=== PATIENT | female | born 1970 | race Caucasian/White ===

== ENCOUNTER 2022-12-05 00:42 | Observation (INO) ==
[2022-12-05] MEDS ORDERED: LORazepam 2 MG/1 ML VIAL IV STA (00:47)
--- NOTE | 2022-12-05 00:57 | Emergency Department Note ---
History of Present Illness General Chief complaint: Fall Stated complaint: FALL/RE-INJURED rt KNEE Time Seen by Provider: 12/05/22 00:46 History of Present Illness This 52-year-old female with severe fibromyalgia presents to the ER stating that she fell and reinjured her left knee and has severe pain throughout her joints. Patient states she was too weak to get up from the ground and no one in her family would come help her. Patient was just at a safe house as she is having problems with her . She even called her today to come help her up. Patient states she sat on the ground for 4 hours before someone came and helped her. Patient denies chest pain, dyspnea, headache, abdominal, vomiting, diarrhea. Patient is requesting admission. Past Med/Surg History Medical History Anxiety Asthma Depression Dyslipidemia Environmental and seasonal allergies Fibromyalgia Insomnia Peripheral neuropathy PTSD (post-traumatic stress disorder) Surgical History History of cholecystectomy History of colonoscopy History of tonsillectomy Social History Smoking Status: Unknown if ever smoked Preferred Language: Czech Feels Safe at Home: No Review of Systems A total of 10 systems reviewed and were otherwise negative Physical Exam Vital Signs Vital Signs - 24 hr 12/05/22 00:45 Temperature 37.1 C Temperature Source Oral Pulse Rate 83 Respiratory Rate 20 Respiratory Effort / Characteristics Non-Labored Spontaneous Respiratory Depth Normal Respiratory Pattern Regular Blood Pressure 174/110 H Blood Pressure Mean 131 Pulse Oximetry 98 Oxygen Delivery Method Room Air Sepsis Recent Fever Within 48 Hours No Sepsis New/Unexplained Change in Mental Status No Sepsis Action Taken by Nursing No Action Required VITALS: Vitals are noted on the nurse's note and reviewed by myself. Vital signs stable. GENERAL: White female, in no acute distress, nondiaphoretic, well-developed well-nourished. SKIN: The skin was without rashes, erythema, edema, or bruising. There is no tenting of the skin. Capillary reflex less than 2 seconds. HEAD: Normocephalic atraumatic. EARS: External auditory canals clear EYES: Pupils equal round and reactive to light and accommodation. Conjunctivae without injection, sclerae without icterus. Extraocular movements intact. NOSE: Patent, turbinates without inflammation or discharge. MOUTH: Mucous membranes moist. Pharynx without erythema or exudate. Uvula midline. Airway patent. Tongue does not deviate. NECK: Supple without nuchal rigidity. No lymphadenopathy. No thyromegaly. Cervical spine is nontender. No JVD. HEART: Regular rate and rhythm LUNGS: Clear to auscultation bilaterally without wheezes, rales or rhonchi. No retractions or accessory muscle use. ABDOMEN: Positive bowel sounds x 4. Normal tympanic percussion. Soft, nontender, without masses or organomegaly. Boyer sign negative. No guarding or rebound tenderness. No CVA tenderness MUSCULOSKELETAL: No muscle atrophy, erythema, or edema noted. Left knee tender to palpation with increased pain with range of motion. No deformity. All other extremities full range of motion. NEURO: Patient was alert and oriented to person place and time. Normal sensation to light and sharp touch. No focal neurological deficits. 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 Home Medications Current Medication List: was personally reviewed by or Laboratory Data Attestation: I reviewed the patient's lab results. 12/05/22 01:00 12/05/22 01:00 Lab Results 12/05/22 12/05/22 12/05/22 Range/Units 01:00 01:00 01:00 WBC 11.19 H (4.8-10.8) K/ul RBC 4.50 (4.20-5.40) M/uL Hgb 13.9 (12.0-16.0) g/dl Hct 40.6 (37.0-47.0) % MCV 90.2 (80.0-100.0) fL MCH 30.9 (25.0-34.0) pg MCHC 34.2 (32.0-36.0) g/dL RDW Std Deviation 42.8 (36.4-46.3) fL RDW Coeff of [place] 13.1 (11.5-14.5) % Plt Count 325 (130-400) K/uL MPV 10.5 (9.4-12.4) fL Immature Gran % (Auto) 0.4 % Neut % (Auto) 66.5 % Lymph % (Auto) 22.6 % [place] % (Auto) 5.9 % Eos % (Auto) 3.9 % Baso % (Auto) 0.7 % Neut # (Auto) 7.43 H (1.40-6.50) K/uL Lymph # (Auto) 2.53 (1.2-3.4) K/uL [place] # (Auto) 0.66 H (0.11-0.59) K/uL Eos # (Auto) 0.44 (0-0.50) K/uL Baso # (Auto) 0.08 (0-0.2) K/uL Immature Gran # (Auto) 0.05 (0.01-0.20) K/uL Sodium 141 (136-145) mmol/L Potassium 3.9 (3.5-5.1) mmol/L Chloride 108 H (98-107) mmol/L Carbon Dioxide 25 (21-32) mmol/L Anion Gap 8 (3-11) BUN 9 (6-23) mg/dl Creatinine 0.86 (0.6-1.2) mg/dl Est Cr Clr Drug Dosing 67.6 ml/min Est GFR ( Amer) 89.4 ml/min Est GFR (Non-Af Amer) 77.1 ml/min BUN/Creatinine Ratio 10.5 (10-20) Glucose 104 H (70-99(Fasting)) mg/dl Calcium 9.2 (8.6-10.3) mg/dl Magnesium 1.8 (1.7-2.4) mg/dl Total Bilirubin 0.5 (0.2-1.0) mg/dl AST 19 (13-39) U/L ALT 12 (7-52) U/L Alkaline Phosphatase 69 (34-104) U/L Total Creatine Kinase 43 (26-192) U/L Troponin I High Sens 2.7 (0-14) pg/ml Total Protein 6.7 (6.0-8.3) gm/dl Albumin 4.0 (3.4-5.0) gm/dl Globulin 2.7 (2.5-4.0) gm/dl Albumin/Globulin Ratio 1.5 (0.9-2) TSH 4.065 (0.300-4.500) uIu/ml SARS-CoV-2, RNA, NAAT (NEGATIVE) 12/05/22 Range/Units 01:00 WBC (4.8-10.8) K/ul RBC (4.20-5.40) M/uL Hgb (12.0-16.0) g/dl Hct (37.0-47.0) % MCV (80.0-100.0) fL MCH (25.0-34.0) pg MCHC (32.0-36.0) g/dL RDW Std Deviation (36.4-46.3) fL RDW Coeff of [place] (11.5-14.5) % Plt Count (130-400) K/uL MPV (9.4-12.4) fL Immature Gran % (Auto) % Neut % (Auto) % Lymph % (Auto) % [place] % (Auto) % Eos % (Auto) % Baso % (Auto) % Neut # (Auto) (1.40-6.50) K/uL Lymph # (Auto) (1.2-3.4) K/uL [place] # (Auto) (0.11-0.59) K/uL Eos # (Auto) (0-0.50) K/uL Baso # (Auto) (0-0.2) K/uL Immature Gran # (Auto) (0.01-0.20) K/uL Sodium (136-145) mmol/L Potassium (3.5-5.1) mmol/L Chloride (98-107) mmol/L Carbon Dioxide (21-32) mmol/L Anion Gap (3-11) BUN (6-23) mg/dl Creatinine (0.6-1.2) mg/dl Est Cr Clr Drug Dosing ml/min Est GFR ( Amer) ml/min Est GFR (Non-Af Amer) ml/min BUN/Creatinine Ratio (10-20) Glucose (70-99(Fasting)) mg/dl Calcium (8.6-10.3) mg/dl Magnesium (1.7-2.4) mg/dl Total Bilirubin (0.2-1.0) mg/dl AST (13-39) U/L ALT (7-52) U/L Alkaline Phosphatase (34-104) U/L Total Creatine Kinase (26-192) U/L Troponin I High Sens (0-14) pg/ml Total Protein (6.0-8.3) gm/dl Albumin (3.4-5.0) gm/dl Globulin (2.5-4.0) gm/dl Albumin/Globulin Ratio (0.9-2) TSH (0.300-4.500) uIu/ml SARS-CoV-2, RNA, NAAT NEGATIVE (NEGATIVE) Imaging Data Attestation: I personally reviewed and interpreted this imaging study as follows: MDM Narrative Prior records/ancillary studies reviewed and summarized above. Nursing notes reviewed. Additional history obtained from EMS. The patient's history was concerning for fall and generalized weakness unsafe environment. Differential diagnosis: Etiologies such as metabolic, infection, hypo/hyperglycemia, electrolyte abnormalities, cardiac sources, intracerebral event, toxicologic, neurologic, as well as others were entertained. Physical examination: As above. ER treatment provided: IV Lock An order was placed for continuous cardiac monitoring. The monitor shows a rate of 60-100 with a sinus rhythm per my interpretation. IV fluids and Ativan ordered On reassessment the patient felt better. Diagnostics interpretation by me: ECG: Ordered for weakness EKG: Normal sinus, normal intervals, no acute ST-T wave changes. Impression normal sinus rhythm independently interpreted by myself I think arrhythmia is unlikely. EKG shows normal sinus rhythm with no interval abnormalities such as QT prolongation or WPW. There are no findings to suggest Brugada syndrome. Cardiac monitoring in the emergency department reveals no tachycardic or bradycardic dysrhythmia. Hypertrophic cardiomyopathy was considered but there are no clear historical elements pointing toward this. EKG is not suggestive. The QRS voltage is not extremely large and there are no suggestive Q waves. The labs Independently Interpreted by myself revealed [] Imaging studies: Chest x-ray with no acute consolidation, pneumothorax or free air per my independent interpretation Knee x-ray with no acute fracture dislocation or effusion per my independent interpretation Consultation: A consultation was placed with the hospitalist. The case was discussed and diagnostics were reviewed. The patient was evaluated in the ER for further treatment. Exam and history seem consistent with fall with weakness who does not feel safe going home. Labs and diagnostics were independently interpreted by myself. Medicine is consulted and the case was discussed. She will be evaluated by the medical team for possible admission. By the evaluation outlined above emergent etiologies such as infection, electrolyte abnormalities, cardiac sources, intracerebral event, toxologic, neurologic, abnormalities blood glucose, metabolic, as well as others were deemed relatively unlikely. The pt informed about the findings as listed above. All questions were answered and pleased with the treatment. The chart was completed utilizing [employer] Speech voice recognition software. Grammatical errors, random word insertions, pronoun errors, and incomplete sentences are an occassional consequence of this system due to software limitations, ambient noise, and hardware issues. Any formal questions or concerns about the content, text, or information contained within the body of this dictation should be directly addressed to the physician clinic office assistant for clarification. Impression & Plan Fibromyalgia, Weakness, Acute knee pain Discharge Plan Visit Data Chief Complaint: Fall Stated Complaint: FALL/RE-INJURED rt KNEE ED Provider: Danie Major ED Midlevel Provider: Karina Johnston Discharge Problem: Fibromyalgia, Weakness, Acute knee pain Patient Disposition: Being Evaluated by Hospitalist Condition: Good Forms Stand Alone Forms: [facility] Referrals Referrals: Paco Orozco PA-C [Primary Care Provider] -
[2022-12-05] MEDS ORDERED: SODIUM CHLORIDE 0.9% 1000ML 1,000 ML IV SCH (01:00)
[2022-12-05 01:20] LABS: Basophils # (auto) 0.08 K/uL (0-0.2); Basophils % (auto) 0.7 %; Eosinophils # (auto) 0.44 K/uL (0-0.50); Eosinophils % (auto) 3.9 %; Hematocrit (blood only) 40.6 % (37.0-47.0); Hemoglobin 13.9 g/dl (12.0-16.0); Immature Granulocytes # (auto) 0.05 K/uL (0.01-0.20); Immature Granulocytes % (auto) 0.4 %; Lymphocytes # (auto) 2.53 K/uL (1.2-3.4); Lymphocytes % (auto) 22.6 %; Mean Corpuscular Hemoglobin 30.9 pg (25.0-34.0); Mean Corpuscular Hgb Conc 34.2 g/dL (32.0-36.0); Mean Corpuscular Volume 90.2 fL (80.0-100.0); Mean Platelet Volume 10.5 fL (9.4-12.4); Monocytes # (auto) 0.66 K/uL (0.11-0.59); Monocytes % (auto) 5.9 %; Neutrophils # (auto) 7.43 K/uL (1.40-6.50); Neutrophils % (auto) 66.5 %; Platelet Count 325 K/uL (130-400); RDW Coefficient of Variation 13.1 % (11.5-14.5); RDW Standard Deviation 42.8 fL (36.4-46.3); White Blood Count 11.19 K/ul (4.8-10.8)
[2022-12-05 01:37] LABS: Albumin Globulin Ratio 1.5 (0.9-2); BUN Creatinine Ratio 10.5 (10-20); Bilirubin,Total 0.5 mg/dl (0.2-1.0); Calcium 9.2 mg/dl (8.6-10.3); Creatinine Clr Calc Pharmacy 67.6 ml/min; Est GFR (African American) 89.4 ml/min; Est GFR (Non-African American) 77.1 ml/min; Globulin 2.7 gm/dl (2.5-4.0); Magnesium 1.8 mg/dl (1.7-2.4); Potassium 3.9 mmol/L (3.5-5.1); Total Protein 6.7 gm/dl (6.0-8.3)
[2022-12-05 01:44] LABS: Troponin I High Sensitivity 2.7 pg/ml (0-14)
[2022-12-05] MEDS ORDERED: POLYETHYLENE (MIRALAX) 17 GM PACK PO PRN (05:16)
[2022-12-05] MEDS ORDERED: MoRPHine SULFATE 4 MG/ML 1 ML CARP\\VIAL IV PRN (05:16)
[2022-12-05 05:21] LABS: Appearance Urine Clear (Clear); Bacteria Urine Automated Negative (Negative); Bilirubin Urine Negative (Negative); Blood Urine Negative (Negative); Cast Urine Automated 0 /lpf (0-5); Color Urine Yellow; Epithelial Cell Urine Auto >30 /lpf (0-5); Glucose Urine UA Negative (Negative); Ketones Urine Negative (Negative); Leukocyte Esterase Urine Trace (Negative); Nitrite Urine Negative (Negative); Protein Urine Negative (Negative); RBC Urine Automated 0-4 /hpf (0-4); Specific Gravity Urine 1.013 (1.000-1.030); Urobilinogen Urine Negative (Negative)
[2022-12-05] MEDS: ENOXAPARIN INJ 40 MG/0.4 ML SYR SQ SCH (05:49)
[2022-12-05 06:03] LABS: Amphetamines+Metham, Urine Neg (Neg); Barbiturates, Urine Neg (Neg); Benzodiazepine, Urine Neg (Neg); Cocaine, Urine Neg (Neg); MDMA (Ecstacy), Urine Neg (Neg); Methadone, Urine Neg (Neg); Opiate, Urine Neg (Neg); Phencyclidine, Urine Neg (Neg)
--- NOTE | 2022-12-05 07:39 | Electrocardiogram Report ---
Test Reason : Blood Pressure : / mmHG Vent. Rate : 083 BPM Atrial Rate : 083 BPM P-R Int : 172 ms QRS Dur : 070 ms QT Int : 366 ms P-R-T Axes : 016 002 005 degrees QTc Int : 430 ms Normal sinus rhythm Normal ECG When compared with ECG of 26-NOV-2022 20:33, No significant change was found Confirmed by Uziel Sanchez ([id number]) on 12/05/2022 7:39:25 AM Referred By: REFERRED SELF Confirmed By:Eduardo Sanchez
[2022-12-05] MEDS: ACETAMINOPHEN 325 MG TAB PO PRN ×2 (08:10→12:11)
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
--- NOTE | 2022-12-05 09:04 | XRay Report ---
XR knee LT 3V CLINICAL HISTORY: fall, pain TECHNIQUE: 3 views of the left knee were obtained. Comparison: None available at the time of this dictation. FINDINGS: There is no evidence of an acute fracture. Joint spaces are well-preserved. No joint effusion is seen . No soft tissue abnormality is seen. IMPRESSION: No evidence of acute osseous injury. ACT 112: Negative or not required by law. Electronically signed by: Justin May M.D. 12/05/2022 9:01 AM
--- NOTE | 2022-12-05 09:49 | XRay Report ---
XR chest 1V portable CLINICAL HISTORY: weakness TECHNIQUE: Single frontal radiograph of the chest was obtained. Comparison: None available at the time of this dictation. FINDINGS: No lines and tubes are seen. The cardiomediastinal silhouette is normal. The lungs are clear. No evid ence of pleural effusion or pneumothorax. IMPRESSION: No acute chest disease. ACT 112: Negative or not required by law. Electronically signed by: Justin May M.D. 12/05/2022 9:48 AM
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
[2022-12-05] MEDS: SODIUM CHLORIDE 0.9% 1000ML 1,000 ML IV SCH (16:03)
[2022-12-05] MEDS: LIDOCAINE 5% 1 PATCH TD SCH (17:17)
[2022-12-05] MEDS: PREGABALIN 75 MG CAP PO SCH (20:38)
[2022-12-05] MEDS: TEMAZEPAM 15 MG CAPSULE PO PRN (20:38)
[2022-12-06] MEDS: ACETAMINOPHEN 325 MG TAB PO PRN (03:45)
[2022-12-06] MEDS: SODIUM CHLORIDE 0.9% 1000ML 1,000 ML IV SCH ×2 (03:46→15:10)
[2022-12-06] MEDS: ENOXAPARIN INJ 40 MG/0.4 ML SYR SQ SCH (07:00)
[2022-12-06 07:58] LABS: Basophils # (auto) 0.07 K/uL (0-0.2); Basophils % (auto) 0.8 %; Eosinophils # (auto) 0.46 K/uL (0-0.50); Eosinophils % (auto) 5.5 %; Hematocrit (blood only) 38.6 % (37.0-47.0); Hemoglobin 13.2 g/dl (12.0-16.0); Immature Granulocytes # (auto) 0.04 K/uL (0.01-0.20); Immature Granulocytes % (auto) 0.5 %; Lymphocytes # (auto) 1.86 K/uL (1.2-3.4); Lymphocytes % (auto) 22.4 %; Mean Corpuscular Hemoglobin 30.9 pg (25.0-34.0); Mean Corpuscular Hgb Conc 34.2 g/dL (32.0-36.0); Mean Corpuscular Volume 90.4 fL (80.0-100.0); Mean Platelet Volume 10.8 fL (9.4-12.4); Monocytes # (auto) 0.56 K/uL (0.11-0.59); Monocytes % (auto) 6.8 %; Platelet Count 282 K/uL (130-400); RDW Coefficient of Variation 13.1 % (11.5-14.5); RDW Standard Deviation 42.6 fL (36.4-46.3); Red Blood Count 4.27 M/uL (4.20-5.40); White Blood Count 8.29 K/ul (4.8-10.8)
[2022-12-06 08:01] LABS: Calcium 8.8 mg/dl (8.6-10.3); Est GFR (African American) 93.3 ml/min; Est GFR (Non-African American) 80.5 ml/min; Phosphorus 3.2 mg/dl (2.5-4.9); Potassium 3.7 mmol/L (3.5-5.1)
[2022-12-06] MEDS: LIDOCAINE 5% 1 PATCH TD SCH (08:35)
[2022-12-06] MEDS: ROSUVASTATIN CALCIUM 10 MG TAB PO SCH (08:55)
--- NOTE | 2022-12-06 14:23 | Hospitalist Progress Note ---
Date of Service December 06, 2022 Assessment & Plan (1) Acute knee pain: (2) Chronic pain of left knee: Plan This is a 52-year-old female, who presents with fall and ambulatory dysfunction and knee pain. 1. Fall, ambulatory dysfunction, knee pain. Fell on the knee on 11/04/2022 and the MRI done on 11/30/2022 showing high- grade tear of the medial collateral ligament at its femoral attachment with any fibers remaining intact. [id number] patellofemoral chondromalacia, mild chondrosis of the medial compartment. Orthopedics recommended to use hinge knee brace and possible steroid shot in the future and physical therapy. Orthopedics consulted while inpt - Dr. Blackburn - (12/05/2022) She has acute worsening of chronic left knee pain with a fall in the shower about a month ago.Ligamentous exam today reveals no obvious instability. X- rays are unremarkable.She does not require any urgent orthopedic surgical intervention. I encouraged her to keep her left knee moving and strong with range of motion and weightbearing. I think it is perfectly safe to weight-bear as tolerated without any specific bracing or devices, as she has been doing this over the past month and has no obvious instability on exam. If the knee feels excessively painful or unstable to her when she is weightbearing, she can use a knee immobilizer as needed until she follows up with [facility] orthopedics as scheduled. 12/06 - today knee feels better and she worked w/ PT PT, OT evaluation. Pain control. Monitor in the hospital. 2. Obstructive sleep apnea. Continuous positive airway pressure at bedtime but last few days not using because she is not able to clean the machine. 3. Fibromyalgia, migraine, depression, posttraumatic stress disorder. Continue her home medications. 12/06 - Today complaining of migraine headache, and dizziness and nausea. Takes Nurtec for migraine headache, not available in the pharmacy here, however her was able to bring it and she took the medication. Currently also says that she is unable to eat due to nausea. She is frustrated as she reports that she has seen many specialists in the past, and they associate her symptoms with depression. We will consult PT for possible Archana maneuvers for possible BPPV. DVTppx Lovenox for now. DISPOSITION: medical floor. Expect to discharge home and follow with family doctor. Admission and Anticipated Discharge Date Admission Date: December 05, 2022 Subjective Patient seen in follow-up of left knee pain, generalized joint pain Patient seen by orthopedics yesterday, and "cleared", can weight-bear as tolerated. Seen by PT today. Left knee pain much improved, however she is now complaining of migraine headache, and dizziness and nausea. Takes Nurtec for migraine headache, not available in the pharmacy here, however her was able to bring it and she took the medication. Currently also says that she is unable to eat due to nausea. She is frustrated as she reports that she has seen many specialists in the past, and they associate her symptoms with depression. She does have neurology established now in [place], and sees Joleen Traore PA-C. No fevers chills chest pain shortness of breath abdominal pain Review of Systems Review of Systems: All systems reviewed & are unremarkable except as noted in Subjective Physical Exam Physical Exam: GENERAL: The patient is obese, not in acute distress. HEENT: NC. Pupils equal, round and reactive to light. Oral mucosa moist. NECK: No JVD, no neck masses. CARDIOVASCULAR: S1 and S2 heard. Regular rate and rhythm. No murmur, no gallop. RESPIRATORY: Normal AP diameter. No accessory muscle use. No wheezing or crackles. ABDOMEN: Soft, bowel sounds present, nontender, no distention. NEURO: Awake, aler and oriented. Speech is clear. No facial droop. Obeys commands. Moves extremities. EXTREMITIES: Tenderness in the bilateral knees, L>R (now much improved). No erythema seen. Results & Data Results & Data Vital Signs (Past 12 Hours) Vital Signs Temp Pulse Resp BP Pulse Ox O2 Del Method 12/06/22 07:47 36.9 C 82 16 127/88 96 Room Air Laboratory Results 12/06/22 12/06/22 Range/Units 07:00 07:00 WBC 8.29 (4.8-10.8) K/ul RBC 4.27 (4.20-5.40) M/uL Hgb 13.2 (12.0-16.0) g/dl Hct 38.6 (37.0-47.0) % MCV 90.4 (80.0-100.0) fL MCH 30.9 (25.0-34.0) pg MCHC 34.2 (32.0-36.0) g/dL RDW Std Deviation 42.6 (36.4-46.3) fL RDW Coeff of [place] 13.1 (11.5-14.5) % Plt Count 282 (130-400) K/uL MPV 10.8 (9.4-12.4) fL Immature Gran % (Auto) 0.5 % Neut % (Auto) 64.0 % Lymph % (Auto) 22.4 % Mobile % (Auto) 6.8 % Eos % (Auto) 5.5 % Baso % (Auto) 0.8 % Neut # (Auto) 5.30 (1.40-6.50) K/uL Lymph # (Auto) 1.86 (1.2-3.4) K/uL Mobile # (Auto) 0.56 (0.11-0.59) K/uL Eos # (Auto) 0.46 (0-0.50) K/uL Baso # (Auto) 0.07 (0-0.2) K/uL Immature Gran # (Auto) 0.04 (0.01-0.20) K/uL Sodium 141 (136-145) mmol/L Potassium 3.7 (3.5-5.1) mmol/L Chloride 109 H (98-107) mmol/L Carbon Dioxide 24 (21-32) mmol/L Anion Gap 8 (3-11) BUN 10 (6-23) mg/dl Creatinine 0.83 (0.6-1.2) mg/dl Est Cr Clr Drug Dosing 79.0 ml/min Est GFR ( Amer) 93.3 ml/min Est GFR (Non-Af Amer) 80.5 ml/min BUN/Creatinine Ratio 12.0 (10-20) Glucose 92 (70-99(Fasting)) mg/dl Calcium 8.8 (8.6-10.3) mg/dl Phosphorus 3.2 (2.5-4.9) mg/dl Magnesium 2.0 (1.7-2.4) mg/dl Medications Administered Current Inpatient Medications Acetaminophen (Acetaminophen 325 Mg Tab) 650 mg PO Q4H PRN PRN Reason: pain/fever Stop: 01/04/23 05:15 Last Admin: 12/06/22 03:45 Dose: 650 mg Clonazepam (Clonazepam 0.5 Mg Tab) 0.5 mg PO BID PRN PRN Reason: Anxiety Stop: 01/04/23 09:37 Enoxaparin Sodium (Enoxaparin Inj 40 Mg/0.4 Ml Syr) 40 mg SQ Q24H [facility] Stop: 01/04/23 05:59 Last Admin: 12/06/22 07:00 Dose: 40 mg Sodium Chloride (Nss 1000ml) 1,000 mls @ 80 mls/hr IV .[id number] [facility] Stop: 01/04/23 15:59 Last Admin: 12/06/22 03:46 Dose: 80 mls/hr Lidocaine (Lidocaine 5% 1 Patch) 1 patch TD DAILY [facility] Stop: 01/04/23 16:05 Last Admin: 12/06/22 08:35 Dose: 1 patch Miscellaneous (Remove Lidoderm Patch) 1 each N/A DAILY@2100 [facility] Stop: 01/04/23 20:59 Last Admin: 12/05/22 20:47 Dose: 1 each Morphine Sulfate (Morphine Sulfate 4 Mg/Ml 1 Ml Carp\\Vial) 3 mg IV Q4H PRN PRN Reason: Severe Pain (Scale 7, 8, 9,10) Stop: 12/19/22 05:15 Polyethylene Glycol (Polyethylene (Miralax) 17 Gm Pack) 17 gm PO DAILY PRN PRN Reason: Constipation Stop: 01/04/23 05:15 Pregabalin (Pregabalin 75 Mg Cap) 75 mg PO HS [facility] Stop: 01/04/23 20:59 Last Admin: 12/05/22 20:38 Dose: 75 mg Rosuvastatin Calcium (Rosuvastatin Calcium 10 Mg Tab) 10 mg PO QAM [facility] Stop: 01/05/23 08:59 Last Admin: 12/06/22 08:55 Dose: 10 mg Temazepam (Temazepam 15 Mg Capsule) 30 mg PO HSZ PRN PRN Reason: Insomnia Stop: 01/04/23 09:37 Last Admin: 12/05/22 20:38 Dose: 30 mg
[2022-12-06] MEDS: PREGABALIN 75 MG CAP PO SCH (20:44)
[2022-12-06] MEDS: clonazePAM 0.5 MG TAB PO PRN (20:44)
[2022-12-06] MEDS: TEMAZEPAM 15 MG CAPSULE PO PRN (20:44)
[2022-12-07] MEDS: SODIUM CHLORIDE 0.9% 1000ML 1,000 ML IV SCH ×2 (03:05→14:03)
[2022-12-07] MEDS: ENOXAPARIN INJ 40 MG/0.4 ML SYR SQ SCH (06:19)
[2022-12-07 07:44] LABS: BUN Creatinine Ratio 10.4 (10-20); Calcium 8.9 mg/dl (8.6-10.3); Creatinine Clr Calc Pharmacy 85.2 ml/min; Est GFR (African American) 102.2 ml/min; Est GFR (Non-African American) 88.2 ml/min; Potassium 3.5 mmol/L (3.5-5.1)
[2022-12-07] MEDS: ROSUVASTATIN CALCIUM 10 MG TAB PO SCH (08:32)
[2022-12-07] MEDS: LIDOCAINE 5% 1 PATCH TD SCH (08:33)
[2022-12-07] MEDS ORDERED: POTASSIUM CHLORIDE CRTAB 20 MEQ TABCR PO STA (09:29)
[2022-12-07] MEDS: ACETAMINOPHEN 325 MG TAB PO PRN (12:15)
--- NOTE | 2022-12-07 15:24 | Hospitalist Progress Note ---
Date of Service December 07, 2022 Assessment & Plan (1) Acute knee pain: (2) Chronic pain of left knee: Plan This is a 52-year-old female, who presents with fall and ambulatory dysfunction and knee pain. 1. Fall, ambulatory dysfunction, knee pain. Fell on the knee on 11/04/2022 and the MRI done on 11/30/2022 showing high- grade tear of the medial collateral ligament at its femoral attachment with any fibers remaining intact. [id number] patellofemoral chondromalacia, mild chondrosis of the medial compartment. Orthopedics recommended to use hinge knee brace and possible steroid shot in the future and physical therapy. Orthopedics consulted while inpt - Dr. Blackburn - (12/05/2022) She has acute worsening of chronic left knee pain with a fall in the shower about a month ago.Ligamentous exam today reveals no obvious instability. X- rays are unremarkable.She does not require any urgent orthopedic surgical intervention. I encouraged her to keep her left knee moving and strong with range of motion and weightbearing. I think it is perfectly safe to weight-bear as tolerated without any specific bracing or devices, as she has been doing this over the past month and has no obvious instability on exam. If the knee feels excessively painful or unstable to her when she is weightbearing, she can use a knee immobilizer as needed until she follows up with [facility] orthopedics as scheduled. 12/06 - today knee feels better and she worked w/ PT PT, OT evaluation. Pain control. Monitor in the hospital. 2. Diarrhea - Since Tuesday obtain stool studies. Continue IV fluids, potassium supplement as needed 3. Obstructive sleep apnea. Continuous positive airway pressure at bedtime but last few days not using because she is not able to clean the machine. 4. Fibromyalgia, migraine, depression, posttraumatic stress disorder. Continue her home medications. 12/06 - Today complaining of migraine headache, and dizziness and nausea. Takes Nurtec for migraine headache, not available in the pharmacy here, however her was able to bring it and she took the medication. Currently also says that she is unable to eat due to nausea. She is frustrated as she reports that she has seen many specialists in the past, and they associate her symptoms with depression. Consulted PT for possible Archana maneuvers for possible BPPV. 12/07 -migraine has resolved today. DVTppx Lovenox for now. DISPOSITION: medical floor. Expect to discharge home and follow with family doctor. Admission and Anticipated Discharge Date Admission Date: December 05, 2022 Subjective Patient seen in follow-up of left knee pain, generalized joint pain , and multiple other problems Patient seen by orthopedics and she can weight-bear as tolerated. Seen by PT as well. Left knee pain much improved, and migraine is resolved now. Overall she does seem improved and even smiles occasionally. No fevers chills chest pain shortness of breath. She is frustrated as she reports that she has seen many specialists in the past, and they associate her symptoms with depression. She now says that she is in the process of getting a different PCP -"one that will listen to her". Her is arranging that. I asked her to let us know which PCP she will have appointment with, so that we can send records to them after her hospital stay. She says she has been having diarrhea since Tuesday. We will obtain stool studies, continue IV fluids and potassium supplement for now. Of note, She does have neurology established now in [place], and sees Joleen Traore PA-C. Review of Systems Review of Systems: All systems reviewed & are unremarkable except as noted in Subjective Physical Exam Physical Exam: GENERAL: The patient is obese, not in acute distress. HEENT: NC. Pupils equal, round and reactive to light. Oral mucosa moist. NECK: No JVD, no neck masses. CARDIOVASCULAR: S1 and S2 heard. Regular rate and rhythm. No murmur, no gallop. RESPIRATORY: Normal AP diameter. No accessory muscle use. No wheezing or crackles. ABDOMEN: Soft, bowel sounds present, nontender, no distention. NEURO: Awake, aler and oriented. Speech is clear. No facial droop. Obeys commands. Moves extremities. EXTREMITIES: Tenderness in the bilateral knees, L>R (now much improved). No erythema seen. Results & Data Results & Data Vital Signs (Past 12 Hours) Vital Signs Temp Pulse Resp BP Pulse Ox O2 Del Method 12/07/22 07:05 37.0 C 79 18 111/76 94 Room Air Laboratory Results 12/07/22 12/07/22 Range/Units 14:00 06:30 Sodium 140 (136-145) mmol/L Potassium 3.5 (3.5-5.1) mmol/L Chloride 108 H (98-107) mmol/L Carbon Dioxide 25 (21-32) mmol/L Anion Gap 7 (3-11) BUN 8 (6-23) mg/dl Creatinine 0.77 (0.6-1.2) mg/dl Est Cr Clr Drug Dosing 85.2 ml/min Est GFR ( Amer) 102.2 ml/min Est GFR (Non-Af Amer) 88.2 ml/min BUN/Creatinine Ratio 10.4 (10-20) Glucose 86 (70-99(Fasting)) mg/dl Calcium 8.9 (8.6-10.3) mg/dl Magnesium 2.0 (1.7-2.4) mg/dl Stl C. cayetanensis PCR Pending Stool Rotavirus A PCR Pending Stl Adenov F 40/41 PCR Pending Stool Astrovirus (PCR) Pending Stool Campylobacter PCR Pending Stool Cryptosporidium PCR Pending Stl E.coli Shiga Tox PCR Pending Stl Enterotoxigenic E PCR Pending Stool EAEC (PCR) Pending Stl E. histolytica PCR Pending Stool Giardia Lamblia PCR Pending Stool Salmonella PCR Pending Stool Sapovirus (PCR) Pending Stl P. shigelloides PCR Pending Stl Shigella/EIEC PCR Pending St Y.enterocolitica PCR Pending Stool Vibrio (PCR) Pending Stl Vibrio cholerae PCR Pending Stl Norovirus GI/GII PCR Pending Medications Administered Current Inpatient Medications Acetaminophen (Acetaminophen 325 Mg Tab) 650 mg PO Q4H PRN PRN Reason: pain/fever Stop: 01/04/23 05:15 Last Admin: 12/07/22 12:15 Dose: 650 mg Clonazepam (Clonazepam 0.5 Mg Tab) 0.5 mg PO BID PRN PRN Reason: Anxiety Stop: 01/04/23 09:37 Last Admin: 12/06/22 20:44 Dose: 0.5 mg Enoxaparin Sodium (Enoxaparin Inj 40 Mg/0.4 Ml Syr) 40 mg SQ Q24H [facility] Stop: 01/04/23 05:59 Last Admin: 12/07/22 06:19 Dose: 40 mg Sodium Chloride (Nss 1000ml) 1,000 mls @ 80 mls/hr IV .[id number] [facility] Stop: 01/04/23 15:59 Last Admin: 12/07/22 14:03 Dose: 80 mls/hr Lidocaine (Lidocaine 5% 1 Patch) 1 patch TD DAILY [facility] Stop: 01/04/23 16:05 Last Admin: 12/07/22 08:33 Dose: 1 patch Miscellaneous (Remove Lidoderm Patch) 1 each N/A DAILY@2100 [facility] Stop: 01/04/23 20:59 Last Admin: 12/06/22 20:46 Dose: 1 each Morphine Sulfate (Morphine Sulfate 4 Mg/Ml 1 Ml Carp\\Vial) 3 mg IV Q4H PRN PRN Reason: Severe Pain (Scale 7, 8, 9,10) Stop: 12/19/22 05:15 Polyethylene Glycol (Polyethylene (Miralax) 17 Gm Pack) 17 gm PO DAILY PRN PRN Reason: Constipation Stop: 01/04/23 05:15 Pregabalin (Pregabalin 75 Mg Cap) 75 mg PO HS [facility] Stop: 01/04/23 20:59 Last Admin: 12/06/22 20:44 Dose: 75 mg Rosuvastatin Calcium (Rosuvastatin Calcium 10 Mg Tab) 10 mg PO QAM [facility] Stop: 01/05/23 08:59 Last Admin: 12/07/22 08:32 Dose: 10 mg Temazepam (Temazepam 15 Mg Capsule) 30 mg PO HSZ PRN PRN Reason: Insomnia Stop: 01/04/23 09:37 Last Admin: 12/06/22 20:44 Dose: 30 mg
[2022-12-07 15:46] LABS: Adenovirus F 40/41 PCR Not Detected (NotDetected); Astrovirus PCR Not Detected (NotDetected); Campylobacter PCR Not Detected (NotDetected); Cryptosporidium PCR Not Detected (NotDetected); Cyclospora cayetanensis PCR Not Detected (NotDetected); Entamoeba histolytica PCR Not Detected (NotDetected); Enteroaggregative E.coli(EAEC) Not Detected (NotDetected); Enteropathogenic E.coli (EPEC) Not Detected (NotDetected); Enterotoxigenic E.coli (ETEC) Not Detected (NotDetected); Giardia lamblia PCR Not Detected (NotDetected); Norovirus GI/GII PCR Not Detected (NotDetected); Plesiomonas shigelloides PCR Not Detected (NotDetected); Rotavirus A PCR Not Detected (NotDetected); Salmonella PCR Not Detected (NotDetected); Sapovirus PCR Not Detected (NotDetected); Shiga-like Toxin E.coli (STEC) Not Detected (NotDetected); Shigella/Enteroinvasive E.coli Not Detected (NotDetected); Vibrio cholerae PCR Not Detected (NotDetected); Vibrio species PCR Not Detected (NotDetected); Yersinia enterocolitica PCR Not Detected (NotDetected)
[2022-12-07] MEDS: TEMAZEPAM 15 MG CAPSULE PO PRN (20:32)
[2022-12-07] MEDS: clonazePAM 0.5 MG TAB PO PRN (20:32)
[2022-12-07] MEDS: PREGABALIN 75 MG CAP PO SCH (20:33)
[2022-12-08] MEDS: SODIUM CHLORIDE 0.9% 1000ML 1,000 ML IV SCH (02:31)
[2022-12-08] MEDS: ENOXAPARIN INJ 40 MG/0.4 ML SYR SQ SCH (05:58)
[2022-12-08 07:37] LABS: BUN Creatinine Ratio 16.7 (10-20); Calcium 8.7 mg/dl (8.6-10.3); Creatinine Clr Calc Pharmacy 91.1 ml/min; Est GFR (African American) 110.8 ml/min; Est GFR (Non-African American) 95.6 ml/min; Magnesium 1.9 mg/dl (1.7-2.4); Phosphorus 3.2 mg/dl (2.5-4.9); Potassium 3.8 mmol/L (3.5-5.1)
[2022-12-08] MEDS: LIDOCAINE 5% 1 PATCH TD SCH (09:02)
[2022-12-08] MEDS: ROSUVASTATIN CALCIUM 10 MG TAB PO SCH (09:03)
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
== END 2022-12-08 13:56 | disposition home or self-care (01) | DRG 554 ==
LOC: ED 00:42 → INTOOBSV 04:16 → 3W 04:16 → SUATTDRO 04:16 → 3W 04:52

== ENCOUNTER 2023-06-12 19:19 | Inpatient (IN) ==
--- OUTSIDE RECORDS SUMMARY | 2023-06-12 19:27 | External Medical Summary | Summary of Care ---
Author Name Unknown Organization [facility] Address [address] [facility] [place] [address] Phone [phone] Care Team Providers Care Senior Operations Analyst Name Role Phone Leonila Angel DO Primary Care Provider Encounter Details Date Type Department Care Team (Late st Contact Info) Description 06/07/2023 Telephone Pulmonary Medicine, [facility] [address] [place] [id number] Brenda Ramos DO [address] [place] [id number] Allergies Active Allergy Reactions Criticality Noted Date Comments Gold-Containing Drug Products 04/23/2022 Penicillins Rash 04/23/2022 Pollen 03/10/2023 Mirtazapine Other (Please comment) 12/10/2022 SOB Soybean-Containing Drug Products 03/10/2023 Sulfa Antibiotics Rash 04/23/2022 Topiramate 04/23/2022 Blurry vision Wound Dressing Adhesive 03/10/2023 documented as of this encounter (statuses as of 06/07/2023) Medications Medication Sig Dispensed Refills Start Date End Date Status Magnesium Citrate Powder Use as directed. 0 Active clonazePAM 1 MG Oral Tablet (KlonoPIN)Indicatio ns:Generalized anxiety disorder,Panic disorder Take 0.5 Tablets by mouth 2 times a day as needed for Anxiety or Insomnia. 30 Tablet 0 08/23/2022 Active Vitamin C 500 MG Oral Capsule Take 1,000 mg by mouth in the morning. 0 Active Zinc 50 MG Oral Capsule Take 1 Capsule by mouth in the morning. 0 Active B Complex-C Oral Capsule Take by mouth. 0 Active [place] 3 1000 MG Oral Capsule Take by mouth. 0 Active Co Q 10 100 MG Oral Capsule Take by mouth. 0 Active D-Ribose Powder Use as directed. 0 Act chaparro Fluticasone Furoate-Vilanterol 100-25 MCG/ACT Inhalation Aerosol Powder Breath Activated (BREO ellipta) Inhale 1 Puff by mouth in the morning. 60 Each 11 01/07/2023 Active Ventolin HFA 108 (90 Base) MCG/ACT Inhalation Aerosol Solution Inhale 2 Puffs by mouth every 4 hours as needed for Shortness of Breath. 18 g 1 01/07/2023 Active Additional Information Patient not taking.Reported on 06/01/2023 Fluticasone Propionate 50 MCG/ACT Nasal Suspension 0 Active Azelastine-Fluticas one 137-50 MCG/ACT Nasal SuspensionIndicatio ns:Allergic rhinitis, unspecified seasonality, unspecified trigger Administer 1 [place] into nostril in the morning and 1 [place] before bedtime. Use in each nostril as directed. 23 g 5 02/14/2023 Active Rosuvastatin Calcium 10 MG Oral Tablet (Crestor) Take 1 Tablet by mouth in the morning. 90 Tablet 3 02/16/2023 Active Clindamycin Phosphate 1 % External GelIndications:Foll iculitis,Acne excoriee Apply 2x daily to new or resolving spots on face/chin/body (can use more instead of scratching or picking at lesions) 60 g 3 02/22/2023 Active CPAP every night at bedtime. Autopap 7-10 cm 0 Active Cyclobenzaprine HCl 10 MG Oral Tablet (Flexeril)Indicatio ns:Muscle spasms of both lower extremities Take 1 Tablet by mouth 3 times a day as needed for Muscle spasms. 30 Tablet 0 03/15/2023 Active Aimovig 140 MG/ML Subcutaneous Solution Auto-injector (Erenumab-aooe) Inject 1 mL under the skin Every Month. 1 mL 11 04/19/2023 Active Prazosin HCl 2 MG Oral Capsule (Minipress) Take one 2mg capsule at bedtime for two weeks, if tolerating increase to two 2mg tabs at bedtime 60 Capsule 3 04/19/2023 Active Naratriptan HCl 2.5 MG Oral Tablet (Amerge) Take 1 tablet at start of headache, may repeat once at 2 hours. Take up to 2 days a week. 9 Tablet 11 04/19/2023 Active Ondansetron HCl 4 MG Oral Tablet (Zofran) Take 1 Tablet by mouth every 8 hours as needed for Nausea. Max 3 days per week. 30 Tablet 3 04/19/2023 Active Pregabalin 75 MG Oral Capsule (Lyrica) TAKE 1 CAPSULE BY MOUTH EVERYDAY AT BEDTIME 30 Capsule 2 05/16/2023 Active Zolpidem Tartrate ER 12.5 MG Oral Tablet Extended ReleaseIndications: Insomnia, persistent Take 1 Tablet by mouth at bedtime as needed for Sleep. 30 Tablet 0 05/20/2023 Active Propranolol HCl 10 MG Oral Tablet (Inderal) 1 tab three times daily 270 Tablet 2 06/02/2023 Active documented as of this encounter (statuses as of 06/07/2023) Active Problems Problem Noted Date Diagnosed Date Abdominal discomfort 12/23/2022 Lung nodule 12/23/2022 Polyarthralgia 12/23/2022 Neuropathy 12/23/2022 Small fiber neuropathy 12/23/2022 Dehydration 12/23/2022 Sprain of medial collateral ligament of left kne e 12/23/2022 Patellofemoral pain syndrome 12/23/2022 Severe episode of recurrent major depressive disorder, without psychotic features 07/28/2022 Migraine with aura and witho ut status migrainosus, not intractable 04/23/2022 Hyperlipidemia with target LDL less than 100 Fibromyalgia 04/23/2022 Other insomnia 04/23/2022 PTSD (post-traumatic stress disorder) 04/23/2022 LISA (obstructive sleep apnea) 04/23/2022 Asthma 04/23/2022 documented as of this encounter (statuses as of 06/07/2023) Immunizations Name Administration Dates Next Due Seasonal Influenza Virus Vac cine, Unspecified Formulation 04/23/2022 Seasonal Influenza, PF, 6 M & above, IM , (FluLaval or Fluzone) 06/01/2023,04/23/2022 Zoster Vaccine Recombinant (Shingrix) 07/28/2022 ,04/23/2022 documented as of this encounter Social History Tobacco Use Types Packs/Day Years Used Date Smoking Tobacco: Never Smokeless Tobacco: Never Alcohol Use Standard Drinks/Week Comments Yes 0 (1 standard drink = 0.6 oz pure alcohol) , very rare, approx once every few years. PHQ-2 Answer Date Recorded PHQ Adult Total Score 16 11/12/2022 Hunger Vital Sign Answer Date Recorded Within the past 12 months, y ou worried that your food would run out before you got the money to buy more. Never true 03/03/20 23 Within the past 12 months, t he food you bought just didn't last and you didn't have money to get more. Never true 03/03/2023 Sex and Gender Information Value Date Recorded Sex Assigned at Female 05/13/2022 9:53 PM EST Gender Identity Female 05/13/2022 9:53 PM EST Sexual Orientation Straight 05/13/2022 9: 53 PM EST Job Start Date Occupation Industry Not on file Not on file Not on file documented as of this encounter Miscellaneous Notes * Telephone Encounter - Richie Richards OSA - 06/07/2023 8:49 AM EST Orders in 06/07 adapt supplies documented in this encounter Plan of Treatment Upcoming Encounters Date Type Department Care Team (Late st Contact Info) Description 06/10/2023 9:00 AM EST Office Visit Rheumatology, [place] [address] [place] [address] Danie Parker DO [address] [place] [address] 06/13/2023 8:30 AM EST Office Visit Orthopaedics [facility] [address] [facility] [place] [address] Theron Pineda, [address] [facility] [place] [address] 06/22/2023 12:00 PM EST Office Visit Gastroenterology, [facility] [address] [facility] [place] [address] Vaughn Powell CRNP [address] [place] [id number] 07/29/2023 1:00 PM EST Telemedicine Psychiatry, [facility] [address] [place] [address] Raphael Annabel ElenaNERI owens [address] [place] [address] 08/17/2023 1:30 PM EST Office Visit Allergy/Immunology, [place] [address] [place] [address] Danie Corona MD [address], [place] [id number] 08/23/2023 1:20 PM EST Office Visit Dermatology, [address] [address] Melisa Chin, PA-Kirill [address] [place] [address] [place] [id number] 12/07/2023 11:20 AM EDT Office Visit [facility] [address] [place] [id number] Brenda Ramos DO [address] [place] [id number] 02/06/2024 2:30 PM EDT Office Visit Rheumatology, [place] [address], [place] [id number] Marla Moon CRNP [address] [place] [address] Scheduled Procedures Name Priority Associated Diagnoses Date/Ti me COLONOSCOPY FLEXIBLE PROXIMAL DIAGNOSTIC Recall History of colon polyps Health Maintenance Due Date Last Done Comments Hepatitis B (1 of 3 - 3-dose series) 1969 COVID-19 Vaccine (#1) 1969 Pneumococcal Vaccine: Pediatrics (0 to 5 Years) and At-Risk Patients (6 to 64 Years) (1 - PCV) 1975 HIV Screening 1984 Hepatitis C Screening 1987 DTaP,Tdap,and Td Vaccines (1 - Tdap) 1988 HPV/Co-Test 1999 Depression, Most Recent Score >= 10 (will fire each visit until score < 10) 11/13/2022 11/12/2022 Mammogram 03/09/2024 03/09/2023 Cervical Cancer Screening 04/27/2025 Pap Smear 04/27/2025 04/27/2022 Diabetes Screening 02/02/2026 02/02/2023, 1 , 12/10/2019, Additional history exists Lipid Panel 04/23/2027 04/23/2022 COLONOSCOPY-EVERY 5 YRS AGES 18-100 03/14/2028 03/14/2023, 03/14/2023 Zoster Vaccines Completed 07/28/2022, 04/23/2022 Colonoscopy Discontinued 03/14/2023, 03/14/2023 Colorectal Cancer Screening Discontinued Influenza Vaccine (FLU shot) Completed 06/01/2023, 04/23/2022, 04/23/2022 Cologuard Discontinued Fecal Occult Blood Test Discontinued GARDASIL-HPV IMMUNIZATION SERIES Aged Out No longer eligible based on patient's age to complete this topic MENINGOCOCCAL (MENACTRA/MENVEO) Aged Out No longer eligible based on patient's age to complete this topic Sigmoidoscopy Discontinued documented as of this encounter Medical Devices Not on filedocumented as of this encounter Care Teams Senior Operations Analyst Relationship Specialty Start Date End Date Leonila Angel DO [address] [place] [address] PCP - General Family Medicine 02/03/23 documented as of this encounter
--- OUTSIDE RECORDS SUMMARY | 2023-06-12 19:27 | External Medical Summary | Summary of Care ---
Author Name Unknown Organization [facility] Address [address] [place] [address] Phone [phone] Care Team Providers Care Loss Control Manager Name Role Phone Tomfrances Leonila Perezly Primary Care Provider Reason for Visit * Reason Comments Outpatient Testing Encounter Details Date Type Department Care Team (Late st Contact Info) Description 06/01/2023 1:10 PM EST Laboratory Outpatient Laboratory, [place] [address] [place] [address] [place], Lab B1a [address] [place] [address] Fibromyalgia Allergies Active Allergy Reactions Criticality Noted Date Comments Gold-Containing Drug Products 04/23/2022 Penicillins Rash 04/23/2022 Pollen 03/10/2023 Mirtazapine Other (Please comment) 12/10/2022 SOB Soybean-Containing Drug Products 03/10/2023 Sulfa Antibiotics Rash 04/23/2022 Topiramate 04/23/2022 Blurry vision Wound Dressing Adhesive 03/10/2023 documented as of this encounter (statuses as of 06/01/2023) Medications Medication Sig Dispensed Refills Start Date [...] Oral Capsule Take by mouth. 0 Active [place] 3 1000 MG Oral Capsule Take by [...] rhinitis, unspecified seasonality, unspecified trigger Administer 1 [place] into nostril in the morning and 1 [place] before bedtime. Use in each nostril as [...] Muscle spasms. 30 Tablet 0 03/15/2023 Active Propranolol HCl 10 MG Oral Tablet (Inderal) 1 tab three times daily 90 Tablet 2 2023 Active Aimovig 140 MG/ML Subcutaneous Solution Auto-injector [...] for Sleep. 30 Tablet 0 05/20/2023 Active documented as of this encounter (statuses as of 06/01/2023) Active Problems Problem Noted Date Diagnosed Date [...] as of this encounter (statuses as of 06/01/2023) Immunizations Name Administration Dates Next Due SEASONAL INFLUENZA, PF, 6 M & Above, IM , (FLULAVAL or FLUZONE) 06/01/2023,04/23/2022 Seasonal Influenza Virus Vac cine, Unspecified Formulation 04/23/2022 Zoster Vaccine Recombinant (Shingrix) 07/28/2022 ,04/23/2022 documented [...] on file documented as of this encounter Plan of Treatment Upcoming Encounters Date Type Department Care Team (Late st Contact Info) Description 06/06/2023 10:00 AM EST Office Visit Sleep Disorders Ctr [facility] [address] [facility] [place] [id number] Brenda Ramos, 132 [facility] [place] [address] 06/10/2023 9:00 AM EST Office Visit Rheumatology, [place] [address] [place] [address] [place] [address] [place] [address] 06/13/2023 8:30 AM EST Office Visit Orthopaedics [facility] [address] [facility] [place] [address] Theron Pineda, DO 132 [facility] [place] [address] 06/22/2023 12:00 PM EST Office Visit Gastroenterology, [facility] [address] [facility] [place] [address] Vaughn Powell CRNP [address] [place] [address] 07/29/2023 1:00 PM EST Telemedicine Psychiatry, [facility] [address] [place] [address] Annabel Lim CRNP [address] [place] [address] 08/17/2023 1:30 PM EST Office Visit Allergy/Immunology, [place] [address] [place] [address] Danie Corona MD [address] [place], [place] [id number] 08/23/2023 1:20 PM EST Office Visit Dermatology, [address] [address] Melisa Chin, [place] [address] [place] [address] [place] [address] 02/06/2024 2:30 PM EDT Office Visit Rheumatology, [place] [address], [place] [id number] Marla Moon CRNP [address], [place] [id number] Scheduled Procedures Name Priority Associated Diagnoses Date/Ti [...] Not on filedocumented as of this encounter Visit Diagnoses Diagnosis Fibromyalgia Mylagia and myositis, unspecified documented in this encounter Care Teams Loss Control Manager Relationship Specialty Start Date End Date Leonila Angel DO [address] [place] [address] PCP - General Family Medicine 02/03/23 documented as of this encounter
--- OUTSIDE RECORDS SUMMARY | 2023-06-12 19:27 | External Medical Summary | Summary of Care ---
Author Name Unknown Organization [facility] Address [address] [facility] [place] [address] Phone [phone] Care Team Providers Care Development Associate Name Role Phone Leonila Angel DO Primary Care Provider Encounter Details Date Type Department Care Team (Late st Contact Info) Description 05/12/2023 Telephone Gynecology/Obstetrics [facility] [address] [place] [address] Chris Walker MD [address] [place] [address] Allergies Active Allergy Reactions Criticality Noted Date Comments Gold-Containing Drug Products 04/23/2022 Penicillins Rash 04/23/2022 Pollen 03/10/2023 Mirtazapine Other (Please comment) 12/10/2022 SOB Soybean-Containing Drug Products 03/10/2023 Sulfa Antibiotics Rash 04/23/2022 Topiramate 04/23/2022 Blurry vision Wound Dressing Adhesive 03/10/2023 documented as of this encounter (statuses as of 05/12/2023) Medications Medication Sig Dispensed Refills Start Date End Date Status Magnesium Citrate Powder Use as directed. 0 Active clonazePAM 1 MG Oral Tablet (KlonoPIN)Indication s:Generalized anxiety disorder,Panic disorder Take 0.5 Tablets by mouth 2 times a day as needed for Anxiety or Insomnia. 30 Tablet 0 08/23/2022 Active Vitamin C 500 MG Oral Capsule Take 1,000 mg by mouth in the morning. 0 Active Zinc 50 MG Oral Capsule Take 1 Capsule by mouth in the morning. 0 Active B Complex-C Oral Capsule Take by mouth. 0 Active [place] 3 1000 MG Oral Capsule Take by [...] of Breath. 18 g 1 01/07/2023 Active Pregabalin 75 MG Oral Capsule (Lyrica) TAKE 1 CAPSULE BY MOUTH EVERYDAY AT BEDTIME 30 Capsule 2 02/09/2023 Active Fluticasone Propionate 50 MCG/ACT Nasal Suspension 0 Active Azelastine-Fluticaso ne 137-50 MCG/ACT Nasal SuspensionIndication s:Allergic rhinitis, unspecified seasonality, unspecified trigger Administer 1 [place] into nostril in the morning and 1 [place] before bedtime. Use in each nostril as directed. 23 g 5 02/14/2023 Active Rosuvastatin Calcium 10 MG Oral Tablet (Crestor) Take 1 Tablet by mouth in the morning. 90 Tablet 3 02/16/2023 Active Clindamycin Phosphate 1 % External GelIndications:Folli culitis,Acne excoriee Apply 2x daily to new or resolving spots on face/chin/body (can use more instead of scratching or picking at lesions) 60 g 3 02/22/2023 Active Ramelteon 8 MG Oral Tablet (Rozerem)Indications :Insomnia, unspecified type Take 1 Tablet by mouth at bedtime. 30 Tablet 1 02/23/2023 Active CPAP every night at bedtime. Autopap 7-10 cm 0 Active Cyclobenzaprine HCl 10 MG Oral Tablet (Flexeril)Indication s:Muscle spasms of both lower extremities Take 1 Tablet by mouth 3 times a day as needed for Muscle spasms. 30 Tablet 0 03/15/2023 Active Propranolol HCl 10 MG Oral Tablet (Inderal) 1 tab three times daily 90 Tablet 2 2023 Active Zolpidem Tartrate ER 12.5 MG Oral Tablet Extended ReleaseIndications:I nsomnia, persistent Take 1 Tablet by mouth at bedtime as needed for Sleep. 30 Tablet 0 04/15/2023 Active Aimovig 140 MG/ML Subcutaneous Solution Auto-injector [...] per week. 30 Tablet 3 04/19/2023 Active documented as of this encounter (statuses as of 05/12/2023) Active Problems Problem Noted Date Diagnosed Date [...] as of this encounter (statuses as of 05/12/2023) Immunizations Name Administration Dates Next Due SEASONAL INFLUENZA, PF, 6 M & Above, IM , (FLULAVAL or FLUZONE) 04/23/2022 Seasonal Influenza Virus Vac cine, Unspecified Formulation [...] encounter Miscellaneous Notes * Telephone Encounter - Mackenzie Cleaning LPN - 05/12/2023 9:57 AM EST Pt aware was in yesterday for appt and US went over US with her at this appt * Telephone Encounter - Mackenzie Cleaning LPN - 05/12/2023 9:57 AM EST ----- Message from Chris Walker MD sent at 05/04/2023 5:09 PM EST ----- Please notify pt Ultrasound is unchanged from prior. Fibroid is table and unchanged documented in this encounter Plan of Treatment Upcoming Encounters Date Type Department Care Team (Late st Contact Info) Description 05/30/2023 3:30 PM EST Telemedicine Psychiatry, [facility] [place] [address] [place] [address] Annabel Lim CRNP [address] [place] [address] 06/06/2023 10:00 AM EST Office Visit Sleep Disorders Ctr [facility] [address] [place] [id number] Brenda Ramos, DO 132 [facility] [place] [address] 06/13/2023 8:30 AM EST Office Visit Orthopaedics [facility] [address] [place] [address] Theron Pineda, DO 132 [place] [address] 06/16/2023 9:30 AM EST Office Visit Rheumatology, [place] [address] [place] [address] Marla Moon CRNP [address] [place] [address] 06/22/2023 12:00 PM EST Office Visit Gastroenterology, [facility] [address] [place] [address] Vaughn Powell CRNP [address] [place] [address] 08/17/2023 1:30 PM EST Office Visit Allergy/Immunology, [address] [address] Danie Corona MD [address] [place] [address] 08/23/2023 1:20 PM EST Office Visit Dermatology, [address] [phone] Melisa Chin PA-C [address] [place] [address] [place] [phone] Scheduled Procedures Name Priority Associated Diagnoses Date/Ti [...] visit until score < 10) 11/13/2022 11/12/2022 Influenza Vaccine (FLU shot) (#1) 2023 04/23/2022, 04/23/2022 Mammogram 03/09/2024 03/09/2023 Cervical Cancer Screening 04/27/2025 Pap Smear 04/27/2025 04/27/2022 Diabetes Screening 02/02/2026 02/02/2023, 1 , 12/10/2019, Additional history exists Lipid Panel 04/23/2027 04/23/2022 COLONOSCOPY-EVERY 5 YRS AGES 18-100 03/14/2028 03/14/2023, 03/14/2023 Zoster Vaccines Completed 07/28/2022, 04/23/2022 Colonoscopy Discontinued 03/14/2023, 03/14/2023 Colorectal Cancer Screening Discontinued Cologuard Discontinued Fecal Occult Blood Test Discontinued GARDASIL-HPV IMMUNIZATION SERIES Aged Out No longer eligible based on patient's age to complete this topic MENINGOCOCCAL (MENACTRA/MENVEO) Aged Out No longer eligible based on patient's age to complete this topic Sigmoidoscopy Discontinued documented as of this encounter Medical Devices Not on filedocumented as of this encounter Care Teams Development Associate Relationship Specialty Start Date End Date Leonila Angel DO [address] [place] [address] PCP - General Family Medicine 02/03/23 documented as of this encounter
--- OUTSIDE RECORDS SUMMARY | 2023-06-12 19:27 | External Medical Summary | Summary of Care ---
Author Name Unknown Organization [facility] Address [address] [place] [address] Phone [phone] Care Team Providers Care Sparker And Patcher Name Role Phone Stanley Leonila Perezly Primary Care Provider Reason for Visit * Reason Onset Date Comments Rheum Follow Up Medication Administration 06/01/2023 Flu an d/or Pneumo Inj Encounter Details Date Type Department Care Team (Late st Contact Info) Description 06/01/2023 9:30 AM EST Office Visit Rheumatology, [place] [address], [place] [id number] Marla Moon CRNP [address] [place] [address] Fibromyalgia*; Need for prophylactic vaccination and inoculation against influenza; Hypogammaglobulinemia (HCC) Allergies Active Allergy Reactions Criticality Noted Date [...] Oral Capsule Take by mouth. 0 Active [place] 3 1000 MG Oral Capsule Take by [...] rhinitis, unspecified seasonality, unspecified trigger Administer 1 [place] into nostril in the morning and 1 [place] before bedtime. Use in each nostril as [...] Date Smoking Tobacco: Never Smokeless Tobacco: Never Tobacco Cessation:Counseling Given: Not Answered Alcohol Use Standard Drinks/Week Comments Yes 0 [...] on file documented as of this encounter Last Filed Vital Signs Vital Sign Reading Time Taken Comments Blood Pressure 124/72 06/01/2023 10:04 AM EST Pulse 84 06/01/2023 10:04 AM EST Temperature 36.3 C (97.3 F) 06/01/2023 1 0:04 AM EST Respiratory Rate - - Oxygen Saturation 98% 06/01/2023 10: 04 AM EST Inhaled Oxygen Concentration - - Weight 89.2 kg (196 lb 11.2 oz) 023 10:04 AM EST Height - - Body Mass Index 36.56 05/11/2023 10:24 AM EST documented in this encounter Patient Instructions * Patient Instructions* Marla Moon CRNP - 06/01/2023 11:26 AM EST Would recommend scheduling Tylenol. Consider Aleve as needed with food. Continue aqua therapy as able. Will bring you back for ultrasound of wrists and left 3rd PIP. Checking TSH, PTH, and 25 OH vit d Return with Marla in 8 months documented in this encounter Progress Notes * Marla Moon NERI Wade - 06/01/2023 9:30 AM EST Rheumatology Follow-up Visit 06/01/2023 Permanent History: This is a 52 year old female referred for polyarthralgia and fibromyalgia (previously diagnosed 2005). Reports her symptoms worsened if her abdominal pain is present. Can have widespread, diffuse pain with mild stimuli. Was given a book on Fibro from doctor in [place] and she is taking supplements, which she feels help, as recommended from book. Reports treatment for seronegative arthritis in [place] with methotrexate-- only took 3 injections as she developed infection and stopped treatment. Has some resolution in joint and muscle pain with prednisone, but can be fully resolved when her abdominal symptoms are stable. Physical exam without inflammatory features. Overall, presentation is most consistent with fibromyalgia and reviewed conservative measures in detail. Recommend PT with aqua and land therapy- ordered. Will obtain serologies to evaluate for underlying autoimmune condition, but suspicion is low. Suspect fibro symptoms will improve as GI symptoms improve. Information given on Fibro. Work up: Labs from outside ([facility]) can be found in scanned documents on date 12/17/2022 SPEP with hypogammaglobulinemia. [facility] sent to hematology with rec's to repeat SPEP, free light chain levels, and quantitative immunoglobulin levels (12/2022). Reports could be r/t to pred, age. Immunoglobulins: IgA 121, IgG 754, IgM 105 YUSUF 1:40 CCP neg RF neg SSA/SSB neg Seen by Hem/Onc for hypogammaglobulinemia on 02/02/2023 and in process of work up. Interval History: Returns today for follow up of fibromyalgia. She has been swimming in her pool. Unable to make aqua therapy with PT. Follows with Neurology for THOMASON. Reports pain in knees and wrists is severe. She is falling and re-injuring her knee. She feels burning in her wrists and knees daily and constant. Hips and neck feel achy. Having pain in left IP3, sore to touch. Had to take Aleve to get through day. Started several months ago. Pain in wrists and L finger started a few weeks ago. Denies signfiicant morning stiffness. When she first started Lyrica, it helped her pain, but now she is not sure. Past medical history, allergies, and family history reviewed. Active medications and social historyas below. Current Outpatient Medications Medication Sig Dispense Refill Magnesium Citrate Powder Use as directed. clonazePAM 1 MG Oral Tablet (KlonoPIN) Take 0.5 Tablets by mouth 2 times a day as needed for Anxiety or Insomnia. 30 Tablet 0 Vitamin C 500 MG Oral Capsule Take 1,000 mg by mouth in the morning. Zinc 50 MG Oral Capsule Take 1 Capsule by mouth in the morning. B Complex-C Oral Capsule Take by mouth. [place] 3 1000 MG Oral Capsule Take by mouth. Co Q 10 100 MG Oral Capsule Take by mouth. D-Ribose Powder Use as directed. Fluticasone Furoate-Vilanterol 100-25 MCG/ACT Inhalation Aerosol Powder Breath Activated (BREO ellipta) Inhale 1 Puff by mouth in the morning. 60 Each 11 Fluticasone Propionate 50 MCG/ACT Nasal Suspension Azelastine-Fluticasone 137-50 MCG/ACT Nasal Suspension Administer 1 [place] into nostril in the morning and 1 [place] before bedtime. Use in each nostril as directed. 23 g 5 Rosuvastatin Calcium 10 MG Oral Tablet (Crestor) Take 1 Tablet by mouth in the morning. 90 Tablet 3 Clindamycin Phosphate 1 % External Gel Apply 2x daily to new or resolving spots on face/chin/body (can use more instead of scratching or picking at lesions) 60 g 3 CPAP every night at bedtime. Autopap 7-10 cm Cyclobenzaprine HCl 10 MG Oral Tablet (Flexeril) Take 1 Tablet by mouth 3 times a day as needed forMuscle spasms. 30 Tablet 0 Propranolol HCl 10 MG Oral Tablet (Inderal) 1 tab three times daily 90 Tablet 2 Aimovig 140 MG/ML Subcutaneous Solution Auto-injector (Erenumab-aooe) Inject 1 mL under the skin Every Month. 1 mL 11 Prazosin HCl 2 MG Oral Capsule (Minipress) Take one 2mg capsule at bedtime for two weeks, if tolerating increase to two 2mg tabs at bedtime 60 Capsule 3 Naratriptan HCl 2.5 MG Oral Tablet (Amerge) Take 1 tablet at start of headache, may repeat once at 2 hours. Take up to 2 days a week. 9 Tablet 11 Ondansetron HCl 4 MG Oral Tablet (Zofran) Take 1 Tablet by mouth every 8 hours as needed for Nausea. Max 3 days per week. 30 Tablet 3 Pregabalin 75 MG Oral Capsule (Lyrica) TAKE 1 CAPSULE BY MOUTH EVERYDAY AT BEDTIME 30 Capsule 2 Zolpidem Tartrate ER 12.5 MG Oral Tablet Extended Release Take 1 Tablet by mouth at bedtime as needed for Sleep. 30 Tablet 0 Ventolin HFA 108 (90 Base) MCG/ACT Inhalation Aerosol Solution Inhale 2 Puffs by mouth every 4 hours as needed for Shortness of Breath. (Patient not taking: Reported on 06/01/2023) 18 g 1 No current facility-administered medications for this visit. Social History Tobacco Use Smoking status: Never Smokeless tobacco: Never Vaping Use Vaping Use: Never used Substance Use Topics Alcohol use: Yes Comment: , very rare, approx once every few years. Drug use: Never Review of Systems: Negative unless otherwise stated above. Physical Exam: BP 124/72 | Pulse 84 | Temp 36.3 C (97.3 F) | Wt 89.2 kg (196 lb 11.2 oz) | SpO2 98% | BMI 36.56 kg/m | BSA 1.97 m General: Well appearing, in no distress. Eyes: Conjunctiva clear, sclera non-icteric. HENT: No oral ulcers. MMM. Neck: No thyromegaly or cervical LAD. Heart: Regular rate and rhythm, no murmurs. Lungs: Lungs clear bilaterally without wheezes or crackles. Abdomen: Normoactive bowel sounds. Soft, non-distended, non-tender. Extremities: Warm, well perfused, no edema. Neuro: Alert and oriented. No gross focal neurological deficits. Skin: No rashes. MSK exam: Tender points above and below. Mild swelling in wrists bilaterally without warmth or erythema- very tender to touch. L 3 PIP with tenderness, no swelling or erythema. Lab Results: Labs reviewed. Pertinent as follows: Can be found in scanned documents 12/17/2022 from [employer] SPE-- consistent with hypogammaglobulinemia Immunoglobulins: IgA 121, IgG 754, IgM 105 SSA/SSB neg YUSUF IFA 1:40 CCP neg RF neg Imaging Results: 11/2022 MRI left knee: IMPRESSION 1. High-grade tear of the medial collateral ligament at its femoral attachment, with few (if any) fibers remaining intact. 2. [place]-wp-cjbftv patellofemoral chondromalacia. 3. Mild chondrosis in the medial compartment. 03/2023 MRI cervical spine: IMPRESSION 1. No disc herniation, spinal canal stenosis, spinal cord impingement, or intrinsic spinal cord signal abnormality. 2. Mild degenerative changes as detailed above. Assessment: This is a 53 year old female with fibromyalgia who returns for follow up after abnormalSPEP. Now established with Hem/onc. Reviewed other labs which were unremarkable for underlying rheumatologic condition. Fibromyalgia not well controlled. She is unsure if Lyrica, Tylenol, or Aleve istruly helping. Reports new pain with sharp shooting features in both wrists and L 3rd PIP-- starteda few weeks ago. Physical exam with mild swelling in b/l wrists, but without erythema or warmth. Tenderness in L 3rd PIP. Would recommend evaluation with MSU to r/o inflammatory process, but suspicion is low. Will check TSH, PTH and 25 oh vit d given symptom profile-- fatigue, chronic pain, myalgia, etc. PLAN: Would recommend scheduling Tylenol. Consider Aleve as needed with food. Continue aqua therapy as able. Will bring you back for ultrasound of wrists and left 3rd PIP. Checking TSH, PTH, and 25 OH vit d Return with Marla in 8 months I spent a total of 30-39 minutes (exact time 32 mins) on the date of service in preparation, delivery, and documentation of the care provided to Kaelyn Gardiner excluding any time spent in the performance of separately billed services. NERI Larkin Department of Rheumatology documented in this encounter Nursing Notes * Arti Pineda LPN - 06/01/2023 11:35 AM EST IMMUNIZATION ADMINISTRATION DOCUMENTATION Patient Identified (Ask Name/Date of ): Yes Immunization(s) verified: Yes, Immunization Name: Flu, VIS Sheet(s) given: Yes Verified Side and Site: Yes Verified Shot(s) with Parent(s)/Patient: Yes Influenza virus vaccine was administered per clinic protocol. Patient received the Influenza virus vaccine VIS (Vaccine Information Sheet). Arti Pineda LPN, 06/01/2023 11:35 AM * Mali Rivera MED ASSIST - 06/01/2023 10:06 AM EST Patient was instructed to not get up on the exam table/exam chair until directed and assisted by their provider; patient is to remain seated in the chair/ wheelchair/ exam table/ exam chair for fall prevention and safety reasons. Patient is aware to have assistance to step down off exam table/exam chair with personnel. Patient voiced full comprehension of instructions. documented in this encounter Plan of Treatment Upcoming Encounters Date Type Department Care Team (Late st Contact Info) Description 06/06/2023 10:00 AM EST Office Visit Sleep Disorders Ctr [facility] [address] [facility] [place] [phone] Brenda Ramos, DO [facility] [place] [address] 06/10/2023 9:00 AM EST Office Visit Rheumatology, [place] [address] [place] [address] Danie Parker, DO [address] [place] [address] 06/13/2023 8:30 AM EST Office Visit Orthopaedics [facility] [address] [place] [address] Theron Pineda, DO [address] [facility] [place] [address] 06/22/2023 12:00 PM EST Office Visit Gastroenterology, [facility] [address] [place] [address] Vaughn Powell CRNP [address] [place] [address] 07/29/2023 1:00 PM EST Telemedicine Psychiatry, [facility] [address] [facility] [place] [address] Annabel Lim CRNP [address] [place] [address] 08/17/2023 1:30 PM EST Office Visit Allergy/Immunology, [employer] [address] [place] [address] Danie Corona MD [address] [place], [place] [phone] 08/23/2023 1:20 PM EST Office Visit Dermatology, [address] [phone] Melisa Chin, PAAnyi [address] [place] [address] [place] [id number] 02/06/2024 2:30 PM EDT Office Visit Rheumatology, [place] [address] [place] [address] Marla Moon CRNP [address] [place], [place] [phone] Scheduled Procedures Name Priority Associated Diagnoses Date/Ti [...] Not on filedocumented as of this encounter Results * TSH WITH FREE T4 IF INDICATED (06/01/2023 11:56 AM EST) TSH 2.27 0.27 - 4.20 uIU/mL 06/01/2023 1:24 PM EST [facility] Blood Venous blood specimen / Unknown Venipuncture / Unknown 06/01/2023 11:56 AM EST 06/01/2023 12:20 PM EST Marla HE LAB BLOOD OR DERABLES [facility] [address] [place] [address] * PTH (06/01/2023 11:56 AM EST) Pathologist [facility] PTH 64 15 - 65 pg/mL 06/01/2023 1:24 PM EST [facility] Blood Venous blood specimen / Unknown Venipuncture / Unknown 06/01/2023 11:56 AM EST 06/01/2023 12:20 PM EST Marla HE LAB BLOOD OR DERABLES Performing Organization Address [facility]/ZIP Co de Phone Number [facility] [address] [place] [address] * 25-HYDROXY VITAMIN D (06/01/2023 11:56 AM EST) 25-Hydroxy Vitamin D 38 >19 ng/mL 06/01/2023 1:24 PM EST [facility] Blood Venous blood specimen / Unknown Venipuncture / Unknown 06/01/2023 11:56 AM EST 06/01/2023 12:20 PM EST Narrative [facility] - 06/01/2023 1:24 PM EST Deficient: <20 ng/mL Insufficient: 20-29 ng/mL Recommended/Optimum:30-50 ng/mL Vitamin D intoxication is rare. If suspicious of Vitamin D toxicity, evaluation of serum Calcium and PTH is recommended. Marla HE LAB BLOOD OR DERABLES Performing Organization Address [facility] Co de Phone Number [facility] [address] [place] [address] documented in this encounter Visit Diagnoses Diagnosis Fibromyalgia- Primary Mylagia and myositis, unspecified Need for prophylactic vaccination and inoculation against influenza Hypogammaglobulinemia (HCC) Hypogammaglobulinaemia, unspecified documented in this encounter Care Teams Sparker And Patcher Relationship Specialty Start Date End Date Leonila Angel DO [facility] [place] [address] PCP - General Family Medicine 02/03/23 documented as of this encounter"
--- OUTSIDE RECORDS SUMMARY | 2023-06-12 19:27 | External Medical Summary | Summary of Care ---
Author Name Unknown Organization [facility] Address [address] [place] [address] Phone [phone] Care Team Providers Care Or Rn Name Role Phone Stanley Keenthea Collins Primary Care Provider Reason for Visit * Reason Onset Date Comments Pre Cert/Prior Auth 02/15/2023 Azelastine-F luticasone Encounter Details Date Type Department Care Team (Late st Contact Info) Description 02/15/2023 Telephone Allergy/Immunology, [address] [address] Danie Corona MD [address] [place] [address] Pre Cert/Prior Auth (Azelastine-Fluticasone ) Allergies Active Allergy Reactions Criticality Noted Date Comments Gold-Containing Drug Products 04/23/2022 Penicillins Rash 04/23/2022 Pollen 03/10/2023 Mirtazapine Other (Please comment) 12/10/2022 SOB Soybean-Containing Drug Products 03/10/2023 Sulfa Antibiotics Rash 04/23/2022 Topiramate 04/23/2022 Blurry vision Wound Dressing Adhesive 03/10/2023 documented as of this encounter (statuses as of 05/17/2023) Medications Medication Sig Dispensed Refills Start Date [...] Oral Capsule Take by mouth. 0 Active [place] 3 1000 MG Oral Capsule Take by [...] of Breath. 18 g 1 01/07/2023 Active Fluticasone Propionate 50 MCG/ACT Nasal Suspension 0 Active Azelastine-Fluticaso ne 137-50 MCG/ACT Nasal SuspensionIndication s:Allergic rhinitis, unspecified seasonality, unspecified trigger Administer 1 [place] into nostril in the morning and 1 [place] before bedtime. Use in each nostril as directed. 23 g 5 02/14/2023 Active documented as of this encounter (statuses as of 05/17/2023) Active Problems Problem Noted Date Diagnosed Date [...] as of this encounter (statuses as of 05/17/2023) Immunizations Name Administration Dates Next Due SEASONAL [...] 0 (1 standard drink = 0.6 oz pur e alcohol) social PHQ-2 Answer Date Recorded PHQ Adult Total [...] encounter Miscellaneous Notes * Telephone Encounter - Mayra Garza OSA - 02/15/2023 9:37 AM EDT [place] Request Azelastine-Fluticasone 137-50 MCG/ACT Nasal Suspension [[id number]] (Order [id number]) Medication Date: 02/14/2023 Department: Allergy/Immunology, [place] Ordering/Authorizing: Danie Corona Outpatient Medication Detail Disp Refills Start End Azelastine-Fluticasone 137-50 MCG/ACT Nasal Suspension 23 g 5 02/14/2023 Sig - Route: Administer 1 [place] into nostril in the morning and 1 [place] before bedtime. Use in eachnostril as directed. - Nasal DX: J30.9 Unable to tolerate Astelin alone and Flonase not fully effective. documented in this encounter Plan of Treatment Upcoming Encounters Date Type Department Care Team (Late st Contact Info) Description 05/30/2023 3:30 PM EST Telemedicine Psychiatry, [facility] [address] [place] [address] Annabel Lim CRNP [address] [facility] [place] [address] 06/06/2023 10:00 AM EST Office Visit Sleep Disorders Ctr [facility] [address] [place] [phone] Brenda Ramos, DO [address] [place] [address] 06/13/2023 8:30 AM EST Office Visit Orthopaedics [facility] [address] [place] [address] Theron Pineda, DO [address] [place] [address] 06/16/2023 9:30 AM EST Office Visit Rheumatology, [place] [address] [place] [address] Marla Moon CRNP [address] [place] [address] 06/22/2023 12:00 PM EST Office Visit Gastroenterology, [facility] [address] [place] [address] Vaughn Powell CRNP [address] [facility] [place] [address] 08/17/2023 1:30 PM EST Office Visit Allergy/Immunology, [place] [address] [place] [address] Danie Corona MD [address] [place] [address] 08/23/2023 1:20 PM EST [facility] [address] [place] [address] Melisa Chin PA-C [address] [place] [address] [place] [address] Scheduled Procedures Name Priority Associated Diagnoses Date/Ti [...] filedocumented as of this encounter Care Teams Or Rn Relationship Specialty Start Date End Date Leonila Angel DO [address] [place] [address] PCP - General Family Medicine 02/03/23 documented as of this encounter
--- OUTSIDE RECORDS SUMMARY | 2023-06-12 19:27 | External Medical Summary ---
Author Name Unknown Address Unknown Organization [id number]:LABORATORY [facility] - [address] [place] [address] Laboratory Report Ordering Provider Test Date Status PRINCE NESTOR 06/01/2023 11:56:13 Final Deficient: <20 ng/mL
Ins ufficient: 20-29 ng/mL
Recommended/Optimum:30-50 ng/mL

Vitamin D intoxication is rare. If suspicious of Vitamin D toxicity, evaluation of serum Calcium and PTH is recommended. Observation Date Value Abnormality Reference (Units ) Status 25-OH Vitamin D total 06/01/2023 11:56:13 38 >19 (ng/mL) Final Performing Location [facility]ATORY [facility] - [address] [place] [address]
--- OUTSIDE RECORDS SUMMARY | 2023-06-12 19:27 | External Medical Summary | Summary of Care ---
Author Name Unknown Organization [facility] Address [address] [facility] [place] [address] Phone [phone] Care Team Providers Care Apprentice Embalmer Name Role Phone TmofrancesLeonila DO Primary Care Provider Reason for Visit * Reason Comments Boarding Room Fixer Return Encounter Details Date Type Department Care Team (Late st Contact Info) Description 05/11/2023 10:30 AM EST Office Visit Gynecology/Obstetric s [place] [address] [place] [address] Chris Walker MD [address] [place] [id number] Pelvic pain in female* Allergies Active Allergy Reactions Criticality Noted Date Comments Gold-Containing Drug Products 04/23/2022 Penicillins Rash 04/23/2022 Pollen 03/10/2023 Mirtazapine Other (Please comment) 12/10/2022 SOB Soybean-Containing Drug Products 03/10/2023 Sulfa Antibiotics Rash 04/23/2022 Topiramate 04/23/2022 Blurry vision Wound Dressing Adhesive 03/10/2023 documented as of this encounter (statuses as of 05/11/2023) Medications Medication Sig Dispensed Refills Start Date [...] Oral Capsule Take by mouth. 0 Active [place] 3 1000 MG Oral Capsule Take by [...] rhinitis, unspecified seasonality, unspecified trigger Administer 1 Ting[place] into nostril in the morning and 1 Ting[place] before bedtime. Use in each nostril as [...] Active Aimovig 140 MG/ML Subcutaneous Solution Auto-injector (ErenPrecision Through Imaging-aooe) Inject 1 mL under the skin Every [...] as of this encounter (statuses as of 05/11/2023) Active Problems Problem Noted Date Diagnosed Date [...] as of this encounter (statuses as of 05/11/2023) Immunizations Name Administration Dates Next Due SEASONAL [...] Sign Reading Time Taken Comments Blood Pressure 124/78 05/11/2023 10:24 AM EST Pulse - - Temperature - - Respiratory Rate - - Oxygen Saturation - - Inhaled Oxygen Concentration - - Weight 90.7 kg (200 lb) 05/11/2023 10:24 AM EST Height 156.2 cm (5' 1.5") 05/11/2023 10:24 AM ES T Body Mass Index 37.18 05/11/2023 10:24 AM EST documented in this encounter Progress Notes * Chris Walker MD - 05/11/2023 10:56 AM EST Patient Name: Kaelyn Gardiner Patient Context: (HPI) 53 year old status post D and C with hysteroscopy for menorrhagia. Patient continues to complain of bilateral pelvic pain. Ultrasound done on 04/21/2023 showed uterus about 11 week size there is a 3.9 x 4.5 x 4.7 centimeters fibroid in the uterus. The interested in with patient that in continues to describe her pain as in both adnexa and not any way in the midportion of theabdomen. She reports also reports pain in her joints and her neck and believes that these are all related to her pelvic pain. Ultrasounds did not see the ovaries. Location: Quality: Severity: Duration: Worsening/improving sympt: Pain level/ Scale: Timing: Associated symptoms: Past Medical Hx: Past Medical History: Diagnosis Date Anxiety Arthritis Asthma Cognitive changes Depression Diverticulosis Fibromyalgia Hyperlipidemia with target LDL less than 100 04/23/2022 Insomnia Lung nodule Migraine Migraine with aura and without status migrainosus, not intractable 04/23/2022 Neuropathy LISA (obstructive sleep apnea) 04/23/2022 PTSD (post-traumatic stress disorder) Sleep apnea Social anxiety disorder Past Surgical Hx: Past Surgical History: Procedure Laterality Date BREAST BIOPSY Right Benign COLONOSCOPY, DIAGNOSTIC (RECTUM) 03/14/2023 diverticulosis/recall 5 years/COLONOSCOPY FLEXIBLE PROXIMAL DIAGNOSTIC performed by Juma Garcia MD at ENDOSCOPY [facility] EGD, FLEXIBLE, DIAGNOSTIC 03/14/2023 biopsies normal/ESOPHAGOGASTRODUODENOSCOPY (EGD), FLEXIBLE, TRANSORAL, DIAGNOSTIC performed by Juma Garcia MD at ENDOSCOPY [facility] HYSTEROSCOPY W/BIOPSY AND/OR POLYPECTOMY W/WO D&C 03/24/2023 HYSTEROSCOPY WITH BIOPSY AND/OR POLYPECTOMY WITH OR WITHOUT D&C performed by Chris Walker MD at OR [facility] PELVIC EXAM UNDER ANESTHESIA, NOT LOCAL Bilateral 03/24/2023 PELVIC EXAMINATION UNDER ANESTHESIA performed by Chris Walker MD at [facility] [place] CHOLECYSTECTOMY REMOVAL OF ADENOIDS, AGE 12+ Social Hx: Social History Socioeconomic History Marital status: Tobacco Use Smoking status: Never Smokeless tobacco: Never Vaping Use Vaping Use: Never used Substance and Sexual Activity Alcohol use: Yes Comment: , very rare, approx once every few years. Drug use: Never Sexual activity: Not Currently Partners: Male Social History Narrative Lives with . Older daughter. 1 cat and 1 dog. Danie Corona MD 02/14/2023 2:51 PM Social Determinants of Health Food Insecurity: No Food Insecurity (03/03/2023) Hunger Vital Sign Worried About Running Out of Food in the Last Year: Never true Ran Out of Food in the Last Year: Never true Allergy: Review of patient's allergies indicates: Allergen Reactions Gold-Containing Drug Products Penicillins Rash Pollen Remeron [Mirtazapine] Other (Please comment) SOB Soybean-Containing Drug Products Sulfa Antibiotics Rash Topamax [Topiramate] Blurry vision Wound Dressing Adhesive Family HX: Family History Problem Relation Age of Onset Hyperlipidemia Mother Glaucoma Mother Colon polyps Father Hypertension Father Hyperlipidemia Father Hypertension Sister Migraines Daughter Breast Cancer Great-grandmother (Maternal) ROS: REVIEW OF SYSTEMS CONSTITUTIONAL ROS: No change in weight, No weakness, No fatigue and No fevers, sweats, or chills PULMONARY ROS: No cough, sputum, or hemoptysis, No wheezing, No shortness or breath and No recent change in breathing CARDIOVASCULAR ROS: No chest pain, No shortness of breath, No dyspnea on exertion, No orthopnea, Noparoxysmal nocturnal dyspnea, No edema, No palpitations and No syncope BREAST ROS: No new breast lumps or masses, No severe breast pain, No nipple discharge, No recent change in shape/color and Performs self breast exam ENDOCRINE ROS; No change in wt gain, hair loss or bowel habits, malaise or fatigue. No polyuria, polyphagia polydipsia GASTROINTESTINAL ROS: No abdominal pain, No change in bowel habits, No significant heartburn, No significant change in appetite, No nausea, vomiting, diarrhea, or constipation, No hematemesis, No blood in stools or black tarry stools, No abdominal bloating or early satiety and No dysphagia GENITO-URINARY FEMALE ROS: No STDs, No dysuria, No frequency, No incontinence, No urgency and No vaginal discharge and + for irreg menses. ALL OTHERS REVIEWED AND ALL OTHERS NEGATIVE LABS: Pelvic Sonogram; PHYSICAL EXAMINATION Well developed. Well nourishes white female in no acute distress Vital signs BP 124/78 | Ht 1.562 m (5' 1.5") | Wt 90.7 kg (200 lb) | BMI 37.18 kg/m | BSA 1.98 m A/P Chronic pelvic pain. Patient reports pain is in both adnexas. Interesting enough pain is not in themidportion of the pelvics. Ultrasound showed uterus with fibroid. Discussed hysterectomy bilateral salpingo-oophorectomy and diagnostic laparoscopy with patient. After a long discussion with patient and spouse including risks benefits complications hormone replacement therapy after hysterectomy patient has agreed to undergo operative laparoscopy. Paperwork sent for surgery documented in this encounter Nursing Notes * Mackenzie Cleaning LPN - 05/11/2023 10:24 AM EST Pt is here fu on US and pelvic pain documented in this encounter Plan of Treatment Upcoming Encounters Date Type Department Care Team (Late st Contact Info) Description 05/30/2023 3:30 PM EST Telemedicine Psychiatry, [facility] [address] [place] [address] [place], NERI Mobley [address] [facility] [place] [address] 06/06/2023 10:00 AM EST Office Visit [facility] [place] [phone] Brenda Ramos, DO [address] [place] [address] 06/13/2023 8:30 AM EST Office Visit Orthopaedics [facility] [address] [facility] [place] [address] Theron Pineda, DO [address] [place] [address] 06/16/2023 9:30 AM EST Office Visit Rheumatology, [place] [address] [place] [address] Marla Moon CRNP [address] [place] [address] 06/22/2023 12:00 PM EST Office Visit Gastroenterology, [facility] [address] [facility] [place] [address] Vaughn Powell CRNP [address] [place] [address] 08/17/2023 1:30 PM EST Office Visit Allergy/Immunology, [place] [address] [place] [address] Danie Corona MD [address] [place] [address] 08/23/2023 1:20 PM EST [facility] [address] [place] [address] Melisa Chin PA-C [address] [place] [address] [place] [address] Scheduled Procedures Name Priority Associated Diagnoses Date/Ti [...] as of this encounter Visit Diagnoses Diagnosis Pelvic pain in female- Primary Unspecified symptom associated with female genital organs documented in this encounter Care Teams Apprentice Embalmer Relationship Specialty Start Date End Date Leonila Angel DO [address] [place] [address] PCP - General Family Medicine 02/03/23 documented as of this encounter
--- OUTSIDE RECORDS SUMMARY | 2023-06-12 19:27 | External Medical Summary | Summary of Care ---
Author Name Unknown Organization [facility] Address [address] [facility] [place] [address] Phone [phone] Care Team Providers Care Machine Design Checker Name Role Phone TomfrancesLeonilaly Primary Care Provider Reason for Visit * Reason Comments Follow Up Here 2 mo return. CP AP check. Having mask issues pinching her nose. Encounter Details Date Type Department Care Team (Late st Contact Info) Description 06/06/2023 10:00 AM EST Office Visit Sleep Disorders Ctr [facility] [address] [place] [phone] Brenda Ramos DO [address] [place] [address] Obstructive sleep apnea* Allergies Active Allergy Reactions Criticality Noted Date Comments Gold-Containing Drug Products 04/23/2022 Penicillins Rash 04/23/2022 Pollen 03/10/2023 Mirtazapine Other (Please comment) 12/10/2022 SOB Soybean-Containing Drug Products 03/10/2023 Sulfa Antibiotics Rash 04/23/2022 Topiramate 04/23/2022 Blurry vision Wound Dressing Adhesive 03/10/2023 documented as of this encounter (statuses as of 06/06/2023) Medications Medication Sig Dispensed Refills Start Date [...] Oral Capsule Take by mouth. 0 Active [place] 3 1000 MG Oral Capsule Take by [...] rhinitis, unspecified seasonality, unspecified trigger Administer 1 In[place] into nostril in the morning and 1 In[place] before bedtime. Use in each nostril as [...] as of this encounter (statuses as of 06/06/2023) Active Problems Problem Noted Date Diagnosed Date [...] as of this encounter (statuses as of 06/06/2023) Immunizations Name Administration Dates Next Due SEASONAL [...] Sign Reading Time Taken Comments Blood Pressure 118/70 06/06/2023 9:55 AM EST Pulse 77 06/06/2023 9:55 AM EST Temperature 35.6 C (96.1 F) 06/06/2023 9:55 AM ES T Respiratory Rate 16 06/06/2023 9:55 AM EST Oxygen Saturation 98% 06/06/2023 9:55 AM EST Inhaled Oxygen Concentration - - Weight 90.3 kg (199 lb) 06/06/2023 9:55 AM EST Height 156.2 cm (5' 1.5") 06/06/2023 9:55 AM EST Body Mass Index 36.99 06/06/2023 9:55 AM EST documented in this encounter Progress Notes * Brenda Ramos, - 06/06/2023 9:55 AM EST Sleep Medicine Follow-Up HISTORY: Kaelyn Gardiner is a 53 year old female for follow up of LISA. Initially seen by me 05/11/22 with hx LISA on CPAP. Originally diagnosed 4-5 years prior, after presenting with chronic insomnia and light snoring. Chronic insomnia with medications managed by Psychiatrist. Using CPAP 6 cwp. [place] 6, FOSQ 23. Residual AHI 2.7 on CPAP 6 cwp. She reported having hadan [facility] [place], [place], in Feb 20[facility]. Last seen by me 03/01/23. Using DS2, presumably set to 6 cwp. Having episodes of awakening feeling like she is suffocating. Adjusted to 7-10 cwp, and discussed turning ramp off, and adjusting humidity setting to comfort. Using CPAP 7-10 cmH2O. The mask was changed (unsure why; she just received a different style with her shipment of supplies); it pinches her nose. She takes it off sometimes because of that. The adjusted pressure setting did seem to help. No longer waking up feeling like she is suffocating. Psychiatry changed her medications, and insomnia seems worse. She will follow up with Psychiatry regarding this. Snoring on PAP: none noted (sleeps in her own room) Daytime sleepiness: increased in the past couple months, Drowsy driving: N/A (she does not drive) Mask leak: sometimes, with the current mask Dry nose or dry mouth: a little better since adjusting humidity setting Use humidifier? yes Aerophagia: no [place] Sleepiness Scale: 9 Travel Screening Question 06/06/2023 9:42 AM EST - Filed by Patient Do you have any of the following new or worsening symptoms? None of these Have you recently been in contact with someone who was sick? No / Unsure [place] Sleepiness Scale Question 06/06/2023 9:55 AM EST - Filed by Anjana Pritchard LPN What is the chance you will doze off in the following situation? Sitting and reading Slight chance of dozing Watching TV Moderate chance of dozing Sitting inactive in a public place, such as a theater or meeting Slight chance of dozing As a passenger in a car for an hour without a break High chance of dozing Lying down to rest in the afternoon when circumstances permit No chance of dozing When sitting and talking to someone Slight chance of dozing When sitting quietly after lunch without alcohol Slight chance of dozing In a car, while stopped for a few minutes in traffic No chance of dozing Score (range: 0 - 24) 9 CPAP Compliance: Report date: 06/05/23 % total days used: 100% % days used > 4 hours: 70% Average hours per day used: 5h 35m Large leak: 6 min/day AHI: 3.9 /hr Mean pressure: 7.4 cmH2O 90%ile pressure: 9 cmH2O Pressure settin-10 cmH2O Equipment: DME Provider is [email or web address]. (In [place] extended search; request DME link our [place] in [place] Additional changes in health in the interim of care: Feels like her intestines are getting compacted, seems to affect absorption of medications. Workingwith a functional doctor on gut health. Psychiatry provider changed medication, took her off of something, and she seems to be sleeping worse without it. Patient Active Problem List Diagnosis Code Migraine with aura and without status migrainosus, not intractable G43.109 Hyperlipidemia with target LDL less than 100 E78.5 Fibromyalgia M79.7 Other insomnia G47.09 PTSD (post-traumatic stress disorder) F43.10 LISA (obstructive sleep apnea) G47.33 Asthma J45.909 Severe episode of recurrent major depressive disorder, without psychotic features ([facility]) F33.2 Abdominal discomfort R10.9 Lung nodule R91.1 Polyarthralgia M25.50 Neuropathy G62.9 Small fiber neuropathy G62.9 Dehydration E86.0 Sprain of medial collateral ligament of left knee S83.412A Patellofemoral pain syndrome M22.2X9 Outpatient Medications Marked as Taking for the 06/06/23 encounter (Office Visit) with Brenda Ramos, DO Medication Sig Propranolol HCl 10 MG Oral Tablet (Inderal) 1 tab three times daily Zolpidem Tartrate ER 12.5 MG Oral Tablet Extended Release Take 1 Tablet by mouth at bedtime as needed for Sleep. Pregabalin 75 MG Oral Capsule (Lyrica) TAKE 1 CAPSULE BY MOUTH EVERYDAY AT BEDTIME Aimovig 140 MG/ML Subcutaneous Solution Auto-injector (Erenumab-aooe) Inject 1 mL under the skin Every Month. Naratriptan HCl 2.5 MG Oral Tablet (Amerge) Take 1 tablet at start of headache, may repeat once at 2 hours. Take up to 2 days a week. Ondansetron HCl 4 MG Oral Tablet (Zofran) Take 1 Tablet by mouth every 8 hours as needed for Nausea. Max 3 days per week. Prazosin HCl 2 MG Oral Capsule (Minipress) Take one 2mg capsule at bedtime for two weeks, if tolerating increase to two 2mg tabs at bedtime Cyclobenzaprine HCl 10 MG Oral Tablet (Flexeril) Take 1 Tablet by mouth 3 times a day as needed forMuscle spasms. CPAP every night at bedtime. Autopap 7-10 cm Clindamycin Phosphate 1 % External Gel Apply 2x daily to new or resolving spots on face/chin/body (can use more instead of scratching or picking at lesions) Rosuvastatin Calcium 10 MG Oral Tablet (Crestor) Take 1 Tablet by mouth in the morning. Azelastine-Fluticasone 137-50 MCG/ACT Nasal Suspension Administer 1 Inland into nostril in the morning and 1 Inland before bedtime. Use in each nostril as directed. Fluticasone Propionate 50 MCG/ACT Nasal Suspension Fluticasone Furoate-Vilanterol 100-25 MCG/ACT Inhalation Aerosol Powder Breath Activated (BREO ellipta) Inhale 1 Puff by mouth in the morning. B Complex-C Oral Capsule Take by mouth. Co Q 10 100 MG Oral Capsule Take by mouth. D-Ribose Powder Use as directed. [place] 3 1000 MG Oral Capsule Take by mouth. Vitamin C 500 MG Oral Capsule Take 1,000 mg by mouth in the morning. Zinc 50 MG Oral Capsule Take 1 Capsule by mouth in the morning. clonazePAM 1 MG Oral Tablet (KlonoPIN) Take 0.5 Tablets by mouth 2 times a day as needed for Anxiety or Insomnia. Magnesium Citrate Powder Use as directed. PHYSICAL EXAM: Filed Vitals: 06/06/23 0955 BP: 118/70 Pulse: 77 Resp: 16 Temp: 35.6 C (96.1 F) TempSrc: Tympanic SpO2: 98% Weight: 90.3 kg (199 lb) Height: 1.562 m (5' 1.5") Body mass index is 36.99 kg/m. General: alert, no acute distress Head: NC/AT Lungs: normal respiratory effort Neuro: speech clear ASSESSMENT/PLAN: Obstructive sleep apnea - good adherence; encourage continued use of CPAP with all sleep - good efficacy of therapy; continue PAP at current setting 7-10 cmH2O - request DME change back to prior mask style, which was more comfortable for her. - DME: [employer] - Routine cleaning and change of supplies as needed. - Continue to avoid driving when feeling sleepy/drowsy. Insomnia: defer medication management to Psychiatry. Follow-up with Sleep Medicine in 6 months. Brenda Ramos DO documented in this encounter Nursing Notes * Anjana Pritchard LPN - 06/06/2023 9:57 AM EST Chief Complaint Patient presents with Follow Up Here 2 mo return. CPAP check. Having mask issues pinching her nose. DME: [employer]. Travel Screening Question 06/06/2023 9:42 AM EST - Filed by Patient Do you have any of the following new or worsening symptoms? None of these Have you recently been in contact with someone who was sick? No / Unsure [place] Sleepiness Scale Question 06/06/2023 9:55 AM EST - Filed by Anjana Pritchard LPN What is the chance you will doze off in the following situation? Sitting and reading Slight chance of dozing Watching TV Moderate chance of dozing Sitting inactive in a public place, such as a theater or meeting Slight chance of dozing As a passenger in a car for an hour without a break High chance of dozing Lying down to rest in the afternoon when circumstances permit No chance of dozing When sitting and talking to someone Slight chance of dozing When sitting quietly after lunch without alcohol Slight chance of dozing In a car, while stopped for a few minutes in traffic No chance of dozing Score (range: 0 - 24) 9 documented in this encounter Plan of Treatment Upcoming Encounters Date Type Department Care Team (Late st Contact Info) Description 06/10/2023 9:00 AM EST Office Visit Rheumatology, [place] [address] [place] [address] Danie Parker DO [address] [facility] [place] [address] 06/13/2023 8:30 AM EST Office Visit Orthopaedics [address] [place] [address] Theron Pineda, DO [address] [facility] [address] 06/22/2023 12:00 PM EST Office Visit Gastroenterology, [facility] [address] [place] [address] Vaughn Powell CRNP [address] [place] [address] 07/29/2023 1:00 PM EST Telemedicine Psychiatry, [facility] [address] [facility] [place] [address] Annabel Lim CRNP [address] [facility] [place] [address] 08/17/2023 1:30 PM EST Office Visit Allergy/Immunology, [address] [address] Danie Corona MD [address] [place], [place] [id number] 08/23/2023 1:20 PM EST Office Visit Dermatology, [address] [address] Melisa Chin, PA-Kirill [address] [place] [address] [place] [address] 12/07/2023 11:20 AM EDT Office Visit Sleep Disorders Ctr [facility] [address] [facility] [place] [phone] Brenda Ramos, DO [address] [place] [address] 02/06/2024 2:30 PM EDT Office Visit Rheumatology, [place] [address] [place], [place] [id number] Marla Moon CRNP [address] [place] [address] Scheduled Procedures Name Priority Associated Diagnoses Date/Ti [...] as of this encounter Visit Diagnoses Diagnosis Obstructive sleep apnea- Primary Obstructive sleep apnea (adult) (pediatric) documented in this encounter Care Teams Machine Design Checker Relationship Specialty Start Date End Date Leonila Angel DO [address] [place] [address] PCP - General Family Medicine 02/03/23 documented as of this encounter
--- OUTSIDE RECORDS SUMMARY | 2023-06-12 19:27 | External Medical Summary | Summary of Care ---
Author Name Unknown Organization [facility] Address [address] [facility] [address] Phone [phone] Care Team Providers Care Chain Puller Name Role Phone Leonila Angel DO Primary Care Provider Reason for Visit * Reason Comments eRx-Medication Refill Encounter Details Date Type Department Care Team (Late st Contact Info) Description 05/15/2023 Refill General Internal Medicine [facility] [address] [facility] [place] [address] Leonila Angel DO 200 [place] [address] Allergies Active Allergy Reactions Criticality Noted Date Comments Gold-Containing Drug Products 04/23/2022 Penicillins Rash 04/23/2022 Pollen 03/10/2023 Mirtazapine Other (Please comment) 12/10/2022 SOB Soybean-Containing Drug Products 03/10/2023 Sulfa Antibiotics Rash 04/23/2022 Topiramate 04/23/2022 Blurry vision Wound Dressing Adhesive 03/10/2023 documented as of this encounter (statuses as of 05/16/2023) Medications Medication Sig Dispensed Refills Start Date End Date Status Magnesium Citrate Powder Use as directed. 0 Active clonazePAM 1 MG Oral Tablet (KlonoPIN)Indicat ions:Generalized anxiety disorder,Panic disorder Take 0.5 Tablets by mouth 2 times a day as needed for Anxiety or Insomnia. 30 Tablet 0 08/23/2022 Active Vitamin C 500 MG Oral Capsule Take 1,000 mg by mouth in the morning. 0 Active Zinc 50 MG Oral Capsule Take 1 Capsule by mouth in the morning. 0 Active B Complex-C Oral Capsule Take by mouth. 0 Active [place] 3 1000 MG Oral Capsule Take by mouth. 0 Active Co Q 10 100 MG Oral Capsule Take by mouth. 0 Active D-Ribose Powder Use as directed. 0 Active Fluticasone Furoate-Vilantero l 100-25 MCG/ACT Inhalation Aerosol Powder Breath Activated (BREO ellipta) Inhale 1 Puff by mouth in the morning. 60 Each 11 01/07/2023 Active Ventolin HFA 108 (90 Base) MCG/ACT Inhalation Aerosol Solution Inhale 2 Puffs by mouth every 4 hours as needed for Shortness of Breath. 18 g 1 01/07/2023 Active Fluticasone Propionate 50 MCG/ACT Nasal Suspension 0 Active Azelastine-Flutic asone 137-50 MCG/ACT Nasal SuspensionIndicat ions:Allergic rhinitis, unspecified seasonality, unspecified trigger Administer 1 [place] into nostril in the morning and 1 [place] before bedtime. Use in each nostril as directed. 23 g 5 02/14/2023 Active Rosuvastatin Calcium 10 MG Oral Tablet (Crestor) Take 1 Tablet by mouth in the morning. 90 Tablet 3 02/16/2023 Active Clindamycin Phosphate 1 % External GelIndications:Fo lliculitis,Acne excoriee Apply 2x daily to new or resolving spots on face/chin/body (can use more instead of scratching or picking at lesions) 60 g 3 02/22/2023 Active Ramelteon 8 MG Oral Tablet (Rozerem)Indicati ons:Insomnia, unspecified type Take 1 Tablet by mouth at bedtime. 30 Tablet 1 02/23/2023 Active CPAP every night at bedtime. Autopap 7-10 cm 0 Active Cyclobenzaprine HCl 10 MG Oral Tablet (Flexeril)Indicat ions:Muscle spasms of both lower extremities Take 1 Tablet by mouth 3 times a day as needed for Muscle spasms. 30 Tablet 0 03/15/2023 Active Propranolol HCl 10 MG Oral Tablet (Inderal) 1 tab three times daily 90 Tablet 2 2023 Active Zolpidem Tartrate ER 12.5 MG Oral Tablet Extended ReleaseIndication s:Insomnia, persistent Take 1 Tablet by mouth at bedtime as needed for Sleep. 30 Tablet 0 04/15/2023 Active Aimovig 140 MG/ML Subcutaneous Solution Auto-injector (ErenManzama-aooe) Inject 1 mL under the skin Every [...] AT BEDTIME 30 Capsule 2 05/16/2023 Active Pregabalin 75 MG Oral Capsule (Lyrica) TAKE 1 CAPSULE BY MOUTH EVERYDAY AT BEDTIME 30 Capsule 2 02/09/2023 Discontinued documented as of this encounter (statuses as of 05/16/2023) Active Problems Problem Noted Date Diagnosed Date [...] as of this encounter (statuses as of 05/16/2023) Immunizations Name Administration Dates Next Due SEASONAL [...] encounter Miscellaneous Notes * Telephone Encounter - Anusha Sharpe III, MD - 05/16/2023 12:33 PM ESTSigned Prescriptions: Disp Refills Pregabalin 75 MG Oral Capsule (Lyrica) 30 Cap*2 Sig: TAKE 1 CAPSULE BY MOUTH EVERYDAY AT BEDTIMEAuthorizing Provider: ANUSHA SHARPE III * Telephone Encounter - Wil Eddy [facility] - 05/16/2023 12:07 PM ESTPending Prescriptions: Disp Refills Pregabalin 75 MG Oral Capsule [Pharmacy Me*30 Cap*2 Sig: TAKE 1 CAPSULE BY MOUTH EVERYDAY AT BEDTIME * Telephone Encounter - Wil Eddy RPh - 05/16/2023 12:06 PM EST I have reviewed the patients controlled substance dispensing history in the Prescription Drug Monitoring Program in compliance with the [facility] regulations before prescribing a controlled substance. PDMP checked on 05/16/2023. Pending Prescriptions: Disp Refills Pregabalin 75 MG Oral Capsule (Lyrica) [P*30 Cap*2 Sig: TAKE 1 CAPSULE BY MOUTH EVERYDAY AT BEDTIME Last Visit: 07/28/2022 (in office), Visit date not found (telemedicine) Next Visit: Visit date not found Date medication was last filled: 04/10 Date medication is due for refill: 05/10 Pharmacy: [id number] [address] [facility] Is this request for a controlled substance? Yes and Urine Drug Screen Not completed Toxicology results: No results found for this or any previous visit. Please approve if appropriate. Thanks, Evans Eddy, PharmD Clinical Pharmacist [facility] ([facility]) (Formerly Telepharmacy) [phone] 05/16/2023 12:06 PM documented in this encounter Plan of Treatment Upcoming Encounters Date Type Department Care Team (Late st Contact Info) Description 05/30/2023 3:30 PM EST Telemedicine Psychiatry, [place] [address] [place] [address] Annabel Lim CRNP [address] [place] [address] 06/06/2023 10:00 AM EST Office Visit [facility] [place] [address] [facility] [place] [phone] Brenda Ramos Elvia, DO [address] [place] [address] 06/13/2023 8:30 AM EST Office Visit Orthopaedics [facility] [address] [place] [address] Theron Pineda, DO [address] [place] [address] 06/16/2023 9:30 AM EST Office Visit Rheumatology, [place] [address] [place] [address] Marla Moon CRNP [address] [place] [address] 06/22/2023 12:00 PM EST Office Visit Gastroenterology, [facility] [address] [place] [address] Vaughn Powell CRNP [address] [place] [address] 08/17/2023 1:30 PM EST Office Visit Allergy/Immunology, [address] [address] Danie Corona MD [address] [place] [address] 08/23/2023 1:20 PM EST Office Visit Dermatology[address] [address] Melisa Chin, PAAnyi [address] [place] [address] [place] [address] Scheduled Procedures Name Priority Associated Diagnoses Date/Ti [...] filedocumented as of this encounter Care Teams Chain Puller Relationship Specialty Start Date End Date Leonila Angel DO [address] [place] [address] PCP - General Family Medicine 02/03/23 documented as of this encounter
--- OUTSIDE RECORDS SUMMARY | 2023-06-12 19:27 | External Medical Summary | Summary of Care ---
Author Name Unknown Organization [facility] Address [address] [facility] [place] [address] Phone [phone] Care Team Providers Care Accounting Clerk Name Role Phone TomfrancesLeonila DO Primary Care Provider Reason for Visit * Reason Onset Date Comments Medication Refill 06/02/2023 Encounter Details Date Type Department Care Team (Late st Contact Info) Description 06/02/2023 Refill Neurology [facility] [place] [address] [place] [address] Yumiko Traore PA-C [address] [place] [address] Allergies Active Allergy Reactions Criticality Noted Date Comments Gold-Containing Drug Products 04/23/2022 Penicillins Rash 04/23/2022 Pollen 03/10/2023 Mirtazapine Other (Please comment) 12/10/2022 SOB Soybean-Containing Drug Products 03/10/2023 Sulfa Antibiotics Rash 04/23/2022 Topiramate 04/23/2022 Blurry vision Wound Dressing Adhesive 03/10/2023 documented as of this encounter (statuses as of 06/02/2023) Medications Medication Sig Dispensed Refills Start Date End Date Status Magnesium Citrate Powder Use as directed. 0 Active clonazePAM 1 MG Oral Tablet (KlonoPIN)Indicati ons:Generalized anxiety disorder,Panic disorder Take 0.5 Tablets by mouth 2 times a day as needed for Anxiety or Insomnia. 30 Tablet 0 08/23/2022 Active Vitamin C 500 MG Oral Capsule Take 1,000 mg by mouth in the morning. 0 Active Zinc 50 MG Oral Capsule Take 1 Capsule by mouth in the morning. 0 Active B Complex-C Oral Capsule Take by mouth. 0 Active [place] 3 1000 MG Oral Capsule Take by [...] Propionate 50 MCG/ACT Nasal Suspension 0 Active Azelastine-Flutica sone 137-50 MCG/ACT Nasal SuspensionIndicati ons:Allergic rhinitis, unspecified seasonality, unspecified trigger Administer 1 [place] into nostril in the morning and 1 [place] before bedtime. Use in each nostril as directed. 23 g 5 02/14/2023 Active Rosuvastatin Calcium 10 MG Oral Tablet (Crestor) Take 1 Tablet by mouth in the morning. 90 Tablet 3 02/16/2023 Active Clindamycin Phosphate 1 % External GelIndications:Fol liculitis,Acne excoriee Apply 2x daily to new or resolving spots on face/chin/body (can use more instead of scratching or picking at lesions) 60 g 3 02/22/2023 Active CPAP every night at bedtime. Autopap 7-10 cm 0 Active Cyclobenzaprine HCl 10 MG Oral Tablet (Flexeril)Indicati ons:Muscle spasms of both lower extremities Take 1 [...] Tartrate ER 12.5 MG Oral Tablet Extended ReleaseIndications :Insomnia, persistent Take 1 Tablet by mouth at bedtime as needed for Sleep. 30 Tablet 0 05/20/2023 Active Propranolol HCl 10 MG Oral Tablet (Inderal) 1 tab three times daily 270 Tablet 2 06/02/2023 Active Propranolol HCl 10 MG Oral Tablet (Inderal) 1 tab three times daily 90 Tablet 2 2023 Discontinue d(Refill) documented as of this encounter (statuses as of 06/02/2023) Active Problems Problem Noted Date Diagnosed Date [...] as of this encounter (statuses as of 06/02/2023) Immunizations Name Administration Dates Next Due SEASONAL [...] Miscellaneous Notes * Telephone Encounter - Anusha Carrillo MD - 06/02/2023 4:42 PM ESTSigned Prescriptions: Disp Refills Propranolol HCl 10 MG Oral Tablet (Inderal)270 Ta*2 Si tab three times dailyAuthorizing Provider: ANUSHA CARRILLO documented in this encounter Plan of Treatment Upcoming Encounters Date Type Department Care Team (Late st Contact Info) Description 06/06/2023 10:00 AM EST Office Visit Sleep Disorders Ctr [facility] [address] [place] [phone] Brenda Ramos, 132 [facility] [place] [address] 06/10/2023 9:00 AM EST Office Visit Rheumatology, [place] [address] [place] [address] Danie Parker DO [address] [place] [address] 06/13/2023 8:30 AM EST Office Visit Orthopaedics [facility] [address] [place] [address] Theron Pineda, DO [address] [place] [address] 06/22/2023 12:00 PM EST Office Visit Gastroenterology, [facility] [address] [place] [address] Vaughn Powell CRNP [address] [place] [address] 07/29/2023 1:00 PM EST Telemedicine Psychiatry, [facility] [address] [place] [address] Annabel Lim CRNP [address] [place] [address] 08/17/2023 1:30 PM EST Office Visit Allergy/Immunology, [address] [address] Danie Corona MD [address] [place] [address] 08/23/2023 1:20 PM EST Office Visit Dermatology, [address] [address] Melisa Chin PA-C [address] [place] [address] [place] [address] 02/06/2024 2:30 PM EDT Office Visit Rheumatology, [place] [address] [place] [address] Marla Moon CRNP [address] [place] [address] Scheduled Procedures Name Priority Associated Diagnoses Date/Ti [...] filedocumented as of this encounter Care Teams Accounting Clerk Relationship Specialty Start Date End Date Leonila Angel DO [address] [place] [address] PCP - General Family Medicine 02/03/23 documented as of this encounter
--- OUTSIDE RECORDS SUMMARY | 2023-06-12 19:27 | External Medical Summary | Summary of Care ---
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 requesting an appointment sooner, including reaching clinic after hours, or accessing emergency mental health and medical services, either at a local emergency department or by activating mobile crisis teams and EMS. Psychoeducation was provided regarding patient's diagnoses and potential treatment modalities, including psychotherapeutic and psychopharmacologic options for treatment. Risks, benefits, alternativesand side effects of medication/s were explained, and the patient verbalized understanding of the ris ks and benefits of using medication as prescribed. The benefits of treatment outweigh the risks. Patient cautioned not to drive, operate heavy machinery, or participate in other tasks requiring full cognitive alertness until they know how new medications will affect them. Pt encouraged to keep all medications out of the reach of children. The patient participated in the development of the treatment plan, verbalized understanding, voices no concerns and is agreeable to the treatment plan. Patient is making an informed medical decision to follow the recommendations outlined in this note. Directed pt to call with any questions or concerns, worsening symptoms and/or ask for earlier appointment. Risk Assessment: Risk assessment was performed for Kaelyn Gardiner. This patient is being treated for mental health conditions as characterized above; at the time of this visit, there was no indication that this patient was either a risk to self, others, or gravely disabled by symptoms of a mental illness. At the time of this evaluation, there were enough protective factors in place and it was deemed safe to continue with treatment on a outpatient basis with return to clinic in the timeframe described above. Health Maintenance: Kaelyn Gardiner was encouraged to keep up to date on regular health maintenance per primary care provider recommendations. Kaelyn Gardiner was encouraged to keep active in productive hobbies and exercise, as this can help manage emotions, improve sleep, wellbeing and overall health. Pt was cautioned to not drink alcohol or use illicit drugs as these can make symptoms worse by blocking the effects of prescribed medications. Advised to avoid tobacco and products containing nicotine and to limit caffeine use. Nicotine and caffeine are stimulants that can cause difficulty with symptom management and pose increased health risks. Please note >17 minutes of counseling time over and above medication management was spent with patient discussing self care and providing supportive therapy, including Supportive listening Annabel Lim, MSN, SHOWROOM CONSULTANT, PMHNP-[facility] Psychiatry [facility] Current Outpatient Medications Medication Sig Dispense Refill [...] B Complex-C Oral Capsule Take by mouth. [place] 3 1000 MG Oral Capsule Take by mouth. Co Q 10 100 MG Oral Capsule Take by mouth. D-Ribose Powder Use as directed. Fluticasone Furoate-Vilanterol 100-25 MCG/ACT Inhalation Aerosol Powder Breath Activated (BREO ellipta) Inhale 1 Puff by mouth in the morning. 60 Each 11 Ventolin HFA 108 (90 Base) MCG/ACT Inhalation Aerosol Solution Inhale 2 Puffs by mouth every 4 hours as needed for Shortness of Breath. 18 g 1 Fluticasone Propionate 50 MCG/ACT Nasal Suspension Azelastine-Fluticasone 137-50 MCG/ACT Nasal Suspension Administer 1 [place] into nostril in the morning and 1 [place] before bedtime. Use in each nostril as [...] as needed for Sleep. 30 Tablet 0 No current facility-administered medications for this visit. documented in this encounter Plan of Treatment Upcoming Encounters Date Type Department Care Team (Late st Contact Info) Description 06/01/2023 9:30 AM EST Office Visit Rheumatology, [place] [address] [place] [address] Marla Moon CRNP [address] [place] [address] 06/06/2023 10:00 AM EST Office Visit Sleep Disorders Ctr [facility] 132 [facility] [place] [phone] Brenda Ramos, DO [address] [place] [address] 06/13/2023 8:30 AM EST Office Visit Orthopaedics [facility] 132 [place] [address] Theron Pineda, DO 132 [place] [address] 06/22/2023 12:00 PM EST Office Visit Gastroenterology, [facility] 132 [place] [address] Vaughn Powell CRNP 132 [place] [address] 07/29/2023 1:00 PM EST Telemedicine Psychiatry, [facility] 200 [facility] [place] [address] Annabel Lim CRNP [address] [place] [address] 08/17/2023 1:30 PM EST Office Visit Allergy/Immunology, [place] [address] [place] [address] Danie Corona MD [address] [place] [address] 08/23/2023 1:20 PM EST Office Visit Dermatology, [address] [address] Melisa Chin PA-C [address] [place] [address] [place] [phone] Scheduled Procedures Name Priority Associated Diagnoses Date/Ti [...] as of this encounter Visit Diagnoses Diagnosis Major depressive disorder, recurrent severe without psychotic features (HCC)- Primary Major depressive disorder, recurrent episode, severe, without mention of psychotic behavior STARR (generalized anxiety disorder) Generalized anxiety disorder Panic disorder Panic disorder without agoraphobia PTSD (post-traumatic stress disorder) Posttraumatic stress disorder Cluster B personality disorder (HCC) Unspecified personality disorder documented in this encounter Care Teams Senior Mechanical Project Manager Relationship Specialty Start Date End Date Leonila Angel DO [address] [place] [address] PCP - General Family Medicine 02/03/23 documented as of this encounter
--- OUTSIDE RECORDS SUMMARY | 2023-06-12 19:27 | External Medical Summary ---
Author Name Unknown Address Unknown Organization [id number]:[facility] [place] - [address] [facility] [address] Laboratory Report Ordering Provider Test Date Status PRINCE NESTOR 06/01/2023 11:56:13 Final Observation Date Value Abnormality Reference (Units ) Status TSH 06/01/2023 11:56:13 2.27 0.27-4.20 (uIU/mL) Final Performing Location [facility] [place] - [address] [facility] [address]
--- OUTSIDE RECORDS SUMMARY | 2023-06-12 19:27 | External Medical Summary ---
Author Name Unknown Address Unknown Organization [id number]:[facility] [place] [address] [facility] [address] Laboratory Report Ordering Provider Test Date Status PRINCE NESTOR 06/01/2023 11:56:13 Final Observation Date Value Abnormality Reference (Units ) Status Parathyrin.intact [Mass/volume] in Serum or Plasma 06/01/2023 11:56:13 64 15-65 (pg/mL) Final Performing Location [facility] [place] [address] [facility] [address]
--- OUTSIDE RECORDS SUMMARY | 2023-06-12 19:28 | External Medical Summary | Summary of Care ---
Author Name Unknown Organization [facility] Address [address] [facility] [address] Phone [phone] Care Team Providers Care Tonal Regulator Name Role Phone TomfrancesLeonila DO Primary Care Provider Reason for Visit * Reason Onset Date Comments Precert In Process 04/19/2023 25 LT [facility] Aimovi Encounter Details Date Type Department Care Team (Late st Contact Info) Description 04/19/2023 Telephone Neurology Jenn CHRISTIE [address] [facility] [place] [address] Sushma Gonsalves PA-C [address] [facility] [place] [id number] Precert In Process (25 LT [facility] Aimovi ) Allergies Active Allergy Reactions Criticality Noted Date Comments Gold-Containing Drug Products 04/23/2022 Penicillins Rash 04/23/2022 Pollen 03/10/2023 Mirtazapine Other (Please comment) 12/10/2022 SOB Soybean-Containing Drug Products 03/10/2023 Sulfa Antibiotics Rash 04/23/2022 Topiramate 04/23/2022 Blurry vision Wound Dressing Adhesive 03/10/2023 documented as of this encounter (statuses as of 04/20/2023) Medications Medication Sig Dispensed Refills Start Date [...] Oral Capsule Take by mouth. 0 Active [place] 3 1000 MG Oral Capsule Take by [...] rhinitis, unspecified seasonality, unspecified trigger Administer 1 [place] into nostril in the morning and 1 Smith before bedtime. Use in each nostril as directed. 23 g 5 02/14/2023 Active Additional Information Patient not taking.Reported on 03/10/2023 Rosuvastatin Calcium 10 MG Oral Tablet (Crestor) Take 1 Tablet by mouth in the morning. 90 Tablet 3 02/16/2023 Active Clindamycin Phosphate 1 % External GelIndications:Fol liculitis,Acne excoriee Apply 2x daily to new or resolving spots on face/chin/body (can use more instead of scratching or picking at lesions) 60 g 3 02/22/2023 Active Ramelteon 8 MG Oral Tablet (Rozerem)Indicatio [...] Active Aimovig 140 MG/ML Subcutaneous Solution Auto-injector ([employer]-aooe) Inject 1 mL under the skin Every [...] per week. 30 Tablet 3 04/19/2023 Active Nitrofurantoin Monohyd Macro 100 MG Oral Capsule (Macrobid) Take 1 Capsule by mouth in the morning and 1 Capsule before bedtime. Do all this for 7 days. With food. Until gone.. 14 Capsule 0 04/12/2023 04/19/2023 documented as of this encounter (statuses as of 04/20/2023) Active Problems Problem Noted Date Diagnosed Date [...] as of this encounter (statuses as of 04/20/2023) Immunizations Name Administration Dates Next Due SEASONAL [...] encounter Miscellaneous Notes * Telephone Encounter - Sushma Gonsalves PA-C - 04/19/2023 5:31 PM EDT Neurology Pre-Cert Request Medication/Disease State Information: Medication: Erenumab (Aimovig) - 140mg/ml Pen - 140mg once a month Diagnosis (including ICD-10): Migraine - Chronic Migraine G43.709 - Self- administered - route pre-cert request to [id number] See corresponding visit note(s) for additional supporting clinical information. Previous preventive treatments: Nutraceuticals Magnesium CoQ10 Vitamin B complex Antihypertensives Propranolol - 10mg in the morning and 20mg at night- decreased severity Antidepressants/Anti-Anxiety/Mood Nortriptyline Sertraline Antiepileptics Keppra Lyrica Zonisamide Topamax- causes blurred vision Botox: Botox- in [place] in late 40s- received injections for 1-1.5 years, was effective in the beginning Tried again- caused forehead swelling and "yellow discharge from pores" CGRP mAbs: Aimovig 70mg Aimovig 140mg - worked well for 2 years, had break though headaches and was switched to Ajovy Ajovy- was not effective Gepants: Nurtec- has been taking for about 1 year - takes edge off NB/TPI: x Neuromodulation: x IV treatments: x Other: x Office Information: Prescriber: Sushma Gonsalves PA-C documented in this encounter Plan of Treatment Upcoming Encounters Date Type Department Care Team (Late st Contact Info) Description 04/21/2023 10:00 AM EDT Imaging Radiology [facility] 2nd [facility] 132 [facility] [place] [address] 05/04/2023 9:30 AM EST NeuroDiagnostic Study Neurophysiology [facility] 200 [facility] [place] [address] Alexis Dong DO 200 [facility] [place] [address] 05/11/2023 10:30 AM EST Office Visit Gynecology/Obstetric s [facility] 132 [facility] [place] [address] Chris Walker MD 132 [facility] [place] [address] 05/30/2023 3:30 PM EST Telemedicine Psychiatry, [facility] 200 [facility] [place] [address] Annabel Lim CRNP 200 [facility] [place] [address] 06/06/2023 10:00 AM EST Office Visit Sleep Disorders Ctr [facility] 132 [place] [address] Brenda Ramos, DO [address] [place] [address] 06/13/2023 8:30 AM EST Office Visit Orthopaedics [facility] 132 [place] [address] Theron Pineda, DO [address] [place] [address] 06/16/2023 9:30 AM EST Office Visit Rheumatology, [place] [address] [place] [address] Marla Moon CRNP [address] [place] [address] 06/22/2023 12:00 PM EST Office Visit Gastroenterology, [facility] [address] [place] [address] Vaughn Powell CRNP [address] [place] [address] 08/17/2023 1:30 PM EST Office Visit Allergy/Immunology, [address] [address] Danie Corona MD [address] [place] [address] 08/23/2023 1:20 PM EST Office Visit Dermatology[address] [address] Melisa Chin, PAAnyi [address] [place] [address] [place] [address] Scheduled Procedures Name Priority Associated Diagnoses Date/Ti [...] filedocumented as of this encounter Care Teams Tonal Regulator Relationship Specialty Start Date End Date Leonila Angel DO [address] [place] [address] PCP - General Family Medicine 02/03/23 documented as of this encounter
--- OUTSIDE RECORDS SUMMARY | 2023-06-12 19:28 | External Medical Summary ---
Author Name Unknown Address Unknown Organization K01:[facility] [place] - 100 [facility] [address] Laboratory Report Ordering Provider Test Date Status SHRADDHA NICHOLAS 04/11/2023 09:24:35 Final Observation Date Value Abnormality Reference (Units ) Status Color of Urine by Auto 04/11/2023 09:24:35 Yellow Colorless, Light Yellow, Yellow, Dark Yellow Final Clarity, Urine 04/11/2023 09:24:35 Clear Clear Final Glucose [Mass/volume] in Urine by Automated test strip 04/11/2023 09:24:35 Negative Negative (mg/dL) Final Bilirubin.total [Presence] in Urine by Automated test strip 04/11/2023 09:24:35 Negative Negative Final Ketones [Mass/volume] in Urine by Automated test strip 04/11/2023 09:24:35 Trace Abnormal Negative (mg/dL) Final Specific gravity, Urine 04/11/2023 09:24:35 1.025 1.003-1.030 Final Hemoglobin [Presence] in Urine by Automated test strip 04/11/2023 09:24:35 Small Abnormal Negative Final pH, Urine 04/11/2023 09:24:35 6.0 5.0-7.5 (Units) Final Protein [Mass/volume] in Urine by Automated test strip 04/11/2023 09:24:35 Trace Abnormal Negative (mg/dL) Final Urobilinogen [Mass/volume] in Urine by Automated test strip 04/11/2023 09:24:35 Normal Normal (mg/dL) Final Nitrite [Presence] in Urine by Automated test strip 04/11/2023 09:24:35 Negative Negative Final Leukocyte esterase [Presence] in Urine by Automated test strip 04/11/2023 09:24:35 Negative Negative Final RBC, Urine 04/11/2023 09:24:35 6-9 Abnormal 0-2 (/HPF) Final WBC, Urine 04/11/2023 09:24:35 30-49 Abnormal 0-2 (/HPF) Final Bacteria [#/area] in Urine sediment by Microscopy high power field 04/11/2023 09:24:35 51-100 Abnormal 0-25 (/HPF) Final CULTURE, URINE - [facility] 04/11/2023 09:24:35 Final Quantitative urine culture t o be performed Performing Location [facility] [place] - [facility] [address] [facility] [address]
--- OUTSIDE RECORDS SUMMARY | 2023-06-12 19:28 | External Medical Summary | Summary of Care ---
Author Name Unknown Organization [facility] Address [address] [place] [facility] [place] [address] Phone [phone] Care Team Providers Care Extension Clerk Name Role Phone Leonila Angel DO Primary Care Provider Encounter Details Date Type Department Care Team Description 04/12/2023 Telephone Gynecology/Obstetrics [facility] [address] [place] [id number] Chris Walker MD [address] [place] [address] Allergies Active Allergy Reactions Severity Noted Date Comments Gold-Containing Drug Products 04/23/2022 Penicillins Rash 04/23/2022 Pollen 03/10/2023 Mirtazapine Other (Please comment) 12/10/2022 SOB Soybean-Containing Drug Products 03/10/2023 Sulfa Antibiotics Rash 04/23/2022 Topiramate 04/23/2022 Blurry vision Wound Dressing Adhesive 03/10/2023 documented as of this encounter (statuses as of 04/12/2023) Medications Medication Sig Dispensed Refills Start Date [...] Oral Capsule Take by mouth. 0 Active [place] Trevose 3 1000 MG Oral Capsule Take by mouth. 0 Active Co Q 10 100 MG Oral Capsule Take by mouth. 0 Active D-Ribose Powder Use as directed. 0 Act chaparro Nurtec 75 MG Oral Tablet Disintegrating DISSOLVE 1 TABLET (75 MG TOTAL) ON TONGUE EVERY OTHER DAY 15 Tablet 3 01/03/2023 Active Fluticasone Furoate-Vilanterol 100-25 MCG/ACT Inhalation Aerosol Powder [...] rhinitis, unspecified seasonality, unspecified trigger Administer 1 [place] into nostril in the morning and 1 [place] before bedtime. Use in each nostril as [...] at bedtime. 30 Tablet 1 02/23/2023 Active Temazepam 30 MG Oral Capsule (Restoril)Indication s:Insomnia, unspecified type Take 1 Capsule by mouth at bedtime as needed for Sleep. 30 Capsule 1 02/23/2023 Active CPAP every night at bedtime. Autopap 7-10 cm 0 Active Cyclobenzaprine HCl 10 MG Oral Tablet (Flexeril)Indication s:Muscle spasms of both lower extremities Take 1 Tablet by mouth 3 times a day as needed for Muscle spasms. 30 Tablet 0 03/15/2023 Active Propranolol HCl 10 MG Oral Tablet (Inderal) 1 tab three times daily 90 Tablet 2 2023 Active Nitrofurantoin Monohyd Macro 100 MG Oral Capsule (Macrobid) Take 1 Capsule by mouth in the morning and 1 Capsule before bedtime. Do all this for 7 days. With food. Until gone.. 14 Capsule 0 04/12/2023 Active documented as of this encounter (statuses as of 04/12/2023) Active Problems Problem Noted Date Abdominal discomfort 12/23/2022 Lung nodule 12/23/2022 Polyarthralgia 12/23/2022 Neuropathy 12/23/2022 Small fiber neuropathy 12/23/2022 Dehydration 12/23/2022 Sprain of medial collateral ligament of left knee 12/23/2022 Patellofemoral pain syndrome 12/23/2022 Severe episode of recurrent major depressive disorder, without psychotic features 07/28/2022 Migraine with aura and without status mi grainosus, not intractable 04/23/2022 Hyperlipidemia with target LDL less than 100 04/23/2022 Fibromyalgia 04/23/2022 Other insomnia 04/23/2022 PTSD (post-traumatic stress disorder) LISA (obstructive sleep apnea) 04/23/2022 Asthma 04/23/2022 documented as of this encounter (statuses as of 04/12/2023) Immunizations Name Administration Dates Next Due SEASONAL [...] very rare, approx once every few years. Food Insecurity Answer Date Recorded Within the past 12 months, y ou worried that your food would run out before you got money to buy more. Never true 03/03/2023 Within the past 12 months, t he food you bought just didn't last and you didn't have money to get more. Never true 03/03/2023 Sex Assigned at Date Recorded Female 05/13/2022 9:[address] Job Start Date Occupation Industry Not on file Not on file Not on file documented as of this encounter Plan of Treatment Upcoming Encounters Date Type Specialty Care Team Description 04/15/2023 Telemedicine Psychiatry Lim, NERI [place] [address] [place] [address] 04/21/2023 Imaging Radiology 05/04/2023 NeuroDiagnostic Study Neurophysiology Alexis Dong DO [address] [place] [address] 05/11/2023 Office Visit Gynecology Obstetrics Chris Walker MD [address] [place] [address] 06/06/2023 Office Visit Sleep Disorders Brenda Ramos, [address] [place] [address] 06/13/2023 Office Visit Orthopedics Theron Pineda, DO [address] [place] [address] 06/16/2023 Office Visit Rheumatology Marla Moon CRNP [address] [place] [address] 06/22/2023 Office Visit Gastroenterology Vaughn Powell CRNP [address] [place] [address] 08/08/2023 Office Visit Hematology Oncology Gamaliel Qiunn MD [address] [place] [address] 08/17/2023 Office Visit Allergy & Immunology Danie Corona MD 100 [address] [facility] [place] [address] 08/23/2023 Office Visit Dermatology Melisa Chin PA-C [address] [place] [address] [place] [address] 09/21/2023 Office Visit Neurology Elle Dotson L, DO [address] [facility] [place] [address] Scheduled Procedures Name Priority Associated Diagnoses Date/Ti [...] as of this encounter Visit Diagnoses Diagnosis Infective urethritis- Primary Urethritis, unspecified documented in this encounter Care Teams Extension Clerk Relationship Specialty Start Date End Date Leonila Angel DO [address] [place] [address] PCP - General Family Medicine 02/03/23 documented as of this encounter
--- OUTSIDE RECORDS SUMMARY | 2023-06-12 19:28 | External Medical Summary ---
Author Name Unknown Address Unknown Organization K01:[facility] [place] - [address] [place] [id number] Laboratory Report Ordering Provider Test Date Status SHRADDHA NICHOLAS 04/11/2023 09:24:35 Final Observation Date Value Abnormality Reference (Units) Status Bacteria identified in Specimen by Culture 04/11/2023 09:24:35 No significant growth Final Test: Culture, Urine, Quanti tative
Specimen Source: Urine, Clean Catch
Specimen Type: Urine
Specimen Date: 04/11/2023 9:24 AM
Result Date: 04/12/2023 11:34 AM
Result Status: Final result
Resulting Lab: [facility]
[address]
[facility] [address]

CULTURE

No significant growth

null Performing Location [facility]ORY [facility] [place] - [address] [facility] [address]
--- OUTSIDE RECORDS SUMMARY | 2023-06-12 19:28 | External Medical Summary | Summary of Care ---
Author Name Unknown Organization [facility] Address [address] [facility] [place] [address] Phone [phone] Care Team Providers Care Dietetic Assistant Name Role Phone Leonila Angel DO Primary Care Provider Reason for Visit * Reason Comments EMG Encounter Details Date Type Department Care Team (Late st Contact Info) Description 05/04/2023 9:30 AM EST NeuroDiagnostic Study Neurophysiology [facility] [address] [place] [address] Alexis Dong DO 200 [facility] [place] [address] Arrived Allergies Active Allergy Reactions Criticality Noted Date Comments Gold-Containing Drug Products 04/23/2022 Penicillins Rash 04/23/2022 Pollen 03/10/2023 Mirtazapine Other (Please comment) 12/10/2022 SOB Soybean-Containing Drug Products 03/10/2023 Sulfa Antibiotics Rash 04/23/2022 Topiramate 04/23/2022 Blurry vision Wound Dressing Adhesive 03/10/2023 documented as of this encounter (statuses as of 05/04/2023) Medications Medication Sig Dispensed Refills Start Date [...] Oral Capsule Take by mouth. 0 Active [place] 3 1000 MG Oral Capsule Take by [...] rhinitis, unspecified seasonality, unspecified trigger Administer 1 [place] into nostril in the morning and 1 [place] before bedtime. Use in each nostril as [...] 02/22/2023 Active Ramelteon 8 MG Oral Tablet (Rozerem)Indication s:Insomnia, unspecified type Take 1 Tablet by mouth [...] Active Aimovig 140 MG/ML Subcutaneous Solution Auto-injector ([employer]) Inject 1 mL under the skin Every [...] as of this encounter (statuses as of 05/04/2023) Active Problems Problem Noted Date Diagnosed Date [...] as of this encounter (statuses as of 05/04/2023) Immunizations Name Administration Dates Next Due SEASONAL [...] as of this encounter Progress Notes * Alexis Dong DO - 05/04/2023 9:[address] [facility] Neurophysiology Laboratory Electromyography Report Name: Kaelyn Gardiner Date of : 1970 (53 year old) Sex: female Tech: Terrell Galoclinton Referring Physician: Alexis Dong DO Examining Physician: Alexis Dong DO Examination Date: 05/04/2023 Ht Readings from Last 1 Encounters: 04/11/23 1.562 m (5' 1.5") Wt Readings from Last 1 Encounters: 04/19/23 92.3 kg (203 lb 8 oz) Impression: Normal study. There is no electrodiagnostic evidence of a mononeuropathy, large fiber polyneuropathy, myopathy, plexopathy, or cervical or lumbosacral radiculopathy in the right upper or lower extremity. History and Physical examination: A 53-year-old female with history of migraine headache and idiopathic small fiber neuropathy referred for evaluation of progressive numbness and tingling. Reflexes are 3+ at both knees. EMG/NCS performed for evaluation of neuropathy. Nerve Conduction Studies Examination Findings: Nerve conduction studies were performed in the right upper and lower extremities, and in select nerves in the left lower extremity. The median, ulnar, radial, sural, and superficial peroneal sensory nerve studies showed normal peak latencies, normal amplitudes, normal conduction velocity. The left s ural sensory nerve study showed a normal peak latency, normal amplitude, and normal conduction velocity. The right peroneal, tibial, and ulnar motor nerve study showed normal distal latencies, normalamplitudes, and normal conduction velocities. Please see the attached document for raw data or the scanned document in EPIC. Reference values are from the [facility] normative data guidelines that are attached at the end ofthis document. Electromyography Examination Findings: Needle examination was performed with a disposable concentric needle electrode in selected muscles of the right upper and lower extremities, as recorded in the tables. No abnormal spontaenous activity was seen. The motor unit action potentials in the 1st dorsal interosseous, abductor pollicis brevis, flexor carpi radialis, triceps brachii, deltoid, tibialis anterior, vastus medialis, and medial gastrocnemius muscles demonstrated normal size, duration, and recruitment. Please see the attached document for raw data or the scanned document in EPIC. The study was done with a concentric needle examination. Alexis Dong DO documented in this encounter Plan of Treatment Upcoming Encounters Date Type Department Care Team (Late st Contact Info) Description 05/11/2023 10:30 AM EST Office Visit Gynecology/Obstetrics Nathaniel England [address] [facility] [place] [address] Chris Walker MD 132 [facility] [place] [address] 05/30/2023 3:30 PM EST Telemedicine Psychiatry, [facility] [address] [facility] [place] [address] Annabel Lim CRNP 200 [facility] [place] [address] 06/06/2023 10:00 AM EST Office Visit Sleep Disorders Ctr [facility] [address] [place] [address] Brenda Ramos, DO [address] [place] [address] 06/13/2023 8:30 AM EST Office Visit Orthopaedics [facility] 132 [place] [address] Theron Pineda, DO [address] [place] [address] 06/16/2023 9:30 AM EST Office Visit Rheumatology, [place] [address] [place] [address] Marla Moon CRNP [address] [place] [address] 06/22/2023 12:00 PM EST Office Visit Gastroenterology, [facility] [address] [place] [address] Vaughn Powell CRNP [address] [place] [address] 08/17/2023 1:30 PM EST Office Visit Allergy/Immunology, [address] [address] Danie Corona MD [address] [place] [address] 08/23/2023 1:20 PM EST Office Visit Dermatology[address] [address] Melisa Chin, PAAnyi [address] [place] [address] [place] [address] Scheduled Procedures Name Priority Associated Diagnoses Date/Ti [...] as of this encounter Visit Diagnoses Diagnosis Numbness and tingling [R20.0, R20.2]- Primary Disturbance of skin sensation documented in this encounter Care Teams Dietetic Assistant Relationship Specialty Start Date End Date Leonila Angel DO [address] [place] [address] PCP - General Family Medicine 02/03/23 documented as of this encounter
--- OUTSIDE RECORDS SUMMARY | 2023-06-12 19:28 | External Medical Summary | Summary of Care ---
Author Name Unknown Organization [facility] Address [address] [place] [address] Phone [phone] Care Team Providers Care Tail Board Man Name Role Phone Stanley Keenthea Collins Primary Care Provider Reason for Visit * Reason Comments Completion Of Treatment Encounter Details Date Type Department Care Team (Late st Contact Info) Description 11/12/2022 Documentation [place], [place] [address] [place] [address] Jade Mccauley, [facility] [address] [place] [address] Allergies Active Allergy Reactions Criticality Noted Date Comments Gold-Containing Drug Products 04/23/2022 Penicillins Rash 04/23/2022 Pollen 03/10/2023 Mirtazapine Other (Please comment) 12/10/2022 SOB Soybean-Containing Drug Products 03/10/2023 Sulfa Antibiotics Rash 04/23/2022 Topiramate 04/23/2022 Blurry vision Wound Dressing Adhesive 03/10/2023 documented as of this encounter (statuses as of 05/02/2023) Medications Medication Sig Dispensed Refills Start Date End Date Status Magnesium Citrate Powder Use as directed. 0 Active clonazePAM 1 MG Oral Tablet (KlonoPIN)Indicati ons:Generalized anxiety disorder,Panic disorder Take 0.5 Tablets by mouth 2 times a day as needed for Anxiety or Insomnia. 30 Tablet 0 08/23/19 23 Active Rosuvastatin Calcium 10 MG Oral Tablet (Crestor) Take 1 Tablet by mouth in the morning. 0 01/30/20 22 023 Discontinued Stiolto Respimat 2.5-2.5 MCG/ACT Inhalation Aerosol Solution INHALE 2 PUFFS BY MOUTH EVERY 24 HOURS 0 03/03/20 22 023 Discontinued Azelastine HCl 0.1 % Nasal Solution Administer 1 [place] into nostril in the morning and 1 [place] before bedtime. 0 023 Discontinued(En d of Procedure) Nurtec 75 MG Oral Tablet Disintegrating TAKE 1 TABLET (75 MG TOTAL) BY MOUTH EVERY OTHER DAY. Strength: 75 mg 15 Tablet 3 05/13/20 22 023 Discontinued Aimovig 140 MG/ML Subcutaneous Solution Auto-injector INJECT 1 ML BY SUBCUTANEOUS ROUTE ONCE A MONTH IN THE ABDOMEN, THIGH, OR OUTER AREA OF UPPER ARM Strength: 140 mg/mL 140 mL 3 05/27/20 22 023 Discontinued(Me dication List Clean Up) predniSONE 10 MG Oral Tablet (Deltasone) 6 tab x 3 day, 4 tab x 3 days, 3 tab x 3 days, 2 tab x 3 days, then 1 tab x 3 days then stop 48 Tablet 2 08/13/19 23 023 Discontinued(Me dication List Clean Up) Fremanezumab-vfrm 225 MG/1.5ML Subcutaneous Solution Prefilled Syringe (CORP80) Inject 1.5 mL under the skin Every Month. 1.5 mL 3 08/13/19 23 023 Discontinued(Me dication List Clean Up) hydrOXYzine HCl 25 MG Oral TabletIndications: Generalized anxiety disorder,Major depressive disorder, recurrent severe without psychotic features (HCC) Take 1 Tablet by mouth at bedtime as needed for Other (insomnia). 15 Tablet 0 09/21/19 23 023 Discontinued Ramelteon 8 MG Oral Tablet (Rozerem) Take 1 Tablet by mouth at bedtime. 30 Tablet 1 10/26/19 23 023 Discontinued(Re fill) Mirtazapine 7.5 MG Oral Tablet (Remeron) Take 1 Tablet by mouth at bedtime. 30 Tablet 1 11/09/19 23 023 Discontinued(Pa tient preference/disc ontinuation) Temazepam 30 MG Oral Capsule (Restoril) Take 1 Capsule by mouth at bedtime as needed for Sleep. 30 Capsule 1 11/09/19 23 023 Discontinued(Re fill) Pregabalin 75 MG Oral Capsule (Lyrica) TAKE 1 CAPSULE BY MOUTH EVERYDAY AT BEDTIME 30 Capsule 2 11/09/19 23 023 Discontinued documented as of this encounter (statuses as of 05/02/2023) Active Problems Problem Noted Date Diagnosed Date [...] as of this encounter (statuses as of 05/02/2023) Immunizations Name Administration Dates Next Due SEASONAL [...] as of this encounter Progress Notes * Jade Mccauley, ELECTRODYNAMICIST - 11/12/2022 7:13 AM EDT Images from the original note were not included. [facility] [place] [address] Virtual Intensive Outpatient Program Treatment Summary Kaelyn Gardiner was referred for Intensive Outpatient Treatment by NERI Christensen, MM Provider, and previously diagnosed with Anxiety and Depression PTSD, Cluster B Traits. Patient had a recent increase in symptoms precipitated by rigid and maladaptive manner of reacting to stressors and Health and pain related issues impact. Patient identified their own goals for IOP as" Find a better way of dealing with trauma and having supports". Treatment interventions included psychoeducation, increasingawareness of cognitions, stress management techniques, healthy interpersonal communication, behavioral activation, developing positive coping skills, activities group, and process group. Admission Date: 10/04/2022 Discharge Date: 11/12/2022 No. Sessions Attended: 19 Diagnosis: PTSD, STARR, MDD, recurrent, severe without psychotic features Borderline Personality Disorder and cluster B traits Chief Complaint: Depression Anxiety Involvement in Groups: Appropriate Well involved PROGRESS IN TREATMENT: good Patient Health Questionnaire (PHQ-9) Score at Admission: 19 Discharge: 16 (0-4 Min; Mild -5-9; Moderate 10-14; Mod Severe 15-19; Severe 20+) PHQ-9, Item 9 score at Discharge = 1 (if anything but 0 administer [place]) [place] Suicide Severity Rating Scale Results 11/08/2022 12:47 [place] SUICIDE SEVERITY RATING SCALE (C-SSRS) Have you wished you were or wished you could go to sleep and not wake up? (In the Past Month or Since Last Visit) Yes Have you had any actual thoughts of killing yourself? (In the Past Month or Since Last Visit) Yes Have you been thinking about how you might do this? (In the Past Month or Since Last Visit) Yes fleeting thoughts of OD Have you had thoughts and had some [...] do anything to end your life? (Lifetime) Yes Was this within the past 3 months? No Level of Risk Moderate Protective Factors Access to appropriate services;Willing to participate in less restrictive means of help;Identifies reasons for living;Help-Seeking Behaviors;Future Plans Risk Factors History of Depression;History of self-harm;Family history of suicide attempts/completion;Previous suicide attempts;Anxiety;Physical illness/chronic pain;Social and family isolation;History of Trauma Generalized Anxiety Disorder (STARR-7) Score at Admission: 11 Discharge: 8 (0-4 Min; Mild -5-9; Moderate 10-14; Severe 15+) CONTACTS WITH: , [place], as Collateral Contact on 10/04/2022 CURRENT MEDICATIONS: Current Outpatient Medications: Mirtazapine 7.5 MG Oral Tablet (Remeron), Take 1 Tablet by mouth at bedtime., Disp: 30 Tablet, Rfl: 1 Pregabalin 75 MG Oral Capsule (Lyrica), TAKE 1 CAPSULE BY MOUTH EVERYDAY AT BEDTIME, Disp: 30 Capsule, Rfl: 2 Temazepam 30 MG Oral Capsule (Restoril), Take 1 Capsule by mouth at bedtime as needed for Sleep., Disp: 30 Capsule, Rfl: 1 Ramelteon 8 MG Oral Tablet (Rozerem), Take 1 Tablet by mouth at bedtime., Disp: 30 Tablet, Rfl:1 hydrOXYzine HCl 25 MG Oral Tablet, Take 1 Tablet by mouth at bedtime as needed for Other (insomnia)., Disp: 15 Tablet, Rfl: 0 clonazePAM 1 MG Oral Tablet (KlonoPIN), Take 0.5 Tablets by mouth 2 times a day as needed for Anxiety or Insomnia., Disp: 30 Tablet, Rfl: 0 Fremanezumab-vfrm 225 MG/1.5ML Subcutaneous Solution Prefilled Syringe (CORP80), Inject 1.5 mL under the skin Every Month., Disp: 1.5 mL, Rfl: 3 predniSONE 10 MG Oral Tablet (Deltasone), 6 tab x 3 day, 4 tab x 3 days, 3 tab x 3 days, 2 tab x 3 days, then 1 tab x 3 days then stop, Disp: 48 Tablet, Rfl: 2 Aimovig 140 MG/ML Subcutaneous Solution Auto-injector, INJECT 1 ML BY SUBCUTANEOUS ROUTE ONCE [place] IN THE ABDOMEN, THIGH, OR OUTER AREA OF UPPER ARM Strength: 140 mg/mL (Patient not taking: Reported on 09/20/2022), Disp: 140 mL, Rfl: 3 Nurtec 75 MG Oral Tablet Disintegrating, TAKE 1 TABLET (75 MG TOTAL) BY MOUTH EVERY OTHER DAY. Strength: 75 mg, Disp: 15 Tablet, Rfl: 3 Magnesium Citrate Powder, Use as directed., Disp: , Rfl: Azelastine HCl 0.1 % Nasal Solution, Administer 1 [place] into nostril in the morning and 1 Spraybefore bedtime., Disp: , Rfl: Rosuvastatin Calcium 10 MG Oral Tablet (Crestor), Take 1 Tablet by mouth in the morning., Disp:, Rfl: Stiolto Respimat 2.5-2.5 MCG/ACT Inhalation Aerosol Solution, INHALE 2 PUFFS BY MOUTH EVERY 24 HOURS (Patient not taking: Reported on 09/20/2022), Disp: , Rfl: Treatment Recommendations: Kaelyn Gardiner concluded their course of treatment in [facility]. After careful review with the treatment team, discharge is indicated. Reasons for discharge include sufficient progress toward goals. Kaelyn Gardiner should follow up in individual therapy and medication management with NERI Christensen specialist to address deferred goals related to stress management techniques, medication management and skill building. Patient should use crisis plan as needed. Patient was encouraged to call backor call follow-up providers with questions. Patient has access to the discharge summary via [employer]. Follow Up Plan: 1. Individual Therapy: Seeking MH services through [facility] 2. Medication Management: NERI Christensen On 12/10/2022 3. PCP: Paco Orozco PA-C, as scheduled Jade Mccauley LCSW 11/12/2022 7:13 AM cc: ENRI Christensen, Paco Orozco PA-C, [facility] Team documented in this encounter Plan of Treatment Upcoming Encounters Date Type Department Care Team (Late st Contact Info) Description 05/04/2023 9:30 AM EST NeuroDiagnostic Study Neurophysiology [facility] [address] [place] [address] Alexis Dong, DO [address] [place] [address] 05/11/2023 10:30 AM EST Office Visit Gynecology/Obstetric s [facility] [address] [facility] [place] [address] Chris Walker MD [address] [place] [address] 05/30/2023 3:30 PM EST Telemedicine Psychiatry, [facility] [address] [place] [address] Annabel Lim CRNP [address] [place] [address] 06/06/2023 10:00 AM EST Office Visit Sleep Disorders Ctr [facility] [address] [facility] [place] [address] Brenda Ramos, DO [address] [place] [address] 06/13/2023 8:30 AM EST Office Visit Orthopaedics [facility] [address] [facility] [place] [address] Theron Pineda, DO [address] [facility] [place] [address] 06/16/2023 9:30 AM EST Office Visit Rheumatology, [place] [address] [place] [address] Marla Moon CRNP [address] [place] [address] 06/22/2023 12:00 PM EST Office Visit Gastroenterology, [facility] [address] [facility] [place] [address] Vaughn Powell CRNP [address] [place] [address] 08/17/2023 1:30 PM EST Office Visit Allergy/Immunology, [place] [address] [place] [address] Danie Corona MD [address] [place] [address] 08/23/2023 1:20 PM EST Office Visit Dermatology, [place] [address] [place] [address] Melisa Chin PA-C [address] [place] [address] [place] [id number] Scheduled Procedures Name Priority Associated Diagnoses Date/Ti [...] filedocumented as of this encounter Care Teams Tail Board Man Relationship Specialty Start Date End Date Leonila Angel DO [address] [place] [address] PCP - General Family Medicine 02/03/23 documented as of this encounter
--- OUTSIDE RECORDS SUMMARY | 2023-06-12 19:28 | External Medical Summary | Summary of Care ---
Author Name Unknown Organization [facility] Address [address] [place] [address] Phone [phone] Care Team Providers Care Senior Insight Manager International Name Role Phone TomfrancesLeonilaly Primary Care Provider Reason for Visit * Reason Comments Follow Up Encounter Details Date Type Department Care Team Description 04/01/2023 Office Visit Pulmonary Medicine, [address] [place] [address] Theron Lainez DO [address] [place] [address] Mild persistent asthma without complication*; Allergic rhinitis, unspecified seasonality, unspecified trigger; Pulmonary nodules Allergies Active Allergy Reactions Severity Noted Date Comments Gold-Containing Drug Products 04/23/2022 Penicillins Rash 04/23/2022 Pollen 03/10/2023 Mirtazapine Other (Please comment) 12/10/2022 SOB Soybean-Containing Drug Products 03/10/2023 Sulfa Antibiotics Rash 04/23/2022 Topiramate 04/23/2022 Blurry vision Wound Dressing Adhesive 03/10/2023 documented as of this encounter (statuses as of 04/01/2023) Medications Medication Sig Dispensed Refills Start Date [...] Oral Capsule Take by mouth. 0 Active Sar[place] 3 1000 MG Oral Capsule Take by [...] rhinitis, unspecified seasonality, unspecified trigger Administer 1 [place] into nostril in the morning and 1 [place] before bedtime. Use in each nostril as [...] times daily 90 Tablet 2 2023 Active documented as of this encounter (statuses as of 04/01/2023) Active Problems Problem Noted Date Abdominal discomfort [...] as of this encounter (statuses as of 04/01/2023) Immunizations Name Administration Dates Next Due SEASONAL [...] Sign Reading Time Taken Comments Blood Pressure 110/62 04/01/2023 9:52 AM EDT Pulse 90 04/01/2023 9:52 AM EDT Temperature - - Respiratory Rate 16 04/01/2023 9:52 AM EDT Oxygen Saturation 97% 04/01/2023 9:5 2 AM EDT rm air at rest Inhaled Oxygen Concentration - - Weight 92.9 kg (204 lb 12.8 oz) 04/01/2023 9:52 AM EDT Height 156.2 cm (5' 1.5") 04/01/2023 9: 52 AM EDT Body Mass Index 38.07 04/01/2023 9:52 AM EDT documented in this encounter Progress Notes * Theron Lainez, - 04/01/2023 9:54 AM EDT SUBJECTIVE: Kaelyn Gardiner is a 53 year old female. Chief Complaint Patient presents with Follow Up HPI: Kaelyn Gardiner is a 53 year old female presenting for follow-up. The primary encounter diagnosiswas Mild persistent asthma without complication. Diagnoses of Allergic rhinitis, unspecified seasonality, unspecified trigger and Pulmonary nodules were also pertinent to this visit. Since last visitshe is been using Breo 100 mcg once daily. She notes her cough has resolved. If she misses doses ofher Breo she notes the cough recurs. She has dyspnea with higher levels of exertion such as walkinguphill. She denies any wheezing. She is not required her albuterol at all. She is not had any upperrespiratory infections or need for antibiotics or prednisone for breathing. Patient Active Problem List Diagnosis Code Migraine with aura and without status migrainosus, not intractable G43.109 Hyperlipidemia with target LDL less than 100 E78.5 Fibromyalgia M79.7 Other insomnia G47.09 PTSD (post-traumatic stress disorder) F43.10 LISA (obstructive sleep apnea) G47.33 Asthma J45.909 Severe episode of recurrent major depressive disorder, without psychotic features (HCC) F33.2 Abdominal discomfort R10.9 Lung nodule R91.1 Polyarthralgia M25.50 Neuropathy G62.9 Small fiber neuropathy G62.9 Dehydration E86.0 Sprain of medial collateral ligament of left knee S83.412A Patellofemoral pain syndrome M22.2X9 Current Outpatient Medications Medication Sig Dispense Refill [...] B Complex-C Oral Capsule Take by mouth. Sarver 3 1000 MG Oral Capsule Take by mouth. Co Q 10 100 MG Oral Capsule Take by mouth. D-Ribose Powder Use as directed. Nurtec 75 MG Oral Tablet Disintegrating DISSOLVE 1 TABLET (75 MG TOTAL) ON TONGUE EVERY OTHER DAY 15 Tablet 3 Fluticasone Furoate-Vilanterol 100-25 MCG/ACT Inhalation Aerosol Powder Breath Activated (BREO ellipta) Inhale 1 Puff by mouth in the morning. 60 Each 11 Ventolin HFA 108 (90 Base) MCG/ACT Inhalation Aerosol Solution Inhale 2 Puffs by mouth every 4 hours as needed for Shortness of Breath. 18 g 1 Pregabalin 75 MG Oral Capsule (Lyrica) TAKE 1 CAPSULE BY MOUTH EVERYDAY AT BEDTIME 30 Capsule 2 Fluticasone Propionate 50 MCG/ACT Nasal Suspension Rosuvastatin Calcium 10 MG Oral Tablet (Crestor) Take 1 Tablet by mouth in the morning. 90 Tablet 3 Clindamycin Phosphate 1 % External Gel Apply 2x daily to new or resolving spots on face/chin/body (can use more instead of scratching or picking at lesions) 60 g 3 Ramelteon 8 MG Oral Tablet (Rozerem) Take 1 Tablet by mouth at bedtime. 30 Tablet 1 Temazepam 30 MG Oral Capsule (Restoril) Take 1 Capsule by mouth at bedtime as needed for Sleep. 30 Capsule 1 CPAP every night at bedtime. Cyclobenzaprine HCl 10 MG Oral Tablet (Flexeril) Take 1 Tablet by mouth 3 times a day as needed forMuscle spasms. 30 Tablet 0 Propranolol HCl 10 MG Oral Tablet (Inderal) 1 tab three times daily 90 Tablet 2 Azelastine-Fluticasone 137-50 MCG/ACT Nasal Suspension Administer 1 [place] into nostril in the morning and 1 [place] before bedtime. Use in each nostril as directed. (Patient not taking: Reported on 03/10/2023) 23 g 5 No current facility-administered medications for this visit. Review of patient's allergies indicates: Allergen Reactions Gold-Containing Drug Products Penicillins Rash Pollen Remeron [Mirtazapine] Other (Please comment) SOB Soybean-Containing Drug Products Sulfa Antibiotics Rash Topamax [Topiramate] Blurry vision Wound Dressing Adhesive OBJECTIVE: BP 110/62 | Pulse 90 | Resp 16 | Ht 1.562 m (5' 1.5") | Wt 92.9 kg (204 lb 12.8 oz) | SpO2 97% Comment: rm air at rest | BMI 38.07 kg/m | BSA 2.01 m PHYSICAL EXAM: Constitutional: no acute distress, able to converse without apparent dyspnea Eyes: anicteric, pupils equal ENT: external ears normal, wearing a face mask Neck: trachea midline, JVP normal Chest: normal respiratory effort, clear to auscultation, no wheezing or crackles Extremities: no clubbing, no cyanosis Neuro: alert, oriented Psych: normal mood and affect PFT's 03/30/2023 personally visualized: Normal spirometry without significant bronchodilator response, normal lung volumes, normal diffusion capacity ASSESSMENT: J45.30 Mild persistent asthma without complication (primary encounter diagnosis) J30.9 Allergic rhinitis, unspecified seasonality, unspecified trigger R91.8 Pulmonary nodules - sub 6 mm nodules in a never smoker, no further routine imaging follow-up needed PLAN: Continue Breo 100 mcg once daily Continue albuterol as needed Follow up in 1 year or sooner as needed. Theron Lainez DO documented in this encounter Nursing Notes * Umu Ryan LPN - 04/01/2023 9:49 AM EDT FU: CONNOLLY (dyspnea on exertion) Asthma with severity to be determined Multiple pulmonary nodules Interm History/Respiratory Symptoms Cough: at times Hemoptysis: no Sinus Symptoms: stuffy nose Hospitalizations: no ED Trips: no Triggers: no Nocturnal: no CPAP/BiPAP/O2: autopap Flu Vaccine: 2021 Pneumovax: no Prevnar: no COVID 19: no MMRC Dyspnea Scale = 1 (I get short of breath when hurrying on level ground or walking up a slight hill) Asthma Control Test Question 04/01/2023 9:58 AM EDT - Filed by Umu Ryan LPN Please select the best response to the five questions below, by clicking the appropriate option button. In the past 4 weeks, how much of the time did your asthma keep you from getting as much done at work, school or at home? (5) None of the time During the past 4 weeks, how often have you had shortness of breath? (4) Once or twice a week During the past 4 weeks, how often did your asthma symptoms (wheezing, coughing, shortness of breath, chest tightness or pain) wake you up at night or earlier than usual in the morning? (3) Once a week During the past 4 weeks, how often have you used your rescue inhaler or nebulizer medication (such as albuterol)? (5) Not at all How would you rate your asthma control during the past 4 weeks? (4) Well controlled Total ACT Adult Score (range: 5 - 25) 21 (Well Controlled) Total ACT Child Score (range: 0 - 27) Incomplete Travel Screening Question 04/01/2023 9:58 AM EDT - Filed by Umu Ryan LPN Do you have any of the following new or worsening symptoms? None of these Have you recently been in contact with someone who was sick? No / Unsure Myc Visit Accident Related Question Question 04/01/2023 9:58 AM EDT - Filed by Umu Ryan LPN Is this visit related to an accident? (i.e work, motor vehicle) No documented in this encounter Plan of Treatment Upcoming Encounters Date Type Specialty Care Team Description 04/02/2023 Imaging Radiology 04/06/2023 Office Visit Orthopedics Theron Pineda, DO [address] [place] [address] 04/11/2023 Office Visit Gynecology Obstetrics Denise, Chris, MD [address] [place] [address] 04/15/2023 Telemedicine Psychiatry Lim, NERI Mobley [address] [place] [address] 05/04/2023 NeuroDiagnostic Study Neurophysiology Alexis Dong DO [address] [place] [address] 06/06/2023 Office Visit Sleep Disorders Brenda Ramos DO [address] [place] [address] 06/16/2023 Office Visit Rheumatology Marla Moon CRNP [address] [place] [address] 06/22/2023 Office Visit Gastroenterology Vaughn Powell CRNP [address] [place] [address] 08/08/2023 Office Visit Hematology Oncology Gamaliel Quinn MD [address] [place] [address] 08/17/2023 Office Visit Allergy & Immunology Danie Corona MD [address] [place] [address] 08/23/2023 Office Visit Dermatology Melisa Chin PA-C [address] [place] [address] [place] [address] 09/21/2023 Office Visit Neurology Elle Dotson, DO [address] [facility] [place] [address] Scheduled Procedures Name Priority Associated Diagnoses Date/Ti [...] as of this encounter Visit Diagnoses Diagnosis Mild persistent asthma without complication- Primary Unspecified asthma Allergic rhinitis, unspecified seasonality, unspecified trigger Pulmonary nodules Other nonspecific abnormal finding of lung field documented in this encounter Care Teams Senior Insight Manager International Relationship Specialty Start Date End Date Leonila Angel DO [address] [place] [address] PCP - General Family Medicine 02/03/23 documented as of this encounter
--- OUTSIDE RECORDS SUMMARY | 2023-06-12 19:28 | External Medical Summary | Summary of Care ---
Author Name Unknown Organization [facility] Address [address] [facility] [place] [address] Phone [phone] Care Team Providers Care Statistical Methods Professor Name Role Phone Leonila Angel DO Primary Care Provider Reason for Visit * Reason Comments Follow Up Encounter Details Date Type Department Care Team Description 04/06/2023 Office Visit Orthopaedics [facility] [address] [place] [address] Theron Pineda DO [address] [place] [address] Tear of MCL (medial collateral ligament) of knee, left, sequela*; Primary osteoarthritis of left knee Allergies Active Allergy Reactions Severity Noted Date Comments Gold-Containing Drug Products 04/23/2022 Penicillins Rash 04/23/2022 Pollen 03/10/2023 Mirtazapine Other (Please comment) 12/10/2022 SOB Soybean-Containing Drug Products 03/10/2023 Sulfa Antibiotics Rash 04/23/2022 Topiramate 04/23/2022 Blurry vision Wound Dressing Adhesive 03/10/2023 documented as of this encounter (statuses as of 04/06/2023) Medications Medication Sig Dispensed Refills Start Date [...] Oral Capsule Take by mouth. 0 Active [place] 3 1000 MG Oral Capsule Take by mouth. 0 Active Co Q 10 100 MG Oral Capsule Take by mouth. 0 Active D-Ribose Powder Use as directed. 0 Act chaaprro Nurtec 75 MG Oral Tablet Disintegrating DISSOLVE [...] rhinitis, unspecified seasonality, unspecified trigger Administer 1 [place] into nostril in the morning and 1 [place] before bedtime. Use in each nostril as [...] as of this encounter (statuses as of 04/06/2023) Active Problems Problem Noted Date Abdominal discomfort [...] as of this encounter (statuses as of 04/06/2023) Immunizations Name Administration Dates Next Due SEASONAL [...] as of this encounter Progress Notes * Theron Pineda, DO - 04/06/2023 10:30 AM EDT Kaelyn Gardiner [id number] Kaelyn Gardiner is a 52 year old female who presents for f/u to [facility] for left knee injury/pain. [facility] Kaelyn Gardiner is here with Date of Injury: 11/04/22 Quality: reviewed and agree with Nursing Notes for HPI elements History: History - slip and fall in shower while shaving legs, then was seen at [facility] ED notes from 11/05/22 scanned into chart reviewed. Had PRP by me on 01/11/23. Seen on 02/23/23 feeling better with improved ROM and strength, thinks PRP has also helped knee OA, has not started HEP, but is doing exercise in pool and feels that is helped, still a "bruised feeling" medial knee but again improving. TODAY:has had a few falls, has not been doing her HEP because of this,also has FM ROS EXAM:Constitional: No change in weight, No fatigue and No fevers, sweats, or chills, she does feel generalized body pain and has a diagnosis of FM Past Medical History: Diagnosis Date Anxiety Arthritis Asthma Cognitive changes Depression Diverticulosis Fibromyalgia Hyperlipidemia with target LDL less than 100 04/23/2022 Insomnia Lung nodule Migraine Migraine with aura and without status migrainosus, not intractable 04/23/2022 Neuropathy LISA (obstructive sleep apnea) 04/23/2022 PTSD (post-traumatic stress disorder) Sleep apnea Social anxiety disorder Current Outpatient Medications Medication Sig Dispense Refill [...] B Complex-C Oral Capsule Take by mouth. [place] 3 1000 MG Oral Capsule Take by [...] 2 Fluticasone Propionate 50 MCG/ACT Nasal Suspension Azelastine-Fluticasone 137-50 MCG/ACT Nasal Suspension Administer 1 [place] into nostril in the morning and 1 [place] before bedtime. Use in each nostril as directed. (Patient not taking: Reported on 03/10/2023) 23 g 5 Rosuvastatin Calcium 10 MG [...] Capsule 1 CPAP every night at bedtime. Autopap 7-10 cm Cyclobenzaprine HCl 10 MG Oral Tablet (Flexeril) Take 1 Tablet by mouth 3 times a day as needed forMuscle spasms. 30 Tablet 0 Propranolol HCl 10 MG Oral Tablet (Inderal) 1 tab three times daily 90 Tablet 2 No current facility-administered medications for this visit. Physical Exam General: in no acute distress Mood and Affect: calm and conversant Gait and Station: mildly antalgic Peripheral pulses: normal in affected extremity (s) Skin examination: normal on affect extremity (s) Coordination: normal Knee Exam, bilateral Alignment: normal Bilateral Effusion: negative Bilateral Palpation: tenderness to palpation minimal on the left medal joint line and femoral attachment of MCL ROM: R - Flexion - 120 degrees, Extension - 0 degrees L - Flexion - 120 degrees, Extension -0 degrees R- Strength: Extension - 5/5 Flexion - 5/5 L - Strength: Extension - 5/5 Flexion - 5/5 Ligament tests/stability: ACL/PCL stable MCL: Medial opening @ 30: 1+ Left LCL: Lateral opening @ 30: negative Left Popliteal mass - negative Left Grind negative Left Assessment and Plan: pt is stable ,new handout given, if not making progress will order formal PT, f/u 2 months, new PRP handout also given Tear of MCL (medial collateral ligament) of knee, left, sequela (Primary) Primary osteoarthritis of left knee Theron Pineda DO Primary Care Sports Medicine Orthopaedics [facility] [address] [place] [address] documented in this encounter Nursing Notes * GUERRERO Hicks - 04/06/2023 10:24 AM EDT Follow up Patient Follow up: Knee Side: Left Date of last visit: 02/23/23 Improvement since last office visit: 10 percent. Prior Treatment: Home Exercise Program - admits she has not been compliant with this Here for Test Results: No GUERRERO Hicks documented in this encounter Plan of Treatment Upcoming Encounters Date Type Specialty Care Team Description 04/11/2023 Office Visit Gynecology Obstetrics Chris Walker MD [address] [place] [address] 04/15/2023 Telemedicine Psychiatry Lim, NERI Mobley [facility] [place] [address] 05/04/2023 NeuroDiagnostic Study Neurophysiology Alexis Dong DO [address] [place] [address] 06/06/2023 Office Visit Sleep Disorders Brenda Ramos DO [address] [place] [address] 06/13/2023 Office Visit Orthopedics Theron Pineda, DO [address] [facility] [address] 06/16/2023 Office Visit Rheumatology Marla Moon CRNP [address] [place] [address] 06/22/2023 Office Visit Gastroenterology Vaughn Powell CRNP [address] [place] [address] 08/08/2023 Office Visit Hematology Oncology Gamaliel Quinn MD [address] [place] [address] 08/17/2023 Office Visit Allergy & Immunology Danie Corona MD [address] [place] [address] 08/23/2023 Office Visit Dermatology Melisa Chin PA-Kirill [address] [place] [address] [place] [address] 09/21/2023 Office Visit Neurology Elle Dotson DO [address] [facility] [place] [address] Scheduled Procedures Name Priority Associated Diagnoses Date/Ti [...] as of this encounter Visit Diagnoses Diagnosis Tear of MCL (medial collateral ligament) of knee, left, sequela- Primary Primary osteoarthritis of left knee Primary localized osteoarthrosis, lower leg documented in this encounter Care Teams Statistical Methods Professor Relationship Specialty Start Date End Date Leonila Angel DO [address] [place] [address] PCP - General Family Medicine 02/03/23 documented as of this encounter
--- OUTSIDE RECORDS SUMMARY | 2023-06-12 19:28 | External Medical Summary | Summary of Care ---
Author Name Unknown Organization [facility] Address [address] [facility] [place] [address] Phone [phone] Care Team Providers Care Teletray Operator Name Role Phone TomfrancesLeonila DO Primary Care Provider Reason for Visit * Reason Onset Date Comments Precert Approved 04/19/2023 Aimovig Encounter Details Date Type Department Care Team (Late st Contact Info) Description 04/19/2023 Telephone Neurology Jenn CHRISTIE [address] [facility] [place] [address] Sushma Gonsalves PA-C [address] [facility] [place] [address] Precert Approved (Aimovig ) Allergies Active Allergy Reactions Criticality Noted Date Comments Gold-Containing Drug Products 04/23/2022 Penicillins Rash 04/23/2022 Pollen 03/10/2023 Mirtazapine Other (Please comment) 12/10/2022 SOB Soybean-Containing Drug Products 03/10/2023 Sulfa Antibiotics Rash 04/23/2022 Topiramate 04/23/2022 Blurry vision Wound Dressing Adhesive 03/10/2023 documented as of this encounter (statuses as of 04/21/2023) Medications Medication Sig Dispensed Refills Start Date [...] Oral Capsule Take by mouth. 0 Active [place] 3 1000 MG Oral Capsule Take by [...] rhinitis, unspecified seasonality, unspecified trigger Administer 1 [place] into nostril in the morning and 1 [place] before bedtime. Use in each nostril as [...] Active Aimovig 140 MG/ML Subcutaneous Solution Auto-injector ([employer]-aooe) Inject 1 mL under the skin Every [...] as of this encounter (statuses as of 04/21/2023) Active Problems Problem Noted Date Diagnosed Date [...] as of this encounter (statuses as of 04/21/2023) Immunizations Name Administration Dates Next Due SEASONAL [...] Self- administered - route pre-cert request to [id number] See corresponding visit note(s) for additional supporting clinical information. Previous preventive treatments: Nutraceuticals Magnesium CoQ10 Vitamin B complex Antihypertensives Propranolol - 10mg in the morning and 20mg at night- decreased severity Antidepressants/Anti-Anxiety/Mood Nortriptyline Sertraline Antiepileptics Keppra Lyricjonny Trejomide Topamax- causes blurred vision Botox: Botox- in [...] Description 04/21/2023 10:00 AM EDT Imaging Radiology [facility] [address] [place] [address] 05/04/2023 9:30 AM EST NeuroDiagnostic Study Neurophysiology [facility] [address] [facility] [place] [address] Alexis Dong DO [address] [facility] [place] [address] 05/11/2023 10:30 AM EST Office Visit Gynecology/Obstetric s [facility] [address] [facility] [place] [address] Chris Walker MD 132 [facility] [place] [address] 05/30/2023 3:30 PM EST Telemedicine Psychiatry, [facility] 200 [facility] [place] [address] Annabel Lim CRNP 200 [facility] [place] [address] 06/06/2023 10:00 AM EST Office Visit Sleep Disorders [facility] 132 [facility] [place] [phone] Richard Brenda Gan, DO 132 [facility] [place] [address] 06/13/2023 8:30 AM EST Office Visit Orthopaedics [facility] [address] [facility] [place] [address] Theron Pineda, DO [address] [facility] [place] [address] 06/16/2023 9:30 AM EST Office Visit Rheumatology, [place] [address] [place] [address] Marla Moon CRNP [address] [place] [address] 06/22/2023 12:00 PM EST Office Visit Gastroenterology, [facility] 132 [place] [address] Vaughn Powell CRNP 132 [place] [address] 08/17/2023 1:30 PM EST Office Visit Allergy/Immunology, [address] [address] Danie Corona MD [address] [place] [address] 08/23/2023 1:20 PM EST Office Visit Dermatology[address] [id number] Melisa Chin PA-C [address] [place] [address] [place] [id number] Scheduled Procedures Name Priority Associated Diagnoses Date/Ti [...] filedocumented as of this encounter Care Teams Teletray Operator Relationship Specialty Start Date End Date Leonila Angel DO [address] [place] [address] PCP - General Family Medicine 02/03/23 documented as of this encounter
--- OUTSIDE RECORDS SUMMARY | 2023-06-12 19:28 | External Medical Summary | Summary of Care ---
Author Name Unknown Organization [facility] Address [address] [facility] [place] [address] Phone [phone] Care Team Providers Care Heel Sorter Name Role Phone Leonila Angel DO Primary Care Provider Reason for Visit * Reason Onset Date Comments Medication Refill 2023 Encounter Details Date Type Department Care Team Description 2023 Refill Neurology [facility] [place] [address] [place] [address] Yumiko Traore PA-C [address] [facility] [place] [address] Allergies Active Allergy Reactions Severity Noted Date Comments Gold-Containing Drug Products 04/23/2022 Penicillins Rash 04/23/2022 Pollen 03/10/2023 Mirtazapine Other (Please comment) 12/10/2022 SOB Soybean-Containing Drug Products 03/10/2023 Sulfa Antibiotics Rash 04/23/2022 Topiramate 04/23/2022 Blurry vision Wound Dressing Adhesive 03/10/2023 documented as of this encounter (statuses as of 2023) Medications Medication Sig Dispensed Refills Start Date [...] Oral Capsule Take by mouth. 0 Active Merna 3 1000 MG Oral Capsule Take by [...] rhinitis, unspecified seasonality, unspecified trigger Administer 1 [place] into nostril in the morning and 1 [place] before bedtime. Use in each nostril as [...] 02/23/2023 Active Temazepam 30 MG Oral Capsule (Restoril)Indicatio ns:Insomnia, unspecified type Take 1 Capsule by mouth at bedtime as needed for Sleep. 30 Capsule 1 02/23/2023 Active CPAP every night at bedtime. 0 Active Cyclobenzaprine HCl 10 MG Oral Tablet (Flexeril)Indicatio ns:Muscle spasms of both lower extremities Take 1 Tablet by mouth 3 times a day as needed for Muscle spasms. 30 Tablet 0 03/15/2023 Active Propranolol HCl 10 MG Oral Tablet (Inderal) 1 tab three times daily 90 Tablet 2 2023 Active Propranolol HCl 10 MG Oral Tablet (Inderal) 1 tab at bedtime x 5 days then 1 tab twice daily for 5 days then 1 tab three times daily 90 Tablet 2 01/04/2023 Discontinu ed(Refill) documented as of this encounter (statuses as of 2023) Active Problems Problem Noted Date Abdominal discomfort [...] as of this encounter (statuses as of 2023) Immunizations Name Administration Dates Next Due SEASONAL [...] encounter Miscellaneous Notes * Telephone Encounter - uYmiko Traore PA-C - 2023 1:25 PM EDT Signed Prescriptions: Disp Refills Propranolol HCl 10 MG Oral Tablet (Inderal)90 Tab*2 Si tab three times dailyAuthorizing Provider: YUMIKO TRAORE documented in this encounter Plan of Treatment Upcoming Encounters Date Type Specialty Care Team Description 04/01/2023 Office Visit Pulmonary Theron Lainez, DO [address] [place] [address] 04/02/2023 Imaging Radiology 04/06/2023 Office Visit Orthopedics Theron Pineda DO [address] [place] [address] 04/11/2023 Office Visit Gynecology Obstetrics Chris Walker MD [address] [place] [address] 04/15/2023 Telemedicine Psychiatry Lim, NERI Mob[place] [address] [place] [address] 05/04/2023 NeuroDiagnostic Study Neurophysiology Alexis Dong DO [address] [place] [address] 06/06/2023 Office Visit Sleep Disorders Brenda Ramos DO [address] [place] [address] 06/16/2023 Office Visit Rheumatology Marla Moon CRNP [address] [place] [address] 06/22/2023 Office Visit Gastroenterology Vaughn Powell CRNP [address] [place] [address] 08/08/2023 Office Visit Hematology Oncology Gamaliel Quinn MD [address] [facility] [place] [address] 08/17/2023 Office Visit Allergy & Immunology Danie Corona MD [address] [place] [address] 08/23/2023 Office Visit Dermatology Melisa Chin PA-C [address] [place] [address] [place] [address] 09/21/2023 Office Visit Neurology Elle Dotson, DO [address] [facility] [place] [address] Scheduled Procedures Name Priority Associated Diagnoses Date/Ti [...] Vaccines (1 - Tdap) 1988 HPV/Co-Test 1999 *SPIROMETRY ONCE FOR ASTHMA-ADULT 05/20/2022 Depression, Most Recent Score >= 10 (will [...] filedocumented as of this encounter Care Teams Heel Sorter Relationship Specialty Start Date End Date Leonila Angel DO [address] [place] [address] PCP - General Family Medicine 02/03/23 documented as of this encounter
--- OUTSIDE RECORDS SUMMARY | 2023-06-12 19:28 | External Medical Summary | Summary of Care ---
Author Name Unknown Organization [facility] Address [address] [place] [place] [address] Phone [phone] Care Team Providers Care Front End Developer Javascript Html Css Name Role Phone TomfrancesLeonila DO Primary Care Provider Reason for Visit * Reason Onset Date Comments Appointment 03/30/2023 Encounter Details Date Type Department Care Team Description 03/30/2023 Telephone Radiology [address] [place] [address] Vane Espinoza TECH Appointment Allergies Active Allergy Reactions Severity Noted Date Comments Gold-Containing Drug Products 04/23/2022 Penicillins Rash 04/23/2022 Pollen 03/10/2023 Mirtazapine Other (Please comment) 12/10/2022 SOB Soybean-Containing Drug Products 03/10/2023 Sulfa Antibiotics Rash 04/23/2022 Topiramate 04/23/2022 Blurry vision Wound Dressing Adhesive 03/10/2023 documented as of this encounter (statuses as of 03/30/2023) Medications Medication Sig Dispensed Refills Start Date [...] Oral Capsule Take by mouth. 0 Active [place] 3 1000 MG Oral Capsule Take by mouth. 0 Active Co Q 10 100 MG Oral Capsule Take by mouth. 0 Active D-Ribose Powder Use as directed. 0 Act chaparro Nurtec 75 MG Oral Tablet Disintegrating DISSOLVE 1 TABLET (75 MG TOTAL) ON TONGUE EVERY OTHER DAY 15 Tablet 3 01/03/2023 Active Propranolol HCl 10 MG Oral Tablet (Inderal) 1 tab at bedtime x 5 days then 1 tab twice daily for 5 days then 1 tab three times daily 90 Tablet 2 01/04/2023 Active Fluticasone Furoate-Vilanterol 100-25 MCG/ACT Inhalation Aerosol [...] rhinitis, unspecified seasonality, unspecified trigger Administer 1 [place] into nostril in the morning and 1 [place] before bedtime. Use in each nostril as [...] Muscle spasms. 30 Tablet 0 03/15/2023 Active documented as of this encounter (statuses as of 03/30/2023) Active Problems Problem Noted Date Abdominal discomfort [...] as of this encounter (statuses as of 03/30/2023) Immunizations Name Administration Dates Next Due SEASONAL [...] Visit Pulmonary Theron Lainez, DO [address] [place] [address] 04/02/2023 Imaging Radiology 04/06/2023 Office Visit Orthopedics Theron Pineda, DO [address] [facility] [place] [address] 04/11/2023 Office Visit Gynecology Obstetrics Chris Walker MD [address] [place] [address] 04/15/2023 Telemedicine Psychiatry Lim, NERI Mobley [address] [place] [address] 05/04/2023 NeuroDiagnostic Study Neurophysiology Alexis Dong, DO [address] [place] [address] 06/06/2023 Office Visit Sleep Disorders Brenda Ramos, DO [address] [place] [address] 06/16/2023 Office Visit Rheumatology Marla Moon CRNP [address] [place] [address] 06/22/2023 Office Visit Gastroenterology Vaughn Powell CRNP [address] [place] [address] 08/08/2023 Office Visit Hematology Oncology Gamaliel Quinn MD [address] [place] [address] 08/17/2023 Office Visit Allergy & Immunology Danie Corona MD [address] [facility] [place] [address] 08/23/2023 Office Visit Dermatology Melisa Chin PA-C [address] [place] [address] [place] [address] 09/21/2023 Office Visit Neurology NilaElle L, DO [address] [facility] [place] [address] Scheduled Procedures Name Priority Associated Diagnoses Date/Ti [...] filedocumented as of this encounter Care Teams Front End Developer Javascript Html Css Relationship Specialty Start Date End Date Leonila Angel DO [address] [place] [address] PCP - General Family Medicine 02/03/23 documented as of this encounter
--- OUTSIDE RECORDS SUMMARY | 2023-06-12 19:28 | External Medical Summary | Summary of Care ---
Author Name Unknown Organization [facility] Address [address] [place] [place] [address] Phone [phone] Care Team Providers Care Duck Operator Name Role Phone Leonila Angel DO Primary Care Provider Reason for Visit * Reason Comments Medication Management Follow Up Encounter Details Date Type Department Care Team Description 04/15/2023 Telemedicine Psychiatry, [facility] [address] [place] [address] Ann[facility] CRNP [address] [facility] [address] Insomnia, persistent*; Major depressive disorder, recurrent severe without psychotic features (HCC); STARR (generalized anxiety disorder); Panic disorder; PTSD (post-traumatic stress disorder); Cluster B personality disorder (HCC) Allergies Active Allergy Reactions Severity Noted Date Comments Gold-Containing Drug Products 04/23/2022 Penicillins Rash 04/23/2022 Pollen 03/10/2023 Mirtazapine Other (Please comment) 12/10/2022 SOB Soybean-Containing Drug Products 03/10/2023 Sulfa Antibiotics Rash 04/23/2022 Topiramate 04/23/2022 Blurry vision Wound Dressing Adhesive 03/10/2023 documented as of this encounter (statuses as of 04/15/2023) Medications Medication Sig Dispensed Refills Start Date [...] Oral Capsule Take by mouth. 0 Active Benkelman 3 1000 MG Oral Capsule Take by [...] rhinitis, unspecified seasonality, unspecified trigger Administer 1 Denver into nostril in the morning and 1 Denver before bedtime. Use in each nostril as [...] food. Until gone.. 14 Capsule 0 04/12/2023 3 Active Zolpidem Tartrate ER 12.5 MG Oral Tablet Extended ReleaseIndications: Insomnia, persistent Take 1 Tablet by mouth at bedtime as needed for Sleep. 30 Tablet 0 04/15/2023 Active Temazepam 30 MG Oral Capsule (Restoril)Indicatio ns:Insomnia, unspecified type Take 1 Capsule by mouth at bedtime as needed for Sleep. 30 Capsule 1 02/23/2023 3 Discontinu ed(Medicat ion/Dose Changed) documented as of this encounter (statuses as of 04/15/2023) Active Problems Problem Noted Date Abdominal discomfort [...] as of this encounter (statuses as of 04/15/2023) Immunizations Name Administration Dates Next Due SEASONAL [...] as of this encounter Progress Notes * NERI Sosa - 04/15/2023 11:33 AM EDT OUTPATIENT PSYCHIATRY [place] [address] MEDICATION MANAGEMENT & PSYCHOTHERAPY RETURN VISIT NOTE Name: Kaelyn Gardiner : 1970 Date Seen: 04/15/2023 LOCATION FROM WHICH SERVICE IS DELIVERED Provider's Home via HIPAA-compliant platform PATIENT'S CURRENT PHYSICAL LOCATION Pt home address After connecting through [employer], patient was verified with two unique identifiers. 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 Stressors include recent move from [place] with and younger daughter and conflict with older daughter. She suffers from insomnia for many years, sometimes only sleeping a couple hours or not at all during the night. Has difficulty taking medication in the morning due to inability to eat in the morning CURRENT PSYCHIATRIC PROVIDERS/SERVICES: [facility] case management services [facility] peer [facility] psych rehab one day per week MEDICATION SIDE EFFECTS/ADHERENCE: Negative side effects from current prescribed psychotropic medications: none Medication adherence: fair PREVIOUS PSYCHOTROPIC MEDICATION TRIALS: Ambien Paxil Trazodone - cause stomach upset Lunesta cymbalta abilify Temazepam 30 mg Zoloft Remeron Hydroxyzine Restoril RELEVANT PSYCHIATRIC, MEDICAL, FAMILY OR SOCIAL HISTORY/UPDATE: [...] 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 no Education: BS in math Employment/Occupational status: not employed history: no Legal history: no Trauma history: see above Social support/supportive people in life: daughter, family friends Leisure/recreational activities: cross stitch, reading, nature, car rides Anabaptist/philosophical beliefs: Tenriism - non practicing CHANGE IN SUBSTANCE USE [...] appointments: Wt Readings from Last 3 Encounters: 04/11/23 93 kg (205 lb) 04/01/23 92.9 kg (204 lb 12.8 oz) 03/30/23 92.2 kg (203 lb 4.2 oz) LABORATORY RESULTS: Recent Results (from the past 1344 hour(s)) CBC WITH WBC DIFFERENTIAL Collection Time: 03/08/23 12:00 AM Result Value Ref Range HEMOGLOBIN-OUTSIDE LAB 13.5 11.7 - 15.5 G/DL URINALYSIS, REFLEX TO MICROSCOPIC Collection Time: 03/10/23 1:01 PM Result Value Ref Range Color, Urine Colorless Colorless, Light Yellow, Yellow, Dark Yellow Clarity, Urine Clear Clear Glucose, Urine Negative Negative mg/dL Bilirubin, Urine Negative Negative Ketone, Urine Negative Negative mg/dL Specific Winters, Urine 1.008 1.003 - 1.030 Blood, Urine Negative Negative pH, Urine 6.5 5.0 - 7.5 Units Protein, Urine Negative Negative mg/dL Urobilinogen, Urine Normal Normal mg/dL Nitrite, Urine Negative Negative Esterase, Urine Negative Negative Comment, Urine PORPHOBILINOGEN, QUANTITATIVE, 24-HOUR URINE Collection Time: 03/12/23 10:09 AM Result Value Ref Range Total Volume 2450 mL Porphobilinogen 24 Hr Ur <0.134 <0.34 mg/24 h Interpretation SEE BELOW SURGICAL PATHOLOGY Collection Time: 03/14/23 1:44 PM Result Value Ref Range Final Diagnosis A. Stomach, biopsy for HP: Benign oxyntic type mucosa with no significant pathologic abnormalities The immunostain for H pylori is negative Clinical History Upper abdominal pain Gross Description A. Stomach. Stomach, biopsy with HP Received in formalin with a container labeled with "Kaelyn Gardiner", "[id number]", "1970" and " stomach". Received is one fragment of garcia tissue measuring 0.2 cm in greatest dimension. The specimen is placed in a biopsy bag and entirely submitted in cassette A1. Gross By: MR Microscopic Description Microscopic examination performed Sign Out Location Pathologist sign out performed at [facility] ([facility] [address] [place] [id number]. Photographic images and diagrams represent cabral findings in this case; they are not intended to replace a complete review of the final diagnostic report. The following statement applies to Flow Cytometry, Histology, In situ Hybridization Assays and Molecular Genetics. This test was developed and performed at [facility] and its performance characteristics determined by [facility] [employer] [facility]. It has not been cleared or approved by the U.S. Food and Drug Administration. The FDA has determined that such clearance or approval is not necessary. This test is used for clinical purposes. It should not be regarded as investigationalor for research. Special stains, including histochemical stains, and studies using immunologic and MAYKEL methodology (where applicable) are performed with appropriate positive and negative control reactions. SURGICAL PATHOLOGY Collection Time: 03/24/23 9:10 AM Result Value Ref Range Final Diagnosis A. Endometrium, sharp endometrial curettings: Inactive endometrium. Endocervical mucosa with acute and chronic inflammation. B. Endometrial polyp resection with myosure: Endometrial polyp, benign. Inactive endometrium. Gross Description A. Endometrium. Received in formalin with a container labeled with "Kaelyn Ekaterina Gardiner", "[id number]", "1970" and " sharp endometrial curettings". Received is a 3.7 x 2.5 x 0.3 cm aggregate of soft pink-red tissue admixed with mucus and clotted blood. The specimen is submitted entirely in cassette A1 and A2. Gross By: B. Endometrium. Received in formalin with a container labeled with "Kaelyn M Gardiner", "[id number]", "1970" and " endometrial polyp resection with MyoSure". Received is a 2.5 x 1.6 x 0.2 cm aggregate of soft pink-red tissue admixed with mucus and clotted blood. The specimen is submitted entirely in cassette B1. Gross By: Microscopic Description Microscopic examination performed. Sign Out Location Pathologist sign out performed at [facility], [address] [place] [address]. Photographic images and diagrams represent cabral findings in this case; they are not intended to replace a complete review of the final diagnostic report. The following statement applies to Flow Cytometry, Histology, In situ Hybridization Assays and Molecular Genetics. This test was developed and performed at [facility] and its performance characteristics determined by [facility]. It has not been cleared or approved by the U.S. Food and Drug Administration. The FDA has determined that such clearance or approval is not necessary. This test is used for clinical purposes. It should not be regarded as investigationalor for research. Special stains, including histochemical stains, and studies using immunologic and MAYKEL methodology (where applicable) are performed with appropriate positive and negative control reactions. DIFFUSION CAPACITY (DLCO) Collection Time: 03/30/23 8:06 AM Result Value Ref Range DLCO Uncorrect Actual Pre 18.48 ml/min/mmHg DLCO Uncorrect Actual Pre %Predict 97 % LUNG VOLUMES (PLETHYSMOGRAPHY) Collection Time: 03/30/23 8:06 AM Result Value Ref Range SVC Actual Pre 2.84 L SVC Actual Pre %Predict 92 % IC Actual Pre 2.40 L IC Actual Pre %Predict 116 % ERV Actual Pre 0.40 L ERV Actual Pre %Predict 40 % TGV Actual Pre 1.80 L TGV Actual Pre %Predict 69 % RV (Pleth) Actual Pre 1.36 L RV (Pleth) Actual Pre %Predict 79 % TLC(Pleth) Actual Pre 4.20 L TLC (Pleth) Actual Pre %Predict 90 % RV/TLC (Pleth) Actual Pre 32 % SPIROMETRY B/A BRONCHODILATOR Collection Time: 03/30/23 8:06 AM Result Value Ref Range FVC Actual Pre 2.93 L FVC Actual Pre %Predict 95 % FVC Actual Post 2.94 L FVC Actual Post %Change 0 % FEV1 Actual Pre 2.55 L FEV1 Actual Pre %Predict 103 % FEV1 Actual Post 2.57 L FEV1 Actual Post %Change 0 % FEV1/FVC Actual Pre 87 % FEV1/FVC Actual Post 87 % FEF 25-75% Actual Pre 3.26 L/sec FEF 25-75% Actual Pre %Predict 133 % FEF 25-75% Actual Post 3.43 L/sec FEF 25-75% Actual Post %Change 5 % URINALYSIS, REFLEX TO CULTURE (CUP ONLY) Collection [...] Ketone, Urine Trace (A) Negative mg/dL Specific Winters, Urine 1.025 1.003 - 1.030 Blood, Urine [...] Insight: fair Judgement: fair Impulse Control: fair [place] Suicide Severity Rating Scale Results 04/15/2023 12:05 [place] SUICIDE SEVERITY RATING SCALE (C-SSRS) Have [...] Since Last Visit) Yes Have you had thoughts and had some [...] 3 months? No Level of Risk Moderate Risk Factors: previous suicide attempts, history of [...] of Treatment Plan: Patient has access to [facility] Signature Obtained on Treatment Plan: No Expected [...] to be made at this time. Discussed graduate intern plan to taper/discontinue clonazepam. [facility], including blended case management, peer support and [...] of insomnia, which is consistent with her ch[facility] history. She feels medications have been helpful [...] fluid intake, and to consider returning to restorationism services. 07/26/22: Pt has responded well to [...] community support services. Discussed benefit of [facility] for therapy and skilldevelopment. Pt is in [...] attacks since last appt. Was connected with [employer] and casemanager will be meeting [...] IOP program, [facility] [...] in the home presently. 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 Pt states she enjoyed the socialization of IOP. She was encouraged to follow up with [facility], as this will provide socialization and support. [...] peer support services and she likes her environmental communications specialist. Is attending [facility] psych rehab one day per week, but [...] with lymphatic system; has procedure scheduled with [facility]. Is taking care medical concerns. Pt's extension service specialist has helped pt find trauma therapist [...] with stressors. Pt discussed recent trip to [place] she took with her daughter and enjoyed the time away. Pt has also been playing video games with her daughter and enjoying this. Peer Support provider is helpful. She continues with individual therapy. She has been worried about her daughter who lives in [place]. Pt did have suicidal ideations around her [...] for insomnia. Discontinue temazepam and hold ramelteon. Diagnosis: Major depressive disorder recurrent severe without psychotic features Generalized Anxiety Disorder Panic disorder PTSD Cluster B personality Medications: Continue clonazepam to 0.5 mg Qday PRN anxiety discontinue temazepam 30 mg at bedtime for sleep support Hold ramelteon 8 mg for sleep support Start Ambien CR 12.5 mg QHS PRN [...] Drug Monitoring Program in compliance with the [facility] regulations before prescribing a controlled substance. Laboratory/Diagnostics: none Community support/Counseling: Continue to offer psychotherapy utilizing Supportive listening as adjunct to evaluation, managementand prescription of psychiatric medications. individual therapy at [facility] psych rehab one day per week [facility] PCP/medical: Continue to follow up with primary care provider and/or medical specialists as scheduled/appropriate. Return Appointment: Kaelyn Gardiner is to return in 2 weeks. Sooner PRN. This treatment plan was [...] and pose increased health risks. Please note >38 minutes of counseling time over and above medication management was spent with patient discussing self care and providing supportive therapy, including Supportive listening Annabel Lim, MSN, TRANSIT PLANNING MANAGER, PMHNP-[facility] Current Outpatient Medications Medication Sig Dispense Refill Zolpidem Tartrate ER 12.5 MG Oral Tablet Extended Release Take 1 Tablet by mouth at bedtime as needed for Sleep. 30 Tablet 0 Magnesium Citrate Powder Use as directed. clonazePAM [...] B Complex-C Oral Capsule Take by mouth. Benkelman 3 1000 MG Oral Capsule Take by [...] Azelastine-Fluticasone 137-50 MCG/ACT Nasal Suspension Administer 1 Denver into nostril in the morning and 1 Denver before bedtime. Use in each nostril as [...] by mouth at bedtime. 30 Tablet 1 CPAP every night at bedtime. Autopap 7-10 cm Cyclobenzaprine HCl 10 MG Oral Tablet (Flexeril) Take 1 Tablet by mouth 3 times a day as needed forMuscle spasms. 30 Tablet 0 Propranolol HCl 10 MG Oral Tablet (Inderal) 1 tab three times daily 90 Tablet 2 Nitrofurantoin Monohyd Macro 100 MG Oral Capsule (Macrobid) Take 1 Capsule by mouth in the morning and 1 Capsule before bedtime. Do all this for 7 days. With food. Until gone.. 14 Capsule 0 No current facility-administered medications for this visit. documented in this encounter Plan of Treatment Upcoming Encounters Date Type Specialty Care Team Description 04/19/2023 Office Visit Neurology Elle Dotson, DO [address] [facility] [place] [address] 04/21/2023 Imaging Radiology 05/04/2023 NeuroDiagnostic Study Neurophysiology Alexis Dong DO [address] [place] [address] 05/11/2023 Office Visit Gynecology Obstetrics Chris Walker MD [address] [place] [address] 05/30/2023 Telemedicine Psychiatry Lim, NERI Mobley [address] [facility] [place] [address] 06/06/2023 Office Visit Sleep Disorders Brenda Ramos, DO [address] [place] [address] 06/13/2023 Office Visit Orthopedics Theron Pineda, DO [address] [place] [address] 06/16/2023 Office Visit Rheumatology Marla Moon CRNP [address], [place] [id number] 06/22/2023 Office Visit Gastroenterology Vaughn Powell CRNP [address] [place] [address] 08/08/2023 Office Visit Hematology Oncology Gamaliel Quinn MD [address] [facility] [address] 08/17/2023 Office Visit Allergy & Immunology Danie Corona MD [address] [place] [address] 08/23/2023 Office Visit Dermatology Melisa Chin PA-C [address] [place] [address] [place] [address] Scheduled Procedures Name Priority Associated Diagnoses Date/Ti [...] as of this encounter Visit Diagnoses Diagnosis Insomnia, persistent- Primary Persistent disorder of initiating or maintaining sleep Major depressive disorder, recurrent severe without psychotic features (HCC) Major depressive disorder, recurrent episode, severe, without mention of psychotic behavior STARR (generalized anxiety disorder) Generalized anxiety disorder Panic disorder Panic disorder without agoraphobia PTSD (post-traumatic stress disorder) Posttraumatic stress disorder Cluster B personality disorder (HCC) Unspecified personality disorder documented in this encounter Care Teams Duck Operator Relationship Specialty Start Date End Date Leonila Angel DO [address] [place] [address] PCP - General Family Medicine 02/03/23 documented as of this encounter
--- OUTSIDE RECORDS SUMMARY | 2023-06-12 19:28 | External Medical Summary | Summary of Care ---
Author Name Unknown Organization [facility] Address [address] [facility] [place] [address] Phone [phone] Care Team Providers Care Reconditioner Name Role Phone Leonila Angel DO Primary Care Provider Reason for Visit * Reason Comments NEW PATIENT * Evaluate & Treat - Unlimited Visits (Within 10 days (routine)) - Authorized Specialty Diagnoses / Procedures Referred By Jo Ann villegas Referred To Contact Neurology Diagnoses Migraine with aura and without status migrainosus, not intractable Yumiko Traore PA-C [address] [place] [address] Referral ID Status Reason Start Date Expiration Date Visits Requested Visits Authorized [id number] Authorized Specialty Services Required 01/03/2023 04/15/2024 [id number] Encounter Details Date Type Department Care Team (Late st Contact Info) Description 04/19/2023 9:00 AM EDT Office Visit Neurology Jenn CHRISTIE [address] [place] [id number] Elle Dotson DO [address] [place] [id number] Intractable chronic migraine without aura with status migrainosus*; Intractable chronic migraine with aura with status migrainosus; Cervicalgia; Bilateral occipital neuralgia Allergies Active Allergy Reactions Criticality Noted Date Comments Gold-Containing Drug Products 04/23/2022 Penicillins Rash 04/23/2022 Pollen 03/10/2023 Mirtazapine Other (Please comment) 12/10/2022 SOB Soybean-Containing Drug Products 03/10/2023 Sulfa Antibiotics Rash 04/23/2022 Topiramate 04/23/2022 Blurry vision Wound Dressing Adhesive 03/10/2023 documented as of this encounter (statuses as of 04/19/2023) Medications Medication Sig Dispensed Refills Start Date [...] Oral Capsule Take by mouth. 0 Active Mclain 3 1000 MG Oral Capsule Take by [...] rhinitis, unspecified seasonality, unspecified trigger Administer 1 Drummonds into nostril in the morning and 1 Drummonds before bedtime. Use in each nostril as [...] Active Aimovig 140 MG/ML Subcutaneous Solution Auto-injector (ErenStreamline-aooe) Inject 1 mL under the skin Every [...] per week. 30 Tablet 3 04/19/2023 Active Nurtec 75 MG Oral Tablet Disintegrating DISSOLVE 1 TABLET (75 MG TOTAL) ON TONGUE EVERY OTHER DAY 15 Tablet 3 01/03/2023 3 Discontinu ed(Medicat ion/Dose Changed) documented as of this encounter (statuses as of 04/19/2023) Active Problems Problem Noted Date Diagnosed Date [...] as of this encounter (statuses as of 04/19/2023) Immunizations Name Administration Dates Next Due SEASONAL [...] Sign Reading Time Taken Comments Blood Pressure 134/85 04/19/2023 8:59 AM EDT Pulse 82 04/19/2023 8:59 AM EDT Temperature - - Respiratory Rate - - Oxygen Saturation - - Inhaled Oxygen Concentration - - Weight 92.3 kg (203 lb 8 oz) 04/19/2023 8:59 AM EDT Height - - Body Mass Index 37.83 04/11/2023 8:10 AM EDT documented in this encounter Patient Instructions * Patient Instructions* Sushma Gonsalves PA-C - 04/19/2023 10:13 AM EDT Images from the original note were not included. Patient Instructions Summary Non-pharmacologic treatments: Maintain a regular schedule with adequate sleep (sleep hygiene) For light sensitivity, try blue filter film screens for computers and phones, and look into special"migraine glasses" such as theraspecs, axon, or avulux. Oneil glasses also come in a migraine version but you have to talk to customer service about adding the "FL-41 migraine filter" Maintaining regular blood sugar levels can be helpful in controlling headache disease. Be sure to maintain a regular diet (not skipping/late meals) Staying well hydrated is important for headache management. Try to drink at least 40-60 ounces of water per day. To decrease eye strain, follow 20-20-20 Rule: every 20 minutes look at something 20 feet away for 20 seconds For prevention: Stop Nurtec Start Aimovig 140mg once per month Start Prazosin 2mg at bedtime for 2 weeks, if tolerating can increase to 4mgs at bedtime Common side effects, hypotension, dizziness, fatigue, nausea Be sure to stay well hydrated while taking this medication Check blood pressure at home if you are feeling lightheaded or dizzy Take your time when changing position from laying to sitting or sitting to standing to be sure you do not feel lightheaded or dizzy Continue Propranolol 10mg in the morning and 20mg at bedtime All preventive treatments may take at least 2-3 months to start causing a change in your headache. Any medication use to treat headache can cause drowsiness. Take caution before driving or operatingdangerous equipment after taking a medication for headache. For acute therapy: Take when you are having a moderate to severe headache At onset of more severe headache, take Naratriptan 2.5mg 1 tab If still having pain after 1 hour, take Tylenol 500-1000mg If still having pain an hour after that, take Naratriptan 2.5mg 1 tab For nausea at any point, take Zofran 4mg 1-2 tabs, may repeat dose in 6-8 hours Limit Naratriptan to no more than 2 doses a day and no more than 3 days a week. Limit Tylenol to no more than 1 dose a day and no more than 3 days a week. Any medication use to treat headache can cause drowsiness. Take caution before driving or operatingdangerous equipment after taking a medication for headache. Reminders: Resources: [email or web address] Association of Migraine Disorders Send records from ophthalmology Maintain a daily headache log and bring to each visit (see below for headache log) Important Reminder: Medications used to treat headaches may be harmful during . Some of these medications last several months in your body even after 1 dose (for example, Emgality and Aimovig). Also, some headache medications (such as Topamax) may decrease the effectiveness of your oral control. Please use extra precautions (such as condoms) to avoid when taking any headache medication and speak to your healthcare provider if you have any questions or concerns. Should you become during the course of your headache treatment, please tell your healthcare providers as soon as possible. Fragrance Policy Some people with headache disorders have strong sensitivities to scents and smells. Exposure to these scents could trigger them to have severe headache attacks. Out of consideration for our patients and staff that may have sensitivity to scents, we require that all patients being seen for a headache disorder avoid wearing scented products to their appointment. Please start tracking your headache frequency using the following headache logs provided in this After Visit Summary: Sometimes pain scales are not an accurate representation of how headaches are effecting someone's life. As an alternative, please use the calendar below to rate your overall headache day as "good", "not so good' or "terrible" Do this at the end of the day before you go to bed. "Good Day" = good headache day, you can function and get things done without any significant issues(even if you had a headache) "Not So Good Day" = somewhat bad headache day, still able to get things done but a little more difficult to do so, have to force yourself a little more "Terrible Day" = bad headache day, unable to do things, or if you are doing things, it is with extreme difficulty and is requiring all your effort to do it Please use colored marked or highlighter to andrea your days. For example, coloring in a good day as green, not so good days as yellow, and a terrible day as red. documented in this encounter Progress Notes * Elle Dotson, - 04/19/2023 12:46 PM EDT Attending Attestation: I have reviewed the advanced practitioner documentation and agree. I saw and evaluated the patient on date of service referenced in note and have performed the following medically appropriate historyand/or exam: Assessment and Recommendations Kaelyn Gardiner is a 53 year old female with a h/o THOMASON since childhood, here for initial visit. The features of her headaches are most consistent with intractable chronic migraine with and without aura with status migrainosus. Her exam today was notable for significant myalgia in her neck and shoulders, as well as bilateral occipital neuralgia. There are currently no red flags in her headache history. MRI brain and C-spine done in June and March of this year respectively were both normal. Further workup for headache not needed at this time. Patient will continue to follow with Dr. Dong for neurologic complaints not related to headache. For prevention: Reports that Aimovig was very helpful for her and did not cause side effects. Will stop Nurtec and restart Aimovig 140 mg monthly. Start prazosin 2 mg 1 tab at night for 2 weeks then increase to 2 tabs at bedtime as tolerated. I counseled that preventive treatments generally take weeks to months to reach effectiveness. For acute treatment: Tried naratriptan for acute headache treatment Discussed limiting all acute treatments to no more than 2-3 times per week to minimize medication overuse headache. For nausea due to headache: Take Zofran 4 mg as needed for nausea. Max 2 doses a day, max 3 days a week For non-pharmacologic/alternative treatments for THOMASON: Advised patient to drink at least 30 oz of water a day. Discussed non-pharmacologic treatments including sleep hygiene, diet, hydration, caffeine use, medication overuse and coping mechanisms for stress (see patient instruction summary) We reviewed the benefits, potential adverse effects, and alternatives of all medications listed above with the patient. Patient instructed to maintain a headache diary. THOMASON logs provided today. RTC in 16 weeks for follow up with Sushma Gonsalves. Elle Dotson DO Neurology Headache Subspecialist 04/19/23 * Sushma Gonsalves PA-C - 04/19/2023 8:59 AM EDT Kaelyn Gardiner is a 53 year old female being followed for headaches. Pt was last seen: 03/15/[address] Dong At last visit: "Kaelyn Gardiner is a 52 year old female with chronic migraines headache currently managed with low dosePropranolol 10 mg twice daily and reported or presumed idiopathic small fiber neuropathy per outside skin biopsy. She reports headaches are currently manageable with low dose inderal and has tried multiple other preventative including Botox, Aimovig, and Nurtect. She is on Lyrica for presumed fibromyalgia or idiopathic small fiber neuropathy. She has concerns regarding progressive symptoms which including abdominal pain, weakness, numbness, vision changes, muscle spasms, and ambulatory difficulties. Some of the features sound concerning for restless leg syndrome. May benefit from a trial of Requip. I would like to obtain an EMG of the right upper and lower extremity to evaluate for large fiber neuropathy given the progression in her symptoms. On examine this afternoon she has a positive shipley sign on the right with brisk reflexes at the knees and attenuated at the ankles. This patterncan be seen in myelopathy or B12 deficiency. I would recommend we obtain an MRI of the cervical spine without contrast in addition to her EMG. Pending the results of the EMG and MRI cervical spine may need to obtain further labs. I am concerned there may be a functional component as well as all of the symptoms are difficult to explain but may be multifactorial (ie migraine, peripheral neuropathy,fibromyalgia). For now I recommend we start with the EMG and MRI of the cervical spine. I will planto see her back for her EMG and discuss results at that time. In regards to migraine management sheis pleased with the response from Propranolol so will defer on increasing the dose or trying a different medication. For her muscle spasms she has been on Flexeril in the past. She denies any adverseeffects from it in the past. Will provider her with a script for flexeril. She otherwise expressed understanding in the plan as outlined above. " Currently: Headaches have been about the same since last visit. Pt is here for her initial THOMASON evaluation. Current Preventative: - Nurtec 75mg- every other day, does not always remember to take it Current Acute: - Excedrin migraine - 3 times in the past 2 weeks, decreases severity - Cold patches - Peppermint roll on - Flexeril - for muscle spasm, prescribed by Dr. Ramos control: post menopausal Summary of headache history obtained at initial visit and updated as needed. This information will be forwarded to future visits: Past Medical History: Fibromyalgia, diverticulosis, anxiety, depression, HLD, carotid stenosis, neuropathy, Insomnia, arthritis, Asthma, LISA (uses CPAP), splenic aneurysm, PTSD Denies personal history of CA, Stroke, DVT/PE, cancer, cardiac conditions, miscarriage, kidney stones Past Surgical History: cholecystectomy, D&C Family History: glaucoma, HTN, HLD Past Social History: see below History of headaches/age of onset: as a child, age 4. Daily and continuous since her 20s, more severe attacks 2 times per month that may last for up to 2 weeks at a time. - Precipitating Factors at onset: denies Family history of migraine: Mother, daughter Significant events that may be related to THOMASON history (but may not necessarily be due to THOMASON): - in 2019 had a continuous headache for 10 months, was eventually told she had diverticulitis. - Was told she had fluid around her heart in the past. Was following with cardiology prior to moving to [place] - States she has episodes of blacking out during severe headaches, where she keeps moving but doesn't remember anything (this has been going on since she was 4 years old) Headache Characteristics Headache frequency: daily and continuous, more severe days 10-20 days per month Time and mode of onset: gradually Time of day occurs: can be anytime, often wakes up in the morning with headaches Headache location: behind eyes, forehead, top of head, neck, into teeth, when it is more severe occurs on one side at a time. (can be either side) Duration of headaches: daily and continuous - History of THOMASON lasting 3 or more days in a row: yes - Headache free time: no Quality of headache: throbbing, pulsating, pounding, tight, squeezing, vise- like, pressure, hat band, stabbing Associated symptoms: nausea, vomiting(rarely), blurred vision, sensitivity to light, sensitivity tosound, dizziness Premonitory symptoms: food cravings, more irritable Autonomic features: nasal congestion bilaterally, eye tearing bilaterally Visual symptoms: Zig-zag wavy lines, states it is like her vision comes in and out (states this is constant since she was child). Starting at age 49 Large zig zag lines last for 1 hour. Black "Cs" float across vision (R>L) lasts for the the entire day. Have occurs 3-4 times per year. Motor/sensory symptoms: generalized weakness Alleviating factors: cold compress, medication Identified triggers: colds, change in weather, coughing, fatigue, too muc or too little sleep Positional component to headaches: sometimes improves when sitting up and standing up Pulsatile tinnitus: rarely, occurs when laying down Headache triggered by valsalva: has worsening with coughing Radiation of pain: denies Severity: - Least severe 1/10 most severe 7/10 - Worsened by activity: yes - Level of disability during attacks: moderate to severe General state of health: - Mood/stress: mood is good, stress level is moderate - Sleep: less than 6 hours per night. States following her first she went 3-7 days per week without seeping for 7 years. Pt follows with sleep medicine and psychiatric nurse. Does not feel rested. - Caffeine: Iced tea 1 per day - Water intake: 8 ounces - Alcohol use: rarely - Recreational drug use: denies - Smoking: denies - Occupation: not working Age menses began: 11yrs Worsens with menses: yes Still menstruating/duration: post menopausal Sexually active: yes Form of Control: post menopausal Taking hormone replacement: none Pregnancies: 2 Previous preventive treatments: Nutraceuticals Magnesium CoQ10 Vitamin [...] Neuromodulation: x IV treatments: x Other: x Previous acute treatments: NSAIDs and OTCs: Ibuprofen Excedrin Naproxen Indomethacin Toradol Celebrex Aspirin Acetaminophen Triptans: Sumatriptan DHE/ergots: Anti-emetics: Zofran - stopped working Steroids: Muscle Relaxers: Cyclobenzaprine Methocarbomol Gepants: Ditans: Neuromodulation: IV treatments: Other: Fentanyl Toradol Non-pharmacologic Treatments : (chiropractor, PT, osteopathic manipulation) x DIAGNOSTICS LP: x Sleep Study: - Has sleep apnea Last eye exam: - Eye exam was a few months ago - [facility] MRI CERVICAL SPINE WO CONTRAST-04/02/2023 HISTORY 52-year-old female with right arm numbness, positive Shipley sign COMPARISON None TECHNIQUE Multiplanar, multisequence magnetic resonance imaging of the cervical spine is performed without contrast. FINDINGS Alignment of the cervical spine is anatomic, with preservation of the normal lordosis. The vertebral body heights are maintained. No vertebral body compression fractures or destructive bony changes. No suspicious marrow signal. Multilevel disc desiccation with mild loss of disc height at C4-C5 and C5-C6. Early endplate osteophyte formation from C4-C6. Craniocervical junction is normal. The spinal cord is imaged down to the T5 level, and shows normal morphology and signal characteristics. No abnormal epidural signal or intradural mass. Prevertebral and dorsal paraspinous soft tissues are unremarkable. Disc levels: C2-C3: No disc herniation, spinal canal stenosis, or neural foraminal narrowing. C3-C4: No disc herniation, spinal canal stenosis, or neural foraminal narrowing. C4-C5: No disc herniation or spinal canal stenosis. Mild right neural foraminal narrowing. The leftneural foramen is patent. C5-C6: No disc herniation, spinal canal stenosis, or neural foraminal narrowing. C6-C7: No disc herniation, spinal canal stenosis, or neural foraminal narrowing. C7-T1: No disc herniation, spinal canal stenosis, or neural foraminal narrowing. IMPRESSION IMPRESSION 1. No disc herniation, spinal canal stenosis, spinal cord impingement, or intrinsic spinal cord signal abnormality. 2. Mild degenerative changes as detailed above. MRI BRAIN W WO CONTRAST07/03/2022 1:32 pm HISTORY Headache; Neurologic deficit, non-traumatic; Visual symptoms; Neurologic deficit onset <= 24 hours. COMPARISON None TECHNIQUE Routine protocol MRI of the brain was performed with and without administration of IV gadolinium. FINDINGS There are no foci of restricted diffusion. There is proportional enlargement of the ventricles and sulci, consistent with mild global volume loss. There are no focal areas of abnormal brain parenchymal enhancement identified. There are a few, scattered nonspecific foci of subcortical T2/FLAIR hyperintensity, which may be seen with mild chronic small vessel disease, chronic migraines, or reactive gliosis. There is a small focus of susceptibility artifact adjacent to the atrium of the left lateral ventricle, which may represent a chronic microhemorrhage, tiny cavernous malformation, or focal calcification. There is no significant mass effect or midline shift. The basal cisterns are patent. The normally expected, central arterial flow voids of the [place] are grossly maintained. The T1 weighted signal intensity within the calvarium is maintained. The nasal septum is deviated slightly to the left. The orbits are unremarkable. The paranasal sinuses are clear. The mastoid air cells are clear. IMPRESSION IMPRESSION 1. No acute intracranial abnormality is identified. 2. Additional findings as described above. PAST MEDICAL HISTORY: Past Medical History: Diagnosis Date Anxiety Arthritis Asthma Cognitive changes Depression Diverticulosis Fibromyalgia Hyperlipidemia with target LDL less than 100 04/23/2022 Insomnia Lung nodule Migraine Migraine with aura and without status migrainosus, not intractable 04/23/2022 Neuropathy LISA (obstructive sleep apnea) 04/23/2022 PTSD (post-traumatic stress disorder) Sleep apnea Social anxiety disorder SURGICAL HISTORY: Past Surgical History: Procedure Laterality Date BREAST BIOPSY Right Benign COLONOSCOPY, DIAGNOSTIC (RECTUM) 03/14/2023 diverticulosis/recall 5 years/COLONOSCOPY FLEXIBLE PROXIMAL DIAGNOSTIC performed by Juma Garcia MD at ENDOSCOPY [facility] EGD, FLEXIBLE, DIAGNOSTIC 03/14/2023 biopsies normal/ESOPHAGOGASTRODUODENOSCOPY (EGD), FLEXIBLE, TRANSORAL, DIAGNOSTIC performed by Juma Garcia MD at ENDOSCOPY [facility] HYSTEROSCOPY W/BIOPSY AND/OR POLYPECTOMY W/WO D&C 03/24/2023 HYSTEROSCOPY WITH BIOPSY AND/OR POLYPECTOMY WITH OR WITHOUT D&C performed by Chris Walker MD at [facility] PELVIC EXAM UNDER ANESTHESIA, NOT LOCAL Bilateral 03/24/2023 PELVIC EXAMINATION UNDER ANESTHESIA performed by Chris Walker MD at OR [facility] LA CHOLECYSTECTOMY REMOVAL OF ADENOIDS, AGE 12+ MEDICATIONS: Current Outpatient Medications Medication Sig Dispense Refill Magnesium Citrate Powder Use as directed. Vitamin C 500 MG Oral Capsule Take 1,000 mg by mouth in the morning. Zinc 50 MG Oral Capsule Take 1 Capsule by mouth in the morning. B Complex-C Oral Capsule Take by mouth. Mclain 3 1000 MG Oral Capsule Take by mouth. Co Q 10 100 MG Oral Capsule Take by mouth. D-Ribose Powder Use as directed. Fluticasone Furoate-Vilanterol 100-25 MCG/ACT Inhalation Aerosol Powder Breath Activated (BREO ellipta) Inhale 1 Puff by mouth in the morning. 60 Each 11 Pregabalin 75 MG Oral Capsule (Lyrica) TAKE [...] every night at bedtime. Autopap 7-10 cm Propranolol HCl 10 MG Oral Tablet (Inderal) 1 tab three times daily 90 Tablet 2 Nitrofurantoin Monohyd Macro 100 MG Oral Capsule (Macrobid) Take 1 Capsule by mouth in the morning and 1 Capsule before bedtime. Do all this for 7 days. With food. Until gone.. 14 Capsule 0 Zolpidem Tartrate ER 12.5 MG Oral Tablet Extended Release Take 1 Tablet by mouth at bedtime as needed for Sleep. 30 Tablet 0 Aimovig 140 MG/ML Subcutaneous Solution Auto-injector (ErenStreamline-aooe) Inject 1 mL under the skin Every [...] 3 days per week. 30 Tablet 3 clonazePAM 1 MG Oral Tablet (KlonoPIN) Take 0.5 Tablets by mouth 2 times a day as needed for Anxiety or Insomnia. 30 Tablet 0 Ventolin HFA 108 (90 Base) MCG/ACT Inhalation Aerosol Solution Inhale 2 Puffs by mouth every 4 hours as needed for Shortness of Breath. 18 g 1 Azelastine-Fluticasone 137-50 MCG/ACT Nasal Suspension Administer 1 Drummonds into nostril in the morning and 1 Drummonds before bedtime. Use in each nostril as directed. (Patient not taking: Reported on 03/10/2023) 23 g 5 Cyclobenzaprine HCl 10 MG Oral Tablet (Flexeril) Take 1 Tablet by mouth 3 times a day as needed forMuscle spasms. 30 Tablet 0 No current facility-administered medications for this visit. ALLERGIES: Review of patient's allergies indicates: Allergen Reactions Gold-Containing Drug Products Penicillins Rash Pollen Remeron [Mirtazapine] Other (Please comment) SOB Soybean-Containing Drug Products Sulfa Antibiotics Rash Topamax [Topiramate] Blurry vision Wound Dressing Adhesive SOCIAL HISTORY: Social History Socioeconomic History Marital status: Tobacco [...] Food in the Last Year: Never true FAMILY HISTORY: Family History Problem Relation Age of Onset Hyperlipidemia Mother Glaucoma Mother Colon polyps Father Hypertension Father Hyperlipidemia Father Hypertension Sister Migraines Daughter Breast Cancer Great-grandmother (Maternal) Review of Systems General: intermittent chills Eyes: wavy vision since she was a child ENT: Denies difficulty swallowing, ear pain, tinnitus, sore throat, nasal congestion Neck: +neck pain, chronic CV: +chest pain that wakes her up from sleep for 3 weeks Respiratory: + cough, SOB GI: fluctuates between constipation and diarrhea Psychiatric: Denies depression or anxiety Musculoskeletal: denies myalgias, arthralgias Neurological: Admits to headache currently General Exam BP 134/85 | Pulse 82 | Wt 92.3 kg (203 lb 8 oz) | BMI 37.83 kg/m | BSA 2 m General Appearance: appropriately dressed, cooperative, NAD Head: + tenderness to palpation over the greater occipital nerves bilaterally. + tenderness to temporalis and masseter muscles bilaterally. Trigger points to bilateral suboccipital muscles Eye: No conjunctival injection, no scleral icterus ENT: No TMJ dysfunction, posterior oropharynx clear Cerebrovascular: Heart regular rate and rhythm, no murmur, no carotid bruits bilaterally. Normal temporal artery pulses Respiratory: Lungs clear to auscultation bilaterally Musculoskeletal: + trigger points and tenderness to palpation over trapezius and cervical spinal muscles bilaterally Skin: No lesions or rashes, no allodynia over scalp Lymphatics: No cervical lymphadenopathy noted Psychiatric: normal mood and affect Neurological Exam Mental Status: Awake, Alert Oriented x3, responds appropriately to situation, no evidence of dysarthria, aphasia. Attention and concentration intact. Fund of knowledge normal, recent and remote memory intact. 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 Pt's headache aremost consistent with intractable chronic migraine with and without aura with status migrainosus. Ptalso has cervicalgia and bilateral occipital neuralgia. Recent MRI brain and MRI C spine were negative for significant abnormalities. Pt's headaches are not well controlled, will make changes to treatment plan. - For prevention: - Stop [facility] - Will start the prior authorization process for Aimovig 140mg once per month - Start Prazosin 2mg at bedtime for 2 weeks, if tolerating can increase to 4mgs at bedtime - Common side effects, hypotension, dizziness, fatigue, nausea - Be sure to stay well hydrated while taking this medication - Check blood pressure at home if you are feeling lightheaded or dizzy - Take your time when changing position from laying to sitting or sitting to standing to be sure you do not feel lightheaded or dizzy - Continue Propranolol 10mg in the morning and 20mg at bedtime as prescribed - I counseled that preventative treatments generally take weeks to months to reach effectiveness - For acute treatment: - At onset of more severe headache, take Naratriptan 2.5mg 1 tab - If still having pain after 1 hour, take Tylenol 500-1000mg - If still having pain an hour after that, take Naratriptan 2.5mg 1 tab - For nausea at any point, take Zofran 4mg 1-2 tabs, may repeat dose in 6-8 hours - Limit Naratriptan to no more than 2 doses a day and no more than 3 days a week. - Limit Tylenol to no more than 1 dose a day and no more than 3 days a week. - Advised patient to limit all acute treatments to no more than 2-3 times per week to minimize medication over use headache - Patient instructed to maintain a headache diary, THOMASON logs provided today - Continue following with Dr. Dong for neurologic complaints other than headache - Patient expressed understanding of the plan and will call with any questions or concerns. Follow Up: Return in about 4 months (around 08/20/2023) for Clinic Visit with Sushma C . | For: Clinic Visit with Sushma Gonsalves PA-C [facility] Neurology [address] [place] [address]. [address] [place] [id number] Red Flags: None I spent a total of Greater than 55 mins (exact time 95 mins) on the date of service in preparation,delivery, and documentation of the care provided to Kaelyn Gardiner excluding any time spent in the performance of separately billed services. 9:00 AM chart review 9:13 AM 13 minutes 9:14 AM appointment 9:53 AM 39 minutes 9:55AM discussion with Dr. Dotson, exam, review of plan with patient 10:20 AM 25 minutes 5:18 PM documenting 5:28 PM 10 minutes + [address] Dotson's chart review and documentation documented in this encounter Nursing Notes * LISA Rader - 04/19/2023 8:59 AM EDT New pt to be evaluated and treated documented in this encounter Plan of Treatment Upcoming Encounters Date Type Department Care Team (Late st Contact Info) Description 04/21/2023 10:00 AM EDT Imaging Radiology [facility] 2nd [facility] [address] [facility] [place] [id number] 05/04/2023 9:30 AM EST NeuroDiagnostic Study Neurophysiology [facility] [address] [place] [address] Alexis Dong DO [address] [place] [address] 05/11/2023 10:30 AM EST Office Visit Gynecology/Obstetric s [facility] [address] [place] [id number] Chris Walker MD [address] [facility] [place] [id number] 05/30/2023 3:30 PM EST Telemedicine Psychiatry, [facility] [address] [place] [address] Annabel Lim CRNP [address] [facility] [place] [address] 06/06/2023 10:00 AM EST Office Visit Sleep Disorders Ctr [facility] [address] [place] [id number] Brenda Ramos, DO [address] [place] [address] 06/13/2023 8:30 AM EST Office Visit Orthopaedics [facility] [address] [place] [address] Theron Pineda, DO [address] [place] [address] 06/16/2023 9:30 AM EST Office Visit Rheumatology, [place] [address] [place] [address] Marla Moon CRNP [address] [place] [address] 06/22/2023 12:00 PM EST Office Visit Gastroenterology, [facility] [address] [place] [address] Vaughn Powell CRNP [address] [place] [address] 08/17/2023 1:30 PM EST Office Visit Allergy/Immunology, [address] [address] Danie Corona MD [address] [place] [address] 08/23/2023 1:20 PM EST Office Visit Dermatology, [address] [place] [address] Melisa Chin PA-C [address] [place] [address] [place] [id number] Scheduled Procedures Name Priority [...] as of this encounter Visit Diagnoses Diagnosis Intractable chronic migraine without aura with status migrainosus- Primary Chronic migraine without aura, with intractable migraine, so stated, with status migrainosus Intractable chronic migraine with aura with status migrainosus Cervicalgia Bilateral occipital neuralgia Other syndromes affecting cervical region documented in this encounter Care Teams Reconditioner Relationship Specialty Start Date End Date Leonila Angel DO [address] [place] [address] PCP - General Family Medicine 02/03/23 documented as of this encounter
--- OUTSIDE RECORDS SUMMARY | 2023-06-12 19:28 | External Medical Summary | Summary of Care ---
Author Name Unknown Organization [facility] Address [address] [facility] [place] [address] Phone [phone] Care Team Providers Care Family Sociologist Name Role Phone Hanny Angel DO Primary Care Provider Reason for Visit * Reason Comments NEW PATIENT CHRONIC Issues with diarrhea, vomiting, abd pain, [facility]( from [facility]) gallstones, diverticulitis, hx of h pylori * Evaluate & Treat - Unlimited Visits (Within 30 days (routine)) - Pending Review Specialty Diagnoses / Procedures Referred By Jo Ann villegas Referred To Contact Gastroenterology Diagnoses Abdominal discomfort Hanny Angel DO [address] [place] [address] Referral ID Status Reason Start Date Expiration Date Visits Requested Visits Authorized [id number] Pending Review Specialty Services Required 12/13/[phone] Encounter Details Date Type Department Care Team Description 03/10/2023 Office Visit Gastroenterology, [facility] [address] [place] [address] Vaughn Powell CRNP [address] [place] [address] Pain of upper abdomen*; Abdominal pain, generalized; Abdominal cramping, generalized Allergies Active Allergy Reactions Severity Noted Date Comments Gold-Containing Drug Products 04/23/2022 Penicillins Rash 04/23/2022 Pollen 03/10/2023 Mirtazapine Other (Please comment) 12/10/2022 SOB Soybean-Containing Drug Products 03/10/2023 Sulfa Antibiotics Rash 04/23/2022 Topiramate 04/23/2022 Blurry vision Wound Dressing Adhesive 03/10/2023 documented as of this encounter (statuses as of 04/13/2023) Medications Medication Sig Dispensed Refills Start Date [...] Oral Capsule Take by mouth. 0 Active Hopkins 3 1000 MG Oral Capsule Take by [...] rhinitis, unspecified seasonality, unspecified trigger Administer 1 [place] into nostril in the morning and 1 [place] before bedtime. Use in each nostril as [...] for Sleep. 30 Capsule 1 02/23/2023 Active Propranolol HCl 10 MG Oral Tablet (Inderal) 1 tab at bedtime x 5 days then 1 tab twice daily for 5 days then 1 tab three times daily 90 Tablet 2 01/04/2023 3 Discontinu ed(Refill) Zonisamide 25 MG Oral Capsule (Zonegran) 0 3 Discontinu ed(Medicat ion List Clean Up) Pantoprazole Sodium 40 MG Oral Tablet Delayed Release Take 1 Tablet by mouth in the morning. 0 3 Discontinu ed(Medicat ion List Clean Up) Hospital, Clinic, or Other Facility Administered Medication Ordered Dose Route Frequency Start Date End Date Status Albuterol Sulfate (Proventil) (2.5 MG/3ML) 0.083% inhalation solution 2.5 mgIndications:CONNOLLY (dyspnea on exertion) 2.5 mg NEBULIZER ONCE PRN 01/07/2023 03/30/2023 End ed documented as of this encounter (statuses as of 04/13/2023) Active Problems Problem Noted Date Abdominal discomfort [...] as of this encounter (statuses as of 04/13/2023) Immunizations Name Administration Dates Next Due SEASONAL [...] Sign Reading Time Taken Comments Blood Pressure 138/72 03/10/2023 11:24 AM EDT Pulse 97 03/10/2023 11:24 AM EDT Temperature 36.7 C (98.1 F) 03/10/2023 11:24 AM E DT Respiratory Rate - - Oxygen Saturation 98% 03/10/2023 11:24 AM EDT Inhaled Oxygen Concentration - - Weight 92.8 kg (204 lb 9.6 oz) 03/10/2023 11:24 AM EDT Height 157.5 cm (5' 2") 03/10/2023 11:24 AM EDT Body Mass Index 37.42 03/10/2023 11:24 AM EDT documented in this encounter Progress Notes * NERI Mills - 04/13/2023 9:37 AM EDT Records from [facility] received and reviewed. Based on below, no change made to plan. CT AP with IV 2018 diverticulosis mild inflammation at the junction of the descending and sigmoid colon, mild diverticulitis. CT AP with IV 2019 mild wall thickening of the gastric pylorus diverticulosis. Colonoscopy [facility] Dr. Qiu 1-2 3 mm descending colon polyp removed and mild inflammationof the sigmoid colon. * NERI Mills - 03/10/2023 11:26 AM EDT Consult requested by Ref: HANNY ANGEL[[id number]] [address] [place] [address] (office) [phone] (fax) CC: Abdominal pain HPI: 52 year old female pt of Hanny Angel, DO with a hx of asthma, arthritis, depression, diverticulosis, fibromyalgia, PTSD, LISA, Insomnia who presents today for abdominal pain. Abdominal pain has been present "for decades." Pain is severe, "causes nerve in the legs and arms." Present daily. Recalls that in 2018, she had pain daily for months, had several ED visits andmany scans and USs and all said normal until one eventually suggested diverticulitis. Treatment at that time improved but did not resolve her pain. "Whatever I went through for all those months caused a permanent problem with my intestines." If she gets chilled, she gets extreme burning in rectum that travels up the GI tract then she blacks out becoming unconscious. "Something is attacking the neurologic and in the GI tract." She tells me that she has a hx of intermittent porphyria as evidenced by mild serum elevation but hasn't had the 24 hr urine test. Currently has upper abdomen pain, "last night it flared again," caused "swelling in the upper abdomen," and " pain down both legs." Diagnostic Testing: Shows me the quest results on her phone: serum porphyrin 85 (normal to 35); Urine uroporphyrin 23 high; Random urine porphobilinogen high at .361 (normal <.22). These were ordered by Dr. Angel. Pt tells me she had a EGD a month prior to the colonoscopy in 2020. Brings copies of these records today: Colonoscopy at [facility] in [place]: 2-3mm descending colon polyp, mild inflammation in the sigmoid colon. CTAP w abcute diverticulitis and fatty liver at [facility] [place] November 2017. CTAP w IV contrast November 2019: Non specific circumferential wall thickening of the gastric pylorus, malcolm diverticulosis. ALLERGIES: Review of patient's allergies indicates: Allergen Reactions Gold-Containing Drug Products Penicillins Rash Remeron [Mirtazapine] Other (Please comment) SOB Sulfa Antibiotics Rash Topamax [Topiramate] Blurry vision PMH/PSH/Soc Hx reviewed, significant for: Past Medical History: Diagnosis Date Anxiety Arthritis Asthma Cognitive changes Depression Diverticulosis Fibromyalgia Hyperlipidemia with target LDL less than 100 04/23/2022 Insomnia Lung nodule Migraine Migraine with aura and without status migrainosus, not intractable 04/23/2022 Neuropathy LISA (obstructive sleep apnea) 04/23/2022 PTSD (post-traumatic stress disorder) Sleep apnea Social anxiety disorder Past Surgical History: Procedure Laterality Date BREAST BIOPSY Right Benign [place] CHOLECYSTECTOMY REMOVAL OF ADENOIDS, AGE 12+ Social History Socioeconomic History Marital status: Tobacco Use Smoking status: Never Smokeless tobacco: Never Vaping Use Vaping Use: Never used Substance and Sexual Activity Alcohol use: Yes Comment: social Drug use: Never Sexual activity: Not Currently Partners: Male Social History Narrative Lives with . Older daughter. 1 cat and 1 dog. Danie Corona MD 02/14/2023 2:51 PM Social Determinants of Health Food Insecurity: No Food Insecurity Worried About Running Out of Food in the Last Year: Never true Ran Out of Food in the Last Year: Never true Family history reviewed and significant for: Family History Problem Relation Age of Onset Hyperlipidemia Mother Glaucoma Mother Hypertension Father Hyperlipidemia Father Hypertension Sister Migraines Daughter Breast Cancer Great-grandmother (Maternal) Current Outpatient Medications Medication Sig Dispense Refill [...] B Complex-C Oral Capsule Take by mouth. Hopkins 3 1000 MG Oral Capsule Take by mouth. Co Q 10 100 MG Oral Capsule Take by mouth. D-Ribose Powder Use as directed. Nurtec 75 MG Oral Tablet Disintegrating DISSOLVE 1 TABLET (75 MG TOTAL) ON TONGUE EVERY OTHER DAY 15 Tablet 3 Propranolol HCl 10 MG Oral Tablet (Inderal) 1 tab at bedtime x 5 days then 1 tab twice daily for 5 days then 1 tab three times daily 90 Tablet 2 Fluticasone Furoate-Vilanterol 100-25 MCG/ACT Inhalation Aerosol Powder [...] as needed for Sleep. 30 Capsule 1 Azelastine-Fluticasone 137-50 MCG/ACT Nasal Suspension Administer 1 Orinda into nostril in the morning and 1 [place] before bedtime. Use in each nostril as directed. (Patient not taking: Reported on 03/10/2023) 23 g 5 Current Facility-Administered Medications Medication Dose Route Frequency Provider Last Rate Last Admin Albuterol Sulfate (Proventil) (2.5 MG/3ML) 0.083% inhalation solution 2.5 mg 2.5 mg Nebulizer Once PRN Theron Lainez DO EXAM: Pulse 97 | Temp 36.7 C (98.1 F) | Ht 1.575 m (5' 2") | Wt 92.8 kg (204 lb 9.6 oz) | SpO2 98% | BMI 37.42 kg/m | BSA 2.01 m GENERAL: 52 year old female well developed and well nourished who appears well but describes current significant abdominal pain and lower ext nerve pain. SKIN: no rashes, ulcers, or spider angiomata HEENT: normocephalic, sclera clear, pharynx normal NECK: supple, no lymphadenopathy, no masses or thyroid enlargement LUNGS: clear to auscultation anterior and posterior HEART: regular rate & rhythm, no murmurs and no gallops ABDOMEN: normo-active bowel sounds, soft, + abdominal tenderness throughout worse in the RUQ, non-distended no masses, no hepatosplenomegaly, no rebound or guarding, no bruits EXTREMITIES: no palmar erythema, no edema, no skin discoloration, no clubbing, no cyanosis NEURO: no lateralizing findings, Sensory/Motor grossly normal IMPRESSION/RECOMMENDATIONS: 52 year old female with Pain of upper abdomen (Primary)/generalized - PORPHOBILINOGEN, QUANTITATIVE, 24-HOUR URINE; Future; Expected date: 03/11/2023 - URINALYSIS, REFLEX TO MICROSCOPIC; Future; Expected date: 03/10/2023 - EGD, FLEXIBLE, DIAGNOSTIC - COLONOSCOPY, DIAGNOSTIC (RECTUM) Abdominal cramping, generalized - PORPHOBILINOGEN, QUANTITATIVE, 24-HOUR URINE; Future; Expected date: 03/11/2023 - URINALYSIS, REFLEX TO MICROSCOPIC; Future; Expected date: 03/10/2023 - EGD, FLEXIBLE, DIAGNOSTIC - COLONOSCOPY, DIAGNOSTIC (RECTUM) Recheck in GI in approx 3m, after upper endoscopy. I spent a total of 60 minutes on the date of service in review of patient's record, and previously obtained information in person and appropriate medical visit, discussion and education of plan, withpatient and/or caregiver, placing orders for tests/referral/procedures as medically necessary and documentation of pertinent clinical information in patient's medical records for their visit today. NERI Mills [facility] Gastroenterology documented in this encounter Nursing Notes * Юлия Ho LPN - 03/10/2023 11:25 AM EDT Patient identified by name and date of . Chief Complaint Patient presents with NEW PATIENT CHRONIC Issues with diarrhea, vomiting, abd pain, [facility]( from [facility]) gallstones, diverticulitis, hx of h pylori Pt stating that her last scope - colon ( done with dr ford- jul 242020)and EGD( november 24, 2019- gian- this was done prior to colonoscopy- unsure of date [facility]- didn't give her any information when she asked)Pt stating that her blood work , tells them she possibly has one of the intermittent porphyria's. - presents normally with gastro abd pain, acute attack can be fatal. Pt stating that next attack she was told that she needs to be tested. Pt presents with some records, Pt presents with her , art. Pt stating that she is to have a colonoscopy every 3 years. Pt symptoms are nausea, vomiting, diarrhea, abd pain, and cramping, and now nerve pain. Pt stating that she has spent approx 10 months in the hospital in the past. Pt stating that she has nerve pain /neuropathy/ something is effecting neurologic pain/conditions with her stomach. documented in this encounter Plan of Treatment Upcoming Encounters Date Type Specialty Care Team Description 04/15/2023 Telemedicine Psychiatry Lim, NERI Mobley [address] [facility] [place] [address] 04/21/2023 Imaging Radiology 05/04/2023 NeuroDiagnostic Study Neurophysiology Alexis Dong, [address] [place] [address] 05/11/2023 Office Visit Gynecology Obstetrics Chris Walker MD [address] [place] [address] 06/06/2023 Office Visit Sleep Disorders Brenda Ramos, [address] [place] [address] 06/13/2023 Office Visit Orthopedics Theron Pineda, DO [address] [place] [address] 06/16/2023 Office Visit Rheumatology Marla Moon CRNP [address] [place] [address] 06/22/2023 Office Visit Gastroenterology Vaughn Powell CRNP [address] [place] [address] 08/08/2023 Office Visit Hematology Oncology Gamaliel Quinn MD [address] [place] [address] 08/17/2023 Office Visit Allergy & Immunology Danie Corona MD [address] [place], [place] [id number] 08/23/2023 Office Visit Dermatology Melisa Chin PA-C [address] [place] [address] [place] [address] 09/21/2023 Office Visit Neurology [facility]otson, [facility] [address] [facility] [address] Scheduled Orders Name Type Priority Associated Diagnoses Orde r Schedule EGD, FLEXIBLE, DIAGNOSTIC Procedures Routine Pain of upper abdomen Abdominal pain, generalized Abdominal cramping, generalized Ordered: 03/10/2023 COLONOSCOPY, DIAGNOSTIC (RECTUM) Procedures Routine Pain of upper abdomen Abdominal pain, generalized Abdominal cramping, generalized Ordered: 03/10/2023 Scheduled Procedures Name Priority Associated Diagnoses Date/Ti [...] Not on filedocumented as of this encounter Procedures Procedure Name Priority Date/Time Associated Diagnosis Comments PORPHOBILINOGEN, QUANTITATIVE, 24-HOUR URINE Routine 03/12/2023 10:09 AM EDT Pain of upper abdomen Abdominal pain, generalized Abdominal cramping, generalized documented in this encounter Results * PORPHOBILINOGEN, QUANTITATIVE, 24-HOUR URINE (03/12/2023 10:09 AM EDT) Total Volume 2450 mL 03/21/2023 7:50 PM EDT [facility] Porphobilinogen 24 Hr Ur <0.134 <0.34 mg/24 h 03/21/2023 7:50 PM EDT [facility] Interpretation SEE BELOW 03/21/2023 7:50 PM EDT [facility] Comment: Urine porphobilinogen (PBG) is within the normal range. PBG may not be elevated if the patient is asymptomatic or is undergoing treatment at the time of collection. Porphobilinogen concentration was below the sensitivity of the assay, 0.055 mg/L. Therefore, the result was <0.134 mg/24 hours. This result was calculated by multiplying 0.055 mg/L by the total volume in L/24 hours. Interpretation reviewed by: Jade Carolina, Ph.D., [facility]. IF THE ORDERING/TREATING PHYSICIAN HAS ANY QUESTIONS REGARDING THESE RESULTS, PLEASE CONTACT THE [facility] AT ext [phone] or ext [phone] AND ASK TO SPEAK WITH THE HABILITATION ASSISTANT STORE LEAD. FOR GENERAL QUESTIONS ABOUT [facility] GENETIC TESTING, PLEASE CALL THE GENE INFO LINE AT [email or web address]INFO. Whenever possible, specimens should be collected during symptomatic attacks of acute porphyrias, because porphobilinogen (PBG) may decrease rapidly upon remission. PBG may also degrade when samples are exposed to UV light for extended periods or are transported at refrigerated or ambient temperature. All results should be interpreted in the context of clinical findings, relevant history, and other laboratory data. For additional information, please refer to http://education.[employer]/faq/GSH398 (This link is being provided for informational/educational purposes only.) This test was developed and its analytical performance characteristics have been determined by [facility]. It has not been cleared or approved by FDA. This assay has been validated pursuant to the CLIA regulations and is used for clinical purposes. Test performed by [employer] [address] [place] [address] Compressed Air Pile Driver Operator: Catrina Mercer MD,PHD,JAMEEL Test Reported by [facility], [employer] [facility], [address] [place], [place] Anirudh Person M.D., Ph.D., Director of Laboratories , CLIA [id number] Urine Urine specimen obtained by clean catch procedure / Unknown Non-blood Collection / Unknown 03/12/2023 10:09 AM EDT 03/12/2023 10:09 AM EDT Vaughn HE LAB URINE ORDERABL ES [facility] [place] [address] [place] [address] * URINALYSIS, REFLEX TO MICROSCOPIC (03/10/2023 1:01 PM EDT) Color, Urine Colorless Colorless, Light Yellow, Yellow, Dark Yellow 03/10/2023 5:32 PM EDT LABORATORY C Clarity, Urine Clear Clear 03/10/2023 5:32 PM EDT LABORATORY C Glucose, Urine Negative Negative mg/dL 03/10/2023 5:32 PM EDT LABORATORY C Bilirubin, Urine Negative Negative 03/10/2023 5:32 PM EDT LABORATORY C Ketone, Urine Negative Negative mg/dL 03/10/2023 5:32 PM EDT LABORATORY [facility] [place], Urine 1.008 1.003 - 1.030 03/10/2023 5:32 PM EDT LABORATORY C Blood, Urine Negative Negative 03/10/2023 5:32 PM EDT LABORATORY C pH, Urine 6.5 5.0 - 7.5 Units 03/10/2023 5:32 PM EDT LABORATORY C Protein, Urine Negative Negative mg/dL 03/10/2023 5:32 PM EDT LABORATORY C Urobilinogen, Urine Normal Normal mg/dL 03/10/2023 5:32 PM EDT LABORATORY C Nitrite, Urine Negative Negative 03/10/2023 5:32 PM EDT LABORATORY C Esterase, Urine Negative Negative 5:32 PM EDT LABORATORY C Comment, Urine 03/10/2023 5:32 PM EDT LABORATORY C Comment:Screen negative - Mi croscopic not performed. Urine Urine specimen obtained by clean catch procedure / Unknown Non-blood Collection / Unknown 03/10/2023 1:01 PM EDT 03/10/2023 1:01 PM EDT Vaughn HE LAB URINE ORDERABL ES LABORATORY [facility] [address] [place] [address] documented in this encounter Visit Diagnoses Diagnosis Pain of upper abdomen- Primary Abdominal pain, other specified site Abdominal pain, generalized Abdominal cramping, generalized Abdominal pain, generalized documented in this encounter Care Teams Family Sociologist Relationship Specialty Start Date End Date Hanny Angel DO [address] [place] [address] PCP - General Family Medicine 02/03/23 documented as of this encounter
--- OUTSIDE RECORDS SUMMARY | 2023-06-12 19:28 | External Medical Summary | Summary of Care ---
Author Name Unknown Organization [facility] Address [address] [facility] [place] [address] Phone [phone] Care Team Providers Care Bath Mixer Name Role Phone Leonila Angel DO Primary Care Provider Reason for Visit * Reason Comments Post-Op Encounter Details Date Type Department Care Team Description 04/11/2023 Office Visit Gynecology/Obstetrics [facility] [address] [place] [address] Chris Walker MD [address] [place] [address] Postoperative state*; Chronic female pelvic pain Allergies Active Allergy Reactions Severity Noted Date Comments Gold-Containing Drug Products 04/23/2022 Penicillins Rash 04/23/2022 Pollen 03/10/2023 Mirtazapine Other (Please comment) 12/10/2022 SOB Soybean-Containing Drug Products 03/10/2023 Sulfa Antibiotics Rash 04/23/2022 Topiramate 04/23/2022 Blurry vision Wound Dressing Adhesive 03/10/2023 documented as of this encounter (statuses as of 04/11/2023) Medications Medication Sig Dispensed Refills Start Date [...] Oral Capsule Take by mouth. 0 Active [place] 3 1000 MG Oral Capsule Take by [...] rhinitis, unspecified seasonality, unspecified trigger Administer 1 [place] into nostril in the morning and 1 [place] before bedtime. Use in each nostril as [...] as of this encounter (statuses as of 04/11/2023) Active Problems Problem Noted Date Abdominal discomfort [...] as of this encounter (statuses as of 04/11/2023) Immunizations Name Administration Dates Next Due SEASONAL [...] Sign Reading Time Taken Comments Blood Pressure 104/72 04/11/2023 8:10 AM EDT Pulse - - Temperature - - Respiratory Rate - - Oxygen Saturation - - Inhaled Oxygen Concentration - - Weight 93 kg (205 lb) 04/11/2023 8:10 AM EDT Height 156.2 cm (5' 1.5") 04/11/2023 8:10 AM EDT Body Mass Index 38.11 04/11/2023 8:10 AM EDT documented in this encounter Progress Notes * Chris Walker MD - 04/11/2023 9:13 AM EDT Patient is s/p D&C and doing well No SOB,chills,dysuria frequency or fever. Tolerating food well. +ve BM Pt reports low Temp and not feeling well on and off UA sent Pt will f/u with PCP Addendum Pt now wants to address her bilat chronic pelvic pain Reviewed notes from 01/30/23 Plan Pelvic sono Will discuss diagnostic sono vrs hysterectomy documented in this encounter Nursing Notes * Diane Ivory LPN - 04/11/2023 8:20 AM EDT Post-op. DOS 03/24/23, D/C and hysteroscopy, polyp removal. Patient states she is having off/on fevers. Difficulty with urination at times. documented in this encounter Plan of Treatment Upcoming Encounters Date Type Specialty Care Team Description 04/15/2023 Telemedicine Psychiatry Lim, NERI Mobley [address] [place] [address] 04/21/2023 Imaging Radiology 05/04/2023 NeuroDiagnostic Study Neurophysiology Alexis Dong, DO [address] [facility] [place] [address] 05/11/2023 Office Visit Gynecology Obstetrics Chris Walker MD [address] [place] [address] 06/06/2023 Office Visit Sleep Disorders Brenda Ramos, DO [address] [place] [address] 06/13/2023 Office Visit Orthopedics Theron Pineda, DO [address] [place] [address] 06/16/2023 Office Visit Rheumatology Marla Moon CRNP [address] [place] [address] 06/22/2023 Office Visit Gastroenterology Vaughn Powell CRNP [address] [place] [address] 08/08/2023 Office Visit Hematology Oncology Gamaliel Quinn MD [address] [facility] [place] [address] 08/17/2023 Office Visit Allergy & Immunology Danie Corona MD [address] [place], [place] [id number] 08/23/2023 Office Visit Dermatology Melisa Chin PA-C [address] [place] [address] [place] [address] 09/21/2023 Office Visit Neurology Elle Dotson, DO [address] [facility] [place] [address] Pending Results Name Type Priority Associated Diagnoses Date /Time URINALYSIS, REFLEX TO CULTURE (NOT FOR NEUTROPENIC PATIENTS) Lab Routine Chronic female pelvic pain 04/11/2023 9:24 AM EDT URINALYSIS, REFLEX TO CULTURE Lab Routine Chronic female pelvic pain 04/11/2023 9:24 AM EDT Scheduled Orders Name Type Priority Associated Diagnoses Orde r Schedule US PELVIS TRANS-VAGINAL NON-OB Medical Imaging Routine Chronic female pelvic pain Expected: 04/11/2023, Expires: 05/12/2024 Scheduled Procedures Name Priority Associated Diagnoses Date/Ti [...] Procedure Name Priority Date/Time Associated Diagnosis Comments URINALYSIS, REFLEX TO CULTURE (CUP ONLY) Routine 04/11/2023 9:24 AM EDT Chronic female pelvic pain documented in this encounter Results * URINALYSIS, REFLEX TO CULTURE (CUP ONLY) (04/11/2023 9:24 AM EDT) Urinalysis, Reflex to Culture Specimen Specimen collected and received 04/11/2023 11:01 AM EDT [facility] [id number] Urine Urine specimen obtained by clean catch procedure / Unknown Non-blood Collection / Unknown 04/11/2023 9:24 AM EDT 04/11/2023 9:24 AM EDT Chris Walker MD LAB URINE ORDERABLES Performing Organization Address City/State/[facility] Co de Phone Number [facility] [phone] [place] [address] documented in this encounter Visit Diagnoses Diagnosis Postoperative state- Primary Other postprocedural status Chronic female pelvic pain Unspecified symptom associated with female genital organs documented in this encounter Care Teams Bath Mixer Relationship Specialty Start Date End Date Leonila Angel DO [address] [place] [address] PCP - General Family Medicine 02/03/23 documented as of this encounter
--- OUTSIDE RECORDS SUMMARY | 2023-06-12 19:28 | External Medical Summary | Summary of Care ---
Author Name Unknown Organization [facility] Address [address] [facility] [place] [address] Phone [phone] Care Team Providers Care Analyst Business Analysis Name Role Phone TomfrancesLeonila DO Primary Care Provider Reason for Visit * Reason Onset Date Comments Pre Cert/Prior Auth 04/19/2023 [employer] Encounter Details Date Type Department Care Team (Late st Contact Info) Description 04/19/2023 Telephone Neurology Jenn CHRISTIE [address] [facility] [place] [address] CallSushma cortés PA-C [address] [facility] [place] [address] Pre Cert/Prior Auth (Aimovig ) Allergies Active Allergy Reactions Criticality [...] Oral Capsule Take by mouth. 0 Active [place] 3 1000 MG Oral Capsule Take by [...] rhinitis, unspecified seasonality, unspecified trigger Administer 1 [place] into nostril in the morning and 1 [place] before bedtime. Use in each nostril as [...] Until gone.. 14 Capsule 0 04/12/2023 04/19/2023 Active Zolpidem Tartrate ER 12.5 MG Oral Tablet Extended ReleaseIndications: Insomnia, persistent Take 1 Tablet by mouth at bedtime as needed for Sleep. 30 Tablet 0 04/15/2023 Active Aimovig 140 MG/ML Subcutaneous Solution Auto-injector ([employer]) Inject 1 mL under the skin Every [...] 9:53 PM EST Sexual Orientation Straight 05/13/2022 9 :53 PM EST Job Start Date Occupation Industry [...] Self- administered - route pre-cert request to [id number] See corresponding visit note(s) for additional supporting [...] Description 04/21/2023 10:00 AM EDT Imaging Radiology [facility] [address] [facility] [place] [address] 05/04/2023 9:30 AM EST NeuroDiagnostic Study Neurophysiology [facility] [place] [address] [facility] [place] [address] Alexis Dong DO [address] [facility] [place] [address] 05/11/2023 10:30 AM EST Office Visit Gynecology/Obstetric s [facility] [address] [facility] [place] [address] Chris Walker MD 132 [facility] [place] [address] 05/30/2023 3:30 PM EST Telemedicine Psychiatry, [facility] [address] [facility] [place] [address] Annabel Lim CRNP 200 [facility] [place] [address] 06/06/2023 10:00 AM EST Office Visit Sleep Disorders Ctr [facility] 132 [facility] [place] [address] RamosSundeep tinajerothea Gan, DO 132 [place] [address] 06/13/2023 8:30 AM EST Office Visit Orthopaedics [facility] 132 [place] [address] Theron Pineda, DO [address] [place] [address] 06/16/2023 9:30 AM EST Office Visit Rheumatology, [place] [address] [place], [place] [id number] Marla Moon CRNP [address] [place] [address] 06/22/2023 12:00 PM EST Office Visit Gastroenterology, [facility] 132 [place] [address] Vaughn Powell CRNP 132 [place] [address] 08/17/2023 1:30 PM EST Office Visit Allergy/Immunology, [address] [address] Danie Corona MD [address] [place] [address] 08/23/2023 1:20 PM EST Office Visit Dermatology[address] [id number] Melisa Chin PA-C [address] [place] [address] [place] [address] Scheduled Procedures Name Priority Associated Diagnoses Date/Ti [...] filedocumented as of this encounter Care Teams Analyst Business Analysis Relationship Specialty Start Date End Date Leonila Angel DO [address] [place] [address] PCP - General Family Medicine 02/03/23 documented as of this encounter
--- OUTSIDE RECORDS SUMMARY | 2023-06-12 19:29 | External Medical Summary | Summary of Care ---
Author Name Unknown Organization [facility] Address [address] [place] [place] [address] Phone [phone] Care Team Providers Care Gearcase Assembler Name Role Phone Leonila Angel DO Primary Care Provider Reason for Visit * Reason Comments Outpatient Testing Encounter Details Date Type Department Care Team Description 03/12/2023 Laboratory Laboratory, [facility] 132 [facility] [place] [address] [facility] 132 [facility] [place] [address] Arrived Allergies Active Allergy Reactions Severity Noted Date Comments Gold-Containing Drug Products 04/23/2022 Penicillins Rash 04/23/2022 Pollen 03/10/2023 Mirtazapine Other (Please comment) 12/10/2022 SOB Soybean-Containing Drug Products 03/10/2023 Sulfa Antibiotics Rash 04/23/2022 Topiramate 04/23/2022 Blurry vision Wound Dressing Adhesive 03/10/2023 documented as of this encounter (statuses as of 03/12/2023) Medications Medication Sig Dispensed Refills Start Date [...] Oral Capsule Take by mouth. 0 Active [place] 3 1000 MG Oral Capsule Take by [...] rhinitis, unspecified seasonality, unspecified trigger Administer 1 [place] into nostril in the morning and 1 [place] before bedtime. Use in each nostril as [...] for Sleep. 30 Capsule 1 02/23/2023 Active Hospital, Clinic, or Other Facility Administered Medication Ordered Dose Route Frequency Start Date End Date Status Albuterol Sulfate (Proventil) (2.5 MG/3ML) 0.083% inhalation solution 2.5 mgIndications:CONNOLLY (dyspnea on exertion) 2.5 mg NEBULIZER ONCE PRN 01/07/2023 Act chaparro documented as of this encounter (statuses as of 03/12/2023) Active Problems Problem Noted Date Abdominal discomfort [...] as of this encounter (statuses as of 03/12/2023) Immunizations Name Administration Dates Next Due Seasonal Influenza Virus Vac cine, Unspecified Formulation 04/23/2022 Seasonal Influenza, PF, 6 mo ns & Above, IM , (Flulaval) 04/23/2022 Zoster Vaccine Recombinant (Shingrix) 07/28/2022 ,04/23/2022 [...] Encounters Date Type Specialty Care Team Description 03/14/2023 Hospital Encounter Endoscopy Juma Garcia MD [address] [place] [address] 03/14/2023 Surgery Endoscopy Juma Garcia MD [address] [place] [address] COLONOSCOPY FLEXIBLE PROXIMAL DIAGNOSTIC 03/15/2023 Office Visit Neurology Alexis Dong, DO [address] [facility] [address] 03/24/2023 Hospital Encounter Surgery Chris Walker MD [address] [place] [address] 03/24/2023 Surgery Surgery Chris Walker MD [address] [place] [address] HYSTEROSCOPY WITH BIOPSY AND/OR POLYPECTOMY WITH OR WITHOUT D&C 03/30/2023 PulmDiagnostic Pulmonary Function [place], [facility] [address] [place] [address] 04/01/2023 Office Visit Pulmonary Theron Lainez DO [address] [facility] [place] [address] 04/06/2023 Office Visit Orthopedics Theron Pineda DO [address] [place] [address] 04/11/2023 Office Visit Gynecology Obstetrics Chris Walkre MD [address] [place] [address] 04/15/2023 Telemedicine Psychiatry Lim, NERI Mobley [address] [place] [address] 06/06/2023 Office Visit Sleep Disorders Brenda Ramos, DO [address] [place] [address] 06/16/2023 Office Visit Rheumatology Marla Moon CRNP [address] [place] [address] 06/22/2023 Office Visit Gastroenterology Vaughn Powell CRNP [address] [place] [address] 08/08/2023 Office Visit Hematology Oncology Gamaliel Quinn MD [address] [place] [address] 08/17/2023 Office Visit Allergy & Immunology Danie Corona MD [address] [place] [address] 08/23/2023 Office Visit Dermatology Melisa Chin PA-C [address] [place] [address] [place] [address] 09/21/2023 Office Visit Neurology Nila, Elle L, DO [address] [facility] [place] [address] Scheduled Procedures Name Priority Associated Diagnoses Date/Ti me COLONOSCOPY FLEXIBLE PROXIMA L DIAGNOSTIC Pain of upper abdomen Abdominal cramping Abdominal pain, generalized 03/14/2023 1:00 PM EDT ESOPHAGOGASTRODUODENOSCOPY ( EGD), FLEXIBLE, TRANSORAL, DIAGNOSTIC Pain of upper abdomen Abdominal cramping Abdominal pain, generalized 03/14/2023 1:00 PM EDT HYSTEROSCOPY WITH BIOPSY AND /OR POLYPECTOMY WITH OR WITHOUT D&C Postmenopausal bleeding Uterine leiomyoma, unspecified location Pelvic pain in female 03/24/2023 8:32 AM EDT PELVIC EXAMINATION UNDER ANESTHESIA Postmenopausal bleeding Uterine leiomyoma, unspecified location Pelvic pain in female 03/24/2023 8:32 AM EDT Health Maintenance Due Date Last Done Comments Hepatitis B (1 of 3 - 3-dose series) 1969 COVID-19 Vaccine (#1) 1969 Pneumococcal Vaccine: Pediatrics (0 to 5 Years) and At-Risk Patients (6 to 64 Years) (1 - PCV) 1975 HIV Screening 1984 Hepatitis C Screening 1987 DTaP,Tdap,and Td Vaccines (1 - Tdap) 1988 HPV/Co-Test 1999 Cologuard 2014 Colonoscopy 2014 Colorectal Cancer Screening 2014 Fecal Occult Blood Test 2014 Sigmoidoscopy 2014 *SPIROMETRY ONCE FOR ASTHMA-ADULT 05/20/2022 Depression, Most Recent Score >= 10 (will fire each visit until score < 10) 11/13/2022 11/12/2022 Influenza Vaccine (FLU shot) (#1) 2023 04/23/2022, 04/23/2022 Mammogram 03/09/2024 03/09/2023 Cervical Cancer Screening 04/27/2025 Pap Smear 04/27/2025 04/27/2022 Diabetes Screening 02/02/2026 02/02/2023, 1 , 11/13/1997, Additional history exists Lipid Panel 04/23/2027 04/23/2022 Zoster Vaccines Completed 07/28/2022, 04/23/2022 GARDASIL-HPV IMMUNIZATION SERIES Aged Out No longer eligible based on patient's age to complete this topic MENINGOCOCCAL (MENACTRA/MENVEO) Aged Out No longer eligible based on patient's age to complete this topic documented as of this encounter Medical Devices Not on filedocumented as of this encounter Care Teams Gearcase Assembler Relationship Specialty Start Date End Date Leonila Angel DO [address] [place] [address] PCP - General Family Medicine 02/03/23 documented as of this encounter
--- OUTSIDE RECORDS SUMMARY | 2023-06-12 19:29 | External Medical Summary | Summary of Care ---
Author Name Unknown Organization [facility] Address [address] [place] [address] Phone [phone] Care Team Providers Care Electrotyper Name Role Phone Juana Jimenez MD Primary Care Provider [phone] Encounter Details Date Type Department Care Team Description 10/13/2021 Hospital Encounter Radiology Film [place] [address] [place] [address] Allergies Active Allergy Reactions Severity Noted Date Comments Gold-Containing Drug Products 04/23/2022 Penicillins Rash 04/23/2022 Mirtazapine Other (Please comment) 12/10/2022 SOB Sulfa Antibiotics Rash 04/23/2022 Topiramate 04/23/2022 Blurry vision documented as of this encounter (statuses as of 03/08/2023) Medications No known medicationsdocumented as of this encounter (statuses as of 03/08/2023) Active Problems Problem Noted Date Abdominal discomfort [...] as of this encounter (statuses as of 03/08/2023) Social History Tobacco Use Types Packs/Day Years Used Date Smoking Tobacco: Never Assessed Food Insecurity Answer Date Recorded Within the [...] Encounters Date Type Specialty Care Team Description 03/09/2023 Imaging Radiology 03/10/2023 Office Visit Gastroenterology Vaughn Powell CRNP [address] [place] [address] 03/15/2023 Office Visit Neurology Alexis Dong, [address] [place] [address] 03/24/2023 Hospital Encounter Surgery Chris Walker MD [address] [place] [address] 03/24/2023 Surgery Surgery Chris Walker MD [address] [place] [address] HYSTEROSCOPY WITH BIOPSY AND/OR POLYPECTOMY WITH OR WITHOUT D&C 03/30/2023 PulmDiagnostic Pulmonary Function [place], [place] [address] [place] [address] 04/01/2023 Office Visit Pulmonary Theron Lainez, DO [address] [place] [facility] [address] 04/06/2023 Office Visit Orthopedics Theron Pineda, DO [address] [facility] [address] 04/11/2023 Office Visit Gynecology Obstetrics Chris Walker MD [address] [place] [address] 04/15/2023 Telemedicine Psychiatry Lim, NERI [place] [address] [place] [address] 06/06/2023 Office Visit Sleep Disorders Brenda Ramos, [address] [place] [address] 06/16/2023 Office Visit Rheumatology Marla Moon CRNP [address] [place] [address] 08/08/2023 Office Visit Hematology Oncology Gamaliel Quinn MD [address] [place] [address] 08/17/2023 Office Visit Allergy & Immunology Danie Corona MD [address] [place] [address] 08/23/2023 Office Visit Dermatology Melisa Chin PA-C [address] [place] [address] [place] [address] 09/21/2023 Office Visit Neurology Elle Dotson, DO [address] [facility] [place] [address] Scheduled Procedures Name Priority Associated Diagnoses Date/Ti me HYSTEROSCOPY WITH BIOPSY AND/OR POLYPECTOMY WITH OR WITHOUT D&C Postmenopausal bleeding [...] Vaccines (1 - Tdap) 1988 HPV/Co-Test 1999 Mammogram 2009 Cologuard 2014 Colonoscopy 2014 Colorectal Cancer Screening 2014 Fecal Occult Blood Test 2014 Sigmoidoscopy 2014 *SPIROMETRY ONCE FOR ASTHMA-ADULT 05/20/2022 Depression, Most Recent Score >= 10 (will fire each visit until score < 10) 11/13/2022 11/12/2022 Influenza Vaccine (FLU shot) (#1) 2023 04/23/2022, 04/23/2022 Cervical Cancer Screening 04/27/2025 Pap Smear 04/27/2025 [...] Procedure Name Priority Date/Time Associated Diagnosis Comments RADIOLOGY EXAM - MAMMOGRAPHY (IMAGES ONLY, NO REPORT) Routine 10/13/2021 2:15 PM EDT documented in this encounter Results * RADIOLOGY EXAM - MAMMOGRAPHY (IMAGES ONLY, NO REPORT) (10/13/2021 2:15 PM EDT) 10/13/2021 2:13 PM EDT Narrative Scheduling, Silent - 03/07/2023 1:20 PM EDT This is an imaging study not interpreted or resulted by a [facility] or [facility] contracted radiologist. Leonila Angel DO RAD MAMMOGRAPHY documented in this encounter Care Teams Electrotyper Relationship Specialty Start Date End Date Juana Jimenez MD [address] [place] [address] PCP - General 04/10/1998 04/22/22 documented as of this encounter
--- OUTSIDE RECORDS SUMMARY | 2023-06-12 19:29 | External Medical Summary | Summary of Care ---
Author Name Unknown Organization [facility] Address [address] [facility] [place] [address] Phone [phone] Care Team Providers Care Lap Cutter Truer Operator Name Role Phone Stanley Leonila Karina Primary Care Provider Reason for Visit * Auth/Cert Specialty Diagnoses / Procedures Referred By Jo Ann t Referred To Contact Diagnoses Pain of upper abdomen Abdominal cramping Abdominal pain, generalized Pain of upper abdomen [R10.10] Abdominal cramping [R10.9] Abdominal pain, generalized [R10.84] Procedures COLONOSCOPY, DIAGNOSTIC (RECTUM) EGD, FLEXIBLE, DIAGNOSTIC COLONOSCOPY FLEXIBLE PROXIMAL DIAGNOSTIC ESOPHAGOGASTRODUODENOSCOPY (EGD), FLEXIBLE, TRANSORAL, DIAGNOSTIC Referral ID Status Reason Start Date Expiration Date Visits Re quested Visits Authorized [id number] Encounter Details Date Type Department Care Team Description 03/14/2023 Hospital Encounter ENDO [facility], Endoscopy Room [facility] [address] [place] [id number] Juma Garcia MD [address] [place] [id number] Various: UGI,GICOLON Allergies Active Allergy Reactions Severity Noted Date Comments Gold-Containing Drug Products 04/23/2022 Penicillins Rash 04/23/2022 Pollen 03/10/2023 Mirtazapine Other (Please comment) 12/10/2022 SOB Soybean-Containing Drug Products 03/10/2023 Sulfa Antibiotics Rash 04/23/2022 Topiramate 04/23/2022 Blurry vision Wound Dressing Adhesive 03/10/2023 documented as of this encounter (statuses as of 03/15/2023) Medications Medication Sig Dispensed Refills Start Date [...] Oral Capsule Take by mouth. 0 Active [place] 3 1000 MG Oral Capsule Take by [...] rhinitis, unspecified seasonality, unspecified trigger Administer 1 [place] into nostril in the morning and 1 [place] before bedtime. Use in each nostril as [...] CPAP every night at bedtime. 0 Active documented as of this encounter (statuses as of 03/15/2023) Active Problems Problem Noted Date Abdominal discomfort [...] as of this encounter (statuses as of 03/15/2023) Immunizations Name Administration Dates Next Due Seasonal [...] Sign Reading Time Taken Comments Blood Pressure 103/58 03/14/2023 2:07 PM EDT Pulse 88 03/14/2023 2:07 PM EDT Temperature 36.7 C (98 F) 03/14/2023 2:07 PM EDT Respiratory Rate 16 03/14/2023 2:07 PM EDT Oxygen Saturation 98% 03/14/2023 2:07 PM EDT Inhaled Oxygen Concentration - - Weight 92.5 kg (204 lb) 03/14/2023 12:55 PM EDT Height 154.9 cm (5' 0.98") 03/14/2023 12:55 PM E DT Body Mass Index 38.57 03/14/2023 12:55 PM EDT documented in this encounter H&P Notes * Juma Garcia MD - 03/14/2023 1:13 PM EDT Procedure(s): Colonoscopy; with Indication(s) of colon polyp surveillance Upper GI Endoscopy; with Indication(s) of upper abdominal symptoms that persist despite an appropriate trial of therapy Endoscopy Pre-Procedure Assessment: Prior to the procedure, the patient was identified. The patient's history, medications and allergies were reviewed as per the Anesthesia Assessment. The patient is competent. The risks and benefits of the proposed procedure and the planned sedation were discussed with the patient. All questions were answered and informed consent for the procedure was obtained. BP 141/93 | Pulse 97 | Temp 37.2 C (99 F) (Tympanic) | Resp 16 | Ht 1.549 m (5' 0.98") | Wt 92.5 kg (204 lb) | SpO2 97% | BMI 38.57 kg/m | BSA 2 m Physical Exam: Mental Status Examination: alert and oriented. Airway Examination: normal oropharyngeal airway and neck mobility. Respiratory Examination: clear to auscultation. CV Examination: normal. ASA Grade: II - A patient with mild systemic disease. Patient was explained in detail regarding risks, benefits, limitations and alternatives of the above endoscopic procedure. Risks of intravenous sedation used for procedure were also explained. Risks include, but not limited to perforation, bleeding, infection, respiratory distress, cardiac arrest and . Patient is also aware about the possibility of missed lesions. Patient's questions were answered. The patient verbalized understanding of the information and agreed to undergo the procedure. After reviewing the risks and benefits, the patient was deemed in satisfactory condition to undergothe procedure. The anesthesia plan is to use general anesthesia. documented in this encounter Procedure Notes * Leonila Angel DO - 03/14/2023 12:47 PM EDTAssociated Order(s): COLONOSCOPY [facility] Patient Name: Kaelyn Gardiner Procedure Date: 03/14/2023 12:47 PM Date of : 1970 Admit Type: Outpatient Note Status: Finalized Date of : 1970 Admit Type: Outpatient Age: 52 Room: [facility] 2 Gender: Female Note Status: Finalized Procedure: Colonoscopy Indications: High risk colon cancer surveillance: Personal history of colonic polyps Providers: Juma Garcia MD (Doctor), Karen Varghese RN Referring MD: Leonila Angel DO (Referring MD) Medicines: See the Anesthesia note for documentation of the administered medications Complications: No immediate complications. Procedure: Pre-Anesthesia Assessment: - See the other procedure note for documentation of the pre-procedure assessment. - - Patient identification and proposed procedure were verified prior to the procedure by the physician and the nurse. The procedure was verified in the procedure area. - Prior to the procedure, a History and Physical was performed, and patient medications, allergies and sensitivities were reviewed. The patient's tolerance of previous anesthesia was reviewed. - The risks and benefits of the procedure and the sedation options and risks were discussed with the patient. All questions were answered and informed consent was obtained. After I obtained informed consent, the scope was passed under direct vision. All instruments were visually inspected immediately before and after removal from the patient to ensure they are fully intact. Throughout the procedure, the patient's blood pressure, pulse, and oxygen saturations were monitored continuously. The [id number] Colonoscope ([id number]) was introduced through the anus and advanced to the cecum, identified by appendiceal orifice and ileocecal valve. The colonoscopy was performed without difficulty. The patient tolerated the procedure well. The quality of the bowel preparation was good. Findings & Specimens: The perianal and digital rectal examinations were normal. Multiple small-mouthed diverticula were found in the sigmoid colon. The exam was otherwise without abnormality on direct and retroflexion views. Impression: - Diverticulosis in the sigmoid colon. - The examination was otherwise normal on direct and retroflexion views. - No specimens collected. Recommendation: - Repeat colonoscopy in 5 years for surveillance. - Discharge patient to home. Juma Garcia MD 03/14/2023 1:44:07 PM This report has been signed electronically. CC Letter to: Vaughn Powell NP (CC) * Leonila Angel DO - 03/14/2023 12:46 PM EDTAssociated Order(s): UPPER GI ENDOSCOPY [facility] Patient Name: Kaelyn Gardiner Procedure Date: 03/14/2023 12:46 PM Date of : 1970 Admit Type: Outpatient Note Status: Finalized Date of : 1970 Admit Type: Outpatient Age: 52 Room: [facility] 2 Gender: Female Note Status: Finalized Procedure: Upper GI endoscopy Indications: Upper abdominal pain Providers: Juma Garcia MD (Doctor), Karen Varghese RN Referring MD: Leonila Angel DO (Referring MD) Medicines: See the Anesthesia note for documentation of the administered medications Complications: No immediate complications. Procedure: Pre-Anesthesia Assessment: - - Patient identification and proposed procedure were verified prior to the procedure by the physician and the nurse. The procedure was verified in the procedure area. - Prior to the procedure, a History and Physical was performed, and patient medications, allergies and sensitivities were reviewed. The patient's tolerance of previous anesthesia was reviewed. - The risks and benefits of the procedure and the sedation options and risks were discussed with the patient. All questions were answered and informed consent was obtained. After obtaining informed consent, the endoscope was passed under direct vision. All instruments were visually inspected immediately before and after removal from the patient to ensure they are fully intact. Throughout the procedure, the patient's blood pressure, pulse, and oxygen saturations were monitored continuously. The [id number]-[id number] Endoscope ([id number]) was introduced through the mouth, and advanced to the third part of duodenum. The upper GI endoscopy was accomplished without difficulty. The patient tolerated the procedure well. Findings & Specimens: The esophagus was normal. The entire examined stomach was normal. Biopsies were taken with a cold forceps for Helicobacter pylori testing. Verification of patient identification for the specimen was done by the physician and nurse using the patient's name and medical record number. Estimated blood loss was minimal. The examined duodenum was normal. The cardia and gastric fundus were normal on retroflexion. Impression: - Normal esophagus. - Normal stomach. Biopsied. - Normal examined duodenum. Recommendation: - Await pathology results. - Discharge patient to home. Juma Garcia MD 03/14/2023 1:31:08 PM This report has been signed electronically. CC Letter to: Vaughn Powell NP (CC) documented in this encounter Nursing Notes * Jaleesa Schmitz RN - 03/14/2023 2:09 PM EDT Patient is alert, pain free, passing flatus and tolerating po fluids prior to discharge. Patient has been visited by Dr. Garcia. Patient has received and demonstrates understanding of discharge instructions. Patient is transported via w/c to private auto accompanied by endo staff. * Jaleesa Schmitz RN - 03/14/2023 1:49 PM EDT Pt to Post endo, VS stable, Dr Neil by to check on pt. No complaints. * Karen Bell RN - 03/14/2023 1:44 PM EDT Specimen(s) and location(s) verified with physician post procedure 1:44 PM Karen Bell RN No abdominal pressure given See anesthesia record for medication administered during procedure. Karen Bell RN Pt. Tolerated colonoscopy well, no complications, soundly asleep, abdomen soft, transported to postendoscopy via stretcher by [employer]. * Tena Clark RN - 03/14/2023 1:02 PM EDT The following pt discharge instructions reviewed with pt prior to prodedure: No driving today. No alcohol today. No signing of legal documents. Rest as much as possible today and can return to normal activities tomorrow. No operating any heavy equipment today. Diet as tolerated. Pt verbalized understanding. Patient prepped, call matos within reach of patient. documented in this encounter Miscellaneous Notes * Result Encounter Note - Moraima Chilel RN - 03/14/2023 2:35 PM EDT Colonoscopy report in chart. Care gaps updated to reflect repeat testing in 5 years as recommended on report. * Result Encounter Note - Moraima Chilel RN - 03/14/2023 2:35 PM EDT Reason for Call: test results Contact: My Emanuel Contact Type: Test Results Outcome: Colonoscopy report in chart. Care gaps updated to reflect repeat testing in 5 years as recommended on report. Face to face time spent with Patient (minutes): 0 Total Time including non face to face (minutes): 10 * Result Encounter Note - Moraima Chilel RN - 03/14/2023 2:35 PM EDT Upper Endoscopy report in chart. * Result Encounter Note - Moraima Chilel RN - 03/14/2023 2:35 PM EDT Reason for Call: test results Contact: My Markoisingana maría Contact Type: Test Results Outcome: Upper Endoscopy report in chart. Face to face time spent with Patient (minutes): 0 Total Time including non face to face (minutes): 10 documented in this encounter Plan of Treatment Upcoming Encounters Date Type Specialty Care Team Description 03/15/2023 Office Visit Neurology Alexis Dong, [address] [place] [address] 03/24/2023 Hospital Encounter Surgery Chris Walker MD [address] [place] [address] 03/24/2023 Surgery Surgery Chris Walker MD [address] [place] [address] HYSTEROSCOPY WITH BIOPSY AND/OR POLYPECTOMY WITH OR WITHOUT D&C 03/30/2023 PulmDiagnostic Pulmonary Function West, Pft [address] [place] [address] 04/01/2023 Office Visit Pulmonary Theron Lainez, DO [address] [facility] [place] [address] 04/06/2023 Office Visit Orthopedics Theron Pineda, [address] [place] [address] 04/11/2023 Office Visit Gynecology Obstetrics Chris Walker MD [address] [place] [address] 04/15/2023 Telemedicine Psychiatry Lim, Annabel ParkerNERI [address] [place] [address] 06/06/2023 Office Visit Sleep Disorders Brenda Ramos DO [address] [place] [address] 06/16/2023 Office Visit Rheumatology Marla Moon CRNP [address] [place] [address] 06/22/2023 Office Visit Gastroenterology Vaughn Powell CRNP [address] [place] [address] 08/08/2023 Office Visit Hematology Oncology Gamaliel Quinn MD [address] [place] [address] 08/17/2023 Office Visit Allergy & Immunology Danie Corona MD [address] [place] [address] 08/23/2023 Office Visit Dermatology Melisa Chin PA-C [address] [place] [address] [place] [address] 09/21/2023 Office Visit Neurology Elle Dotson DO [address] [facility] [place] [address] Pending Results Name Type Priority Associated Diagnoses Date /Time SURGICAL PATHOLOGY Pathology Routine Pain of upper abdomen Abdominal cramping Abdominal pain, generalized 03/14/2023 1:44 PM EDT Scheduled Orders Name Type Priority Associated Diagnoses Orde r Schedule SURGICAL PATHOLOGY Pathology Routine Pain of upper abdomen Abdominal cramping Abdominal pain, generalized Release Upon Ordering for 1 Occurrences starting 03/14/2023, 1 completed Scheduled Procedures Name Priority Associated Diagnoses Date/Ti me HYSTEROSCOPY WITH BIOPSY AND/OR POLYPECTOMY WITH OR WITHOUT D&C Postmenopausal bleeding Uterine leiomyoma, unspecified location Pelvic pain in female 03/24/2023 8:32 AM EDT PELVIC EXAMINATION UNDER ANESTHESIA Postmenopausal bleeding Uterine leiomyoma, unspecified location Pelvic pain in female 03/24/2023 8:32 AM EDT COLONOSCOPY FLEXIBLE PROXIMAL DIAGNOSTIC Recall History of [...] 04/23/2022 COLONOSCOPY-EVERY 5 YRS AGES 18-100 03/14/2028 03/14/2023 Zoster Vaccines Completed 07/28/2022, 04/23/2022 Colonoscopy Discontinued 03/14/2023 Colorectal Cancer Screening Discontinued Cologuard Discontinued [...] Procedure Name Priority Date/Time Associated Diagnosis Comments COLONOSCOPY 03/14/2023 12:47 PM EDT UPPER GI ENDOSCOPY 03/14/2023 12 :46 PM EDT documented in this encounter Results * COLONOSCOPY (03/14/2023 12:47 PM EDT) 03/14/2023 12:4 7 PM EDT Procedure Note Leonila Angel DO - 03/14/2023 12:47 PM EDT [facility] Patient Name: Kaelyn Gardiner Procedure Date: 03/14/2023 12:47 PM Date of : 1970 Admit Type: Outpatient Note Status:Finalized Date of : 1970 Admit Type: Outpatient Age: 52 Room: [facility] 2 Gender: Female Note Status: Finalized Procedure: Colonoscopy Indications: High risk colon cancer surveillance: Personalhistory of colonic polyps Providers: Juma Garcia MD (Doctor), Karen Varghese RN Referring MD: Leonila Angel DO (Referring MD) Medicines: See the Anesthesia note for documentation of theadministered medications Complications: No immediate complications. Procedure: Pre-Anesthesia Assessment: - See the other procedure note for documentation ofthe pre-procedure assessment. - - Patient identification and proposed procedurewere verified prior to the procedure by the physician and the nurse. Theprocedure was verified in the procedure area. - Prior to the procedure, a History and Physicalwas performed, and patient medications, allergies and sensitivities werereviewed. The patient's tolerance of previous anesthesia was reviewed. - The risks and benefits of the procedure and thesedation options and risks were discussed with the patient. All questions wereanswered and informed consent was obtained. After I obtained informed consent, the scope waspassed under direct vision. All instruments were visually inspected immediatelybefore and after removal from the patient to ensure they are fully intact. Throughout the procedure, the patient's bloodpressure, pulse, and oxygen saturations were monitored continuously. The [id number] ([id number]) was introduced through the anus and advanced to the cecum,identified by appendiceal orifice and ileocecal valve. The colonoscopy was performedwithout difficulty. The patient tolerated the procedure well. The quality of thebowel preparation was good. Findings & Specimens: The perianal and digital rectal examinations were normal. Multiple small-mouthed diverticula were found in the sigmoid colon. The exam was otherwise without abnormality on direct and retroflexionviews. Impression: - Diverticulosis in the sigmoid colon. - The examination was otherwise normal on directand retroflexion views. - No specimens collected. Recommendation: - Repeat colonoscopy in 5 years for surveillance. - Discharge patient to home. Juma Garcia MD 03/14/2023 1:44:07 PM This report has been signed electronically. CC Letter to: Vaughn Powell NP (CC) Leonila Angel DO GASTRO LOWER * UPPER GI ENDOSCOPY (03/14/2023 12:46 PM EDT) 03/14/2023 12:4 6 PM EDT Procedure Note Leonila Angel DO - 03/14/2023 12:46 PM EDT [facility] Patient Name: Kaelyn Gardiner Procedure Date: 03/14/2023 12:46 PM Date of : 1970 Admit Type: Outpatient Note Status:Finalized Date of : 1970 Admit Type: Outpatient Age: 52 Room: [facility] 2 Gender: Female Note Status: Finalized Procedure: Upper GI endoscopy Indications: Upper abdominal pain Providers: Juma Garcia MD (Doctor), Karen Varghese RN Referring MD: Leonila Angel DO (Referring MD) Medicines: See the Anesthesia note for documentation of theadministered medications Complications: No immediate complications. Procedure: Pre-Anesthesia Assessment: - - Patient identification and proposed procedurewere verified prior to the procedure by the physician and the nurse. Theprocedure was verified in the procedure area. - Prior to the procedure, a History and Physicalwas performed, and patient medications, allergies and sensitivities werereviewed. The patient's tolerance of previous anesthesia was reviewed. - The risks and benefits of the procedure and thesedation options and risks were discussed with the patient. All questions wereanswered and informed consent was obtained. After obtaining informed consent, the endoscope waspassed under direct vision. All instruments were visually inspected immediatelybefore and after removal from the patient to ensure they are fully intact. Throughout the procedure, the patient's bloodpressure, pulse, and oxygen saturations were monitored continuously. The [id number] ([id number]) was introduced through the mouth, and advanced to the third part ofduodenum. The upper GI endoscopy was accomplished without difficulty. The patienttolerated the procedure well. Findings & Specimens: The esophagus was normal. The entire examined stomach was normal. Biopsies were taken with acold forceps for Helicobacter pylori testing. Verification of patient identification for the specimen wasdone by the physician and nurse using the patient's name and medical record number. Estimated bloodloss was minimal. The examined duodenum was normal. The cardia and gastric fundus were normal on retroflexion. Impression: - Normal esophagus. - Normal stomach. Biopsied. - Normal examined duodenum. Recommendation: - Await pathology results. - Discharge patient to home. Juma Garcia MD 03/14/2023 1:31:08 PM This report has been signed electronically. CC Letter to: Vaughn Powell NP (CC) Leonila Collins Keiter DO GASTRO UPPER documented in this encounter Visit Diagnoses Diagnosis Pain of upper abdomen Abdominal pain, other specified site Abdominal cramping Abdominal pain, unspecified site Abdominal pain, generalized Postmenopausal bleeding Uterine leiomyoma, unspecified location Pelvic pain in female Unspecified symptom associated with female genital organs documented in this encounter Administered Medications Inactive Administered Medications - up to 3 most recent administrations Medication Order MAR Action Action Date Dose Rate Site isolyte-S pH 7.4 infusion Intravenous, at 100 mL/hr, Plasma-LYTE 148, isolyte-S, and isolyte-S pH 7.4 are considered equivalent - including for MAR barcode scanning., CONTINUOUS, Starting on Tue03/14/23 at 1300, Until Tue03/14/23 at 1840, Pre-Op Restarted 03/14/2023 1:30 PM EDT Continue from Pre-Op 03/14/2023 1:19 PM EDT 100 mL/hr New Bag 03/14/2023 12:58 PM EDT 100 mL/hr documented in this encounter Active and Recently Administered Medications Times are shown in EDT. Continuous Medication Order 03/12/2023 03/13/2023 03/14/2023 isolyte-S pH 7.4 infusion Intravenous, at 100 mL/hr, Plasma-LYTE 148, isolyte-S, and isolyte-S pH 7.4 are considered equivalent - including for MAR barcode scanning., CONTINUOUS, Starting on Tue03/14/23 at 1300, Until Tue03/14/23 at 1840, Pre-Op 1258 (New Bag - Prov ider: Tena Clark RN)1319 (Continue from Pre-Op - Provider: Patricia Reveles CRNA)1329 (Paused - Provider: Patricia Reveles CRNA - Comment: Switch to gravity)1330 (Restarted - Provider: Patricia Reveles CRNA) documented in this encounter Care Teams Lap Cutter Truer Operator Relationship Specialty Start Date End Date Leonila Angel DO [address] [facility], [place] [id number] PCP - General Family Medicine 02/03/23 documented as of this encounter
--- OUTSIDE RECORDS SUMMARY | 2023-06-12 19:29 | External Medical Summary | Summary of Care ---
Author Name Unknown Organization [facility] Address [address] [place] [address] Phone [phone] Care Team Providers Care Lye Machine Operator Name Role Phone Juana Jimenez MD Primary Care Provider [phone] Encounter Details Date Type Department Care Team Description 01/26/2018 Hospital Encounter Radiology Film File [address] [place] [address] Allergies Active Allergy Reactions Severity [...] Vaughn Powell CRNP [address] [place] [address] 03/15/2023 Office Visit Neurology Alexis Dong, [address] [place] [address] 03/24/2023 Hospital Encounter Surgery Chris Walker MD [address] [place] [address] 03/24/2023 Surgery Surgery Chris Walker MD [address] [place] [address] HYSTEROSCOPY WITH BIOPSY AND/OR POLYPECTOMY WITH OR WITHOUT D&C 03/30/2023 PulmDiagnostic Pulmonary Function West, Pft [address] [place] [address] 04/01/2023 Office Visit Pulmonary Theron Lainez, DO [address] [place] [address] 04/06/2023 Office Visit Orthopedics Theron Pineda, DO [address] [facility] [place] [address] 04/11/2023 Office Visit Gynecology Obstetrics Chris Walker MD [address] [place] [address] 04/15/2023 Telemedicine Psychiatry Lim, NERI Mobley [address] [place] [address] 06/06/2023 Office Visit Sleep Disorders Brenda Ramos DO [address] [place] [address] 06/16/2023 Office Visit Rheumatology Marla Moon CRNP [address] [place] [address] 08/08/2023 Office Visit Hematology Oncology Gamaliel Quinn MD [address] [place] [address] 08/17/2023 Office Visit Allergy & Immunology Danie Corona MD [address] [place] [address] 08/23/2023 Office Visit Dermatology Melisa Chin PA-C [address] [place] [address] [place] [address] 09/21/2023 Office Visit Neurology Elle Dotson, DO [address] [facility] [place] [address] Scheduled Procedures Name Priority Associated Diagnoses Date/Ti [...] - MAMMOGRAPHY (IMAGES ONLY, NO REPORT) Routine 01/26/2018 11:20 AM EDT documented in this encounter Results * RADIOLOGY EXAM - MAMMOGRAPHY (IMAGES ONLY, NO REPORT) (01/26/2018 11:20 AM EDT) 01/26/2018 11:2 0 AM EDT Narrative Scheduling, Silent - 03/07/2023 1:16 PM EDT This is an imaging study not interpreted or resulted by a [facility] or [facility] contracted radiologist. Leonila Angel DO RAD MAMMOGRAPHY documented in this encounter Care Teams Lye Machine Operator Relationship Specialty Start Date End Date Juana Jimenez MD [address] [place] [address] PCP - General 04/10/1998 04/22/22 documented as of this encounter
--- OUTSIDE RECORDS SUMMARY | 2023-06-12 19:29 | External Medical Summary | Summary of Care ---
Author Name Unknown Organization [facility] Address [address] [place] [address] Phone [phone] Care Team Providers Care Air Route Traffic Controller Name Role Phone TomfrancesLeonila DO Primary Care Provider Encounter Details Date Type Department Care Team Description 11/12/2022 Documentation [facility] [address] [place] [address] [facility] [address] [place], [place] [id number] Allergies Active Allergy Reactions Severity Noted Date Comments Gold-Containing Drug Products 04/23/2022 Penicillins Rash 04/23/2022 Pollen 03/10/2023 Mirtazapine Other (Please comment) 12/10/2022 SOB Soybean-Containing Drug Products 03/10/2023 Sulfa Antibiotics Rash 04/23/2022 Topiramate 04/23/2022 Blurry vision Wound Dressing Adhesive 03/10/2023 documented as of this encounter (statuses as of 03/28/2023) Medications Medication Sig Dispensed Refills Start Date [...] HCl 0.1 % Nasal Solution Administer 1 [place] into nostril in the morning and 1 [place] before bedtime. 0 023 Discontinued(En d of [...] Fremanezumab-vfrm 225 MG/1.5ML Subcutaneous Solution Prefilled Syringe ([employer] Inject 1.5 mL under the skin Every [...] as of this encounter (statuses as of 03/28/2023) Active Problems Problem Noted Date Abdominal discomfort [...] as of this encounter (statuses as of 03/28/2023) Immunizations Name Administration Dates Next Due SEASONAL [...] = 0.6 oz pur e alcohol) social Food Insecurity Answer Date Recorded Within the [...] of this encounter Progress Notes * Jade B Garrick, SAP BW DEVELOPER - 11/12/2022 7:13 AM EDT Images from the original note were not included. [facility] [place] [address] Virtual Intensive Outpatient Program Treatment [...] = 1 (if anything but 0 administer Toole) Toole Suicide Severity Rating Scale Results 11/08/2022 12:47 [...] Fremanezumab-vfrm 225 MG/1.5ML Subcutaneous Solution Prefilled Syringe ([employer] Inject 1.5 mL under the skin Every [...] HCl 0.1 % Nasal Solution, Administer 1 [place] into nostril in the morning and 1 Spraybefore bedtime., Disp: , Rfl: Rosuvastatin Calcium 10 MG Oral Tablet (Crestor), Take 1 Tablet by mouth in the morning., Disp:, Rfl: Stiolto Respimat 2.5-2.5 MCG/ACT Inhalation Aerosol Solution, INHALE 2 PUFFS BY MOUTH EVERY 24 HOURS (Patient not taking: Reported on 09/20/2022), Disp: , Rfl: Treatment Recommendations: Kaelyn Gardiner concluded their course of treatment in [facility]. After careful review with the treatment team, [...] has access to the discharge summary via [employer]. Follow Up Plan: 1. Individual Therapy: Seeking services through [facility] 2. Medication Management: NERI Christensen On 12/10/2022 3. PCP: Paco Orozco PA-C, as scheduled Jade Mccauley LCSW 11/12/2022 7:13 AM cc: NERI Christensen, Paco Orozco PA-C, [facility] Team documented in this encounter Plan of Treatment Upcoming Encounters Date Type Specialty Care Team Description 03/30/2023 PulmDiagnostic Pulmonary Function West, Pft [address] [facility] [place] [address] 04/01/2023 Office Visit Pulmonary Theron Lainez, DO [address] [place] [address] 04/02/2023 Imaging Radiology 04/06/2023 Office Visit Orthopedics Theron Pineda, DO [address] [place] [address] 04/11/2023 Office Visit Gynecology Obstetrics Chris Walker MD [address] [place] [address] 04/15/2023 Telemedicine Psychiatry Lim, NERI Mobley 200 [facility] [place] [address] 05/04/2023 NeuroDiagnostic Study Neurophysiology Alexis Dong, DO [address] [place] [address] 06/06/2023 Office Visit Sleep Disorders Brenda Ramos, DO [address] [place] [address] 06/16/2023 Office Visit Rheumatology Marla Moon CRNP [address] [place] [address] 06/22/2023 Office Visit Gastroenterology Vaughn Powell CRNP [address] [place] [address] 08/08/2023 Office Visit Hematology Oncology Gamaliel Quinn MD [address] [place] [address] 08/17/2023 Office Visit Allergy & Immunology Danie Corona MD [address] [place] [address] 08/23/2023 Office Visit Dermatology Melisa Chin PA-C [address] [place] [address] [place] [address] 09/21/2023 Office Visit Neurology Elle Dotson, DO [address] [place] [address] Scheduled Procedures Name Priority Associated Diagnoses Date/Ti [...] filedocumented as of this encounter Care Teams Air Route Traffic Controller Relationship Specialty Start Date End Date Leonila Angel DO [address] [place] [address] PCP - General Family Medicine 02/03/23 documented as of this encounter
--- OUTSIDE RECORDS SUMMARY | 2023-06-12 19:29 | External Medical Summary | Summary of Care ---
Author Name Unknown Organization [facility] Address [address] [facility] [place] [address] Phone [phone] Care Team Providers Care Search Specialist Name Role Phone Hanny Angel DO Primary Care Provider Reason for Visit * Reason Comments NEW PATIENT CHRONIC Issues with diarrhea, vomiting, abd pain, here to [facility] care( from [facility]) gallstones, diverticulitis, hx of h pylori * Evaluate & Treat - Unlimited Visits (Within 30 days (routine)) - Pending Review Specialty Diagnoses / Procedures Referred By Jo Ann villegas Referred To Contact Gastroenterology Diagnoses Abdominal discomfort Hanny Angel DO [address] [place] [facility] [place] [address] Referral ID Status Reason Start Date Expiration Date Visits Requested Visits Authorized [id number] Pending Review Specialty Services Required 12/13/[phone] Encounter Details Date Type Department Care Team Description 03/10/2023 Office Visit Gastroenterology, [facility] 132 [facility] [place] [address] Vaughn Powell CRNP 132 [facility] [place] [address] Pain of upper abdomen*; Abdominal pain, generalized; Abdominal cramping, generalized Allergies Active Allergy Reactions Severity Noted Date Comments Gold-Containing Drug Products 04/23/2022 Penicillins Rash 04/23/2022 Pollen 03/10/2023 Mirtazapine Other (Please comment) 12/10/2022 SOB Soybean-Containing Drug Products 03/10/2023 Sulfa Antibiotics Rash 04/23/2022 Topiramate 04/23/2022 Blurry vision Wound Dressing Adhesive 03/10/2023 documented as of this encounter (statuses as of 03/13/2023) Medications Medication Sig Dispensed Refills Start Date [...] Oral Capsule Take by mouth. 0 Active Mesa 3 1000 MG Oral Capsule Take by [...] rhinitis, unspecified seasonality, unspecified trigger Administer 1 [place] into nostril in the morning and 1 [place] before bedtime. Use in each nostril as [...] for Sleep. 30 Capsule 1 02/23/2023 Active Zonisamide 25 MG Oral Capsule (Zonegran) 0 [...] as of this encounter (statuses as of 03/13/2023) Active Problems Problem Noted Date Abdominal discomfort [...] as of this encounter (statuses as of 03/13/2023) Immunizations Name Administration Dates Next Due Seasonal [...] encounter Progress Notes * NERI [place] - 03/10/2023 11:26 AM EDT Consult requested by Ref: HANNY ANGEL[[id number]] [address] [facility], [place] [address] (office) [phone] (fax) CC: Abdominal pain HPI: 52 year old female pt of Hanny Angel DO with a hx of asthma, arthritis, [...] copies of these records today: Colonoscopy at [facility] in [place]: 2-3mm descending colon polyp, mild inflammation in the sigmoid colon. CTAP w abcute diverticulitis and fatty liver at [facility] November 2017. CTAP w IV contrast November [...] Procedure Laterality Date BREAST BIOPSY Right Benign NC CHOLECYSTECTOMY REMOVAL OF ADENOIDS, AGE 12+ Social [...] B Complex-C Oral Capsule Take by mouth. Mesa 3 1000 MG Oral Capsule Take by [...] Azelastine-Fluticasone 137-50 MCG/ACT Nasal Suspension Administer 1 [place] into nostril in the morning and 1 [place] before bedtime. Use in each nostril as directed. (Patient not taking: Reported on 03/10/2023) 23 g 5 Current Facility-Administered Medications Medication Dose Route Frequency Provider Last Rate Last Admin Albuterol Sulfate (Proventil) (2.5 MG/3ML) 0.083% inhalation solution 2.5 mg 2.5 mg Nebulizer Once PRN Theron Lainez, EXAM: Pulse 97 | Temp 36.7 C [...] records for their visit today. NERI [place] [facility] Gastroenterology documented in this encounter Nursing Notes * Юлия Ho LPN - 03/10/2023 11:25 AM EDT Patient identified by name and date of . Chief Complaint Patient presents with NEW PATIENT CHRONIC Issues with diarrhea, vomiting, abd pain, here to [facility] care( from [facility]) gallstones, diverticulitis, hx of h pylori Pt stating that her last scope - colon ( done with dr ford- jul 242020)and EGD( november 24, 2019- gian- this was done prior to colonoscopy- unsure of date [facility]- didn't give her any information when she [...] Endoscopy Juma Garcia MD [address] [place] [address] 03/14/2023 Surgery Endoscopy Juma Garcia MD [address] [place] [address] COLONOSCOPY FLEXIBLE PROXIMAL DIAGNOSTIC 03/15/2023 Office Visit Neurology Alexis Dong, DO [address] [place] [address] 03/24/2023 Hospital Encounter Surgery Chris Walker MD [address] [place] [address] 03/24/2023 Surgery Surgery Chris Walker MD [address] [place] [address] HYSTEROSCOPY WITH BIOPSY AND/OR POLYPECTOMY WITH OR WITHOUT D&C 03/30/2023 PulmDiagnostic Pulmonary Function West, Pft [address] [place] [address] 04/01/2023 Office Visit Pulmonary [facility]ainez, DO [address] [facility] [address] 04/06/2023 Office Visit Orthopedics Theron Pineda DO [address] [place] [address] 04/11/2023 Office Visit Gynecology Obstetrics Chris Walker MD [address] [place] [address] 04/15/2023 Telemedicine Psychiatry Lim, NERI Mobley [address] [place] [address] 06/06/2023 Office Visit Sleep Disorders Brenda Ramos DO [address] [place] [address] 06/16/2023 Office Visit Rheumatology Marla Moon CRNP [address] [place] [address] 06/22/2023 Office Visit Gastroenterology Vaughn Powell CRNP [address] [place] [address] 08/08/2023 Office Visit Hematology Oncology Gamaliel Quinn MD [address] [place] [address] 08/17/2023 Office Visit Allergy & Immunology Danie Corona MD [address] [place] [address] 08/23/2023 Office Visit Dermatology Melisa Chin PA-C [address] [place] [address] [place] [address] 09/21/2023 Office Visit Neurology Elle Dotson, DO [address] [facility] [place] [address] Pending Results Name Type Priority Associated Diagnoses Date /Time PORPHOBILINOGEN, QUANTITATIVE, 24-HOUR URINE Lab Routine Pain of upper abdomen Abdominal pain, generalized Abdominal cramping, generalized 03/12/2023 10:09 AM EDT Scheduled Orders Name Type Priority [...] filedocumented as of this encounter Results * URINALYSIS, REFLEX TO MICROSCOPIC (03/10/2023 1:01 PM EDT) Color, Urine Colorless Colorless, Light Yellow, Yellow, Dark Yellow 03/10/2023 5:32 PM EDT LABORATORY [facility] Clarity, Urine Clear Clear 03/10/2023 5:32 PM EDT LABORATORY C Glucose, Urine Negative Negative mg/dL 03/10/2023 5:32 PM EDT LABORATORY C Bilirubin, Urine Negative Negative 03/10/2023 5:32 PM EDT LAB[facility] Ketone, Urine Negative Negative mg/dL 03/10/2023 5:32 PM EDT LAB[facility]AT[facility] Specific [place], Urine 1.008 1.003 - 1.030 03/10/2023 5:32 PM EDT LAB[facility] Blood, Urine Negative Negative 03/10/2023 5:32 PM EDT LAB[facility] pH, Urine 6.5 5.0 - 7.5 Units 03/10/2023 5:32 PM EDT LAB[facility] Protein, Urine Negative Negative mg/dL 03/10/2023 5:32 PM EDT LABORATORY C Urobilinogen, Urine Normal Normal mg/dL 03/10/2023 5:32 PM EDT LAB[facility] Nitrite, Urine Negative Negative 03/10/2023 5:32 PM EDT LAB[facility] Esterase, Urine Negative Negative 5:32 PM EDT LAB[facility] Comment, Urine 03/10/2023 5:32 PM EDT LAB[facility]ATORY [facility] Comment:Screen negative - Mi croscopic not performed. Urine Urine specimen obtained by clean catch procedure / Unknown Non-blood Collection / Unknown 03/10/2023 1:01 PM EDT 03/10/2023 1:01 PM EDT Vaughn HE LAB URINE ORDERABL ES LABORATORY [facility] [address] [place] [address] documented in this encounter Visit Diagnoses Diagnosis Pain of upper abdomen- Primary Abdominal pain, other specified site Abdominal pain, generalized Abdominal cramping, generalized Abdominal pain, generalized Pain of upper abdomen Abdominal pain, other specified site Abdominal cramping Abdominal pain, unspecified site Abdominal pain, generalized Postmenopausal bleeding Uterine leiomyoma, unspecified location Pelvic pain in female Unspecified symptom associated with female genital organs documented in this encounter Care Teams Search Specialist Relationship Specialty Start Date End Date Hanny Angel DO [address] [place] [address] PCP - General Family Medicine 02/03/23 documented as of this encounter
--- OUTSIDE RECORDS SUMMARY | 2023-06-12 19:29 | External Medical Summary | Summary of Care ---
Author Name Unknown Organization [facility] Address [address] [place] [address] Phone [phone] Care Team Providers Care Teaching Supervisor Name Role Phone Juana Jimenez MD Primary Care Provider [phone] Encounter Details Date Type Department Care Team Description 01/26/2018 Hospital Encounter Radiology Film File [address] [place] [address] Allergies Active Allergy Reactions Severity [...] Vaughn Powell CRNP [address] [place] [address] 03/15/2023 Office Visit Neurology Alexis Dong, [address] [place] [address] 03/24/2023 Hospital Encounter Surgery Chris Walker MD [address] [place] [address] 03/24/2023 Surgery Surgery Chris Walker MD [address] [place] [address] HYSTEROSCOPY WITH BIOPSY AND/OR POLYPECTOMY WITH OR WITHOUT D&C 03/30/2023 PulmDiagnostic Pulmonary Function West, Pft [address] [place] [address] 04/01/2023 Office Visit Pulmonary Theron Lainez, DO [address] [place] [address] 04/06/2023 Office Visit Orthopedics Theron Pineda, DO [address] [facility] [place] [address] 04/11/2023 Office Visit Gynecology Obstetrics Chris Walker MD [address] [place] [address] 04/15/2023 Telemedicine Psychiatry Lim, NERI Mobley [address] [place] [address] 06/06/2023 Office Visit Sleep Disorders Brenda Ramos DO [address] [place] [address] 06/16/2023 Office Visit Rheumatology Marla Moon CRNP [address] [place] [address] 08/08/2023 Office Visit Hematology Oncology Gamaliel Quinn MD [address] [place] [address] 08/17/2023 Office Visit Allergy & Immunology Danei Corona MD [address] [place] [address] 08/23/2023 Office Visit Dermatology Melisa Chin PA-C [address] [place] [address] [place] [address] 09/21/2023 Office Visit Neurology Elle Dotson, DO [address] [facility] [place] [address] Scheduled Procedures Name Priority Associated Diagnoses Date/Ti [...] Date/Time Associated Diagnosis Comments RADIOLOGY EXAM - US (IMAGES ONLY, NO REPORT) Routine 01/26/2018 1:10 PM EDT documented in this encounter Results * RADIOLOGY EXAM - US (IMAGES ONLY, NO REPORT) (01/26/2018 1:10 PM EDT) 01/26/2018 1:08 PM EDT Narrative Scheduling, Silent - 03/07/2023 1:15 PM EDT This is an imaging study not interpreted or resulted by a [facility] or [facility] radiologist. Leonila Angel DO RAD ULTRASOUND documented in this encounter Care Teams Teaching Supervisor Relationship Specialty Start Date End Date Juana Jimenez MD [address] [facility], [place] [address] PCP - General 04/10/1998 04/22/22 documented as of this encounter
--- OUTSIDE RECORDS SUMMARY | 2023-06-12 19:29 | External Medical Summary ---
Author Name Unknown Address Unknown Organization : Laboratory Report Ordering Provider Test Date Status ANNETTE MCCANN 03/12/2023 10:09:43 Final Observation Date Value Abnormality Reference (Units ) Status TOTAL VOLUME 03/12/2023 10:09:43 2450 (mL) Final PORPHOBILINOGEN, 24 HR UR 03/12/2023 10:09:43 <0.134 <0.34 (mg/24 h) Final INTERPRETATION 03/12/2023 10:09:43 SEE BELOW Final Urine porphobilinogen (PBG) is within the normal
[...] hours. Interpretation reviewed by:
Jade Carolina, Ph.D., [facility]. IF THE
ORDERING/TREATING PHYSICIAN HAS ANY QUESTIONS
REGARDING THESE RESULTS, PLEASE CONTACT THE [employer]
[facility]AGNOST[facility] BI[facility]HEM[facility]ET[facility] LABORATORY AT
ext [phone] or ext [phone] AND ASK TO
SPEAK WITH THE [employer]. FOR
GENERAL QUESTIONS ABOUT [employer] DIAGNOSTICS GENETIC
TESTING, PLEASE CALL THE GENE INFO LINE AT
[phone].
Whenever possible, specimens should be collected
during [...] data.
For additional information, please refer to
[email or web address]
(This link is being provided for
informational/educational purposes only.)
This test was developed and its analytical
performance characteristics have been determined
by [employer] [facility]. It has not been cleared or approved by
FDA. This assay has been validated pursuant to the
CLIA regulations and is used for clinical
purposes.
Test performed by [facility]
[address] [facility]
[place] [address]

[place]: Catrina Mercer MD,PHD,JAMEEL
Test Reported by [facility],
[facility],
[address] [place], [place]
Anirudh Person M.D., Ph.D., Director of Laboratories
, CLIA [id number] Performing Location
--- OUTSIDE RECORDS SUMMARY | 2023-06-12 19:29 | External Medical Summary | Summary of Care ---
Author Name Unknown Organization [facility] Address [address] [place] [address] Phone [phone] Care Team Providers Care Direct Service Worker Name Role Phone Leonila Angel DO Primary Care Provider Reason for Visit * Reason Onset Date Comments Appointment 03/16/2023 LVM TO SCHED EMG Encounter Details Date Type Department Care Team Description 03/16/2023 Telephone Neurophysiology, [place] [address] [place] [address] Specified, Marj No Resource [address] [place] [address] Appointment (LVM TO SCHED EMG) Allergies Active Allergy Reactions Severity Noted Date Comments Gold-Containing Drug Products 04/23/2022 Penicillins Rash 04/23/2022 Pollen 03/10/2023 Mirtazapine Other (Please comment) 12/10/2022 SOB Soybean-Containing Drug Products 03/10/2023 Sulfa Antibiotics Rash 04/23/2022 Topiramate 04/23/2022 Blurry vision Wound Dressing Adhesive 03/10/2023 documented as of this encounter (statuses as of 03/16/2023) Medications Medication Sig Dispensed Refills Start Date [...] Oral Capsule Take by mouth. 0 Active [place] 3 1000 MG Oral Capsule Take by [...] rhinitis, unspecified seasonality, unspecified trigger Administer 1 [place] into nostril in the morning and 1 [place] before bedtime. Use in each nostril as [...] Muscle spasms. 30 Tablet 0 03/15/2023 Active Hospital, Clinic, or Other Facility Administered Medication Ordered Dose Route Frequency Start Date End Date Status Albuterol Sulfate (Proventil) (2.5 MG/3ML) 0.083% inhalation solution 2.5 mgIndications:CONNOLLY (dyspnea on exertion) 2.5 mg NEBULIZER ONCE PRN 01/07/2023 Act chaparro documented as of this encounter (statuses as of 03/16/2023) Active Problems Problem Noted Date Abdominal discomfort [...] as of this encounter (statuses as of 03/16/2023) Immunizations Name Administration Dates Next Due Seasonal [...] encounter Miscellaneous Notes * Telephone Encounter - LISA Navarro - 03/16/2023 9:06 AM EDT LVM TO SCHED EMG documented in this encounter Plan of Treatment Upcoming Encounters Date Type Specialty Care Team Description 03/24/2023 Hospital Encounter Surgery Chris Walker MD [address] [place] [address] 03/24/2023 Surgery Surgery Chris Walker MD [address] [place] [address] HYSTEROSCOPY WITH BIOPSY AND/OR POLYPECTOMY WITH OR WITHOUT D&C 03/30/2023 PulmDiagnostic Pulmonary Function West, Pft [address] [place] [address] 04/01/2023 Office Visit Pulmonary Theron Lainez, DO [address] [place] [address] 04/02/2023 Imaging Radiology 04/06/2023 Office Visit Orthopedics Theron Pineda DO [address] [place] [address] 04/11/2023 Office Visit Gynecology Obstetrics Chris Walker MD [address] [place] [address] 04/15/2023 Telemedicine Psychiatry Lim, NERI Mobley [address] [place] [address] 06/06/2023 Office Visit Sleep Disorders Brenda Ramos DO [address] [place] [address] 06/16/2023 Office Visit Rheumatology Marla Moon CRNP [address] [place] [address] 06/22/2023 Office Visit Gastroenterology Vaughn Powell CRNP [address] [place] [address] 08/08/2023 Office Visit Hematology Oncology Gamaliel Quinn MD [address] [place] [address] 08/17/2023 Office Visit Allergy & Immunology Danie Corona MD [address] [place] [address] 08/23/2023 Office Visit Dermatology Melisa Chin PA-Kirill [address] [place] [address] [place] [address] 09/21/2023 Office Visit Neurology Elle Dotson, DO [address] [facility] [place] [address] Scheduled Procedures Name Priority Associated Diagnoses Date/Ti [...] filedocumented as of this encounter Care Teams Direct Service Worker Relationship Specialty Start Date End Date Leonila Angel DO [address] [place] [address] PCP - General Family Medicine 02/03/23 documented as of this encounter
--- OUTSIDE RECORDS SUMMARY | 2023-06-12 19:29 | External Medical Summary ---
Author Name Unknown Address Unknown Organization K01:LABORATORY [facility] - [facility] [address] [facility] [address] [facility] [address] Laboratory Report Ordering Provider Test Date Status ANNETTE MCCANN 03/10/2023 13:01:34 Final Observation Date Value Abnormality Reference (Units ) Status Color of Urine by Auto 03/10/2023 13:01:34 Colorless Colorless, Light Yellow, Yellow, Dark Yellow Final Clarity, Urine 03/10/2023 13:01:34 Clear Clear Final Glucose [Mass/volume] in Urine by Automated test strip 03/10/2023 13:01:34 Negative Negative (mg/dL) Final Bilirubin.total [Presence] in Urine by Automated test strip 03/10/2023 13:01:34 Negative Negative Final Ketones [Mass/volume] in Urine by Automated test strip 03/10/2023 13:01:34 Negative Negative (mg/dL) Final Specific gravity, Urine 03/10/2023 13:01:34 1.008 1.003-1.030 Final Hemoglobin [Presence] in Urine by Automated test strip 03/10/2023 13:01:34 Negative Negative Final pH, Urine 03/10/2023 13:01:34 6.5 5.0-7.5 (Units) Final Protein [Mass/volume] in Urine by Automated test strip 03/10/2023 13:01:34 Negative Negative (mg/dL) Final Urobilinogen [Mass/volume] in Urine by Automated test strip 03/10/2023 13:01:34 Normal Normal (mg/dL) Final Nitrite [Presence] in Urine by Automated test strip 03/10/2023 13:01:34 Negative Negative Final Leukocyte esterase [Presence] in Urine by Automated test strip 03/10/2023 13:01:34 Negative Negative Final Annotation Comment 03/10/2023 13:01:34 Final Screen negative - Microscopi c not performed. Performing Location LABORATORY [facility] - [address] [facility] [address]
--- OUTSIDE RECORDS SUMMARY | 2023-06-12 19:29 | External Medical Summary | Summary of Care ---
Author Name Unknown Organization [facility] Address [address] [place] [address] Phone [phone] Care Team Providers Care Waitress Name Role Phone Juana Jimenez MD Primary Care Provider [phone] Encounter Details Date Type Department Care Team Description 02/01/2018 Hospital Encounter Radiology Film File [address] [place] [address] Allergies Active Allergy Reactions Severity [...] Vaughn Powell CRNP [address] [place] [address] 03/15/2023 Office Visit Neurology Alexis Dong, [address] [place] [address] 03/24/2023 Hospital Encounter Surgery Chris Walker MD [address] [place] [address] 03/24/2023 Surgery Surgery Chris Walker MD [address] [place] [address] HYSTEROSCOPY WITH BIOPSY AND/OR POLYPECTOMY WITH OR WITHOUT D&C 03/30/2023 PulmDiagnostic Pulmonary Function West, Pft [address] [place] [address] 04/01/2023 Office Visit Pulmonary Theron Lainez, DO [address] [place] [address] 04/06/2023 Office Visit Orthopedics Theron Pineda, DO [address] [facility] [place] [address] 04/11/2023 Office Visit Gynecology Obstetrics Chris Walker MD [address] [place] [address] 04/15/2023 Telemedicine Psychiatry Lim, NERI Mobley [address] [place] [address] 06/06/2023 Office Visit Sleep Disorders Brenda Ramos DO [address] [place] [address] 06/16/2023 Office Visit Rheumatology Marla Moon CRNP [address] [place] [address] 08/08/2023 Office Visit Hematology Oncology Gamaliel Quinn MD [address] [place] [address] 08/17/2023 Office Visit Allergy & Immunology Danie Corona MD [address] [place] [address] 08/23/2023 Office Visit Dermatology Melisa Chin PA-C [address] [place] [address] [place] [address] 09/21/2023 Office Visit Neurology Elle Dotson, DO [address] [facility] [place] [address] Scheduled Procedures Name Priority Associated Diagnoses Date/Ti [...] - MAMMOGRAPHY (IMAGES ONLY, NO REPORT) Routine 02/01/2018 10:05 AM EDT documented in this encounter Results * RADIOLOGY EXAM - MAMMOGRAPHY (IMAGES ONLY, NO REPORT) (02/01/2018 10:05 AM EDT) 02/01/2018 10:0 4 AM EDT Narrative Scheduling, Silent - 03/07/2023 1:17 PM EDT This is an imaging study not interpreted or resulted by a [facility] or [facility] contracted radiologist. Leonila Angel DO RAD MAMMOGRAPHY documented in this encounter Care Teams Waitress Relationship Specialty Start Date End Date Juana Jimenez MD [address] [place] [address] PCP - General 04/10/1998 04/22/22 documented as of this encounter
--- OUTSIDE RECORDS SUMMARY | 2023-06-12 19:29 | External Medical Summary | Summary of Care ---
Author Name Unknown Organization [facility] Address [address] [place] [facility] [place] [address] Phone [phone] Care Team Providers Care Professor Of Medicine Name Role Phone TomfrancesLeonila DO Primary Care Provider Reason for Visit * Auth/Cert Specialty Diagnoses / Procedures Referred By Contsushila t Referred To Contact Diagnoses Postmenopausal bleeding Uterine leiomyoma, unspecified location Pelvic pain in female Postmenopausal bleeding [N95.0] Uterine leiomyoma, unspecified location [D25.9] Pelvic pain in female [R10.2] Procedures HYSTEROSCOPY W/BIOPSY AND/OR POLYPECTOMY W/WO D&C PELVIC EXAM UNDER ANESTHESIA, NOT LOCAL HYSTEROSCOPY WITH BIOPSY AND/OR POLYPECTOMY WITH OR WITHOUT D&C PELVIC EXAMINATION UNDER ANESTHESIA Referral ID Status Reason Start Date Expiration Date Visits Re quested Visits Authorized [id number] Encounter Details Date Type Department Care Team Description 03/24/2023 Hospital Encounter OR [facility], Operating Room [facility] [address] [place] [address] Chris Crisostomo MD [address] [place] [address] Allergies Active Allergy Reactions Severity Noted Date Comments Gold-Containing Drug Products 04/23/2022 Penicillins Rash 04/23/2022 Pollen 03/10/2023 Mirtazapine Other (Please comment) 12/10/2022 SOB Soybean-Containing Drug Products 03/10/2023 Sulfa Antibiotics Rash 04/23/2022 Topiramate 04/23/2022 Blurry vision Wound Dressing Adhesive 03/10/2023 documented as of this encounter (statuses as of 03/24/2023) Medications Medication Sig Dispensed Refills Start Date [...] Oral Capsule Take by mouth. 0 Active Enders 3 1000 MG Oral Capsule Take by [...] unspecified seasonality, unspecified trigger Administer 1 [place] into nostril in the morning and 1 [place] before bedtime. Use in each nostril as [...] as of this encounter (statuses as of 03/24/2023) Active Problems Problem Noted Date Abdominal discomfort [...] as of this encounter (statuses as of 03/24/2023) Immunizations Name Administration Dates Next Due Seasonal [...] Sign Reading Time Taken Comments Blood Pressure 112/67 03/24/2023 10:16 AM EDT Pulse 74 03/24/2023 10:16 AM EDT Temperature 36.3 C (97.3 F) 03/24/2023 1 0:16 AM EDT Respiratory Rate 16 03/24/2023 10:1 6 AM EDT Oxygen Saturation 96% 03/24/2023 10: 16 AM EDT Inhaled Oxygen Concentration - - Weight 92.5 kg (203 lb 14.8 oz) 03/24/2023 7:51 AM EDT Height 154.9 cm (5' 0.98") 03/24/2023 7:51 AM ED T Body Mass Index 38.55 03/24/2023 7:51 AM EDT documented in this encounter Discharge Summaries * Chris Crisostomo MD - 03/24/2023 9:29 AM EDT [facility] [address] [place] [address] OUTPATIENT SURGERY DISCHARGE SUMMARY NOTE Name: Kaelyn Gardiner Location: [facility]/OR Date: 03/24/2023 Time: 9:29 AM Surgery Date: 03/24/2023 Procedure: Procedure(s): HYSTEROSCOPY WITH BIOPSY AND/OR POLYPECTOMY WITH OR WITHOUT D&C PELVIC EXAMINATION UNDER ANESTHESIA No laterality found for procedure #1 Bilateral Surgeon: Surgeon(s): MD Elena Judge PA-C Discharge Diagnosis: postop After examination of this patient, I have determined she is ready for discharge to home when the patient meets criteria. Discharge instructions were given to the patient. documented in this encounter Discharge Instructions * Discharge Instr - AVS* Chris Crisostomo MD - 03/24/2023 10:27 AM EDT Discharge Date: 03/24/2023 The information below provides you with the instructions and the list of medications you need to betaking following discharge from the hospital. If you have any questions, please ask before leaving.Please carry this letter with you when you see your doctor in the clinic. If you have questions, you can reach us at the numbers above. Post Anesthesia Instructions: 1. Do not drive today. 2. Resume driving when surgeon permits. 3. Do not make important decisions or sign legal documents today. 4. Call surgeon for: Temperature evaluation greater than 101 degrees Uncontrollable pain Excessive Bleeding Persistent Nausea and vomiting Medication intolerance (nausea, vomiting, or rash) 5. For nausea and vomiting use only clear liquids such as: tea, soda, bouillon until nausea subsides, then gradually increase diet as tolerated. 6. If you have any concerns or questions, call your surgeon's office at [phone] . If the physician is unavailable and it is an emergency, call 911 or go to the nearest emergency room. Preprinted instructions given: None (Form No.) Special Care / Other: DISCOMFORT: Vaginal bleeding (less than a period) for 7 - 10 days is common. Cramping may occur in lower abdomen and may be relieved by pain medication advised by your doctor. Sore throat is common and results from method of administering anesthesia; usually disappears within 24 hours. Menstruation - first menstrual flow may be scanty, may be heavy and contain clots or may stop and start again. The second period should be normal. Sexual activity permitted when bleeding stops. CONTRACEPTION: Check with your doctor for advice if you plan to become within the next 3 - 4 months. Your doctor will discuss your choice, if any, of contraceptives at your follow- up visit. HYGIENE: Bathing - may shower or tub bathe at any time. Douching - do not douche until 2 weeks after surgery or until no further bleeding or cramping. SIGNS OF INFECTION: Elevated temperature - 101oF or above by mouth. Vaginal drainage. Unusual pain or burning. Activity : Rest today. Return to School or Work: No Limitations Diet: Resume previous diet Follow-up Visit with: dr crisostomo When: in 2 weeks Discharged To: Home documented in this encounter Progress Notes * Chris Crisostomo MD - 03/24/2023 9:31 AM EDT Discharge Date: 03/24/2023 The information below provides you with the instructions and the list of medications you need to betaking following discharge from the hospital. If you have any questions, please ask before leaving.Please carry this letter with you when you see your doctor in the clinic. If you have questions, you can reach us at the numbers above. Post Anesthesia Instructions: 1. Do not drive today. 2. Resume driving when surgeon permits. 3. Do not make important decisions or sign legal documents today. 4. Call surgeon for: Temperature evaluation greater than 101 degrees Uncontrollable pain Excessive Bleeding Persistent Nausea and vomiting Medication intolerance (nausea, vomiting, or rash) 5. For nausea and vomiting use only clear liquids such as: tea, soda, bouillon until nausea subsides, then gradually increase diet as tolerated. 6. If you have any concerns or questions, call your surgeon's office at [phone] . If the physician is unavailable and it is an emergency, call [phone] or go to the nearest emergency room. Preprinted instructions given: None (Form No.) Special Care / Other: DISCOMFORT: Vaginal bleeding (less than a period) for 7 - 10 days is common. Cramping may occur in lower abdomen and may be relieved by pain medication advised by your doctor. Sore throat is common and results from method of administering anesthesia; usually disappears within 24 hours. Menstruation - first menstrual flow may be scanty, may be heavy and contain clots or may stop and start again. The second period should be normal. Sexual activity permitted when bleeding stops. CONTRACEPTION: Check with your doctor for advice if you plan to become within the next 3 - 4 months. Your doctor will discuss your choice, if any, of contraceptives at your follow- up visit. HYGIENE: Bathing - may shower or tub bathe at any time. Douching - do not douche until 2 weeks after surgery or until no further bleeding or cramping. SIGNS OF INFECTION: Elevated temperature - 101oF or above by mouth. Vaginal drainage. Unusual pain or burning. Activity : Rest today. Return to School or Work: No Limitations Diet: Resume previous diet Follow-up Visit with: dr crisostomo When: in 2 weeks Discharged To: Home documented in this encounter H&P Notes * Chris Crisostomo MD - 03/24/2023 8:35 AM EDT HISTORY & PHYSICAL INTERVAL NOTE [facility] [address] [address] History and Physical Update: Name: Kaelyn Gardiner Location: [facility]OR Date: 03/24/2023 Time: 8:35 AM DATE OF HISTORY AND PHYSICAL: BP: 109 mmHg/73 mmHg (03/24/23750) Pulse: 76 (03/24/23750) Temp: 36.22 C (03/24/23750) Resp: 16 (03/24/23750) SpO2: 100 % (03/24/23750) Does patient take a beta norma? No Did patient stop anticoagulants? No Heart Exam: regular rate and rhythm Lung Exam: clear to auscultation bilaterally Other Pertinent Physical Exam: I have reviewed the H&P previously performed and examined the patient today. There are no new findings noted. Source Note - Juma Garcia MD - 03/14/2023 1:13 PM [...] use general anesthesia. documented in this encounter Nursing Notes * Melisa Rosado RN - 03/24/2023 10:45 AM EDT Patient is alert and tolerating po fluids prior to discharge. Patient states that pain is mild and crampy at 2/10, which is tolerable to her. Patient and patient's , Jung, have received and demonstrate understanding of discharge instructions. Pt has verbalized readiness for discharge. Patient is transported via w/c to private auto accompanied by nursing staff. * Melisa Rosado RN - 03/24/2023 10:01 AM EDT Dental Hygienist Mobile Coordinator received patient into PACU II at this time. Patient is awake, a&ox4, VSS- see flowsheet for details. Patient denies nausea at this time and is sipping on Coke. Patient has cramping pain toabdomen at this time, which she rates at a 2/10 on the pain scale, and states is tolerable to her. Pt thomas pad in place, C/D/I. * Diane Alcala RN - 03/24/2023 10:00 AM EDT Patient awake and oriented. Tolerating PO ice chips without nausea. Pain level is tolerable for patient 2/10. Vital signs stable. Ready for discharge from PACU 1. * Diane Alcala RN - 03/24/2023 9:29 AM EDT Patient received to pacu 1 status post hysteroscopy. Patient alert and oriented. Complains of mild cramps, tolerable. No complaints of nausea. Respirations are even and unlabored on 6L via simple mask. Lungs clear. NSR in the 80s on monitor. Abdomen soft and non distended. Thomas pad in place. Clean and dry. Vital signs stable. * Elsa Rodriguez RN - 03/24/2023 7:53 AM EDT Surgical consent verified with patient. Patient agrees with listed procedure and verified signature. documented in this encounter OR Notes * OR Surgeon - Chris Crisostomo MD - 03/24/2023 10:45 AM EDT OPERATIVE RECORD OR [facility], Operating Room [facility] [address] [facility] [place] [address] Kaelyn Gardiner : 1970 DATE: 03/24/2023 PREOPERATIVE DIAGNOSIS: Endometrial polyp on sonogram POSTOPERATIVE DIAGNOSIS: same SURGEON: Chris Crisostomo MD ASSISTANTS: Elena Moy PA-C Employment Instructional Associate was necessary to help with retraction and manipulation of instruments in order to providefor a safe procedure. ANESTHESIA: General. OPERATION: 1. Exam under anesthesia 2. Dilation and curettage 3. Hysteroscopy FINDINGS: Normal female appearance.. No lesions seen in the vagina or cervix. Hysteroscopy finding; both ostia seen. Endometrial polyp seen in the upper uterine quadrant ESTIMATED BLOOD LOSS: 5 DRAINS: none FLUIDS: 1000 mL Crystalloid URINE OUTPUT: 100 SPECIMEN: endometrial polyp with Myosure 2, sharp endometrial curetting COMPLICATIONS: None. CONDITION: Stable. Procedure : INDICATIONS AND HISTORY: endometrial polyp seen on Sonogram DESCRIPTION OF OPERATION: The patient was identified, and the procedure was verified. Patient is taken to the operating room was she was prepped and draped in normal sterile fashion in dorsal lithotomy position. Exam under anesthesia is as dictated above. Bladder is catheterized and 100 cubic centimeters of clear urine is obtained. Single-tooth tenaculum was used to grab the cervix.Weighted speculum was placed in the vagina. Cervix is dilated in series. Operating hysteroscope wasplaced into the uterine cavity. Findings of the uterus as dictated above. The MyoSure device was passed through the outflow tract of the hysteroscope. Resection of the endometrial polyp and endometrium was performed with the MyoSure device. It was shows removed and a size 2 sharp curette introducedin the uterine cavity. Curettage was performed in all 4 quadrants until a gritty texture is obtained. Both specimens sent to pathology for pathologic analysis. All instruments removed from the uterus and the vagina clinic for x2 including sponges needles and retractors. There was good hemostasis. The patient is sent to recovery in stable condition. Chris Crisostomo MD 03/24/2023 4:43 PM documented in this encounter Plan of Treatment Upcoming Encounters Date Type Specialty Care Team Description 03/30/2023 PulmDiagnostic Pulmonary Function [place], Pft [address] [facility] [place] [address] 04/01/2023 Office Visit Pulmonary Theron Lainez M, DO [address] [place] [address] 04/02/2023 Imaging Radiology 04/06/2023 Office Visit Orthopedics Theron Pineda, DO [address] [facility] [place], [place] [address] 04/11/2023 Office Visit Gynecology Obstetrics Chris Crisostomo MD [address] [place] [address] 04/15/2023 Telemedicine Psychiatry Lim, NERI Mobley [address] [place] [address] 05/04/2023 NeuroDiagnostic Study Neurophysiology Alexis Dong, DO [address] [place] [address] 06/06/2023 Office Visit Sleep Disorders Brenda Ramos, DO [address] [place] [address] 06/16/2023 Office Visit Rheumatology Marla Moon CRNP [address] [place] [address] 06/22/2023 Office Visit Gastroenterology Vaughn Powell CRNP [address] [place] [address] 08/08/2023 Office Visit Hematology Oncology Gamaliel Quinn MD [address] [place] [address] 08/17/2023 Office Visit Allergy & Immunology Danie Corona MD [address] [place] [address] 08/23/2023 Office Visit Dermatology Melisa Chin PA-C [address] [place] [address] [place] [address] 09/21/2023 Office Visit Neurology Elle Dotson, DO [address] [facility] [place] [address] Pending Results Name Type Priority Associated Diagnoses Date /Time SURGICAL PATHOLOGY Pathology Routine Postmenopausal bleeding Uterine leiomyoma, unspecified location Pelvic pain in female 03/24/2023 9:10 AM EDT Scheduled Orders Name Type Priority Associated Diagnoses Orde r Schedule SURGICAL PATHOLOGY Pathology Routine Postmenopausal bleeding Uterine leiomyoma, unspecified location Pelvic pain in female Release Upon Ordering for 1 Occurrences starting 03/24/2023, 1 completed Scheduled Procedures Name Priority Associated Diagnoses Date/Ti me HYSTEROSCOPY WITH BIOPSY AND/OR POLYPECTOMY WITH OR WITHOUT D&C Postmenopausal bleeding Uterine leiomyoma, unspecified location Pelvic pain in female 03/24/2023 8:35 AM EDT PELVIC EXAMINATION UNDER ANESTHESIA Postmenopausal bleeding Uterine leiomyoma, unspecified location Pelvic pain in female 03/24/2023 8:35 AM EDT COLONOSCOPY FLEXIBLE PROXIMAL DIAGNOSTIC Recall [...] as of this encounter Visit Diagnoses Diagnosis Postmenopausal bleeding Uterine leiomyoma, unspecified location Pelvic pain in female Unspecified symptom associated with female genital organs documented in this encounter Administered Medications Inactive Administered Medications - up to 3 most recent administrations Medication Order MAR Action Action Date Dose Rate Site check patch placement order QSHIFT, First dose on Leandra 03/24/23 at 0845, Until Discontinued, Routine, Scopolamine (TRANSDERM SCOP) patch placement check dexAMETHasone Sodium Phosphate (Decadron) 4 MG/ML inj 4 mg 4 mg, IV Push, PRN Nausea, Starting on Leandra 03/24/23 at 0936, Until Leandra 03/24/23 at 1505, For 1 dose, Protect from Light, PACU fentaNYL (PF) inj 25 mcg 25 mcg, IV Push, PRN Pain, Severe, Starting on Leandra 03/24/23 at 0936, Until Leandra 03/24/23 at 1505, For 6 doses, When given IV Push its recommended that the dose be given over 3 to 5 minutes. , PACU isolyte-S pH 7.4 infusion Intravenous, at 100 mL/hr, Plasma-LYTE 148, isolyte-S, and isolyte-S pH 7.4 are considered equivalent - including for MAR barcode scanning., CONTINUOUS, Starting on Leandra 03/24/23 at 0800, Until Leandra 03/24/23 at 1505, Pre-Op Continue from Pre-Op 03/24/2023 8:49 AM EDT 100 mL/hr New Bag 03/24/2023 7:50 AM EDT 100 mL/hr ondansetron (Zofran) inj 4 mg 4 mg, IV Push, PRN Nausea, Starting on Leandra 03/24/23 at 0936, Until Leandra 03/24/23 at 1505, For 1 dose, PACU Scopolamine (Transderm Scop) patch 1 mg 1 mg (1 Patch), Transdermal, Q3DAYS, First dose on Leandra 03/24/23 at 0845, Until Discontinued, Do NOT cut the patch. All Scopolamine patches deliver 1 mg over 72 hours. Remove any Scopolamine patches the patient may currently be wearing prior to applying the new patch. , Pre-Op Patch Applied 03/24/2023 8:15 AM EDT 1 mg Other-Specify documented in this encounter Active and Recently Administered Medications Times are shown in EDT. Scheduled Medication Order 03/22/2023 03/23/2023 03/24/2023 check patch placement order QSHIFT, First dose on Leandra 03/24/23 at 0845, Until Discontinued, Routine, Scopolamine (TRANSDERM SCOP) patch placement check 0845 (Due) Scopolamine (Transderm Scop) patch 1 mg 1 mg (1 Patch), Transdermal, Q3DAYS, First dose on Leandra 03/24/23 at 0845, Until Discontinued, Do NOT cut the patch. All Scopolamine patches deliver 1 mg over 72 hours. Remove any Scopolamine patches the patient may currently be wearing prior to applying the new patch. , Pre-Op 0815 (Patch Applied - Provider: Elsa Rodriguez RN - Comment: behind right ear)1045 (Due: Patch Removed - Provider: Discharge, Physician - Comment: Time automatically adjusted from order being discontinued) Continuous Medication Order 03/22/2023 03/23/2023 03/24/2023 isolyte-S pH 7.4 infusion Intravenous, at 100 mL/hr, Plasma-LYTE 148, isolyte-S, and isolyte-S pH 7.4 are considered equivalent - including for MAR barcode scanning., CONTINUOUS, Starting on Leandra 03/24/23 at 0800, Until Leandra 03/24/23 at 1505, Pre-Op 0750 (New Bag - Prov ider: Elsa Rodriguez RN)0849 (Continue from Pre-Op - Provider: Serena Perez CRNA)0921 (Anes Intra-Op Fluid - Provider: Serena Perez CRNA) PRN Medication Order 03/22/2023 03/23/2023 03/24/2023 dexAMETHasone Sodium Phosphate (Decadron) 4 MG/ML inj 4 mg 4 mg, IV Push, PRN Nausea, Starting on Leandra 03/24/23 at 0936, Until Leandra 03/24/23 at 1505, For 1 dose, Protect from Light, PACU fentaNYL (PF) inj 25 mcg 25 mcg, IV Push, PRN Pain, Severe, Starting on Leandra 03/24/23 at 0936, Until Leandra 03/24/23 at 1505, For 6 doses, When given IV Push its recommended that the dose be given over 3 to 5 minutes. , PACU ondansetron (Zofran) inj 4 mg 4 mg, IV Push, PRN Nausea, Starting on Leandra 03/24/23 at 0936, Until Leandra 03/24/23 at 1505, For 1 dose, PACU sodium chloride IR 0.9 % irrigation (CANCELED) ONCE PRN INTRA PROCEDURE, Starting on Leandra 03/24/23 at 0911, Until Leandra 03/24/23 at 0917, Intra-Op 0911 (Given - Provid er: Chris Crisostomo MD - Comment: vagina; deficit: 30) documented in this encounter Care Teams Professor Of Medicine Relationship Specialty Start Date End Date Leonila Angel DO [address] [facility] [place] [address] PCP - General Family Medicine 02/03/23 documented as of this encounter
--- OUTSIDE RECORDS SUMMARY | 2023-06-12 19:29 | External Medical Summary | Summary of Care ---
Author Name Unknown Organization [facility] Address [address] [place] [address] Phone [phone] Care Team Providers Care Physical Anthropologist Name Role Phone Juana Jimenez MD Primary Care Provider [phone] Encounter Details Date Type Department Care Team Description 08/10/2018 Hospital Encounter Radiology Film File [address] [place] [address] Allergies Active Allergy Reactions Severity [...] Vaughn Powell CRNP [address] [place] [address] 03/15/2023 Office Visit Neurology Alexis Dong, [address] [place] [address] 03/24/2023 Hospital Encounter Surgery Chris Walker MD [address] [place] [address] 03/24/2023 Surgery Surgery Chris Walker MD [address] [place] [address] HYSTEROSCOPY WITH BIOPSY AND/OR POLYPECTOMY WITH OR WITHOUT D&C 03/30/2023 PulmDiagnostic Pulmonary Function West, Pft [address] [place] [address] 04/01/2023 Office Visit Pulmonary Theron Lainez, DO [address] [place] [address] 04/06/2023 Office Visit Orthopedics Theron Pineda, DO [address] [facility] [place] [address] 04/11/2023 Office Visit Gynecology Obstetrics Chris Walker MD [address] [place] [address] 04/15/2023 Telemedicine Psychiatry Lim, NERI Mobley [address] [place] [address] 06/06/2023 Office Visit Sleep Disorders Brenda Ramos DO [address] [place] [address] 06/16/2023 Office Visit Rheumatology Marla Moon CRNP [address] [place] [address] 08/08/2023 Office Visit Hematology Oncology Gamaliel Quinn MD [address] [place] [address] 08/17/2023 Office Visit Allergy & Immunology Danie Corona MD [address] [place] [address] 08/23/2023 Office Visit Dermatology Melisa Chin PA-C [address] [place] [address] [place] [address] 09/21/2023 Office Visit Neurology Elle Dotson, DO [address] [facility] [place] [address] Scheduled Procedures Name Priority Associated Diagnoses Date/Ti [...] - US (IMAGES ONLY, NO REPORT) Routine 08/10/2018 3:35 PM EST documented in this encounter Results * RADIOLOGY EXAM - US (IMAGES ONLY, NO REPORT) (08/10/2018 3:35 PM EST) 08/10/2018 3:33 PM EST Narrative Scheduling, Silent - 03/07/2023 1:19 PM EDT This is an imaging study not interpreted or resulted by a [facility] or [facility] contracted radiologist. Leonila Angel DO RAD ULTRASOUND documented in this encounter Care Teams Physical Anthropologist Relationship Specialty Start Date End Date Juana Jimenez MD [address] [place] [address] PCP - General 04/10/1998 04/22/22 documented as of this encounter
--- OUTSIDE RECORDS SUMMARY | 2023-06-12 19:29 | External Medical Summary | Summary of Care ---
Author Name Unknown Organization [facility] Address [address] [facility] [place] [address] Phone [phone] Care Team Providers Care Machine Sander Name Role Phone Stanley Keen Karina Primary Care Provider Reason for Referral * Precert (Within 10 days (routine)) - Pending Review Specialty Diagnoses / Procedures Referred By Jo Ann villegas Referred To Contact Radiology Diagnoses Numbness and tingling Right arm numbness Procedures MRI C SPINE WO CONTRAST Alexis Dong DO [address] [place] [address] Referral ID Status Reason Start Date Expiration Date V isits Requested Visits Authorized [id number] Pending Review 03/15/2023 999 999 Reason for Visit * Reason Comments Return Neuro * Evaluate & Treat - Unlimited Visits (Within 10 days (routine)) - Pending Review Specialty Diagnoses / Procedures Referred By Jo Ann villegas Referred To Contact Neurology Diagnoses Neuromuscular disease (HCC) Yumiko Traore PA-C [address] [place] [address] Referral ID Status Reason Start Date Expiration Date Visits Requested Visits Authorized [id number] Pending Review Specialty Services Required 02/15/2023 999 999 Encounter Details Date Type Department Care Team Description 03/15/2023 Office Visit Neurology [place] Maharaj [address] [place] [address] [address] Alexis Dong DO [address] [place] [address] Numbness and tingling*; Right arm numbness; Muscle spasms of both lower extremities; Chronic migraine without aura with status migrainosus, not intractable; Small fiber neuropathy; Fibromyalgia Allergies Active Allergy Reactions Severity Noted Date [...] Capsule Take by mouth. 0 Active [place] 3 1000 MG Oral Capsule Take by [...] rhinitis, unspecified seasonality, unspecified trigger Administer 1 [place] into nostril in the morning and 1 [place] before bedtime. Use in each nostril as [...] Sign Reading Time Taken Comments Blood Pressure 126/70 03/15/2023 4:07 PM EDT Pulse 88 03/15/2023 4:07 PM EDT Temperature 37.1 C (98.7 F) 03/15/2023 4:07 PM ED T Respiratory Rate 18 03/15/2023 4:07 PM EDT Oxygen Saturation - - Inhaled Oxygen Concentration - - Weight 92.1 kg (203 lb) 03/15/2023 4:07 PM EDT Height - - Body Mass Index 38.38 03/14/2023 12:55 PM EDT documented in this encounter Progress Notes * Alexis Dong, DO - 03/15/2023 4:07 PM EDT Progress Note - Neurology [facility] [address] [place] [address] NAME: Kaelyn Gardiner Date of : 1970 Date of Visit: 03/15/23 Chief Complaint: Chief Complaint Patient presents with Return Neuro Subjective: A 52-year-old female with history of intractable chronic migraine currently on low dosePropranolol as well as presumed idiopathic small fiber neuropathy presenting to clinic for follow up. I have not yet seen this patient. She reports headaches have been ongoing since she was ~ 4 yearsold. Has family history of migraine headaches. Has been on number preventatives in the past including Aimovig, Nurtect, and Botox. She is on Lyrica for pain and neuropathy. Was follow with a neurologist in [place] for evaluation of neuropathy Vs myopathy including EMG, skin biopsy, and muscle biopsy.Reports skin biopsy was positive. She continues to have pain and numbness in her extremities which has progressed. Has numbness in both arm from forearm down. Unable to feel IV in right forearm. Had MRI brain imaging in 06/2022 and was seen at [facility] in November for headache. Migraine are currently manageable with low dose Inderal. She is also having other symptoms consisting of abdominal pain, vision changes, memory problems, weakness, numbness, muscle spasms, and ambulatory difficulty HOME MEDICATIONS : Current Outpatient Medications Medication Sig Dispense Refill [...] B Complex-C Oral Capsule Take by mouth. [place] 3 1000 MG Oral Capsule Take by [...] Azelastine-Fluticasone 137-50 MCG/ACT Nasal Suspension Administer 1 [place] into nostril in the morning and 1 [place] before bedtime. Use in each nostril as [...] Capsule 1 CPAP every night at bedtime. Current Facility-Administered Medications Medication Dose Route Frequency Provider Last Rate Last Admin Albuterol Sulfate (Proventil) (2.5 MG/3ML) 0.083% inhalation solution 2.5 mg 2.5 mg Nebulizer Once PRN Theron Lainez DO Review of patient's allergies indicates: Allergen Reactions Gold-Containing Drug Products Penicillins Rash Pollen Remeron [Mirtazapine] Other (Please comment) SOB Soybean-Containing Drug Products Sulfa Antibiotics Rash Topamax [Topiramate] Blurry vision Wound Dressing Adhesive PHYSICAL EXAMINATION: Vital Signs: BP 126/70 | Pulse 88 | Temp 37.1 C (98.7 F) (Tympanic) | Resp 18 | Wt 92.1 kg (203 lb) | BMI 38.38 kg/m | BSA 1.99 m EXAM: Constitutional: appearance normally developed, well nourished Head and Face: normocephalic and atraumatic Eyes: normal lids, normal conjunctiva Neck: supple Respiratory: normal effort Cardiovascular: regular rhythm and normal pulses Abdomen: non distended Skin: no rashes, lesions, or ulcers noted Psychiatric: normal judgement and insight, normal mood and normal affect NEUROLOGIC EXAMINATION: Appearance: no acute distress Orientation: awake, alert and oriented x 3 Mental Status: alert Attention: normal Knowledge: appropriate Language: no aphasia Speech: no dysarthria Cranial Nerves: CN 2 - no visual defect on confrontation and pupils round, equal CN 3, 4, 6 - extra-ocular movements intact CN 5 - facial sensation intact CN 7 - no facial asymmetry CN 8 - intact hearing CN 9, 10 - palate symmetric CN 11 - good shoulder shrug CN 12 - tongue midline Gait: unsteady gait, leaning forward, narrow base Coordination: no ataxia with finger to nose testing, no resting tremor Sensory: reduced to light touch in right distal arm from antecubital fossa Muscle Tone: normal Muscle exam: 5/5 throughout Reflexes: 3+ at both knees, absent or attenuated at both ankles, brisk at both biceps, right pritchett sign positive. LABORATORY: Labs reviewed and pertinent findings are indicated below: Review of prior Diagnostic Tests: Review of prior Radiology Studies: MRI brain performed in 06/2022: There are no foci of restricted diffusion. [...] expected, central arterial flow voids of [place] are grossly maintained. CTA head and neck performed in 11/2022: No high grade stenosis or occlusion. Diminutive right vertebral artery. IMPRESSION / PLAN: Kaelyn was seen today for return neuro. Diagnoses and all orders for this visit: Numbness and tingling - EMG - MRI C SPINE WO CONTRAST Right arm numbness - MRI C SPINE WO CONTRAST Muscle spasms of both lower extremities - Cyclobenzaprine HCl 10 MG Oral Tablet (Flexeril); Take 1 Tablet by mouth 3 times a day as needed for Muscle spasms. Chronic migraine without aura with status migrainosus, not intractable Small fiber neuropathy Fibromyalgia Kaelyn Gardiner is a 52 year old female with chronic migraines headache currently managed with low dose Propranolol 10 mg twice daily and reported or presumed idiopathic small fiber neuropathy per outsideskin biopsy. She reports headaches are currently manageable [...] examine this afternoon she has a positive pritchett sign on the right with brisk reflexes at the knees and attenuated at the ankles. This pattern can be seen in myelopathy or B12 deficiency. I would recommend we obtain an MRI of the cervical spine without contrast in addition to her EMG. Pending the results of the EMG and MRI cervical spine mayneed to obtain further labs. I am concerned there may be a functional component as well as all of the symptoms are difficult to explain but may be multifactorial (ie migraine, peripheral neuropathy, fibromyalgia). For now I recommend we start with the EMG and MRI of the cervical spine. I will plan to see her back for her EMG and discuss results at that time. In regards to migraine management she is pleased with the response from Propranolol so will defer on increasing the dose or trying a different medication. For her muscle spasms she has been on Flexeril in the past. She denies any adverse effects from it in the past. Will provider her with a script for flexeril. She otherwise expressed understanding in the plan as outlined above. Alexis Dong DO documented in this encounter Nursing Notes * Naa Francisco, MED ASSIST - 03/15/2023 4:06 PM EDT Chief Complaint Patient presents with Return Neuro documented in this encounter Plan of Treatment Upcoming Encounters Date Type Specialty Care Team Description 03/24/2023 Hospital Encounter Surgery Chris Walker MD [address] [place] [address] 03/24/2023 Surgery Surgery Chris Walker MD [address] [place] [address] HYSTEROSCOPY WITH BIOPSY AND/OR POLYPECTOMY WITH OR WITHOUT D&C 03/30/2023 PulmDiagnostic Pulmonary Function West, Pft [address] [place] [address] 04/01/2023 Office Visit Pulmonary Theron Lainez DO [address] [place] [address] 04/02/2023 Imaging Radiology 04/06/2023 Office Visit Orthopedics Theron Pineda, [address] [place] [address] 04/11/2023 Office Visit Gynecology Obstetrics Chris Walker MD [address] [place] [address] 04/15/2023 Telemedicine Psychiatry Lim, NERI Mobley [address] [place] [address] 06/06/2023 Office Visit Sleep Disorders Brenda Ramos, [address] [place] [address] 06/16/2023 Office Visit Rheumatology Marla Moon CRNP [address] [place], [place] [address] 06/22/2023 Office Visit Gastroenterology Vaughn Powell CRNP [address] [place] [address] 08/08/2023 Office Visit Hematology Oncology Gamaliel Quinn MD [address] [place] [address] 08/17/2023 Office Visit Allergy & Immunology Danie Corona MD [address] [place], [place] [address] 08/23/2023 Office Visit Dermatology Melisa Chin PA-C [address] [place] [address] [place] [address] 09/21/2023 Office Visit Neurology Elle Dotson, DO [address] [facility] [place] [address] Scheduled Orders Name Type Priority Associated Diagnoses Orde r Schedule MRI C SPINE WO CONTRAST Medical Imaging Routine Numbness and tingling Right arm numbness Ordered: 03/15/2023 Scheduled Procedures Name Priority Associated Diagnoses Date/Ti [...] this encounter Visit Diagnoses Diagnosis Numbness and tingling- Primary Disturbance of skin sensation Right arm numbness Disturbance of skin sensation Muscle spasms of both lower extremities Chronic migraine without aura with status migrainosus, not intractable Chronic migraine without aura, without mention of intractable migraine with status migrainosus Small fiber neuropathy Unspecified hereditary and idiopathic peripheral neuropathy Fibromyalgia Mylagia and myositis, unspecified Postmenopausal bleeding Uterine leiomyoma, unspecified location Pelvic pain in female Unspecified symptom associated with female genital organs documented in this encounter Care Teams Machine Sander Relationship Specialty Start Date End Date Leonila Angel DO [address] [facility] [place] [address] PCP - General Family Medicine 02/03/23 documented as of this encounter"
--- OUTSIDE RECORDS SUMMARY | 2023-06-12 19:29 | External Medical Summary | Summary of Care ---
Author Name Unknown Organization [facility] Address [address] [facility] [place] [address] Phone [phone] Care Team Providers Care Physical Education Aide Name Role Phone Hanny Angel DO Primary Care Provider Reason for Visit * Reason Comments NEW PATIENT CHRONIC Issues with diarrhea, vomiting, abd pain, here to [facility] care( from [facility]) gallstones, diverticulitis, hx of h pylori * Evaluate & Treat - Unlimited Visits (Within 30 days (routine)) - Pending Review Specialty Diagnoses / Procedures Referred By Jo Ann villegas Referred To Contact Gastroenterology Diagnoses Abdominal discomfort Hanny Angel DO [address] [place] [facility] [address] Referral ID Status Reason Start Date Expiration Date Visits Requested Visits Authorized [id number] Pending Review Specialty Services Required 12/13/2022 999 999 Encounter Details Date Type Department Care Team Description 03/10/2023 Office Visit Gastroenterology, [facility] [address] [facility] [place] [address] Vaughn Powell CRNP [address] [facility] [place] [address] Pain of upper abdomen*; Abdominal pain, generalized; Abdominal cramping, generalized Allergies Active Allergy Reactions Severity Noted Date Comments Gold-Containing Drug Products 04/23/2022 Penicillins Rash 04/23/2022 Pollen 03/10/2023 Mirtazapine Other (Please comment) 12/10/2022 SOB Soybean-Containing Drug Products 03/10/2023 Sulfa Antibiotics Rash 04/23/2022 Topiramate 04/23/2022 Blurry vision Wound Dressing Adhesive 03/10/2023 documented as of this encounter (statuses as of 03/10/2023) Medications Medication Sig Dispensed Refills Start Date [...] Oral Capsule Take by mouth. 0 Active [place] 3 1000 MG Oral Capsule Take by [...] rhinitis, unspecified seasonality, unspecified trigger Administer 1 [place] into nostril in the morning and 1 [place] before bedtime. Use in each nostril as [...] as of this encounter (statuses as of 03/10/2023) Active Problems Problem Noted Date Abdominal discomfort [...] as of this encounter (statuses as of 03/10/2023) Immunizations Name Administration Dates Next Due Seasonal [...] AM EDT Consult requested by Ref: HANNY ANGEL[[id number]] [address] [facility], [place] [address] (office) [phone] (fax) CC: Abdominal pain HPI: 52 year [...] copies of these records today: Colonoscopy at [facility] in [place]: 2-3mm descending colon polyp, mild inflammation in the sigmoid colon. CTAP w abcute diverticulitis and fatty liver at [facility] November 2017. CTAP w IV contrast November [...] Procedure Laterality Date BREAST BIOPSY Right Benign MA CHOLECYSTECTOMY REMOVAL OF ADENOIDS, AGE 12+ Social [...] B Complex-C Oral Capsule Take by mouth. [place] 3 1000 MG Oral Capsule Take by [...] Azelastine-Fluticasone 137-50 MCG/ACT Nasal Suspension Administer 1 [place] into nostril in the morning and 1 [place] before bedtime. Use in each nostril as [...] records for their visit today. N[facility] Gastroenterology documented in this encounter Nursing Notes * Юлия Ho LPN - 03/10/2023 11:25 AM EDT Patient identified by name and date of . Chief Complaint Patient presents with NEW PATIENT CHRONIC Issues with diarrhea, vomiting, abd pain, here to [facility] care( from [facility]) gallstones, diverticulitis, hx of h pylori Pt stating that her last scope - colon ( done with dr ford- jul 242020)and EGD( november 24, 2019- gian- this was done prior to colonoscopy- unsure of date [facility]- didn't give her any information when she [...] Endoscopy Juma Garcia MD [address] [place] [address] 03/14/2023 Surgery Endoscopy Juma Garcia MD [address] [place] [address] COLONOSCOPY FLEXIBLE PROXIMAL DIAGNOSTIC 03/15/2023 Office Visit Neurology Alexis Dong, DO [address] [place] [address] 03/24/2023 Hospital Encounter Surgery Chris Walker MD [address] [place] [address] 03/24/2023 Surgery Surgery Chris Walker MD [address] [place] [address] HYSTEROSCOPY WITH BIOPSY AND/OR POLYPECTOMY WITH OR WITHOUT D&C 03/30/2023 PulmDiagnostic Pulmonary Function West, Pft [address] [place] [address] 04/01/2023 Office Visit Pulmonary [facility]ainez, DO [address] [facility] [address] 04/06/2023 Office Visit Orthopedics Theron Pineda DO [address] [place] [address] 04/11/2023 Office Visit Gynecology Obstetrics Chris Walker MD [address] [place] [address] 04/15/2023 Telemedicine Psychiatry Lim, Annabel ElenaNERI [address] [place] [address] 06/06/2023 Office Visit Sleep Disorders Brenda Ramos, [address] [place] [address] 06/16/2023 Office Visit Rheumatology Marla Moon CRNP [address] [place] [address] 06/22/2023 Office Visit Gastroenterology Vaughn Powell CRNP [address] [place] [address] 08/08/2023 Office Visit Hematology Oncology Gamaliel Quinn MD [address] [facility] [place] [address] 08/17/2023 Office Visit Allergy & Immunology Danie Corona MD [address] [place] [address] 08/23/2023 Office Visit Dermatology Melisa Chin PA-C [address] [place] [address] [place] [address] 09/21/2023 Office Visit Neurology Elle Dotson, DO [address] [facility] [place] [address] Pending Results Name Type Priority Associated Diagnoses Date /Time URINALYSIS, REFLEX TO MICROSCOPIC Lab Routine Pain of upper abdomen Abdominal pain, generalized Abdominal cramping, generalized 03/10/2023 1:01 PM EDT Scheduled Orders Name Type Priority Associated Diagnoses Orde r Schedule EGD, FLEXIBLE, DIAGNOSTIC Procedures Routine Pain of upper abdomen Abdominal pain, generalized Abdominal cramping, generalized Ordered: 03/10/2023 COLONOSCOPY, DIAGNOSTIC (RECTUM) Procedures Routine Pain of upper abdomen Abdominal pain, generalized Abdominal cramping, generalized Ordered: 03/10/2023 PORPHOBILINOGEN, QUANTITATIVE, 24-HOUR URINE Lab Routine Pain of upper abdomen Abdominal pain, generalized Abdominal cramping, generalized Ordered: 03/10/2023 URINALYSIS, REFLEX TO MICROSCOPIC Lab Routine Pain of upper abdomen Abdominal pain, generalized Abdominal cramping, generalized Expected: 03/10/2023, Expires: 03/10/2024 Scheduled Procedures Name Priority Associated Diagnoses Date/Ti [...] as of this encounter Visit Diagnoses Diagnosis Pain of [...] organs documented in this encounter Care Teams Physical Education Aide Relationship Specialty Start Date End Date Hanny Angel DO [address] [place] [address] PCP - General Family Medicine 02/03/23 documented as of this encounter
--- OUTSIDE RECORDS SUMMARY | 2023-06-12 19:29 | External Medical Summary | Summary of Care ---
Author Name Unknown Organization [facility] Address [address] [place] [address] Phone [phone] Care Team Providers Care Dynamic Balancer Name Role Phone Juana Jiemnez MD Primary Care Provider [phone] Encounter Details Date Type Department Care Team Description 02/01/2018 Hospital Encounter Radiology Film File [address] [place] [address] Allergies Active Allergy Reactions Severity [...] Vaughn Powell CRNP [address] [place] [address] 03/15/2023 Office Visit Neurology Alexis Dong, [address] [place] [address] 03/24/2023 Hospital Encounter Surgery Chris Walker MD [address] [place] [address] 03/24/2023 Surgery Surgery Chris Walker MD [address] [place] [address] HYSTEROSCOPY WITH BIOPSY AND/OR POLYPECTOMY WITH OR WITHOUT D&C 03/30/2023 PulmDiagnostic Pulmonary Function West, Pft [address] [place] [address] 04/01/2023 Office Visit Pulmonary Theron Lainez, DO [address] [place] [address] 04/06/2023 Office Visit Orthopedics Theron Pineda, DO [address] [facility] [place] [address] 04/11/2023 Office Visit Gynecology Obstetrics Chris Walker MD [address] [place] [address] 04/15/2023 Telemedicine Psychiatry Lim, NERI Mobley [address] [place] [address] 06/06/2023 Office Visit Sleep Disorders Brenda Ramos DO [address] [place] [address] 06/16/2023 Office Visit Rheumatology Marla Moon CRNP [address] [place] [address] 08/08/2023 Office Visit Hematology Oncology Gamaliel Quinn MD [address] [place] [address] 08/17/2023 Office Visit Allergy & Immunology Danie Corona MD [address] [place] [address] 08/23/2023 Office Visit Dermatology Melisa Chin PA-C [address] [place] [address] [place] [address] 09/21/2023 Office Visit Neurology Elle Dotson, DO [address] [facility] [place] [address] Scheduled Procedures Name Priority Associated Diagnoses Date/Ti [...] - US (IMAGES ONLY, NO REPORT) Routine 02/01/2018 9:25 AM EDT documented in this encounter Results * RADIOLOGY EXAM - US (IMAGES ONLY, NO REPORT) (02/01/2018 9:25 AM EDT) 02/01/2018 9:21 AM EDT Narrative Scheduling, Silent - 03/07/2023 1:18 PM EDT This is an imaging study not interpreted or resulted by a [facility]. Leonila Angel DO RAD ULTRASOUND documented in this encounter Care Teams Dynamic Balancer Relationship Specialty Start Date End Date Juana Jimenez MD [address] [facility], [place] [address] PCP - General 04/10/1998 04/22/22 documented as of this encounter
--- OUTSIDE RECORDS SUMMARY | 2023-06-12 19:29 | External Medical Summary | Summary of Care ---
Author Name Unknown Organization [facility] Address [address] [facility] [place] [address] Phone [phone] Care Team Providers Care Medical Photographer Name Role Phone Leonila Angel DO Primary Care Provider Reason for Visit * Reason Comments Pulmonary Function Test PFT with broncho dilator Encounter Details Date Type Department Care Team Description 03/30/2023 PulmDiagnostic Pulmonary Function Lab, [facility] [address] [facility] [place] [address] [place], [address] [place] [address] CONNOLLY (dyspnea on exertion)* Allergies Active Allergy Reactions Severity Noted Date [...] Oral Capsule Take by mouth. 0 Active [place] 3 1000 MG Oral Capsule Take by [...] rhinitis, unspecified seasonality, unspecified trigger Administer 1 [place] into nostril in the morning and 1 [place] before bedtime. Use in each nostril as [...] Sign Reading Time Taken Comments Blood Pressure - - Pulse - - Temperature 36.4 C (97.6 F) 03/30/2023 8:16 AM ED T Respiratory Rate - - Oxygen Saturation - - Inhaled Oxygen Concentration - - Weight 92.2 kg (203 lb 4.2 oz) 03/30/2023 8:16 A M EDT Height 156 cm (5' 1.42") 03/30/2023 8:16 AM EDT Body Mass Index 37.89 03/30/2023 8:16 AM EDT documented in this encounter Nursing Notes * Sandra Strickland RRT - 03/30/2023 8:18 AM EDT Kaelyn Gardiner was identified by name, Date of : (1970, and . Vitals were obtained for testing. Body mass index is 37.89 kg/m. Pt does not have a smoking history. Pt wears CPAP@HS. 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 Spirometry, DLCO, MVV, MIP/MEP, RAW, and TGV performed. A slow volume nebulizer treatment of 0.5ml of albuterol in 3 ml of NSS was given. The proper method of use, as well as anticipated side effects, of this svn are discussed and demonstrated to the patient. Patient demonstrates adequate delivery. Administrations This Visit Albuterol Sulfate (Proventil) (2.5 MG/3ML) 0.083% inhalation solution 2.5 mg Admin Date 03/30/2023 Action Given Dose 2.5 mg Route Nebulizer Administered By Sandra Strickland RRT documented in this encounter Plan of Treatment Upcoming Encounters Date Type Specialty Care Team Description 04/01/2023 Office Visit Pulmonary Theron Lainez, DO [address] [place], [place] [id number] 04/02/2023 Imaging Radiology 04/06/2023 Office Visit Orthopedics Theron Pineda, DO [address] [facility] [place] [address] 04/11/2023 Office Visit Gynecology Obstetrics Chris Walker MD [address] [place] [address] 04/15/2023 Telemedicine Psychiatry Lim, Annabel Parker, NERI [address] [place] [address] 05/04/2023 NeuroDiagnostic Study Neurophysiology Alexis Dong, DO [address] [place] [address] 06/06/2023 Office Visit Sleep Disorders Brenda Ramos, DO [address] [place] [address] 06/16/2023 Office Visit Rheumatology Marla Moon CRNP [address] [place] [address] 06/22/2023 Office Visit Gastroenterology Vaughn Powell CRNP [address] [place] [address] 08/08/2023 Office Visit Hematology Oncology Gamaliel Quinn MD [address] [place] [address] 08/17/2023 Office Visit Allergy & Immunology Danie Corona MD [address] [place] [address] 08/23/2023 Office Visit Dermatology Melisa Chin PA-C [address] [place] [address] [place] [address] 09/21/2023 Office Visit Neurology Nila, Elle L, DO [address] [facility] [place] [address] Scheduled Procedures Name Priority Associated Diagnoses Date/Ti [...] as of this encounter Visit Diagnoses Diagnosis CONNOLLY (dyspnea on exertion)- Primary Other dyspnea and respiratory abnormality documented in this encounter Administered Medications Inactive Administered Medications - up to 3 most recent administrations Medication Order MAR Action Action Date Dose Rate Site Albuterol Sulfate (Proventil) (2.5 MG/3ML) 0.083% inhalation solution 2.5 mg 2.5 mg, Nebulizer, ONCE PRN Dyspnea, Starting on Tue01/07/23 at 1150, Until Tue03/30/23 at 0804, For 1 dose Given 03/30/2023 8:04 AM EDT 2.5 mg documented in this encounter Care Teams Medical Photographer Relationship Specialty Start Date End Date Leonila Angel DO [address] [place], [place] [id number] PCP - General Family Medicine 02/03/23 documented as of this encounter
--- OUTSIDE RECORDS SUMMARY | 2023-06-12 19:30 | External Medical Summary | Summary of Care ---
Author Name Unknown Organization [facility] Address [address] [facility] [address] Phone [phone] Care Team Providers Care Litigation Legal Secretary Name Role Phone Tomfrances Leonila Collins DO Primary Care Provider Encounter Details Date Type Department Care Team Description 02/18/2023 Patient Reported Data Patient Survey Ortho OBERD Allergies Active Allergy Reactions Severity Noted Date Comments Gold-Containing Drug Products 04/23/2022 Penicillins Rash 04/23/2022 Mirtazapine Other (Please comment) 12/10/2022 SOB Sulfa Antibiotics Rash 04/23/2022 Topiramate 04/23/2022 Blurry vision documented as of this encounter (statuses as of 02/18/2023) Medications Medication Sig Dispensed Refills Start Date [...] Oral Capsule Take by mouth. 0 Active [place]uv[place] 3 1000 MG Oral Capsule Take by [...] Active Additional Information Patient not taking.Reported on 02/14/2023 Ramelteon 8 MG Oral Tablet (Rozerem)Indications :Insomnia, unspecified type Take 1 Tablet by mouth at bedtime. 30 Tablet 1 01/11/2023 Active Temazepam 30 MG Oral Capsule (Restoril)Indication s:Insomnia, unspecified type Take 1 Capsule by mouth at bedtime as needed for Sleep. 30 Capsule 1 01/11/2023 Active Pregabalin 75 MG Oral Capsule (Lyrica) TAKE 1 CAPSULE BY MOUTH EVERYDAY AT BEDTIME 30 Capsule 2 02/09/2023 Active Zonisamide 25 MG Oral Capsule (Zonegran) 0 Active Pantoprazole Sodium 40 MG Oral Tablet Delayed Release Take 1 Tablet by mouth in the morning. 0 Active Fluticasone Propionate 50 MCG/ACT Nasal Suspension 0 Active Azelastine-Fluticaso ne 137-50 MCG/ACT Nasal SuspensionIndication s:Allergic rhinitis, unspecified seasonality, unspecified trigger Administer 1 [place] into nostril in the morning and 1 [place] before bedtime. Use in each nostril as directed. 23 g 5 02/14/2023 Active Rosuvastatin Calcium 10 MG Oral Tablet (Crestor) Take 1 Tablet by mouth in the morning. 90 Tablet 3 02/16/2023 Active Hospital, Clinic, or Other Facility Administered Medication Ordered Dose Route Frequency Start Date End Date Status Albuterol Sulfate (Proventil) (2.5 MG/3ML) 0.083% inhalation solution 2.5 mgIndications:CONNOLLY (dyspnea on exertion) 2.5 mg NEBULIZER ONCE PRN 01/07/2023 Act chaparro documented as of this encounter (statuses as of 02/18/2023) Active Problems Problem Noted Date Abdominal discomfort [...] as of this encounter (statuses as of 02/18/2023) Immunizations Name Administration Dates Next Due Seasonal [...] got money to buy more. Never true 05/14/2022 Within the past 12 months, t he food you bought just didn't last and you didn't have money to get more. Never true 05/14/2022 Sex Assigned at Date Recorded Female 05/13/2022 9:[address] Job Start Date Occupation Industry Not on file Not on file Not on file documented as of this encounter Plan of Treatment Upcoming Encounters Date Type Specialty Care Team Description 02/22/2023 Office Visit Dermatology Melisa Chin PA-C [address] [place] [address] [place] [address] 02/23/2023 Office Visit Orthopedics Theron Pineda, DO [address] [place] [address] 02/23/2023 Telemedicine Psychiatry Lim, NERI [place] [address] [place] [address] 03/04/2023 Office Visit Gynecology Obstetrics Chris Walker MD [address] [place] [address] 03/09/2023 Imaging Radiology 03/10/2023 Office Visit Gastroenterology Vaughn Powell CRNP [address] [place] [address] 03/24/2023 Hospital Encounter Surgery Chris Walker MD [address] [place] [address] 03/24/2023 Surgery Surgery Chris Walker MD [address] [place] [address] HYSTEROSCOPY WITH BIOPSY AND/OR POLYPECTOMY WITH OR WITHOUT D&C 03/30/2023 PulmDiagnostic Pulmonary Function [place], [address] [place] [address] 04/01/2023 Office Visit [facility] [address] [facility] [address] 04/11/2023 Office Visit Gynecology Obstetrics Chris Walker MD [address] [place] [address] 04/29/2023 Office Visit Neurology Alexis Dong DO [address] [place] [address] 06/16/2023 Office Visit Rheumatology Marla Moon CRNP [address] [place] [address] 08/08/2023 Office Visit Hematology Oncology Gamaliel Quinn MD [address] [place] [address] 08/17/2023 Office Visit Allergy & Immunology Danie Corona MD [address] [place] [address] 09/21/2023 Office Visit Neurology Elle Dotson, DO [address] [place] [facility] [place] [address] Scheduled Procedures Name Priority Associated Diagnoses Date/Ti me HYSTEROSCOPY WITH BIOPSY AND/OR POLYPECTOMY WITH OR WITHOUT D&C Postmenopausal bleeding Uterine leiomyoma, unspecified location Pelvic pain in female 03/24/2023 8:42 AM EDT PELVIC EXAMINATION UNDER ANESTHESIA Postmenopausal bleeding Uterine leiomyoma, unspecified location Pelvic pain in female 03/24/2023 8:42 AM EDT Health Maintenance Due Date Last [...] filedocumented as of this encounter Care Teams Litigation Legal Secretary Relationship Specialty Start Date End Date Leonila Angel DO [address] [place] [address] PCP - General Family Medicine 02/03/23 documented as of this encounter
--- OUTSIDE RECORDS SUMMARY | 2023-06-12 19:30 | External Medical Summary | Summary of Care ---
Author Name Unknown Organization [facility] Address [address] [place] [address] Phone [phone] Care Team Providers Care Financial Health Counselor Name Role Phone Leonila Angel DO Primary Care Provider Encounter Details Date Type Department Care Team Description 02/15/2023 Result Scan Unspecified Department Danie Corona MD [address] [place] [address] <No scans attached> Allergies Active Allergy Reactions Severity Noted Date Comments Gold-Containing Drug Products 04/23/2022 Penicillins Rash 04/23/2022 Mirtazapine Other (Please comment) 12/10/2022 SOB Sulfa Antibiotics Rash 04/23/2022 Topiramate 04/23/2022 Blurry vision documented as of this encounter (statuses as of 02/24/2023) Medications Medication Sig Dispensed Refills Start Date [...] Oral Capsule Take by mouth. 0 Active [place] 3 1000 MG Oral Capsule Take by [...] Additional Information Patient not taking.Reported on 02/14/2023 Pregabalin 75 MG Oral Capsule (Lyrica) TAKE [...] rhinitis, unspecified seasonality, unspecified trigger Administer 1 [place] into nostril in the morning and 1 [place] before bedtime. Use in each nostril as directed. 23 g 5 02/14/2023 Active Hospital, Clinic, or Other Facility Administered Medication Ordered Dose Route Frequency Start Date End Date Status Albuterol Sulfate (Proventil) (2.5 MG/3ML) 0.083% inhalation solution 2.5 mgIndications:CONNOLLY (dyspnea on exertion) 2.5 mg NEBULIZER ONCE PRN 01/07/2023 Act chaparro documented as of this encounter (statuses as of 02/24/2023) Active Problems Problem Noted Date Abdominal discomfort [...] as of this encounter (statuses as of 02/24/2023) Immunizations Name Administration Dates Next Due Seasonal [...] Encounters Date Type Specialty Care Team Description 03/01/2023 Office Visit Sleep Disorders Brenda Ramso DO [address] [place] [address] 03/04/2023 Office Visit Gynecology Obstetrics Chris Walker MD [address] [address] 03/09/2023 Imaging Radiology 03/10/2023 Office Visit Gastroenterology Vaughn Powell CRNP [address] [place] [address] 03/15/2023 Office Visit Neurology Alexis Dong DO [address] [place] [address] 03/24/2023 Hospital Encounter Surgery Chris Walker MD [address] [place] [address] 03/24/2023 Surgery Surgery Chris Walker MD [address] [place] [address] HYSTEROSCOPY WITH BIOPSY AND/OR POLYPECTOMY WITH OR WITHOUT D&C 03/30/2023 PulmDiagnostic Pulmonary Function [place], [address] [place] [address] 04/01/2023 Office Visit Pulmonary Theron Lainez, DO [address] [place] [address] 04/06/2023 Office Visit Orthopedics Theron Pineda, [address] [facility] [place] [address] 04/11/2023 Office Visit Gynecology Obstetrics Chris Walker MD [address] [place] [address] 04/15/2023 Telemedicine Psychiatry Lim, NERI [place] [address] [place] [address] 06/16/2023 Office Visit Rheumatology Marla Moon CRNP [address] [place] [address] 08/08/2023 Office Visit Hematology Oncology Gamaliel Quinn MD [address] [place] [address] 08/17/2023 Office Visit Allergy & Immunology Danie Corona MD [address] [facility] [place] [address] 08/23/2023 Office Visit Dermatology Melisa Chin PA-C [address] [place] [address] [place] [address] 09/21/2023 Office Visit Neurology Nila Elle L, DO [address] [facility] [place] [address] Scheduled Procedures Name Priority Associated Diagnoses Date/Ti [...] Procedure Name Priority Date/Time Associated Diagnosis Comments OUTSIDE LAB RESULTS 02/15/2023 documented in this encounter Results * OUTSIDE LAB RESULTS (02/15/2023) 02/15/2023 Danie Corona MD LABORATORY documented in this encounter Care Teams Financial Health Counselor Relationship Specialty Start Date End Date Leonila Angel DO [address] [place] [address] PCP - General Family Medicine 02/03/23 documented as of this encounter
--- OUTSIDE RECORDS SUMMARY | 2023-06-12 19:30 | External Medical Summary | Summary of Care ---
Author Name Unknown Organization [facility] Address [address] [facility] [place] [address] Phone [phone] Care Team Providers Care Talent Development Manager Name Role Phone Hanny Angel DO Primary Care Provider Reason for Visit * Reason Comments NEW PATIENT Referred for skin ex am, FH melanoma (father/maybe mother)- mult concerns * Evaluate & Treat - Unlimited Visits (Within 30 days (routine)) - Authorized Specialty Diagnoses / Procedures Referred By Jo Ann villegas Referred To Contact Dermatology Diagnoses Family history of melanoma Hanny Angel DO [address] [place] [address] Referral ID Status Reason Start Date Expiration Date Visits Requested Visits Authorized [id number] Authorized Specialty Services Required 02/03/2023 02/04/2024 [id number] Encounter Details Date Type Department Care Team Description 02/22/2023 Office Visit Dermatology, [address] [place] [address] Melisa Chin PA-C [address] [place] [address] [place] [address] Multiple nevi*; Skin exam, screening for cancer; Folliculitis; Acne excoriee; Xerosis cutis; Lichenification Allergies Active Allergy Reactions Severity Noted Date Comments Gold-Containing Drug Products 04/23/2022 Penicillins Rash 04/23/2022 Mirtazapine Other (Please comment) 12/10/2022 SOB Sulfa Antibiotics Rash 04/23/2022 Topiramate 04/23/2022 Blurry vision documented as of this encounter (statuses as of 02/23/2023) Medications Medication Sig Dispensed Refills Start Date [...] Oral Capsule Take by mouth. 0 Active [place] 3 1000 MG Oral Capsule Take by mouth. 0 Active Co Q 10 100 MG Oral Capsule Take by mouth. 0 Active D-Ribose Powder Use as directed. 0 Act david Nurtec 75 MG Oral Tablet Disintegrating DISSOLVE [...] rhinitis, unspecified seasonality, unspecified trigger Administer 1 [place] into nostril in the morning and 1 [place] before bedtime. Use in each nostril as [...] mouth at bedtime. 30 Tablet 1 01/11/2023 3 Discontinu ed(Refill) Temazepam 30 MG Oral Capsule (Restoril)Indicatio ns:Insomnia, unspecified type Take 1 Capsule by mouth at bedtime as needed for Sleep. 30 Capsule 1 01/11/2023 3 Discontinu ed(Refill) Hospital, Clinic, or Other Facility Administered Medication Ordered Dose Route Frequency Start Date End Date Status Albuterol Sulfate (Proventil) (2.5 MG/3ML) 0.083% inhalation solution 2.5 mgIndications:CONNOLLY (dyspnea on exertion) 2.5 mg NEBULIZER ONCE PRN 01/07/2023 Act david documented as of this encounter (statuses as of 02/23/2023) Active Problems Problem Noted Date Abdominal discomfort [...] as of this encounter (statuses as of 02/23/2023) Immunizations Name Administration Dates Next Due Seasonal [...] on file documented as of this encounter Patient Instructions * Patient Instructions* Melisa Chin PA-C - 02/22/2023 9:22 AM EDT ACNE/FOLLICULITIS regimen (to face and body): 1) Complete "bleach baths" 2x weekly 2) Wash prone areas daily with Hibiclens anti-bacterial soap (hot pink liquid-to body, not near eyes or ears, TOXIC to those areas. Use benzoyl peroxide wash (Cerave acne foaming cleanser to face instead of Hibiclens) 3) Clindamycin gel 2x daily to flaring spots and once daily to prone areas when not flaring (to face and body) Swimming pools are chlorinated to help cut-down on microbes living in the water. Together, you willmake your very own swimming pool right in the bathtub! This special water will help cut down on microbes on the skin. STEPS: 1. Start by adding lukewarm water to fill a tub for a normal bath (about 40 gallons). 2. Put 1/2 cup of common liquid bleach (for example, Clorox) into the bath water. Check the bleach bottle to make sure that the concentration of bleach (also known as sodium hypochlorite) is about 6%. 3. Completely mix the added bleach in the water. This should create a solution of diluted bleach (about 0.005%), which is just a little stronger than chlorinated swimming pool water. 4. Soak in the chlorinated water for about 10 minutes. 5. Thoroughly rinse the skin clear with lukewarm, fresh water at the end of the bleach bath. 6. As soon as you're finished rinsing off, pat dry. Do not rub dry as this is the same as scratching! 7. Immediately apply any prescribed medication and/or emollients. 8. Repeat bleach baths as prescribed by Melisa Chin PA-C. The following restrictions may apply: Can potentially cause dryness and/or irritation. My burn or sting skin if there are multiple breaks/ fissures in skin. Do not use bleach baths in patients with aknown contact allergy to chlorine. ------- DRY SKIN regimen to be done DAILY (#1 and #3) and MORNING AND EVENING (#2) 1) Take a warm (NOT HOT) shower daily (try no more or no less) with CeraVe cleanser (in green and white pump) or dove unscented bar soap and only towel off slightly, keep skin damp. Do not use the soap on rash spots, only irritates them more. Use soap over entire body 1-2 times per week, wash underarms and private parts daily. 2) CeraVe cream (in white jar)-[employer] (CHEAPEST), [facility] (has generic brand--$2-4 cheaper might have other ingredients, would not use if we are treating an allergy rash), [employer], [employer]) to be applied on top of affected area(s) MORNING AND EVENING, and entire body at least DAILY. 3) Vaseline (petroleum jelly) to be applied on top of the cerave cream at BEDTIME to affected area(s) only (warned to wear old pajamas to bed due to messiness of procedure). If bad areas are on handsand/or feet, then cover them with brown jersey gloves (cheaper than white cotton gloves)-buy at [employer]. Purchase a chlorine filtered shower head-will cut down on dryness of skin, dandruff of scalp/face(if an issue for you), and could help with breathing/respiratory issues. QUESTIONS? Call Dermatology at during normal business hours or for an emergency, call [phone] and ask to speak to the resident head of store operations. documented in this encounter Progress Notes * Molina Matt MD - 02/23/2023 3:16 PM EDT I have seen and examined the patient via teledermatology review of chart note and photos with Melisa Chin PA-C. I have reviewed and agree with the assessment and plan. * Melisa Chin PA-C - 02/22/2023 8:58 AM EDT SUBJECTIVE: HPI: Kaelyn Gardiner is a 52 year old female seen at the request of Hanny Angel DO for evaluation and treatment of concerns/full skin exam. Vulvar exams performed, no vulvar discoloration and/or lesions to be assessed per pt. - Tanning bed history. - Blistering sunburns. Lesions on face, hard callused areas form overnight. Moved from [facility] area recently. 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 REVIEW OF SYSTEMS: SKIN: No other new or changing moles. HEME/LYMPH: No new or enlarging lumps or bumps. CONSTITUTIONAL: No nausea, vomiting, fevers, chills, diarrhea. No recent unintended weight loss, night sweats, appetite or malaise. RESP: negative MSK/EXT: Negative or as per HPI GI: negative CV: Negative or as per HPI Rest of systems are negative or as per HPI SKIN CANCER HX: NONE Reviewed, same day as visit, 0 [facility] D[facility] lab work(s)/pathology report(s) as well as those sent by referring provider prior to seeing pt. Past Medical History: Diagnosis Date Anxiety Arthritis Asthma Cognitive changes Depression Diverticulosis Fibromyalgia Hyperlipidemia with target LDL less than 100 04/23/2022 Insomnia Lung nodule Migraine Migraine with aura and without status migrainosus, not intractable 04/23/2022 Neuropathy LISA (obstructive sleep apnea) 04/23/2022 PTSD (post-traumatic stress disorder) Sleep apnea Social anxiety disorder FAMILY HISTORY: Skin CA: melanoma in father and unknown skin cancer (possibly non-melanoma) in mother Skin Disorders: none SOCIAL HISTORY: Social History Tobacco Use Smoking status: Never Smokeless tobacco: Never Substance Use Topics Alcohol use: Yes Comment: social Vaping/E-Cigarette Use Vaping/E-Cigarette Use Never User Vaping/E-Cigarette Substances Vaping/E-Cigarette Devices MEDICA TIONS: Current Outpatient Medications Medication Sig Dispense Refill [...] B Complex-C Oral Capsule Take by mouth. [place] 3 1000 MG Oral Capsule Take by [...] of Breath. (Patient not taking: Reported on 02/14/2023) 18 g 1 Ramelteon 8 MG Oral Tablet (Rozerem) Take 1 Tablet by mouth at bedtime. 30 Tablet 1 Temazepam 30 MG Oral Capsule (Restoril) Take 1 Capsule by mouth at bedtime as needed for Sleep. 30 Capsule 1 Pregabalin 75 MG Oral Capsule (Lyrica) TAKE 1 CAPSULE BY MOUTH EVERYDAY AT BEDTIME 30 Capsule 2 Zonisamide 25 MG Oral Capsule (Zonegran) Pantoprazole Sodium 40 MG Oral Tablet Delayed Release Take 1 Tablet by mouth in the morning. (Patient not taking: Reported on 02/14/2023) Fluticasone Propionate 50 MCG/ACT Nasal Suspension Azelastine-Fluticasone 137-50 MCG/ACT Nasal Suspension Administer 1 [place] into nostril in the morning and 1 [place] before bedtime. Use in each nostril as directed. 23 g 5 Rosuvastatin Calcium 10 MG Oral Tablet (Crestor) Take 1 Tablet by mouth in the morning. 90 Tablet 3 Current Facility-Administered Medications Medication Dose Route Frequency Provider Last Rate Last Admin Albuterol Sulfate (Proventil) (2.5 MG/3ML) 0.083% inhalation solution 2.5 mg 2.5 mg Nebulizer Once PRN Theron Lainez, DO ALLERGY: Gold-containing drug products, Penicillins, Remeron [mirtazapine], Sulfa antibiotics, and Topamax [topiramate] OBJECT DAVID: GEN: alert, appears oriented, mild distress, pleasant, and cooperative. SKIN: Detailed exam of hair, face including lids and lips, neck, chest, abdomen, back, bilateral upper ext. (arm, hand, fingers), bilateral lower ext. (leg, foot, toes), palpation of scalp, fingernails, toenails, inguinal areas, groin (mons pubis), buttocks, and anus completed: 1. Face/trunk/bilat arms and legs-Over 200 total; 2-6mm skin colored soft papule (face), light brown and light-medium brown macules and few soft papules. About 20 with slightly irregular borders and/or architecture. 2. Lower face/chin-Resolving excoriated lichenified papules. 3. Arms/legs-Very few excoriated slightly lichenified papules and few post inflammatory erythematous macules. 4. Generalized body-Xerosis with isolated scale (forearms) ASSESS MENT/PLAN: 1. Nevi on face/trunk/bilat arms and legs-Approximately 20 atypical nevi but all uniform out of 200total. None that are more atypical than the others that would need to be removed for pathologic confirmation, but would benefit from yearly skin checks to follow changes. Skin cancer brochure given and ABCDE's discussed with patient. Annual full body skin examination (unless I recommended otherwise), self-examination, and sun protection (SPF 30+ daily to sun exposed areas, with reapplication every 1-2 hours when out in sun for long periods of time) advised and discussed. Recommended sooner follow up for new or changing lesions. These changes include rapid enlargement, changes in color or shape or symptoms, bleeding, or other concerns. The common features and behavior of non-melanoma skin cancers (e.g. BCC/SCC) as well as the ABCDEs and ugly duckling features of melanoma were also reviewed. 2-3. Acne excoriee/folliculitis with some lichenification on lower face/chin/arms/legs-Start benzoyl peroxide wash (Cerave acne foaming cleanser given) to face and Hibiclens to body, clindamycin gel BID. 4. Xerosis of generalized body-Start hydration regimen with decreased water temp, decreased soap and Cerave cream BID, Vaseline QHS prn. Patient alone today. Photo(s) of #1-4 taken, pt verbally consented to having photo(s) taken. Follow-up: 6 months for full skin exam/acne excoriee/folliculitis Photos and chart reviewed by Dr. Molina Matt. Presum ed diagnoses, expected natural histories, and management options discussed with the patient at length. Questions were addressed and anticipatory guidance provided. They were instructed to contact me if additional questions, concerns, or problems develop in the interim. -There were no barriers to learning and no other pain was related to today's visit. The patient and/or person accompanying patient demonstrates understanding of the visit and treatment. Melisa Chin PA-C 02/22/2023 8:59 AM Ref: HANNY ANGEL[[id number]] [address] [place] [address] (office) [phone] (fax) PCP: HANNY ANGEL [address] [place] [address] [phone] documented in this encounter Nursing Notes * Chery Schultz LPN - 02/22/2023 8:59 AM EDT Patient identified by full name and date of . Chief Complaint Patient presents with NEW PATIENT Referred for skin exam, FH melanoma (father/maybe mother)- mult concerns documented in this encounter Plan of Treatment Upcoming Encounters Date Type Specialty Care Team Description 03/01/2023 Office Visit Sleep Disorders Brenda Ramos, DO [address] [place] [address] 03/04/2023 Office Visit Gynecology Obstetrics Chris Walker MD [address] [place] [address] 03/09/2023 Imaging Radiology 03/10/2023 Office Visit Gastroenterology Vaughn Powell CRNP [address] [place] [address] 03/15/2023 Office Visit Neurology Alexis Dong, DO [address] [place] [facility] [address] 03/24/2023 Hospital Encounter Surgery Chris Walker MD [address] [place] [address] 03/24/2023 Surgery Surgery Chris Walker MD [address] [place] [address] HYSTEROSCOPY WITH BIOPSY AND/OR POLYPECTOMY WITH OR WITHOUT D&C 03/30/2023 PulmDiagnostic Pulmonary Function [place], Pft [address] [place] [address] 04/01/2023 Office Visit Pulmonary Theron Lainez, DO [address] [place] [facility] [place] [address] 04/06/2023 Office Visit Orthopedics Theron Pineda, [address] [place] [address] 04/11/2023 Office Visit Gynecology Obstetrics Chris Walker MD [address] [place] [address] 04/15/2023 Telemedicine Psychiatry Lim, Annabel Parker, NERI [address] [place] [address] 06/16/2023 Office Visit Rheumatology Marla Moon CRNP [address] [place] [address] 08/08/2023 Office Visit Hematology Oncology Gamaliel Quinn MD [address] [place] [address] 08/17/2023 Office Visit Allergy & Immunology Danie Corona MD [address] [place] [address] 08/23/2023 Office Visit Dermatology Melisa Chin PA-C [address] [place] [address] [place] [address] 09/21/2023 Office Visit Neurology Nila, [facility] L, [facility] [address] [facility] [address] Scheduled Procedures Name Priority Associated Diagnoses Date/Ti [...] Procedure Name Priority Date/Time Associated Diagnosis Comments DERM IMAGE (SITE) Routine 02/22/2023 Skin exam, screening for cancer Multiple nevi Folliculitis Acne excoriee Xerosis cutis Lichenification documented in this encounter Results * DERM IMAGE (SITE) (02/22/2023) 02/22/2023 Melisa Chin PA-C DIGITAL PHOTOG JOHNNIE documented in this encounter Visit Diagnoses Diagnosis Multiple nevi- Primary Benign neoplasm of skin, site unspecified Skin exam, screening for cancer Screening for malignant neoplasm of the skin Folliculitis Other specified disease of hair and hair follicles Acne excoriee Other acne Xerosis cutis Other specified disease of sebaceous glands Lichenification Lichenification and lichen simplex chronicus Postmenopausal bleeding Uterine leiomyoma, unspecified location Pelvic pain in female Unspecified symptom associated with female genital organs documented in this encounter Care Teams Talent Development Manager Relationship Specialty Start Date End Date Hanny Angel, [address] [place] [address] PCP - General Family Medicine 02/03/23 documented as of this encounter
--- OUTSIDE RECORDS SUMMARY | 2023-06-12 19:30 | External Medical Summary | Summary of Care ---
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 Wringer Operator Return Encounter Details Date Type Department Care Team Description 03/04/2023 Office Visit Gynecology/Obstetrics [facility] [address] [place] [address] Chris Walker MD [address] [place] [address] Pre-op testing* Allergies Active Allergy Reactions Severity Noted Date Comments Gold-Containing Drug Products 04/23/2022 Penicillins Rash 04/23/2022 Mirtazapine Other (Please comment) 12/10/2022 SOB Sulfa Antibiotics Rash 04/23/2022 Topiramate 04/23/2022 Blurry vision documented as of this encounter (statuses as of 03/04/2023) Medications Medication Sig Dispensed Refills Start Date End Date Status Magnesium Citrate Powder Use as directed. 0 Active clonazePAM 1 MG Oral Tablet (KlonoPIN)Indications :Generalized anxiety disorder,Panic disorder Take 0.5 Tablets by mouth 2 times a day as needed for Anxiety or Insomnia. 30 Tablet 0 08/23/2022 Active Vitamin C 500 MG Oral Capsule Take 1,000 mg by mouth in the morning. 0 Active Zinc 50 MG Oral Capsule Take 1 Capsule by mouth in the morning. 0 Active B Complex-C Oral Capsule Take by mouth. 0 Active [place] 3 1000 MG Oral Capsule Take by [...] Propionate 50 MCG/ACT Nasal Suspension 0 Active Azelastine-Fluticason e 137-50 MCG/ACT Nasal SuspensionIndications :Allergic rhinitis, unspecified seasonality, unspecified trigger Administer 1 [place] into nostril in the morning and 1 [place] before bedtime. Use in each nostril as directed. 23 g 5 02/14/2023 Active Rosuvastatin Calcium 10 MG Oral Tablet (Crestor) Take 1 Tablet by mouth in the morning. 90 Tablet 3 02/16/2023 Active Clindamycin Phosphate 1 % External GelIndications:Follic ulitis,Acne excoriee Apply 2x daily to new or resolving spots on face/chin/body (can use more instead of scratching or picking at lesions) 60 g 3 02/22/2023 Active Ramelteon 8 MG Oral Tablet (Rozerem)Indications: Insomnia, unspecified type Take 1 Tablet by mouth at bedtime. 30 Tablet 1 02/23/2023 Active Temazepam 30 MG Oral Capsule (Restoril)Indications :Insomnia, unspecified type Take 1 Capsule by mouth at bedtime as needed for Sleep. 30 Capsule 1 02/23/2023 Active Hospital, Clinic, or Other Facility Administered Medication Ordered Dose Route Frequency Start Date End Date Status Albuterol Sulfate (Proventil) (2.5 MG/3ML) 0.083% inhalation solution 2.5 mgIndications:CONNOLLY (dyspnea on exertion) 2.5 mg NEBULIZER ONCE PRN 01/07/2023 Act chaparro documented as of this encounter (statuses as of 03/04/2023) Active Problems Problem Noted Date Abdominal discomfort [...] as of this encounter (statuses as of 03/04/2023) Immunizations Name Administration Dates Next Due Seasonal [...] as of this encounter Progress Notes * Chris Walker MD - 03/04/2023 12:21 PM EDT Pt here for preop History and physical examination done Consnet obtained documented in this encounter H&P Notes * Chris Walker MD - 03/04/2023 12:18 PM EDT keith [address] [address] Appt line [phone] Kaelyn Gardiner is a 52 year old year old year old seen for PMB Here for preop OB History Para Term AB Living 2 2 SAB IAB Ectopic Multiple Live Births 2 # Outcome Date GA Lbr Corbin/2nd Weight Sex Delivery Anes PTL Lv 2 1 Obstetric Comments SVDx2 Date Labor Sex Delivery Anesth Del Comments GA Length Weight Type Site 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 Denies h/o STDs and abnormal Paps. Her past medical/surgical histories and current medications are recorded in the electronic record. Past Surgical History: Procedure Laterality Date [place] CHOLECYSTECTOMY REMOVAL OF ADENOIDS, AGE 12+ Family History Problem Relation Age of Onset Hyperlipidemia Mother Glaucoma Mother Hypertension Father Hyperlipidemia Father Hypertension Sister Migraines Daughter Breast Cancer Great-grandmother (Maternal) History Social History Socioeconomic History Marital status: Spouse name: Not on file Number of children: Not on file Years of education: Not on file Highest education level: Not on file Occupational History Not on file Tobacco Use Smoking status: Never Smokeless tobacco: Never Vaping Use Vaping Use: Never used Substance and Sexual Activity Alcohol use: Yes Comment: social Drug use: Never Sexual activity: Not Currently Partners: Male Other Topics Concern Not on file Social History Narrative Lives with . Older daughter. 1 cat and 1 dog. Danie Corona MD 02/14/2023 2:51 PM Social Determinants of Health Financial Resource Strain: Not on file Food Insecurity: No Food Insecurity Worried About Running Out of Food in the Last Year: Never true Ran Out of Food in the Last Year: Never true Transportation Needs: Not on file Physical Activity: Not on file Stress: Not on file Social Connections: Not on file Intimate Partner Violence: Not on file Housing Stability: Not on file Pelvic sono: Unremarkable sono in [place] Physical Exam: There were no vitals taken for this visit. CV: S1, S2. Regular rate and Rhythm Lungs: Clear to auscultation bilaterally. Abdomen: Soft Extremities: Soft non tender calves bilaterally. A/P: 52 year old year old with PMB Unremarkable sono in [place] We have discussed the risk alternatives and complications of surgery including more surgery to correct complication,risk of anesthesia,infection,damage to internal organs and . We have also discussed the possibility that pt's present situation may not change. Pt is aware and wishes to proceed to surgery. Consent is signed Pt scheduled for the ff procedures 1.Examination under anesthesia 2.Dilation and curettage 3.Hysterosocpy Chris Walker MD 03/04/2023 12:18 PM documented in this encounter Nursing Notes * Mackenzie Cleaning LPN - 03/04/2023 11:38 AM EDT Pt is here for pre-op for D&C hysteroscopy for PMB, fibroid and pelvic pain documented in this encounter Plan of Treatment Upcoming Encounters Date Type Specialty Care Team Description 03/09/2023 Imaging Radiology 03/10/2023 Office Visit Gastroenterology Vaughn Powell CRNP [address] [place] [address] 03/15/2023 Office Visit Neurology Alexis Dong, DO [address] [place] [address] 03/24/2023 Hospital Encounter Surgery Chris Walker MD [address] [place] [address] 03/24/2023 Surgery Surgery Chris Walker MD [address] [place] [address] HYSTEROSCOPY WITH BIOPSY AND/OR POLYPECTOMY WITH OR WITHOUT D&C 03/30/2023 PulmDiagnostic Pulmonary Function [place], Pft [address] [place] [address] 04/01/2023 Office Visit Pulmonary Theron Lainez, DO [address] [place] [address] 04/06/2023 Office Visit Orthopedics Theron Pineda, DO [address] [place] [address] 04/11/2023 Office Visit Gynecology Obstetrics Chris Walker MD [address] [place] [address] 04/15/2023 Telemedicine Psychiatry Lim, NERI [place] [address] [place] [address] 06/06/2023 Office Visit Sleep Disorders Brenda Ramos, [address] [place] [address] 06/16/2023 Office Visit Rheumatology Marla Moon CRNP [address] [place] [address] 08/08/2023 Office Visit Hematology Oncology Gamaliel Quinn MD [address] [place] [address] 08/17/2023 Office Visit Allergy & Immunology Danie Corona MD [address] [place] [address] 08/23/2023 Office Visit Dermatology Melisa Chin PA-C [address] [place] [address] [place] [address] 09/21/2023 Office Visit Neurology Elle Dotson L, DO [address] [facility] [place] [address] Scheduled Orders Name Type Priority Associated Diagnoses Orde r Schedule CBC WITH WBC DIFFERENTIAL Lab Routine Pre-op testing Ordered: 03/04/2023 Scheduled Procedures Name Priority Associated Diagnoses Date/Ti [...] as of this encounter Visit Diagnoses Diagnosis Pre-op testing- Primary Preoperative examination, unspecified Postmenopausal bleeding Uterine leiomyoma, unspecified location Pelvic pain in female Unspecified symptom associated with female genital organs documented in this encounter Care Teams Sport Internship Relationship Specialty Start Date End Date Leonila Angel DO [address] [place] [address] PCP - General Family Medicine 02/03/23 documented as of this encounter
--- OUTSIDE RECORDS SUMMARY | 2023-06-12 19:30 | External Medical Summary | Summary of Care ---
Author Name Unknown Organization [facility] Address [address] [place] [address] Phone [phone] Care Team Providers Care Architectural Coating Finisher Name Role Phone Leonila Angel DO Primary Care Provider Encounter Details Date Type Department Care Team Description [facility] [address] [place] [address] Melisa Chin MD Allergies Active Allergy Reactions Severity Noted Date [...] Capsule Take by mouth. 0 Active [place] 3 1000 MG Oral Capsule Take by [...] rhinitis, unspecified seasonality, unspecified trigger Administer 1 [place] into nostril in the morning and 1 [place] before bedtime. Use in each nostril as [...] at lesions) 60 g 3 02/22/2023 Active Hospital, Clinic, or Other Facility Administered [...] Miscellaneous Notes * Telephone Encounter - LISA Kang - 02/23/2023 10:16 AM EDT MyG message sent for confirmation. 02/23/2023 * Telephone Encounter - Chery Schultz LPN - 02/23/2023 7:51 AM EDT Tuesday at 1:20 PM * Telephone Encounter - LISA Kang - 02/22/2023 9:25 AM EDT Per 02/22/2023 checkout notes: Return for 6 months for full skin exam/facial (COMPLEX PATIENT-40 MIN). Please provide date and time for patient to return as there are no available appts in 6 months. 02/22/2023 documented in this encounter Plan of Treatment Upcoming Encounters Date Type Specialty Care Team Description 02/23/2023 Telemedicine Psychiatry Lim, NERI Mobley [address] [place] [address] 03/01/2023 Office Visit Sleep Disorders Brenda Ramos, [address] [place] [address] 03/04/2023 Office Visit Gynecology Obstetrics Chris Walker MD [address] [place] [address] 03/09/2023 Imaging Radiology 03/10/2023 Office Visit Gastroenterology Vaughn Powell CRNP [address] [place] [address] 03/15/2023 Office Visit Neurology Alexis Dong, [address] [place] [address] 03/24/2023 Hospital Encounter Surgery Chris Walker MD [address] [place] [address] 03/24/2023 Surgery Surgery Chris Walker MD [address] [place] [address] HYSTEROSCOPY WITH BIOPSY AND/OR POLYPECTOMY WITH OR WITHOUT D&C 03/30/2023 PulmDiagnostic Pulmonary Function [place], Pft [address] [place] [address] 04/01/2023 Office Visit Pulmonary Theron Lainez DO [address] [place] [address] 04/06/2023 Office Visit Orthopedics Theron Pineda DO [address] [place] [facility] [place] [address] 04/11/2023 Office Visit Gynecology Obstetrics Chris Walker MD [address] [place] [address] 06/16/2023 Office Visit Rheumatology Marla Moon CRNP [address] [place] [address] 08/08/2023 Office Visit Hematology Oncology Gamaliel Quinn MD [address] [facility] [place] [address] 08/17/2023 Office Visit Allergy & Immunology Danie Corona MD [address] [place] [address] 08/23/2023 Office Visit Dermatology Melisa Chin PA-C [address] [place] [address] [place] [address] 09/21/2023 Office Visit Neurology Elle Dotson, DO [address] [facility] [place] [address] Scheduled Procedures Name Priority Associated Diagnoses Date/Ti [...] filedocumented as of this encounter Care Teams Architectural Coating Finisher Relationship Specialty Start Date End Date Leonila Angel DO [address] [place] [address] PCP - General Family Medicine 02/03/23 documented as of this encounter
--- OUTSIDE RECORDS SUMMARY | 2023-06-12 19:30 | External Medical Summary | Summary of Care ---
Author Name Unknown Organization [facility] Address [address] [place] [address] Phone [phone] Care Team Providers Care Electric Motor And Generator Assembler Name Role Phone Leonila Angel DO Primary Care Provider Encounter Details Date Type Department Care Team Description [facility] [address] [place] [address] Melisa Chin MD Allergies Active [...] Oral Capsule Take by mouth. 0 Active [place] 3 1000 MG Oral Capsule Take by [...] rhinitis, unspecified seasonality, unspecified trigger Administer 1 [place] into nostril in the morning and 1 [place] before bedtime. Use in each nostril as [...] encounter Miscellaneous Notes * Telephone Encounter - Chery Schultz LPN [...] Date Type Specialty Care Team Description 02/23/2023 Office Visit Orthopedics Theron Pineda, [address] [place] [address] Kaelyn Gardiner 02/23/2023 Telemedicine Psychiatry Lim, NERI Mobley 200 [facility] [place] [address] 03/01/2023 Office Visit Sleep Disorders Brenda Ramos DO [address] [place] [address] 03/04/2023 Office Visit Gynecology Obstetrics Chris Walker MD [address] [place] [address] 03/09/2023 Imaging Radiology 03/10/2023 Office Visit Gastroenterology Vaughn Powell CRNP [address] [place] [address] 03/15/2023 Office Visit Neurology Alexis Dong, [address] [place] [address] 03/24/2023 Hospital Encounter Surgery Chris Walker MD [address] [place] [address] 03/24/2023 Surgery Surgery Chris Walker MD 132 [facility] [place] [address] HYSTEROSCOPY WITH BIOPSY AND/OR POLYPECTOMY WITH OR WITHOUT D&C 03/30/2023 PulmDiagnostic Pulmonary Function [place], Pft [address] [facility] [place] [address] 04/01/2023 Office Visit Pulmonary Theron Lainez DO [address] [facility], [place] [address] 04/11/2023 Office Visit [facility]necology [facility]stetrics [facility] [place] [address] 06/16/2023 Office Visit Rheumatology Marla Moon CRNP [address] [place] [address] 08/08/2023 Office Visit Hematology Oncology Gamaliel Quinn MD [address] [facility] [address] 08/17/2023 Office Visit Allergy & Immunology Danie Corona MD [address] [place], [place] [address] 08/23/2023 Office Visit Dermatology Melisa Chin PA-C [address] [place] [address] [place] [address] 09/21/2023 Office Visit Neurology Elle Dotson, DO [address] [facility] [place] [address] Scheduled Procedures Name Priority Associated Diagnoses Date/Ti [...] filedocumented as of this encounter Care Teams Electric Motor And Generator Assembler Relationship Specialty Start Date End Date Leonila Angel, [address] [place] [address] PCP - General Family Medicine 02/03/23 documented as of this encounter
--- OUTSIDE RECORDS SUMMARY | 2023-06-12 19:30 | External Medical Summary | Summary of Care ---
Author Name Unknown Organization [facility] Address [address] [place] [address] Phone [phone] Care Team Providers Care Industrial Tractor Driver Name Role Phone Leonila Angel DO Primary Care Provider Encounter Details Date Type Department Care Team Description [facility] [address] [place] [address] Melisa Chin MD Allergies Active Allergy Reactions Severity Noted Date Comments Gold-Containing Drug Products 04/23/2022 Penicillins Rash 04/23/2022 Mirtazapine Other (Please comment) 12/10/2022 SOB Sulfa Antibiotics Rash 04/23/2022 Topiramate 04/23/2022 Blurry vision documented as of this encounter (statuses as of 02/22/2023) Medications Medication Sig Dispensed Refills Start Date [...] Oral Capsule Take by mouth. 0 Active [place] 3 1000 MG Oral Capsule Take by [...] rhinitis, unspecified seasonality, unspecified trigger Administer 1 [place] into nostril in the morning and 1 [place] before bedtime. Use in each nostril as [...] as of this encounter (statuses as of 02/22/2023) Active Problems Problem Noted Date Abdominal discomfort [...] as of this encounter (statuses as of 02/22/2023) Immunizations Name Administration Dates Next Due Seasonal [...] Team Description 02/23/2023 Office Visit Orthopedics Theron Pineda DO [address] [place] [address] 02/23/2023 Telemedicine Psychiatry Lim, NERI Mobley 200 [facility] [place] [address] 03/01/2023 Office Visit Sleep Disorders Brenda Ramos DO [address] [place] [address] 03/04/2023 Office Visit Gynecology Obstetrics Chris Walker MD [address] [place] [address] 03/09/2023 Imaging Radiology 03/10/2023 Office Visit Gastroenterology Vaughn Powell CRNP [address] [place] [address] 03/15/2023 Office Visit Neurology Alexis Dong DO [address] [place] [address] 03/24/2023 Hospital Encounter Surgery Chris Walker MD [address] [place] [address] 03/24/2023 Surgery Surgery Chris Walker MD [address] [place] [address] HYSTEROSCOPY WITH BIOPSY AND/OR POLYPECTOMY WITH OR WITHOUT D&C 03/30/2023 PulmDiagnostic Pulmonary Function [place], Pft [address] [place] [address] 04/01/2023 Office Visit Pulmonary Theron Lainez DO [address] [place] [address] 04/11/2023 Office Visit Gynecology Obstetrics Chris Walker MD [address] [place] [address] 06/16/2023 Office Visit Rheumatology Marla Moon CRNP [address] [place], [place] [address] 08/08/2023 Office Visit Hematology Oncology Gamaliel Quinn MD [address] [place] [address] 08/17/2023 Office Visit Allergy & Immunology Danie Corona MD [address] [place] [address] 09/21/2023 Office Visit Neurology Elle Dotson, DO [address] [facility] [place] [address] Scheduled Procedures Name Priority Associated Diagnoses Date/Ti [...] filedocumented as of this encounter Care Teams Industrial Tractor Driver Relationship Specialty Start Date End Date Leonila Angel DO [address] [place] [address] PCP - General Family Medicine 02/03/23 documented as of this encounter
--- OUTSIDE RECORDS SUMMARY | 2023-06-12 19:30 | External Medical Summary | Summary of Care ---
Author Name Unknown Organization [facility] Address [address] [facility] [place] [address] Phone [phone] Care Team Providers Care Facialist Name Role Phone Leonila Angel DO Primary Care Provider Encounter Details Date Type Department Care Team Description 02/15/2023 Result Scan Unspecified Department Leonila Angel DO [address] [facility] [place] [address] <No scans attached> Allergies Active Allergy Reactions Severity Noted Date Comments Gold-Containing Drug Products 04/23/2022 Penicillins Rash 04/23/2022 Mirtazapine Other (Please comment) 12/10/2022 SOB Sulfa Antibiotics Rash 04/23/2022 Topiramate 04/23/2022 Blurry vision documented as of this encounter (statuses as of 02/25/2023) Medications Medication Sig Dispensed Refills Start Date [...] Oral Capsule Take by mouth. 0 Active [place] 3 1000 MG Oral Capsule Take by [...] rhinitis, unspecified seasonality, unspecified trigger Administer 1 [place] into nostril in the morning and 1 [place] before bedtime. Use in each nostril as directed. 23 g 5 02/14/2023 Active Hospital, Clinic, or Other Facility Administered Medication Ordered Dose Route Frequency Start Date End Date Status Albuterol Sulfate (Proventil) (2.5 MG/3ML) 0.083% inhalation solution 2.5 mgIndications:CONNOLLY (dyspnea on exertion) 2.5 mg NEBULIZER ONCE PRN 01/07/2023 Act chaparro documented as of this encounter (statuses as of 02/25/2023) Active Problems Problem Noted Date Abdominal discomfort [...] as of this encounter (statuses as of 02/25/2023) Immunizations Name Administration Dates Next Due Seasonal [...] Description 03/01/2023 Office Visit Sleep Disorders Brenda Ramos DO [address] [place] [address] 03/04/2023 Office Visit Gynecology Obstetrics Chris Walker MD [address] [place] [address] 03/09/2023 Imaging Radiology 03/10/2023 Office Visit Gastroenterology Vaughn Powell CRNP [address] [place] [address] 03/15/2023 Office Visit Neurology Alexis Dong DO [address] [place] [address] 03/24/2023 Hospital Encounter Surgery Chris Walker MD [address] [place] [address] 03/24/2023 Surgery Surgery Chris Walker MD [address] [place] [address] HYSTEROSCOPY WITH BIOPSY AND/OR POLYPECTOMY WITH OR WITHOUT D&C 03/30/2023 PulmDiagnostic Pulmonary Function [place], Pft [address] [place] [address] 04/01/2023 Office Visit Pulmonary Theron Lainez DO [address] [place] [address] 04/06/2023 Office Visit Orthopedics Theron Pineda, [address] [place] [address] 04/11/2023 Office Visit Gynecology Obstetrics Chris Walker MD [address] [place] [address] 04/15/2023 Telemedicine Psychiatry Lim, NERI Mobley [address] [place] [address] 06/16/2023 Office Visit Rheumatology Marla Moon CRNP [address] [place] [address] 08/08/2023 Office Visit Hematology Oncology Gamaliel Quinn MD [address] [place] [address] 08/17/2023 Office Visit Allergy & Immunology Danie Corona MD [address] [place], [place] [address] 08/23/2023 Office Visit Dermatology Melisa Chin PA-C [address] [place] [address] [place] [address] 09/21/2023 Office Visit Neurology Nila Elle L, DO [address] [facility] [place] [id number] Scheduled Procedures Name Priority Associated Diagnoses Date/Ti [...] Results * OUTSIDE LAB RESULTS (02/15/2023) 02/15/2023 Leonila Angel DO LABORATORY documented in this encounter Care Teams Facialist Relationship Specialty Start Date End Date Leonila Angel DO [address] [place] [address] PCP - General Family Medicine 02/03/23 documented as of this encounter
--- OUTSIDE RECORDS SUMMARY | 2023-06-12 19:30 | External Medical Summary | Summary of Care ---
Author Name Unknown Organization [facility] Address [address] [place] [address] Phone [phone] Care Team Providers Care Vocational Placement Specialist Name Role Phone Leonila Angel DO Primary Care Provider Reason for Visit * Reason Onset Date Comments Test Results 02/23/2023 Encounter Details Date Type Department Care Team Description 02/23/2023 Telephone Allergy/Immunology, [place] [address] [place] [address] Danie Corona MD [address] [place] [address] Test Results Allergies Active Allergy Reactions Severity Noted Date [...] Oral Capsule Take by mouth. 0 Active [place] 3 1000 MG Oral Capsule Take by [...] rhinitis, unspecified seasonality, unspecified trigger Administer 1 [place] into nostril in the morning and 1 [place] before bedtime. Use in each nostril as [...] encounter Miscellaneous Notes * Telephone Encounter - Danie Corona MD - 02/23/2023 11:09 AM EDT Outside Lab Review: -IgE=7. Small panel with negative mites, cat/dog, molds, ragweed, and trees. [place] grass=0.74 and [place] grass=0.77 -Tryptase is normal=3.8 -CRP=12.5 (<8) Plan: -Only small value to grass pollen on current allergy testing. -Can consider allergy injections again but this would only be for brief seasonal issues. Currently on beta norma (Propranolol) and relative contraindication. Can consider oral Grastek as well if stable but not clear is truly necessary. -Normal tryptase makes mast cell disease less likely -Mild elevation of CRP is non-specific like ESR documented in this encounter Plan of Treatment Upcoming Encounters Date Type Specialty Care Team Description 02/23/2023 Telemedicine Psychiatry Lim, NERI Mobley [facility] [place] [address] 03/01/2023 Office Visit Sleep Disorders Brenda Ramos, [address] [place] [address] 03/04/2023 Office Visit Gynecology Obstetrics Chris Walker MD [address] [place] [address] 03/09/2023 Imaging Radiology 03/10/2023 Office Visit Gastroenterology Vaughn Powell CRNP [address] [place] [address] 03/15/2023 Office Visit Neurology Alexis Dong, [address] [place] [address] 03/24/2023 Hospital Encounter Surgery Chris Walker MD [address] [place] [address] 03/24/2023 Surgery Surgery Chris Walker MD [address] [place] [address] HYSTEROSCOPY WITH BIOPSY AND/OR POLYPECTOMY WITH OR WITHOUT D&C 03/30/2023 PulmDiagnostic Pulmonary Function West, Pft [address] [place] [address] 04/01/2023 Office Visit Pulmonary Theron Lainez DO [address] [place] [facility] [place] [address] 04/06/2023 Office Visit Orthopedics Theron Pineda DO [address] [place] [address] 04/11/2023 Office Visit Gynecology Obstetrics Chirs Walker MD [address] [place] [address] 06/16/2023 Office Visit Rheumatology Marla Mono CRNP [address] [facility] [place] [address] 08/08/2023 Office Visit Hematology Oncology Gamaliel Quinn MD [address] [facility] [place] [address] 08/17/2023 Office Visit Allergy & Immunology Danie Corona MD [address] [place] [address] 08/23/2023 Office Visit Dermatology Melisa Chin PA-Kirill [address] [place] [address] [place] [address] 09/21/2023 Office Visit Neurology Elle Dotosn L, DO [address] [facility] [place] [address] Scheduled Procedures Name Priority Associated Diagnoses Date/Ti [...] filedocumented as of this encounter Care Teams Vocational Placement Specialist Relationship Specialty Start Date End Date Leonila Angel DO [address] [place] [address] PCP - General Family Medicine 02/03/23 documented as of this encounter
--- OUTSIDE RECORDS SUMMARY | 2023-06-12 19:30 | External Medical Summary | Summary of Care ---
Author Name Unknown Organization [facility] Address [address] [place] [facility] [place] [address] Phone [phone] Care Team Providers Care Armhole Baster Hand Name Role Phone Leonila Angel DO Primary Care Provider Reason for Visit * Reason Comments Medication Management Follow Up Encounter Details Date Type Department Care Team Description 02/23/2023 Telemedicine Psychiatry, [facility] [address] [facility] [place] [id number] Annabel Lim CRNP [address] [facility] [place] [id number] Major depressive disorder, recurrent severe without psychotic features (HCC)*; STARR (generalized anxiety disorder); Panic disorder; PTSD (post-traumatic stress disorder); Cluster B personality disorder (HCC); Insomnia, unspecified type Allergies Active Allergy Reactions Severity Noted Date [...] Oral Capsule Take by mouth. 0 Active [place] 3 1000 MG Oral Capsule Take by [...] rhinitis, unspecified seasonality, unspecified trigger Administer 1 Brashe[place] into nostril in the morning and 1 Bras[place] before bedtime. Use in each nostril as [...] for Sleep. 30 Capsule 1 02/23/2023 Active Ramelteon 8 MG Oral Tablet (Rozerem)Indication [...] of this encounter Progress Notes * Annabel Lim, NERI - 02/23/2023 12:38 PM EDT OUTPATIENT PSYCHIATRY [place] [address] MEDICATION MANAGEMENT & PSYCHOTHERAPY RETURN VISIT NOTE Name: Kaelyn Gardiner : 1970 Date Seen: 02/23/2023 LOCATION FROM WHICH SERVICE IS DELIVERED [facility] PATIENT'S CURRENT PHYSICAL LOCATION Pt home address After connecting through televideo, patient was verified with two unique identifiers. Patient (or authorized legal career representative) was then informed that this was a Telemedicine visit and being conducted confidentially over secure lines. Methods to assure confidentiality were taken. Patient acknowledged consent and understanding of privacy and security of the Telemedicine visit. The patient agreed to participate. The patient was seen and interviewed, and available records and data were reviewed today. SUBJECTIVE: Kaelyn Gardiner is a 52 year old female presenting for follow-up of [...] induced seizures. Stressors include recent move from [place] with and younger daughter and conflict with older daughter. She suffers from insomnia for many years, sometimes only sleeping a couple hours or not at all during the night. Has difficulty taking medication in the morning due to inability to eat in the morning CURRENT PSYCHIATRIC PROVIDERS/SERVICES: [facility] case management services [facility] peer support [facility] [place] [facility] one day per week MEDICATION SIDE EFFECTS/ADHERENCE: Negative side effects from current prescribed psychotropic medications: none Medication adherence: fair PREVIOUS PSYCHOTROPIC MEDICATION TRIALS: Ambien Paxil Trazodone - cause stomach upset Lunesta cymbalta abilify Temazepam 30 mg Zoloft Remeron hydroxyzine RELEVANT PSYCHIATRIC, MEDICAL, FAMILY OR SOCIAL HISTORY/UPDATE: [...] 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 no Education: BS in math Employment/Occupational status: not employed history: no Legal history: no Trauma history: see above Social support/supportive people in life: daughter, family friends Leisure/recreational activities: cross stitch, reading, nature, car rides Mormon/philosophical beliefs: Yarsanism - non practicing CHANGE IN SUBSTANCE USE PATTERNS: N/A OBJECTIVE DATA: Review of patient's allergies indicates: Allergen Reactions Gold-Containing Drug Products Penicillins Rash Remeron [Mirtazapine] Other (Please comment) SOB Sulfa Antibiotics Rash Topamax [Topiramate] Blurry vision There were no vitals filed for this visit. There is no height or weight on file to calculate BMI. No height and weight on file for this encounter. Weight at last 3 appointments: Wt Readings from Last 3 Encounters: 02/15/23 91.2 kg (201 lb) 02/14/23 92.5 kg (203 lb 14.4 oz) 02/09/23 91.6 kg (202 lb) LABORATORY RESULTS: Recent Results (from the past 1344 hour(s)) CHEMISTRY-OUTSIDE Collection Time: 02/02/23 12:00 AM Result Value Ref Range Not all results display below - see scan for full detail CREATININE-OUTSIDE LAB 0.92 0.50 - 1.03 MG/DL EGFR-OUTSIDE LAB 74 POTASSIUM-OUTSIDE LAB 4.5 3.5 - 5.3 MMOL/L GLUCOSE-OUTSIDE LAB 102 65 - 139 MG/DL HOURS FASTING TRIGLYCERIDES-OUTSIDE LAB CHOLESTEROL-OUTSIDE LAB HDL-OUTSIDE LAB CHOL/HDL RATIO-OUTSIDE LAB LDL (CALCULATED)-OUTSIDE LAB LDL (DIRECT MEASURE)-OUTSIDE LAB HEMOGLOBIN, [id number] LAB PHOSPHORUS-OUTSIDE LAB PTH-OUTSIDE LAB MICROALBUMIN RATIO-OUTSIDE LAB PROTEIN, UA-OUTSIDE LAB HEMOGLOBIN-OUTSIDE LAB 14.1 11.7 - 15.5 G/DL REVIEW OF SYSTEMS: stable MENTAL STATUS EVALUATION: General Appearance: appropriately dressed, appropriately groomed, and good eye contact Attitude/Behavior: cooperative, open and friendly, engaged Motor Behavior/Muscle Strength & Tone/Gait & Station: no abnormalities noted Speech: normal, rate, tone and volume Mood: euthymic Affect: euthymic Thought Process: focused on others Thought Content/Perceptions: denies active suicidal ideation, plan [...] Insight: fair Judgement: fair Impulse Control: fair [place] Suicide Severity Rating Scale Results 02/23/2023 13:09 [place] SUICIDE SEVERITY RATING SCALE (C-SSRS) Have [...] of Treatment Plan: Patient has access to [facility] Obtained on Treatment Plan: No Expected [...] to be made at this time. Discussed senior living plan to taper/discontinue clonazepam. Pt would benefit [facility], including blended case management, peer support and [...] of insomnia, which is consistent with her senior living history. She feels medications have been helpful [...] fluid intake, and to consider returning to yarsani services. 07/26/22: Pt has responded well to [...] for community support services. Discussed benefit of [facility] for therapy and skilldevelopment. Pt is in [...] IOP program, [facility] [...] presently. Pt is assigned case briefer through [facility] and meets with her every 2 weeks, she will be scheduling initial appt with [facility] for peer support and she is to schedule transportation to [place] [facility] [place] [facility]. Pt states she enjoyed the socialization of IOP. She was encouraged to follow up with [facility], as this will provide socialization and [...] peer support services and she likes her corporate specialist. Is attending [facility] psych [facility] one day per week, [...] with lymphatic system; has procedure scheduled with FORE[facility] PATROLMAN. Is taking care medical concerns. Pt's military personnel specialist has helped pt find trauma therapist at [facility] to [facility]. Discussed her relationship with her and how that affects her. She was encouraged and redirected to focus on herself. Pt feels very pressured in the relationship. Pt is using clonazepam three times in past month Pt continues to struggle with sleep at times. Plan is to continue medications as prescribed. Diagnosis: Major depressive disorder recurrent severe without psychotic features Generalized Anxiety Disorder Panic disorder PTSD Cluster B personality Medications: Continue clonazepam to 0.5 mg Qday PRN anxiety Continue temazepam 30 mg at bedtime for sleep support Continue ramelteon 8 mg for sleep support Propranolol 10 mg TID by neurology Discussed [...] Drug Monitoring Program in compliance with the [facility] regulations before prescribing a controlled substance. Laboratory/Diagnostics: none Community support/Counseling: Continue to offer psychotherapy utilizing Supportive listening as adjunct to evaluation, managementand prescription of psychiatric medications. individual therapy at [facility] to [facility] psych rehab one day per week [facility] services - [facility] PCP/medical: Continue to follow up with primary [...] providing supportive therapy, including Supportive listening Annabel M. Lim, MSN, CURTAIN STITCHER, PMHNP-[facility] Current Outpatient Medications Medication Sig Dispense Refill Ramelteon 8 MG Oral Tablet (Rozerem) Take 1 Tablet by mouth at bedtime. 30 Tablet 1 Temazepam 30 MG Oral Capsule (Restoril) Take 1 Capsule by mouth at bedtime as needed for Sleep. 30 Capsule 1 Magnesium Citrate Powder Use as directed. clonazePAM [...] B Complex-C Oral Capsule Take by mouth. Kirkville 3 1000 MG Oral Capsule Take by [...] taking: Reported on 02/14/2023) 18 g 1 Pregabalin 75 MG Oral Capsule (Lyrica) TAKE 1 CAPSULE BY MOUTH EVERYDAY AT BEDTIME 30 Capsule 2 Zonisamide 25 MG Oral Capsule (Zonegran) Pantoprazole Sodium 40 MG Oral Tablet Delayed Release Take 1 Tablet by mouth in the morning. (Patient not taking: Reported on 02/14/2023) Fluticasone Propionate 50 MCG/ACT Nasal Suspension Azelastine-Fluticasone 137-50 MCG/ACT Nasal Suspension Administer 1 Brashear into nostril in the morning and 1 Brashear before bedtime. Use in each nostril as directed. 23 g 5 Rosuvastatin Calcium 10 MG Oral Tablet (Crestor) Take 1 Tablet by mouth in the morning. 90 Tablet 3 Clindamycin Phosphate 1 % External Gel Apply 2x daily to new or resolving spots on face/chin/body (can use more instead of scratching or picking at lesions) 60 g 3 Current Facility-Administered Medications Medication Dose Route Frequency Provider Last Rate Last Admin Albuterol Sulfate (Proventil) (2.5 MG/3ML) 0.083% inhalation solution 2.5 mg 2.5 mg Nebulizer Once PRN Theron Lainez DO documented in this encounter Plan of Treatment Upcoming Encounters Date Type Specialty Care Team Description 03/01/2023 Office Visit Sleep Disorders Brenda Ramos, [address] [place] [address] 03/04/2023 Office Visit Gynecology Obstetrics Chris Walker MD [address] [place] [address] 03/09/2023 Imaging Radiology 03/10/2023 Office Visit Gastroenterology Vaughn Powell CRNP [address] [place] [address] 03/15/2023 Office Visit Neurology Alexis Dong, DO [address] [facility] [place] [address] 03/24/2023 Hospital Encounter Surgery Chris Walker MD [address] [place] [address] 03/24/2023 Surgery Surgery Chris Walker MD [address] [place] [place] [address] HYSTEROSCOPY WITH BIOPSY AND/OR POLYPECTOMY WITH OR WITHOUT D&C 03/30/2023 PulmDiagnostic Pulmonary Function West, Pft [address] [place] [address] 04/01/2023 Office Visit Pulmonary Theron Lainez DO [address] [place] [address] 04/06/2023 Office Visit Orthopedics Theron Pineda, [address] [place] [address] 04/11/2023 Office Visit Gynecology Obstetrics Chris Walker MD [address] [place] [address] 04/15/2023 Telemedicine Psychiatry Lim, NERI [place] [address] [place] [address] 06/16/2023 Office Visit Rheumatology Marla Moon CRNP [address] [place] [address] 08/08/2023 Office Visit Hematology Oncology Gamaliel Quinn MD [address] [place] [address] 08/17/2023 Office Visit Allergy & Immunology Danie Corona MD [address] [place] [address] 08/23/2023 Office Visit Dermatology Melisa Chin PA-C [address] [place] [address] [place] [address] 09/21/2023 Office Visit Neurology Elle Dotson, DO [address] [facility] [place] [address] Scheduled Procedures Name Priority Associated Diagnoses Date/Ti [...] B personality disorder (HCC) Unspecified personality disorder Insomnia, unspecified type Postmenopausal bleeding Uterine leiomyoma, unspecified location Pelvic pain in female Unspecified symptom associated with female genital organs documented in this encounter Care Teams Armhole Baster Hand Relationship Specialty Start Date End Date Leonila Angel DO [address] [place] [address] PCP - General Family Medicine 02/03/23 documented as of this encounter
--- OUTSIDE RECORDS SUMMARY | 2023-06-12 19:30 | External Medical Summary | Summary of Care ---
Author Name Unknown Organization [facility] Address [address] [facility] [place] [address] Phone [phone] Care Team Providers Care Electronics Engineering Technologist Name Role Phone Leonila Angel DO Primary Care Provider Reason for Visit * Reason Comments Follow Up Sleep Apnea Encounter Details Date Type Department Care Team Description 03/01/2023 Office Visit Sleep Disorders [facility]tr [facility] [address] [place] [phone] Brenda Ramos DO [address] [place] [address] Obstructive sleep apnea* Allergies Active Allergy Reactions Severity Noted Date Comments Gold-Containing Drug Products 04/23/2022 Penicillins Rash 04/23/2022 Mirtazapine Other (Please comment) 12/10/2022 SOB Sulfa Antibiotics Rash 04/23/2022 Topiramate 04/23/2022 Blurry vision documented as of this encounter (statuses as of 03/01/2023) Medications Medication Sig Dispensed Refills Start Date [...] Oral Capsule Take by mouth. 0 Active [place] 3 1000 MG Oral Capsule Take by [...] rhinitis, unspecified seasonality, unspecified trigger Administer 1 [place] into nostril in the morning and 1 [place] before bedtime. Use in each nostril as [...] as of this encounter (statuses as of 03/01/2023) Active Problems Problem Noted Date Abdominal discomfort [...] as of this encounter (statuses as of 03/01/2023) Immunizations Name Administration Dates Next Due Seasonal [...] Sign Reading Time Taken Comments Blood Pressure 118/68 03/01/2023 9:58 AM EDT Pulse 77 03/01/2023 9:58 AM EDT Temperature 36.2 C (97.2 F) 03/01/2023 9:58 AM ED T Respiratory Rate 18 03/01/2023 9:58 AM EDT Oxygen Saturation 98% 03/01/2023 9:58 AM EDT Inhaled Oxygen Concentration - - Weight 92.1 kg (203 lb) 03/01/2023 9:58 AM EDT Height 154.9 cm (5' 1") 03/01/2023 9:58 AM EDT Body Mass Index 38.36 03/01/2023 9:58 AM EDT documented in this encounter Progress Notes * Brenda Ramos, DO - 03/01/2023 10:35 AM EDT Sleep Medicine Follow-Up HISTORY: Kaelyn Gardiner is a 52 year old female for follow up of LISA. Initially seen by me 05/11/22 with hx LISA on CPAP. Originally diagnosed 4-5 years prior, after presenting with chronic insomnia and light snoring. Chronic insomnia with medications managed by Psychiatrist. Using CPAP 6 cwp. Sublimity 6, FOSQ 23. Residual AHI 2.7 on CPAP 6 cwp. We still have not received a copy of a baseline sleep study. Last seen 10/19/22 by Idalia HE. She had received the recall replacement device. Using CPAP, presumably still at 6 cmH2O. She has trouble with the DS2. Feels like she is waking up feeling like she is suffocating, waking up with a sore throat. Feeling like her throat is closing when awake. About once a month while sitting up awake. DME: [employer] [facility]. Snoring on PAP: unsure Daytime sleepiness: no Daytime napping: no Drowsy driving: N/A (she does not drive) Interface: FFM Mask leak: occasional, not much Dry nose or dry mouth: yes, very dry Use humidifier? Yes, but it does not seem to go through the water. Aerophagia: no Morning headaches: if not using CPAP, she gets more migraines. Sublimity Sleepiness Scale: 6 Sublimity Sleepiness Scale Question 03/01/2023 10:02 AM EDT - Filed by Kaelyn Paz LPN What is the chance you will doze off in the following situation? Sitting and reading Slight chance of dozing Watching TV Slight chance of dozing Sitting inactive in a public place, such as a theater or meeting Slight chance of dozing As a passenger in a car for an hour without a break Slight chance of dozing Lying down to rest in the afternoon when circumstances permit Slight chance of dozing When sitting and talking to someone No chance of dozing When sitting quietly after lunch without alcohol Slight chance of dozing In a car, while stopped for a few minutes in traffic No chance of dozing Score (range: 0 - 24) 6 CPAP Compliance: Report not available for appt. Will request through DME. Equipment: DME Provider is [employer] Uses a DS2 (recall replacement device). Patient Active Problem List Diagnosis Code Migraine [...] left knee S83.412A Patellofemoral pain syndrome M22.2X9 PHYSICAL EXAM: BP 118/68 | Pulse 77 | Temp 36.2 C (97.2 F) (Tympanic) | Resp 18 | Ht 1.549 m (5' 1") | Wt 92.1kg (203 lb) | SpO2 98% | BMI 38.36 kg/m | BSA 1.99 m General: alert, no acute distress Head: NC/AT Lungs: normal respiratory effort Neuro: speech clear ASSESSMENT/PLAN: Obstructive sleep apnea - Subjectively, it sounds like she is not getting enough pressure from her current CPAP (DS2). It is presumably set to her prior setting of 6 cwp. Discussed to turn ramp off. Will adjust to 7-10 cwp,pending receipt of updated compliance data. - adjust humidity setting to comfort. It sounds like this needs to be increased, as she is getting quite dried out from the CPAP, and it does not seem to use much water. - good reported adherence; encourage continued use of CPAP with all sleep - DME: [employer] - Routine cleaning and change of supplies as needed. - Continue to avoid driving when feeling sleepy/drowsy. - again request baseline PSG report. Her most recent baseline PSG was reportedly done through [facility] in [place], [place], in Feb 2022. Follow-up with Sleep Medicine in 2 months. Brenda Ramos DO documented in this encounter Nursing Notes * Kaelyn Paz LPN - 03/01/2023 10:02 AM EDT Chief Complaint Patient presents with Follow Up Sleep Apnea Cpap DME: [employer] Sublimity Sleepiness Scale Question 03/01/2023 10:02 AM EDT - Filed by Kaelyn Paz LPN What is the chance you will doze off in the following situation? Sitting and reading Slight chance of dozing Watching TV Slight chance of dozing Sitting inactive in a public place, such as a theater or meeting Slight chance of dozing As a passenger in a car for an hour without a break Slight chance of dozing Lying down to rest in the afternoon when circumstances permit Slight chance of dozing When sitting and talking to someone No chance of dozing When sitting quietly after lunch without alcohol Slight chance of dozing In a car, while stopped for a few minutes in traffic No chance of dozing Score (range: 0 - 24) 6 documented in this encounter Plan of Treatment Upcoming Encounters Date Type Specialty Care Team Description 03/04/2023 Office Visit Gynecology Obstetrics Chris Walker MD [address] [place] [address] 03/09/2023 Imaging Radiology 03/10/2023 Office Visit Gastroenterology Vaughn Powell CRNP [address] [place] [address] 03/15/2023 Office Visit Neurology Alexis Dong, DO [address] [place] [address] 03/24/2023 Hospital Encounter Surgery Chris Walker MD [address] [place] [address] 03/24/2023 Surgery Surgery Chris Walker MD [address] [place] [address] HYSTEROSCOPY WITH BIOPSY AND/OR POLYPECTOMY WITH OR WITHOUT D&C 03/30/2023 PulmDiagnostic Pulmonary Function West, Pft [address] [place] [address] 04/01/2023 Office Visit Pulmonary Theron Lainez, DO [address] [place] [address] 04/06/2023 Office Visit Orthopedics Theron Pineda, DO [address] [place] [address] 04/11/2023 Office Visit Gynecology Obstetrics Chris Walker MD [address] [place] [address] 04/15/2023 Telemedicine Psychiatry Lim, NERI [place] [address] [facility] [place] [address] 06/06/2023 Office Visit Sleep Disorders Brenda Ramos, DO [address] [place] [address] 06/16/2023 Office Visit Rheumatology Marla Moon CRNP [address] [place] [address] 08/08/2023 Office Visit Hematology Oncology Gamaliel Quinn MD [address] [place] [address] 08/17/2023 Office Visit Allergy & Immunology Danie Corona MD [address] [place] [address] 08/23/2023 Office Visit Dermatology Melisa Chin PA-C [address] [place] [address] [place] [address] 09/21/2023 Office Visit Neurology Elle Dotson L, DO [address] [facility] [place] [address] Scheduled Procedures Name Priority Associated Diagnoses Date/Ti [...] apnea- Primary Obstructive sleep apnea (adult) (pediatric) Postmenopausal bleeding Uterine leiomyoma, unspecified location Pelvic pain in female Unspecified symptom associated with female genital organs documented in this encounter Care Teams Electronics Engineering Technologist Relationship Specialty Start Date End Date Leonila Angel DO [address] [place] [address] PCP - General Family Medicine 02/03/23 documented as of this encounter
--- OUTSIDE RECORDS SUMMARY | 2023-06-12 19:30 | External Medical Summary | Summary of Care ---
Author Name Unknown Organization [facility] Address [address] [facility] [place] [address] Phone [phone] Care Team Providers Care Associate Buyer Name Role Phone Leonila Angel DO Primary Care Provider Reason for Visit * Reason Comments Follow Up L knee Encounter Details Date Type Department Care Team Description 02/23/[address] [facility] [address] [place] [address] Theron Pineda DO [address] [place] [address] Tear of MCL (medial collateral ligament) of [...] Oral Capsule Take by mouth. 0 Active [place] 3 1000 MG Oral Capsule Take by [...] rhinitis, unspecified seasonality, unspecified trigger Administer 1 [place] into nostril in the morning and 1 [place] before bedtime. Use in each nostril as [...] Progress Notes * Theron Pineda, DO - 02/23/2023 8:00 AM EDT Kaelyn Gardiner [id number] Kaelyn Gardiner is a 52 year old female who presents for f/u to [facility] for left knee injury/pain. [facility] Kaelyn Gardiner is here with Date of Injury: 11/04/22 Quality: reviewed and agree with Nursing Notes for HPI elements History: History - slip and fall in shower while shaving legs, then was seen at [facility] ED notes from 11/05/22 scanned into chart reviewed. Had PRP by me on 01/11/23 TODAY: feeling better with improved ROM and strength, thinks PRP has also helped knee OA, has not started HEP, but is doing exercise in pool and feels that is helped, still a "bruised feeling" medialknee but again improving, difficult for her to put a percentage on it No formal physical therapy. Previous knee injuries include: -no previous knee injuries or surgeries, bt she report long hx of b/l knee pain since in her 20's with difficulty with steps ROS EXAM:Constitional: No change in weight, No [...] B Complex-C Oral Capsule Take by mouth. [place] 3 1000 MG Oral Capsule Take by [...] Azelastine-Fluticasone 137-50 MCG/ACT Nasal Suspension Administer 1 [place] into nostril in the morning and 1 [place] before bedtime. Use in each nostril as [...] mg Nebulizer Once PRN Theron Lainez, DO Physical Exam General: in no acute distress [...] negative Left Popliteal mass - negative Left Patellar tests: Moy's negative Left Grind negative Left Assessment and Plan: pt is improving, HEP from [facility] given on knee rehab, f/u 6 weeks, consider PRP on right knee Tear of MCL (medial collateral ligament) of knee, left, sequela (Primary) Primary osteoarthritis of left knee Theron Pineda DO Primary Care Sports Medicine Orthopaedics [address] [place] [address] documented in this encounter Nursing Notes * Petra Law LPN - 02/23/2023 7:49 AM EDT Follow up Patient Follow up: Knee Side: Left Date of last visit: 01/12/2024 Improvement since last office visit: states is 'quite a bit better, unsure how to quantify' states no longer having the sharp pains, does not feel she had full ROM yet. Prior Treatment: PRP Here for Test Results: No Goals for this appointment: follow up documented in this encounter Plan of Treatment Upcoming Encounters Date Type Specialty Care Team Description 02/23/2023 Telemedicine Psychiatry Lim, NERI [place] [address] [facility] [place] [address] 03/01/2023 Office Visit Sleep Disorders Brenda Ramos, DO [address] [place] [address] 03/04/2023 Office Visit Gynecology Obstetrics Chris Walker MD [address] [place] [address] 03/09/2023 Imaging Radiology 03/10/2023 Office Visit Gastroenterology Vaughn Powell CRNP [address] [place] [address] 03/15/2023 Office Visit Neurology Alexis Dong, DO [address] [facility] [place] [address] 03/24/2023 Hospital Encounter Surgery Chris Walker MD [address] [place] [address] 03/24/2023 Surgery Surgery Chris Walker MD [address] [place] [address] HYSTEROSCOPY WITH BIOPSY AND/OR POLYPECTOMY WITH OR WITHOUT D&C 03/30/2023 PulmDiagnostic Pulmonary Function [place], [facility]ft [address] [place] [address] 04/01/2023 Office Visit Pulmonary Theron Lainez, DO [address] [facility] [place] [address] 04/06/2023 Office Visit Orthopedics Theron Pineda, [address] [place] [address] 04/11/2023 Office Visit Gynecology Obstetrics Chris Walker MD [address] [place] [address] 06/16/2023 Office Visit Rheumatology Marla Moon CRNP [address] [place] [address] 08/08/2023 Office Visit Hematology Oncology Gamaliel Quinn MD [address] [place] [address] 08/17/2023 Office Visit Allergy & Immunology Danie Corona MD [address] [place], [place] [id number] 08/23/2023 Office Visit Dermatology Melisa Chin PA-C [address] [place] [address] [place] [address] 09/21/2023 Office Visit Neurology Elle Dotson, DO [address] [facility] [address] Scheduled Procedures Name Priority Associated Diagnoses Date/Ti [...] left knee Primary localized osteoarthrosis, lower leg Postmenopausal bleeding Uterine leiomyoma, unspecified location Pelvic pain in female Unspecified symptom associated with female genital organs documented in this encounter Care Teams Associate Buyer Relationship Specialty Start Date End Date Leonila Angel DO [address] [place] [address] PCP - General Family Medicine 02/03/23 documented as of this encounter
--- OUTSIDE RECORDS SUMMARY | 2023-06-12 19:30 | External Medical Summary | Summary of Care ---
Author Name Unknown Organization [facility] Address [address] [facility] [place] [address] Phone [phone] Care Team Providers Care Marking Machine Tender Name Role Phone Hanny Angel DO Primary [...] of melanoma Hanny Angel DO [address] [place] [address] Referral ID Status Reason Start Date Expiration Date Visits Requested Visits Authorized [id number] Authorized Specialty Services Required 02/03/2023 02/04/2024 999 999 Encounter Details Date Type Department Care Team Description 02/22/2023 Office Visit Dermatology, [address] [place] [address] Melisa Chin PA-C [address] [place] [address] [place] [address] Multiple nevi*; Skin exam, screening for cancer; [...] Oral Capsule Take by mouth. 0 Active [place] 3 1000 MG Oral Capsule Take by [...] rhinitis, unspecified seasonality, unspecified trigger Administer 1 [place] into nostril in the morning and 1 [place] before bedtime. Use in each nostril as [...] are treating an allergy rash), [facility], [facility]) to be applied on top of affected [...] gloves (cheaper than white cotton gloves)-buy at [employer]. Purchase a chlorine filtered shower head-will cut down on dryness of skin, dandruff of scalp/face(if an issue for you), and could help with breathing/respiratory issues. QUESTIONS? Call Dermatology at during normal business hours or for an emergency, call [phone] and ask to speak to the resident needle control cheniller. documented in this encounter Progress Notes * Melisa Chin PA-C - 02/22/2023 8:58 [...] hard callused areas form overnight. Moved from [place] area recently. Ct Technician Documentation Patient offered lead person and declined. REVIEW OF SYSTEMS: SKIN: No [...] NONE Reviewed, same day as visit, 0 [facility] Dermatology lab work(s)/pathology report(s) as well as [...] B Complex-C Oral Capsule Take by mouth. [place] 3 1000 MG Oral Capsule Take by [...] Azelastine-Fluticasone 137-50 MCG/ACT Nasal Suspension Administer 1 [place] into nostril in the morning and 1 [place] before bedtime. Use in each nostril as [...] Chin PA-C 02/22/2023 8:59 AM Ref: HANNY ANGEL[[id number]] [address] [facility] [place] [address] (office) [phone] (fax) PCP: HANNY ANGEL [address] [facility] [place] [address] [phone] documented in this encounter Nursing Notes * Chery Schultz LPN - 02/22/2023 8:59 AM EDT Patient identified by full name and date of . Chief Complaint Patient presents with NEW PATIENT Referred for skin exam, FH melanoma (father/maybe mother)- mult concerns documented in this encounter Plan of Treatment Upcoming Encounters Date Type Specialty Care Team Description 02/23/2023 Office Visit Orthopedics Theron Pineda, DO [address] [place] [address] 02/23/2023 Telemedicine Psychiatry Lim, N[place] [address] [place] [address] 03/01/2023 Office Visit Sleep Disorders Brenda Ramos DO [address] [place] [address] 03/04/2023 Office Visit Gynecology Obstetrics Chris Walker MD [address] [place] [address] 03/09/2023 Imaging Radiology 03/10/2023 Office Visit Gastroenterology Vaughn Powell CRNP [address] [place] [address] 03/15/2023 Office Visit Neurology Alexis Dong DO [address] [facility] [place] [address] 03/24/2023 Hospital Encounter Surgery Chris Walker MD [address] [place] [address] 03/24/2023 Surgery Surgery Chris Walker MD [address] [place] [address] HYSTEROSCOPY WITH BIOPSY AND/OR POLYPECTOMY WITH OR WITHOUT D&C 03/30/2023 PulmDiagnostic Pulmonary Function [place], Pft [address] [place] [address] 04/01/2023 Office Visit Pulmonary Theron Lainez, DO [address] [place] [address] 04/11/2023 Office Visit Gynecology Obstetrics Chris Walker MD [address] [place] [address] 06/16/2023 Office Visit Rheumatology Marla Moon CRNP [address] [place] [facility] [place] [address] 08/08/2023 Office Visit Hematology Oncology Gamaliel Quinn MD [address] [place] [address] 08/17/2023 Office Visit Allergy & Immunology Danie Corona MD [address] [place] [address] 09/21/2023 Office Visit Neurology [facility] [address] [facility] [address] Scheduled Procedures Name Priority Associated Diagnoses Date/Ti [...] organs documented in this encounter Care Teams Marking Machine Tender Relationship Specialty Start Date End Date Hanny Angel DO [address] [place] [address] PCP - General Family Medicine 02/03/23 documented as of this encounter
--- OUTSIDE RECORDS SUMMARY | 2023-06-12 19:31 | External Medical Summary | Summary of Care ---
Author Name Unknown Organization [facility] Address [address] [place] [address] Phone [phone] Care Team Providers Care High Lift Operator Name Role Phone Leonila Angel DO Primary Care Provider Reason for Visit * Reason Comments NEW PATIENT * Evaluate & Treat - Unlimited Visits (Within 30 days (routine)) - Pending Review Specialty Diagnoses / Procedures Referred By Jo Ann villegas Referred To Contact Allergy & Immunology Diagnoses Allergy, initial encounter Leonila Angel DO [address] [place] [address] Referral ID Status Reason Start Date Expiration Date Visits Requested Visits Authorized [id number] Pending Review Specialty Services Required 02/03/[phone] Encounter Details Date Type Department Care Team Description 02/14/2023 Office Visit Allergy/Immunology, [address] [address] Danie Corona MD [address], [place] [id number] Allergic rhinitis, unspecified seasonality, unspecified trigger*; Moderate persistent asthma without complication; Disorder involving the immune mechanism (HCC); Autoinflammatory disease (HCC) Allergies Active Allergy Reactions Severity Noted Date Comments Gold-Containing Drug Products 04/23/2022 Penicillins Rash 04/23/2022 Mirtazapine Other (Please comment) 12/10/2022 SOB Sulfa Antibiotics Rash 04/23/2022 Topiramate 04/23/2022 Blurry vision documented as of this encounter (statuses as of 02/14/2023) Medications Medication Sig Dispensed Refills Start Date End Date Status Magnesium Citrate Powder Use as directed. 0 Active clonazePAM 1 MG Oral Tablet (KlonoPIN)Indicati ons:Generalized anxiety disorder,Panic disorder Take 0.5 Tablets by mouth 2 times a day as needed for Anxiety or Insomnia. 30 Tablet 0 08/23/19 23 Active Vitamin C 500 MG Oral Capsule Take 1,000 mg by mouth in the morning. 0 Active Zinc 50 MG Oral Capsule Take 1 Capsule by mouth in the morning. 0 Active B Complex-C Oral Capsule Take by mouth. 0 Active Otoe 3 1000 MG Oral Capsule Take by mouth. 0 Active Co Q 10 100 MG Oral Capsule Take by mouth. 0 Active D-Ribose Powder Use as directed. 0 Act chaparro Nurtec 75 MG Oral Tablet Disintegrating DISSOLVE 1 TABLET (75 MG TOTAL) ON TONGUE EVERY OTHER DAY 15 Tablet 3 01/04/20 23 Active Propranolol HCl 10 MG Oral Tablet (Inderal) 1 tab at bedtime x 5 days then 1 tab twice daily for 5 days then 1 tab three times daily 90 Tablet 2 01/05/20 23 Active Fluticasone Furoate-Vilanterol 100-25 MCG/ACT Inhalation Aerosol Powder Breath Activated (BREO ellipta) Inhale 1 Puff by mouth in the morning. 60 Each 11 01/08/20 23 Active Ventolin HFA 108 (90 Base) MCG/ACT Inhalation Aerosol Solution Inhale 2 Puffs by mouth every 4 hours as needed for Shortness of Breath. 18 g 1 01/08/20 23 Active Additional Information Patient not taking.Reported on 02/14/2023 Ramelteon 8 MG Oral Tablet (Rozerem)Indicatio ns:Insomnia, unspecified type Take 1 Tablet by mouth at bedtime. 30 Tablet 1 01/12/20 23 Active Temazepam 30 MG Oral Capsule (Restoril)Indicati ons:Insomnia, unspecified type Take 1 Capsule by mouth at bedtime as needed for Sleep. 30 Capsule 1 01/12/20 23 Active Pregabalin 75 MG Oral Capsule (Lyrica) TAKE 1 CAPSULE BY MOUTH EVERYDAY AT BEDTIME 30 Capsule 2 02/10/20 23 Active Zonisamide 25 MG Oral Capsule (Zonegran) 0 Active Pantoprazole Sodium 40 MG Oral Tablet Delayed Release Take 1 Tablet by mouth in the morning. 0 Active Fluticasone Propionate 50 MCG/ACT Nasal Suspension 0 Active Azelastine-Flutica sone 137-50 MCG/ACT Nasal SuspensionIndicati ons:Allergic rhinitis, unspecified seasonality, unspecified trigger Administer 1 [place] into nostril in the morning and 1 [place] before bedtime. Use in each nostril as directed. 23 g 5 02/15/20 23 Active Rosuvastatin Calcium 10 MG Oral Tablet (Crestor) Take 1 Tablet by mouth in the morning. 0 01/30/20 22 023 Discontinued Zolpidem Tartrate ER 12.5 MG Oral Tablet Extended Release TAKE 1 TABLET BY MOUTH AT BEDTIME NEEDED FOR INSOMNIA 0 023 Discontinued traZODone HCl 150 MG Oral Tablet (Desyrel) TAKE 1/2 TABLET BY MOUTH AT BEDTIME 0 023 Discontinued SUMAtriptan Succinate 6 MG/0.5ML Subcutaneous Solution Cartridge 0 023 Discontinued Sucralfate 1 GM/10ML Oral Suspension TAKE 10 MILLILITERS BY MOUTH 4 TIMES PER DAY ON AN EMPTY STOMACH 1 HOUR BEFORE MEALS AND AT BEDTIME 0 023 Discontinued rifAXIMin 550 MG Oral Tablet Take 1 Tablet by mouth in the morning and 1 Tablet at noon and 1 Tablet before bedtime. 0 023 Discontinued Promethazine-Codei ne 6.25-10 MG/5ML Oral Syrup TAKE 1 TEASPOON (5ML) BY MOUTH EVERY 4 HOURS 0 023 Discontinued predniSONE 10 MG Oral Tablet (Deltasone) PLEASE SEE ATTACHED FOR DETAILED DIRECTIONS 0 023 Discontinued Ondansetron HCl 4 MG Oral Tablet (Zofran) TAKE 1 TABLET BY MOUTH TWICE A DAY NEEDED FOR NAUSEA & VOMITING 0 023 Discontinued OLANZapine 5 MG Oral Tablet (zyPREXA) TAKE 1 TABLET BY MOUTH NIGHTLY FOR 30 DAYS. 0 023 Discontinued Nystatin [id number] UNIT/ML Mouth/Throat Suspension SWISH AND SWALLOW 5 ML FOUR TIMES A DAY FOR 10 DAYS 0 023 Discontinued Nitrofurantoin Monohyd Macro 100 MG Oral Capsule (Macrobid) TAKE 1 CAPSULE BY MOUTH TWICE A DAY WITH FOOD 0 023 Discontinued Nortriptyline HCl 10 MG Oral Capsule (Pamelor) TAKE 2 CAPSULES (20 MG) BY ORAL ROUTE ONCE DAILY AT BEDTIME 0 023 Discontinued Mirtazapine 15 MG Oral Tablet (Remeron) TAKE 1 TABLET (15 MG TOTAL) BY MOUTH NIGHTLY FOR 30 DAYS .MAJOR DEPRESSIVE DISORDER. 0 023 Discontinued Methocarbamol 500 MG Oral Tablet (Robamol) TAKE 2 TABLETS BY MOUTH TWICE A DAY NEEDED FOR LEG SPASMS 0 023 Discontinued Levothyroxine Sodium 25 MCG Oral Tablet Take 1 Tablet by mouth in the morning. 0 023 Discontinued levETIRAcetam 750 MG Oral Tablet Take 1 Tablet by mouth in the morning and 1 Tablet before bedtime. 0 023 Discontinued Ketoconazole 2 % External Shampoo APPLY TO SCALP TO WASH TWICE A WEEK FOR 4 WEEKS, THEN APPLY ONCE EVERY 1 TO 2 WEEKS 0 023 Discontinued Escitalopram Oxalate 20 MG Oral Tablet (Lexapro) 0 023 Discontinued Aimovig 70 MG/ML Subcutaneous Solution Auto-injector (Erenumab-aooe) PLEASE SEE ATTACHED FOR DETAILED DIRECTIONS 0 023 Discontinued Aimovig 140 MG/ML Subcutaneous Solution Auto-injector (Erenumab-aooe) INJECT 1 ML SUBCUTANEOUSLY ONCE MONTHLY IN ABDOMEN, THIGH OR OUTER AREA OF UPPER ARM 0 023 Discontinued Dihydroergotamine Mesylate 4 MG/ML Nasal Solution PLEASE SEE ATTACHED FOR DETAILED DIRECTIONS 0 023 Discontinued Dicyclomine HCl 20 MG Oral Tablet (Bentyl) TAKE 1 TABLET BY MOUTH EVERY 6 HOURS 0 023 Discontinued Cyclobenzaprine HCl 10 MG Oral Tablet (Flexeril) TAKE 1 TABLET BY MOUTH 3 (THREE) TIMES DAILY NEEDED FOR MUSCLE SPASMS FOR UP TO 10 DAYS. 0 023 Discontinued Clotrimazole 10 MG Mouth/Throat Elsa TAKE 1 TAB BY MOUTH 5 TIMES DAILY. DISSOLVE IN MOUTH 0 023 Discontinued Ciprofloxacin HCl 250 MG Oral Tablet Take 1 Tablet by mouth in the morning and 1 Tablet before bedtime. 0 023 Discontinued Clindamycin Phosphate 1 % External Lotion 2 times a day as needed. 0 023 Discontinued Azelastine-Flutica sone 137-50 MCG/ACT Nasal SuspensionIndicati ons:Allergic rhinitis, unspecified seasonality, unspecified trigger Administer 1 Omaha into nostril in the morning and 1 Omaha before bedtime. Use in each nostril as directed. 23 g 5 02/15/20 23 023 Discontinued(Re fill) Hospital, Clinic, or Other Facility Administered Medication Ordered Dose Route Frequency Start Date End Date Status Albuterol Sulfate (Proventil) (2.5 MG/3ML) 0.083% inhalation solution 2.5 mgIndications:CONNOLLY (dyspnea on exertion) 2.5 mg NEBULIZER ONCE PRN 01/07/2023 Act chaparro documented as of this encounter (statuses as of 02/14/2023) Active Problems Problem Noted Date Abdominal discomfort [...] as of this encounter (statuses as of 02/14/2023) Immunizations Name Administration Dates Next Due Seasonal [...] Sign Reading Time Taken Comments Blood Pressure 140/83 02/14/2023 2:31 PM EDT Pulse 89 02/14/2023 2:31 PM EDT Temperature 36.3 C (97.3 F) 02/14/2023 2:31 PM ED T Respiratory Rate - - Oxygen Saturation - - Inhaled Oxygen Concentration - - Weight 92.5 kg (203 lb 14.4 oz) 02/14/2023 2:31 PM EDT Height 154.9 cm (5' 1") 02/14/2023 2:31 PM EDT Body Mass Index 38.53 02/14/2023 2:31 PM EDT documented in this encounter Patient Instructions * Patient Instructions* Danie Corona MD - 02/14/2023 3:53 PM EDT 1. Nasal symptoms and general allergies: -Mrs. Gardiner has a history of allergy and was on immunotherapy in the past briefly (maybe 1.5 years at home) -Due to antihistamines, will re-do allergy testing in the blood to see current state -Once complete, will have further recommendations -Would continue nasal rinses and use on a regular basis as best she can -Since unable to tolerate Astelin and Flonase not fully effective, will do trial of Dymista (1 spray in each nostril twice a day) to see if helpful -Ok for Miranda for now but may consider alternatives in the future depending on above. -May consider Singulair in the future as well 2. Asthma/Pulmonary: Moderate Persistent -Continue Breo trial per pulmonary and follow up as suggested -May use Proventil/Ventolin (2-6 puffs) as needed up to every 4 hours and at first sign of illness as well as 15-20 minutes prior to vigorous exercise/activity if necessary 3. Immune: -Immunoglobulins (IgG-A-M) normal and will complete workup via Heme/Onc for decreased gamma globulin fraction on electrophoresis -Can consider vaccine titers but unlikely true humoral immune deficiency and need for antibiotics currently is low. 4. Cold reactions, diarrhea, rashes, etc. -Mrs. Gardiner has a grouping of symptoms for many years without a connection or diagnosis -Unlikely mast cell related but will get baseline Tryptase with next labs. If has acute symptoms and need for urgent care, would have repeated. -Question element/variant of Auto-inflammatory disease and/or FCAS (Familial Cold Auto-InflammatorySyndrome). However, baseline CBC with diff is within normal (no leukocytosis, anemia, or thrombocytosis). ESR is mildly elevated. She does not seem to have periodic fevers. -Would recommend to discuss with rheumatology further and consider specialty center if needed -http://www.autoinflammatory-search.org/search/index, http://autoinflammatory.org/ -May need genetic studies if this is a real consideration 5. Skin: -To see dermatology next week -For itching, may consider instead of Miranda, trial of Zyrtec or Xyzal (may use up to 4 tablets ifnecessary) -Benadryl (25-50 mg) up to every 6 hours for breakthrough if necessary 6. Would continue all other medications and follow up with care team as suggested. documented in this encounter Progress Notes * Danie Corona MD - 02/14/2023 3:00 PM EDT CHIEF COMPLAINT: New Patient HISTORY OF PRESENT ILLNESS: I had the pleasure of seeing Kaelyn Gardiner for initial evaluation at the [facility] on 02/14/23. She is a 52 year old female who is seen in consultation requested by Leonila Angel DO. Per PCP notes 02/03/23: "recently moved to [place] from [place], having trouble getting medical records. Skin is peeling on face on eyebrow, and in ear- [facility] derm, recc: cortisone cream Sores are not healing. Picks at white bumps- acne vs keratosis pilaris, versus dermatofibroma- try adapalene OTC, FH melanoma, requests derm referral. "Saw rheum- recommended w/u porphyria and carcinoid due to diarrhea, abd cramping, dehydration withlow fat dairy, water. Colonoscopy done recently showed multiple diverticula- had diverticulitis once as well. Scheduled to see GI next month" "Allergies- used to take allergy shots, stopped about 8 years ago, allergy symptoms really bad now despite miranda BID. Triggering asthma as well. Started breo, saw pulm." "Depression, seeing psychiatry, MR received. Migraines- started propranolol, helping, uses Neurtec prn Had some PMB, pelvic pain, has appt with [employer] PROFESSIONAL COUNSELOR to discuss definitive treatment soon. Saw hematology for hypogammmaglobulinemia. Labs pending" Here for further evaluation. Nasal: Seen by allergy in the past. Saline regularly. Flonase 2 sprays twice a day year round. Astelin in the past but hard to tolerates. No Dymista. Miranda D in past changed to Miranda 12 hour BID. Allergy injections as above for 1.5 years at home in past. PCP had allergy practice come in. Congestion mostly. Post nasal drip. Few antibiotics for sinus infections currently. Continues with consistent congestion. No Singulair. Respiratory: Pulmonary 01/16: "she reports having pulmonary nodules incidentally discovered around 2018 which were followed every6 months for approximately 2 years with no significant change. She also had a 2nd opinion at [facility] ([place]with a CT as below. She was followed with serial PFTs and was found to have a decline in her lung function. She was told she had an "asthma like illness". She is currently taking Stiolto. She is never tried any other inhalers. She does report having significant childhood respiratory symptoms and being very frequently ill as a child. She does have year-round allergies and has had skin testing in the past. She also had allergy shots in the past. She recalls being sensitive to trees and grasses. She does get frequent upper respiratory infections and bronchitis episodes and these typically last for 6 months. For her allergies she is currently taking Miranda, saline rinses, Flonase. She is used azelastine in the past but this causes throat irritation. She does have obstructive sleep apnea usesCPAP nightly, since her machine was replaced after the recall she does not feel the machine is worki ng as well. Breo started. Has been helpful so far. Infections: No pneumonia as adult on CXR. Nodules as above. Few sinus infections currently needing antibiotics. Skin: Dermatology to be seen next week. Mostly for melanoma history. Per Heme/Onc notes 02/02/2023: "She had a serum protein electrophoresis done on 12/17/2022 which showed hypogammaglobulinemia. Thelevel was 0.7 (normal is 0.8-1.7). Immunoglobulin levels including IgA, IgG and IgM were all normal. Last CBC was done on 04/15/2022 which shows WBC count of 9.49, hemoglobin 14 and platelet count 290. Creatinine was 0.9 and the rest of the electrolytes and LFTs were within normal limit." Scanned labs on chart with above. Hypogammaglobulinemia is gamma globulin fraction on electrophoresis but Total IgG as above along with other antibody levels are normal. Total protein normal as well. CPAP. Cold temperatures cause leg pain. If touches, may get arm pain up arms. Extreme abdominal pain and diarrhea. Sweaty and breezy, will trigger. Has blacked out from pain. Has been present since childhood. If comes inside from cold to warm and warm to cold. Has had fluid filled blisters in past. Benadryl and resolved? No Tryptase. No real fevers measured. Other allergy screening: Asthma: yes: see HPI Rhino conjunctivitis: yes: See HPI Food allergy: no. Known food intolerances. Urticaria: yes: Reacts to adhesives. Blisters/rashes but not recently. No recent hives. Eczema: no History of recurrent infections suggestive of immunodeficency: no PAST MEDICAL HISTORY: Past Medical History: Diagnosis Date Anxiety Arthritis Asthma Cognitive changes Depression Diverticulosis Fibromyalgia Hyperlipidemia with target LDL less than 100 04/23/2022 Insomnia Lung nodule Migraine Migraine with aura and without status migrainosus, not intractable 04/23/2022 Neuropathy LISA (obstructive sleep apnea) 04/23/2022 PTSD (post-traumatic stress disorder) Sleep apnea Social anxiety disorder PAST SURGICAL HISTORY: Past Surgical History: Procedure Laterality Date CA CHOLECYSTECTOMY REMOVAL OF ADENOIDS, AGE 12+ FAMILY HISTORY: Family History Problem Relation Age of Onset Hyperlipidemia Mother Glaucoma Mother Hypertension Father Hyperlipidemia Father Hypertension Sister Migraines Daughter Breast Cancer Great-grandmother (Maternal) SOCIAL HISTORY: Social History Socioeconomic History Marital [...] Food in the Last Year: Never true CURRENT MEDICATIONS: Current Outpatient Medications Medication Sig Dispense [...] B Complex-C Oral Capsule Take by mouth. Otoe 3 1000 MG Oral Capsule Take by [...] mouth in the morning. 60 Each 11 Ramelteon 8 MG Oral Tablet (Rozerem) Take 1 Tablet by mouth at bedtime. 30 Tablet 1 Temazepam 30 MG Oral Capsule (Restoril) Take 1 Capsule by mouth at bedtime as needed for Sleep. 30 Capsule 1 Pregabalin 75 MG Oral Capsule (Lyrica) TAKE 1 CAPSULE BY MOUTH EVERYDAY AT BEDTIME 30 Capsule 2 Zonisamide 25 MG Oral Capsule (Zonegran) Fluticasone Propionate 50 MCG/ACT Nasal Suspension Azelastine-Fluticasone 137-50 MCG/ACT Nasal Suspension Administer 1 Omaha into nostril in the morning and 1 Omaha before bedtime. Use in each nostril as directed. 23 g 5 Ventolin HFA 108 (90 Base) MCG/ACT Inhalation Aerosol Solution Inhale 2 Puffs by mouth every 4 hours as needed for Shortness of Breath. (Patient not taking: Reported on 02/14/2023) 18 g 1 Pantoprazole Sodium 40 MG Oral Tablet Delayed Release Take 1 Tablet by mouth in the morning. (Patient not taking: Reported on 02/14/2023) Current Facility-Administered Medications Medication Dose Route Frequency Provider Last Rate Last Admin Albuterol Sulfate (Proventil) (2.5 MG/3ML) 0.083% inhalation solution 2.5 mg 2.5 mg Nebulizer Once PRN Theron Lainez, DO ALLERGIES: Review of patient's allergies indicates: Allergen Reactions Gold-Containing Drug Products Penicillins Rash Remeron [Mirtazapine] Other (Please comment) SOB Sulfa Antibiotics Rash Topamax [Topiramate] Blurry vision REVIEW OF SYSTEMS: Review of systems was negative aside from the pertinent positives and negatives in the HPI. OBJECTIVE: BP 140/83 | Pulse 89 | Temp 36.3 C (97.3 F) (Infrared ) | Ht 1.549 m (5' 1") | Wt 92.5 kg (203 lb 14.4 oz) | BMI 38.53 kg/m | BSA 2 m General: in no apparent distress Head: normocephalic and atraumatic Eyes: PERRL EOMI ENT: normal tympanic membranes, nares patent without nasal discharge, oropharynx pink with moist mucous membranes with absent tonsils. Neck: supple and without lymphadenopathy CV: regular rate and rhythm. No murmurs. Lungs: clear bilaterally. No wheezes or crackles. Extremities: All 4 extremities perfused. No clubbing Skin: no rashes present today ALLERGY SKIN TESTING/SPIROMETRY: LABORATORY: Previous notes and tests were reviewed. 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 Nasal symptoms and general allergies: -Mrs. Gardiner has a history of allergy and was on immunotherapy in the past briefly (maybe 1.5 years at home) -Due to antihistamines, will re-do allergy testing in the blood to see current state -Once complete, will have further recommendations -Would continue nasal rinses and use on a regular basis as best she can -Since unable to tolerate Astelin and Flonase not fully effective, will do trial of Dymista (1 spray in each nostril twice a day) to see if helpful -Ok for Miranda for now but may consider alternatives in the future depending on above. -May consider Singulair in the future as well 2. Asthma/Pulmonary: Moderate Persistent -Continue Breo trial per pulmonary and follow up as suggested -May use Proventil/Ventolin (2-6 puffs) as needed up to every 4 hours and at first sign of illness as well as 15-20 minutes prior to vigorous exercise/activity if necessary 3. Immune: -Immunoglobulins (IgG-A-M) normal and will complete workup via Heme/Onc for decreased gamma globulin fraction on electrophoresis -Can consider vaccine titers but unlikely true humoral immune deficiency and need for antibiotics currently is low. 4. Cold reactions, diarrhea, rashes, etc. -Mrs. Gardiner has a grouping of symptoms for many years without a connection or diagnosis -Unlikely mast cell related but will get baseline Tryptase with next labs. If has acute symptoms and need for urgent care, would have repeated. -Question element/variant of Auto-inflammatory disease and/or FCAS (Familial Cold Auto-InflammatorySyndrome). However, baseline CBC with diff is within normal (no leukocytosis, anemia, or thrombocytosis). ESR is mildly elevated. She does not seem to have periodic fevers. -Would recommend to discuss with rheumatology further and consider specialty center if needed -http://www.autoinflammatory-search.org/search/index, http://autoinflammatory.org/ -May need genetic studies if this is a real consideration 5. Skin: -To see dermatology next week -For itching, may consider instead of Miranda, trial of Zyrtec or Xyzal (may use up to 4 tablets ifnecessary) -Benadryl (25-50 mg) up to every 6 hours for breakthrough if necessary 6. Would continue all other medications and follow up with care team as suggested. It was our pleasure to see Kaelyn today and participate in her care. Please feel free to contact the office with questions or concerns. Follow Up: Return in about 6 months (around 08/17/2023). Danie Corona MD Allergy, Asthma & Immunology [facility] I spent a total of Greater than 55 mins (exact time 60 mins) on the date of service in preparation,delivery, and documentation of the care provided to Kaelyn Gardiner excluding any time spent in the performance of separately billed services. documented in this encounter Plan of Treatment Upcoming Encounters Date Type Specialty Care Team Description 02/15/2023 Office Visit Neurology Yumiko Traore PA-C [address] [facility] [place] [id number] 02/22/2023 Office Visit Dermatology Melisa Chin PA-C [address] [place] [address] [place] [phone] 02/23/2023 Office Visit Orthopedics Theron Pineda, [address] [place] [id number] 02/23/2023 Telemedicine Psychiatry Lim, NERI Mobley [address] [facility] [place] [address] 03/09/2023 Imaging Radiology 03/10/2023 Office Visit Gastroenterology Vaughn Powell CRNP [address] [place] [id number] 03/30/2023 PulmDiagnostic Pulmonary Function [place], Pft [address] [place] [id number] 04/01/2023 Office Visit Pulmonary Theron Lainez DO [address], [place] [phone] 06/16/2023 Office Visit Rheumatology Marla Moon CRNP [address] [place] [address] 08/08/2023 Office Visit Hematology Oncology Gamaliel Quinn MD [address] [place] [address] 08/17/2023 Office Visit Allergy & Immunology Danie Corona MD [address] [place] [address] 09/21/2023 Office Visit Neurology Nila Elle L, DO [address] [facility] [place] [address] Scheduled Orders Name Type Priority Associated Diagnoses Orde r Schedule [facility] PROFILE Lab Routine Allergic rhinitis, unspecified seasonality, unspecified trigger Expected: 02/14/2023, Expires: 02/15/2024 IGE Lab Routine Allergic rhinitis, unspecified seasonality, unspecified trigger Expected: 02/14/2023, Expires: 02/15/2024 TRYPTASE Lab Routine Allergic rhinitis, unspecified seasonality, unspecified trigger Expected: 02/14/2023, Expires: 02/15/2024 CRP (INFLAMMATORY MARKER) Lab Routine Allergic rhinitis, unspecified seasonality, unspecified trigger Expected: 02/14/2023, Expires: 02/15/2024 Health Maintenance Due Date Last Done Comments [...] as of this encounter Visit Diagnoses Diagnosis Allergic rhinitis, unspecified seasonality, unspecified trigger- Primary Moderate persistent asthma without complication Unspecified asthma Disorder involving the immune mechanism (HCC) Unspecified disorder of immune mechanism Autoinflammatory disease (HCC) documented in this encounter Care Teams High Lift Operator Relationship Specialty Start Date End Date Leonila Angel DO [address] [place] [address] PCP - General Family Medicine 02/03/23 documented as of this encounter
--- OUTSIDE RECORDS SUMMARY | 2023-06-12 19:31 | External Medical Summary | Summary of Care ---
Author Name Unknown Organization [facility] Address [address] [facility] [place] [address] Phone [phone] Care Team Providers Care Press Tender Smoke Signal Name Role Phone Paco Orozco PA-C Primary Care Provider [phone]- [phone] Reason for Visit * Reason Comments Knee Pain Left Encounter Details Date Type Department Care Team Description 01/11/2023 Office Visit Orthopaedics [facility] [address] [place] [address] Theron Pineda, [address] [place] [address] Tear of MCL (medial collateral ligament) of knee, left, sequela* Allergies Active Allergy Reactions Severity Noted Date Comments Gold-Containing Drug Products 04/23/2022 Penicillins Rash 04/23/2022 Mirtazapine Other (Please comment) 12/10/2022 SOB Sulfa Antibiotics Rash 04/23/2022 Topiramate 04/23/2022 Blurry vision documented as of this encounter (statuses as of 01/11/2023) Medications Medication Sig Dispensed Refills Start Date End Date Status Rosuvastatin Calcium 10 MG Oral Tablet (Crestor) Take 1 Tablet by mouth in the morning. 0 01/29/2022 Active Magnesium Citrate Powder Use as directed. 0 Active Aimovig 140 MG/ML Subcutaneous Solution Auto-injector INJECT 1 ML BY SUBCUTANEOUS ROUTE ONCE A MONTH IN THE ABDOMEN, THIGH, OR OUTER AREA OF UPPER ARM Strength: 140 mg/mL 140 mL 3 05/27/2022 Active Additional Information Patient not taking.Reported on 12/14/2022 predniSONE 10 MG Oral Tablet (Deltasone) 6 tab x 3 day, 4 tab x 3 days, 3 tab x 3 days, 2 tab x 3 days, then 1 tab x 3 days then stop 48 Tablet 2 08/13/2022 Active Additional Information Patient not taking.Reported on 01/11/2023 Fremanezumab-vfrm 225 MG/1.5ML Subcutaneous Solution Prefilled Syringe ([employer] Inject 1.5 mL under the skin Every Month. 1.5 mL 3 08/13/2022 Active clonazePAM 1 MG Oral Tablet (KlonoPIN)Indication s:Generalized anxiety disorder,Panic disorder Take 0.5 Tablets by mouth 2 times a day as needed for Anxiety or Insomnia. 30 Tablet 0 08/23/2022 Active Pregabalin 75 MG Oral Capsule (Lyrica) TAKE 1 CAPSULE BY MOUTH EVERYDAY AT BEDTIME 30 Capsule 2 11/08/2022 Active Vitamin C 250 MG Oral Tablet (Ascorbic Acid) Take 2 Tablets by mouth in the morning. 0 Active Zinc 50 MG Oral Capsule Take 1 Capsule by mouth in the morning. 0 Active B Complex-C Oral Capsule Take by mouth. 0 Active [place] 3 1000 MG Oral Capsule Take by [...] of Breath. 18 g 1 01/07/2023 Active Ramelteon 8 MG Oral Tablet (Rozerem)Indications :Insomnia, unspecified type Take 1 Tablet by mouth at bedtime. 30 Tablet 1 01/11/2023 Active Temazepam 30 MG Oral Capsule (Restoril)Indication s:Insomnia, unspecified type Take 1 Capsule by mouth at bedtime as needed for Sleep. 30 Capsule 1 01/11/2023 Active Hospital, Clinic, or Other Facility Administered Medication Ordered Dose Route Frequency Start Date End Date Status Albuterol Sulfate (Proventil) (2.5 MG/3ML) 0.083% inhalation solution 2.5 mgIndications:CONNOLLY (dyspnea on exertion) 2.5 mg NEBULIZER ONCE PRN 01/07/2023 Act chaparro documented as of this encounter (statuses as of 01/11/2023) Active Problems Problem Noted Date Abdominal discomfort [...] as of this encounter (statuses as of 01/11/2023) Immunizations Name Administration Dates Next Due Seasonal Influenza Virus Vac cine, Unspecified Formulation 04/23/2022 Seasonal Influenza, Quadriva lent, No Preserve, 6 Mons & Above, IM 04/23/2022 Zoster Vaccine Recombinant (Shingrix) 07/28/2022 ,04/23/2022 [...] of this encounter Progress Notes * Theron Pineda DO - 01/11/2023 2:30 PM EDT Kaelyn Gardiner [id number] INJECTION NOTE Kaelyn Gardiner is a 52 year old female who presents to [facility] for Left knee PRP MRI 11/30/22 IMPRESSION 1. High-grade tear of the medial collateral ligament at its femoral attachment, with few (if any) fibers remaining intact. 2. Tnvppgye-gc-zarbpq patellofemoral chondromalacia. 3. Mild chondrosis in the medial compartment. Prior to the PRP procedure it was verified that the patient has not taken any NSAIDS 2 weeks prior to the blood draw. After the injection they were informed to not take any NSAIDS 1 week after procedure and to not use ice. It is acceptable to use Tylenol (acetaminophen) sparingly. Please MyChart orcall back at 4, 8, and 12 weeks after the procedure. All questions were answered Assessment and Plan: pt has complex pain hx she should cont to follow with rheumatology as well, reviewed when to restart exercise and how to wear hinged brace, f/u 6 weeks 1) Tear of MCL (medial collateral ligament) of knee, left, sequela (Primary) - POINT OF CARE US - PLATELET RICH PLASMA INJECTION Theron Pineda DO Primary Care Sports Medicine [facility] [place] [address] Kaelyn Gardiner [id number] Procedure note, injection of platlet rich plasma (PRP), LEFT MCL : Time out: Prior to injection, a time out was called to confirm the administration of appropriate medicine, patient name, procedure and confirm to the best of our ability and knowledge the presence of any necessary risks and benefits. Patient verbalizes understanding. After drawing 15 cc of blood from peripheral site, blood is prepared using PRP centrifuge. 4.2 ml buffy layer platlet rich plasma product was then injected at left MCL closer to femoral attchment 4 passes Patient tolerated procedure well. Ultrasound was required high risk for complications without ultrasound guideance (risk for neurovascular damage) left knee Counselled regarding risk for infection Theron Pineda DO Primary Care Sports Medicine [facility] [place] [address] documented in this encounter Nursing Notes * Dory Slaughter LPN - 01/11/2023 2:24 PM EDT Left knee PRP Dory Roy LPN documented in this encounter Plan of Treatment Upcoming Encounters Date Type Specialty Care Team Description 01/11/2023 Imaging Radiology Arrived 02/09/2023 Office Visit Gynecology Obstetrics Chris Walker MD [address] [place] [address] 02/15/2023 Office Visit Neurology Yumiko Traore PA-C [address] [place] [address] 02/15/2023 Telemedicine Psychiatry Lim, NERI Mobley [address] [facility] [place] [address] 02/23/2023 Office Visit Orthopedics Theron Pineda DO [address] [place] [address] 03/10/2023 Office Visit Gastroenterology Vaughn Powell CRNP [address] [place] [address] 03/30/2023 PulmDiagnostic Pulmonary Function [place], Pft [address] [place] [address] 04/01/2023 Office Visit Pulmonary Theron Lainez DO [address] [place], [place] [id number] 06/16/2023 Office Visit Rheumatology Marla Moon CRNP [address] [facility] [place] [address] 09/21/2023 Office Visit Neurology Nila Elle Lyndon, DO [address] [facility] [place] [address] Scheduled Orders Name Type Priority Associated Diagnoses Orde r Schedule POINT OF CARE US - PLATELET RICH PLASMA INJECTION Medical Imaging Routine Tear of MCL (medial collateral ligament) of knee, left, sequela Ordered: 01/11/2023 Health Maintenance Due Date Last Done Comments Hepatitis B (1 of 3 - 3-dose series) 1969 COVID-19 Vaccine (#1) 1969 Pneumococcal Vaccine: Pediatrics (0 to 5 Years) and At-Risk Patients (6 to 64 Years) (1 - PCV) 1975 HIV Screening 1984 Hepatitis C Screening 1987 DTaP,Tdap,and Td Vaccines (1 - Tdap) 1988 Mammogram 2009 Cologuard 2014 Colonoscopy 2014 Colorectal Cancer Screening 2014 Fecal Occult Blood Test 2014 Sigmoidoscopy 2014 *SPIROMETRY ONCE FOR ASTHMA-ADULT 05/20/2022 Depression, Most Recent Score >= 10 (will fire each visit until score < 10) 11/13/2022 11/12/2022 Influenza Vaccine (FLU shot) (#1) 2023 04/23/2022, 04/23/2022 Diabetes Screening 04/23/2025 04/23/2022, 0 11/13/1997, 04/18/1996, Additional history exists Lipid Panel 04/23/2027 04/23/2022 Pap Smear 04/27/2027 04/27/2022 Zoster Vaccines Completed 07/28/2022, 04/23/2022 GARDASIL-HPV IMMUNIZATION [...] collateral ligament) of knee, left, sequela- Primary documented in this encounter Care Teams Press Tender Smoke Signal Relationship Specialty Start Date End Date Paco Orozco PA-Kirill [address] [facility] [place] [address] PCP - General Physician Sexual Assault Social Worker 04/23/22 documented as of this encounter
--- OUTSIDE RECORDS SUMMARY | 2023-06-12 19:31 | External Medical Summary | Summary of Care ---
Author Name Unknown Organization [facility] Address [address] [facility] [address] Phone [phone] Care Team Providers Care Screw Cutter Name Role Phone Tomfrances Leonila Collins DO [...] Oral Capsule Take by mouth. 0 Active [place] 3 1000 MG Oral Capsule Take by [...] rhinitis, unspecified seasonality, unspecified trigger Administer 1 [place] into nostril in the morning and 1 [place] before bedtime. Use in each nostril as [...] 02/22/2023 Office Visit Dermatology Melisa Chin PA-C [address] [place] [address] [place] [address] 02/23/2023 Office Visit Orthopedics Theron Pineda, DO [address] [place] [address] 02/23/2023 Telemedicine Psychiatry Lim, NERI Mobley [address] [facility] [place] [address] 03/04/2023 Office Visit Gynecology Obstetrics Chris Walker MD [address] [place] [address] 03/09/2023 Imaging Radiology 03/10/2023 Office Visit Gastroenterology Vaughn Powell CRNP [address] [place] [address] 03/24/2023 Hospital Encounter Surgery Chris Walker MD [address] [place] [address] 03/24/2023 Surgery Surgery Chris Walker MD [address] [place] [address] HYSTEROSCOPY WITH BIOPSY AND/OR POLYPECTOMY WITH OR WITHOUT D&C 03/30/2023 PulmDiagnostic Pulmonary Function [place], Pft [address] [place] [address] 04/01/2023 Office Visit Pulmonary [facility]ainez[facility] [address] [facility] [address] 04/11/2023 Office Visit Gynecology Obstetrics Chris Walker MD [address] [place] [address] 04/29/2023 Office Visit Neurology Alexis Dong DO [address] [place] [address] 06/16/2023 Office Visit Rheumatology Marla Moon CRNP [address] [place] [address] 08/08/2023 Office Visit Hematology Oncology Gamaliel Quinn MD [address] [place] [address] 08/17/2023 Office Visit Allergy & Immunology Danie Corona MD [address] [place] [address] 09/21/2023 Office Visit Neurology Elle Dotson, DO [address] [place] [place] [address] Scheduled Procedures Name Priority Associated Diagnoses Date/Ti [...] filedocumented as of this encounter Care Teams Screw Cutter Relationship Specialty Start Date End Date Leonila Angel DO [address] [place] [address] PCP - General Family Medicine 02/03/23 documented as of this encounter
--- OUTSIDE RECORDS SUMMARY | 2023-06-12 19:31 | External Medical Summary | Summary of Care ---
Author Name Unknown Organization [facility] Address [address] [facility] [address] Phone [phone] Care Team Providers Care Service Car Operator Name Role Phone Tomfrances Leonila Collins DO [...] Oral Capsule Take by mouth. 0 Active [place] 3 1000 MG Oral Capsule Take by [...] rhinitis, unspecified seasonality, unspecified trigger Administer 1 [place] into nostril in the morning and 1 [place] before bedtime. Use in each nostril as [...] 02/22/2023 Office Visit Dermatology Melisa Chin PA-C [address] [place] [address] [place] [address] 02/23/2023 Office Visit Orthopedics Theron Pineda, DO [address] [place] [address] 02/23/2023 Telemedicine Psychiatry Lim, NERI Mobley [address] [place] [address] 03/04/2023 Office Visit Gynecology Obstetrics Chris Walker MD [address] [place] [address] 03/09/2023 Imaging Radiology 03/10/2023 Office Visit Gastroenterology Vaughn Powell CRNP [address] [place] [address] 03/24/2023 Hospital Encounter Surgery Chris Walker MD [address] [place] [address] 03/24/2023 Surgery Surgery Chris Walker MD [address] [place] [address] HYSTEROSCOPY WITH BIOPSY AND/OR POLYPECTOMY WITH OR WITHOUT D&C 03/30/2023 PulmDiagnostic Pulmonary Function West, Pft [address] [place] [address] 04/01/2023 Office Visit Pulmonary Theron Lainez, DO [address] [facility] [place] [address] 04/11/2023 Office Visit Gynecology Obstetrics Chris Walker MD [address] [place] [address] 04/29/2023 Office Visit Neurology Alexis Dong DO [address] [place] [address] 06/16/2023 Office Visit Rheumatology Marla Moon CRNP [address] [place] [address] 08/08/2023 Office Visit Hematology Oncology Gamaliel Quinn MD [address] [place] [address] 08/17/2023 Office Visit Allergy & Immunology Danie Corona MD [address] [place] [address] 09/21/2023 Office Visit Neurology Elle Dotson, DO [address] [place] [facility] [place] [address] Scheduled Procedures Name Priority Associated Diagnoses Date/Ti [...] filedocumented as of this encounter Care Teams Service Car Operator Relationship Specialty Start Date End Date Leonila Angel DO [address] [place] [address] PCP - General Family Medicine 02/03/23 documented as of this encounter
--- OUTSIDE RECORDS SUMMARY | 2023-06-12 19:31 | External Medical Summary | Summary of Care ---
Author Name Unknown Organization [facility] Address [address] [facility] [place] [address] Phone [phone] Care Team Providers Care Cash Reconciliation Specialist Name Role Phone Paco Orozco PA-C Primary Care Provider [phone]- [phone] Reason for Visit * Reason Comments Knee Pain Left Encounter Details Date Type Department Care Team Description 01/11/2023 Office Visit Orthopaedics [facility] [address] [place] [address] Theron Pineda, [address] [place] [address] Tear of MCL (medial collateral ligament) of knee, left, sequela* Allergies Active Allergy Reactions Severity Noted Date Comments Gold-Containing Drug Products 04/23/2022 Penicillins Rash 04/23/2022 Mirtazapine Other (Please comment) 12/10/2022 SOB Sulfa Antibiotics Rash 04/23/2022 Topiramate 04/23/2022 Blurry vision documented as of this encounter (statuses as of 01/12/2023) Medications Medication Sig Dispensed Refills Start Date [...] Fremanezumab-vfrm 225 MG/1.5ML Subcutaneous Solution Prefilled Syringe (Avaz) Inject 1.5 mL under the skin Every [...] Oral Capsule Take by mouth. 0 Active [place] 3 1000 MG Oral Capsule Take by [...] as of this encounter (statuses as of 01/12/2023) Active Problems Problem Noted Date Abdominal discomfort [...] as of this encounter (statuses as of 01/12/2023) Immunizations Name Administration Dates Next Due Seasonal [...] - 01/11/2023 2:30 PM EDT Kaelyn Gardiner [id number] INJECTION NOTE Kaelyn Gardiner is a 52 year old female who presents to [facility] for Left knee PRP MRI 11/30/22 IMPRESSION 1. High-grade tear of the medial collateral ligament at its femoral attachment, with few (if any) fibers remaining intact. 2. Xvrabrxo-cg-ctofvf patellofemoral chondromalacia. 3. Mild chondrosis in the [...] Theron Pineda DO Primary Care Sports Medicine [facility] [place] [address] Kaelyn Gardiner [id number] Procedure note, injection of platlet rich plasma [...] Theron Pineda DO Primary Care Sports Medicine [facility] [place] [address] documented in this encounter Nursing Notes * Dory Slaughter LPN - 01/11/2023 2:24 PM EDT Left knee PRP Dory Roy LPN documented in this encounter Plan of Treatment Upcoming Encounters Date Type Specialty Care Team Description 02/02/2023 Office Visit Hematology Oncology Kai, Gamaliel Lugo MD [address] [facility] [place] [address] 02/09/2023 Office Visit Gynecology Obstetrics Chris Walker MD [address] [place] [address] 02/15/2023 Office Visit Neurology Yumiko Traore PA-C [address] [facility] [place] [address] 02/15/2023 Telemedicine Psychiatry Lim, NERI Mobley [address] [facility] [place] [address] 02/23/2023 Office Visit Orthopedics Theron Pineda DO [address] [place] [address] 03/10/2023 Office Visit Gastroenterology Vaughn Powell CRNP [address] [place] [address] 03/30/2023 PulmDiagnostic Pulmonary Function [place], Pft [address] [place] [address] 04/01/2023 Office Visit Pulmonary Theron Lainez M, DO [address] [place] [address] 06/16/2023 Office Visit Rheumatology Red Marla SheriNERI [place] [address] [place] [address] 09/21/2023 Office Visit Neurology Elle Dotson, DO [address] [place] [address] Health Maintenance Due Date Last Done Comments [...] Procedure Name Priority Date/Time Associated Diagnosis Comments POINT OF CARE US - PLATELET RICH PLASMA INJECTION Routine 01/11/2023 1:52 PM EDT Tear of MCL (medial collateral ligament) of knee, left, sequela documented in this encounter Results * POINT OF CARE US - PLATELET RICH PLASMA INJECTION (01/11/2023 1:52 PM EDT) Anatomical Region Laterality Modality Any Radiographic Chela ging 01/11/2023 1:52 PM EDT Narrative 01/11/2023 3:21 PM EDT [facility] - Ultrasound Program Exam Date: 01/11/2023 Exam Type: Ortho Photographic Press Screwmaker: Theron Pineda Attending: Theron Pineda Worksheet: Ortho Injection Exam Information: Impression: Kaelyn Tobar Gardiner [id number] ? Procedure note, injection of platlet rich plasma (PRP), LEFT MCL : ? Time out: Prior to injection, a time [...] attchment 4 passes Patient tolerated procedure well. ? Ultrasound was required high risk for complications without ultrasound guideance (risk for neurovascular damage) left knee ? Counselled regarding risk for infection ? Theron Pineda DO Primary Care Sports Medicine [facility] [place] [address] Physician Signature: I reviewed the images and approve the documentation above.: Signed by Theron Pineda on Wednesday, January 11, 2023 at 3:21:24 PM Procedure Note Theron Pineda DO - 01/11/2023 [facility] - Ultrasound Program Exam Date: 01/11/2023 Exam Type: Ortho Photographic Press Screwmaker: Theron Pineda Attending: Theron Pineda Worksheet: Ortho Injection Exam Information: Impression: Kaelyn Tobar Zuleyka [id number] ? Procedure note, injection of platlet rich plasma (PRP), LEFT MCL : ? Time out: Prior to injection, a time out was called to confirm the administration ofappropriate medicine, patient name, procedure and confirm to the best ofour ability and knowledge the presence of any necessary risks andbenefits. Patient verbalizes understanding. After drawing 15 cc of blood from peripheral site, blood is prepared usingPRP centrifuge. 4.2 ml buffy layer platlet rich plasma product was then injected at leftMCL closer to femoral attchment 4 passes Patient tolerated procedure well. ? Ultrasound was required high risk for complications without ultrasoundguideance (risk for neurovascular damage) left knee ? Counselled regarding risk for infection ? Theron Pineda, DO Primary Care Sports Medicine [facility] [place] [address] Physician Signature: I reviewed the images and approve the documentation above.: Signed byTheron Pineda on Wednesday, January 11, 2023 at 3:21:24 PM Theron Pineda DO RAD ULTRASOUND documented in this encounter Visit Diagnoses Diagnosis Tear of MCL (medial collateral ligament) of knee, left, sequela- Primary documented in this encounter Care Teams Cash Reconciliation Specialist Relationship Specialty Start Date End Date Paco Orozco PA-C [address] [place] [address] PCP - General Physician Operations Staff Specialist Security 04/23/22 documented as of this encounter
--- OUTSIDE RECORDS SUMMARY | 2023-06-12 19:31 | External Medical Summary | Summary of Care ---
Author Name Unknown Organization [facility] Address [address] [facility] [place] [address] Phone [phone] Care Team Providers Care Credit Risk Manager Name Role Phone Leonila Angel DO Primary Care Provider Reason for Visit * Reason Comments Tractor Technician Return Encounter Details Date Type Department Care Team Description 02/09/2023 [facility] [address] [place] [address] Chris Walker MD [address] [place] [address] Uterine leiomyoma, unspecified location*; PMB (postmenopausal bleeding) Allergies Active Allergy Reactions Severity Noted Date Comments Gold-Containing Drug Products 04/23/2022 Penicillins Rash 04/23/2022 Mirtazapine Other (Please comment) 12/10/2022 SOB Sulfa Antibiotics Rash 04/23/2022 Topiramate 04/23/2022 Blurry vision documented as of this encounter (statuses as of 02/09/2023) Medications Medication Sig Dispensed Refills Start Date [...] 30 Tablet 0 08/23/2022 Active Vitamin C 250 MG Oral Tablet (Ascorbic Acid) Take 2 Tablets by mouth in the morning. 0 Active Zinc 50 MG Oral Capsule Take 1 Capsule by mouth in the morning. 0 Active B Complex-C Oral Capsule Take by mouth. 0 Active [place] 3 1000 MG Oral Capsule Take by [...] 01/07/2023 Active Ramelteon 8 MG Oral Tablet (Rozerem)Indications: Insomnia, unspecified type Take 1 Tablet by mouth at bedtime. 30 Tablet 1 01/11/2023 Active Temazepam 30 MG Oral Capsule (Restoril)Indications :Insomnia, unspecified type Take 1 Capsule by mouth at bedtime as needed for Sleep. 30 Capsule 1 01/11/2023 Active Pregabalin 75 MG Oral Capsule (Lyrica) TAKE 1 CAPSULE BY MOUTH EVERYDAY AT BEDTIME 30 Capsule 2 02/09/2023 Active Hospital, Clinic, or Other Facility Administered Medication Ordered Dose Route Frequency Start Date End Date Status Albuterol Sulfate (Proventil) (2.5 MG/3ML) 0.083% inhalation solution 2.5 mgIndications:CONNOLLY (dyspnea on exertion) 2.5 mg NEBULIZER ONCE PRN 01/07/2023 Act chaparro documented as of this encounter (statuses as of 02/09/2023) Active Problems Problem Noted Date Abdominal discomfort [...] as of this encounter (statuses as of 02/09/2023) Immunizations Name Administration Dates Next Due Seasonal [...] Sign Reading Time Taken Comments Blood Pressure 134/70 02/09/2023 1:41 PM EDT Pulse - - Temperature - - Respiratory Rate - - Oxygen Saturation - - Inhaled Oxygen Concentration - - Weight 91.6 kg (202 lb) 02/09/2023 1:41 PM EDT Height 154.9 cm (5' 1") 02/09/2023 1:41 PM EDT Body Mass Index 38.17 02/09/2023 1:41 PM EDT documented in this encounter Progress Notes * Chris Walker MD - 02/09/2023 2:11 PM EDT Pt is a f/u from last visit Report from [place] reviewed Pelvic sono reviewed Pt has the ff complaints PMB- office endometrial bx done in [place] 2 years is negative for pathology . She has hx of fibroid uterus- 12 week size and c/o bilateral pelvic spin. Sono shown nml bilat adnexa. Cannot r/o adhesions and degenerating fibroid We have discussed both as length Plan 1.Venessa for D&C with hysteroscopy- paperwork sent to [facility] for scheduling 2. Pt is offered a) diagnostic scope vrs b) hysterectomy. Pt will make that decision after D&C with hysteroscopy Pt has multiple questions and I have tried to answer them all I spent a total of 30-39 minutes (exact time 33 mins) on the date of service in preparation, delivery, and documentation of the care provided to Kaelyn Gardiner excluding any time spent in the performance of separately billed services. documented in this encounter Nursing Notes * Mackenzie Cleaning LPN - 02/09/2023 1:38 PM EDT Pt is here to discuss emb form 2020 Severe pelvic pain hurting 24hrs a day We have agreed on the ff 1. We will [place] EMBX [place] 2. Start with D&C with hysteroscopy and if pelvic pain persist, consider diagnostic scope or hysterectomy documented in this encounter Plan of Treatment Upcoming Encounters Date Type Specialty Care Team Description 02/15/2023 Office Visit Neurology Yumiko Traore PA-C [address] [place] [address] 02/23/2023 Office Visit Orthopedics Theron Pineda, [address] [place] [address] 02/23/2023 Telemedicine Psychiatry Lim, NERI Mobley [address] [place] [address] 03/09/2023 Imaging Radiology 03/10/2023 Office Visit Gastroenterology Vaughn Powell, ENVELOPE SEALING MACHINE OPERATOR [address] [place] [address] 03/30/2023 PulmDiagnostic Pulmonary Function [place], Pft [address] [place] [address] 04/01/2023 Office Visit Pulmonary Theron Lainez, DO [address] [place] [address] 06/16/2023 Office Visit Rheumatology Marla Moon CRNP [address] [place] [address] 08/08/2023 Office Visit Hematology Oncology Gamaliel Quinn MD [address] [place] [address] 08/10/2023 Office Visit Allergy & Immunology Ruddy Slade MD [address] [facility] [place] [address] 08/15/2023 Office Visit Dermatology Colton Proctor MD [address] [facility] [place] [address] 09/21/2023 Office Visit Neurology Elle Dotson, DO [address] [facility] [place] [address] Health Maintenance Due Date Last Done Comments [...] as of this encounter Visit Diagnoses Diagnosis Uterine leiomyoma, unspecified location- Primary PMB (postmenopausal bleeding) Postmenopausal bleeding documented in this encounter Care Teams Credit Risk Manager Relationship Specialty Start Date End Date Leonila Angel DO [address] [place] [address] PCP - General Family Medicine 02/03/23 documented as of this encounter
--- OUTSIDE RECORDS SUMMARY | 2023-06-12 19:31 | External Medical Summary | Summary of Care ---
Author Name Unknown Organization [facility] Address [address] [facility] [place] [address] Phone [phone] Care Team Providers Care Gun Sealing Machine Operator Name Role Phone Leonila Angel DO Primary Care Provider Encounter Details Date Type Department Care Team Description 02/09/2023 Orders Only Hematology/Oncology [place] [address] [facility] [place] [address] Gamaliel Quinn MD [address] [place] [address] Allergies Active Allergy Reactions Severity Noted Date [...] Oral Capsule Take by mouth. 0 Active [place] 3 1000 MG Oral Capsule Take by [...] Encounters Date Type Specialty Care Team Description 02/09/2023 Office Visit Gynecology Obstetrics Chris Walker MD [address] [place] [address] 02/15/2023 Office Visit [facility] [address] 02/23/2023 Office Visit Orthopedics Theron Pineda DO [address] [place] [address] 02/23/2023 Telemedicine Psychiatry Lim, Annabel ParkerNERI [address] [facility] [place] [address] 03/09/2023 Imaging Radiology 03/10/2023 [facility] [address] [facility] [address] 03/30/2023 PulmDiagnostic [facility] Function [place], [facility] [address] 04/01/2023 Office Visit Pulmonary Theron Lainez DO [address] [place] [address] 06/16/2023 Office Visit Rheumatology Marla Moon CRNP [address] [place], [place] [id number] 08/08/2023 Office Visit Hematology Oncology Gamaliel Quinn MD [address] [facility] [place] [address] 08/10/2023 Office Visit Allergy & Immunology Ruddy Slade MD [address] [facility] [place] [address] 08/15/2023 Office Visit Dermatology Colton Proctor MD [address] [facility] [place] [address] 09/21/2023 Office Visit Neurology Elle Dotson, DO [address] [facility] [place] [address] Health Maintenance Due Date Last Done Comments [...] (#1) 2023 04/23/2022, 04/23/2022 Diabetes Screening 04/23/2025 02/02/2023, 1 , 11/13/1997, Additional history exists Cervical Cancer Screening 04/27/2025 Pap Smear 04/27/2025 04/27/2022 Lipid Panel 04/23/2027 04/23/2022 Zoster Vaccines Completed 07/28/2022, 04/23/2022 GARDASIL-HPV IMMUNIZATION SERIES Aged Out No longer eligible based on patient's age to complete this topic MENINGOCOCCAL (MENACTRA/MENVEO) Aged Out No longer eligible based on patient's age to complete this topic documented as of this encounter Medical Devices Not on filedocumented as of this encounter Procedures Procedure Name Priority Date/Time Associated Diagnosis Comments CHEMISTRY-OUTSIDE Routine 02/02/2023 documented in this encounter Results * CHEMISTRY-OUTSIDE (02/02/2023) Not all results display below - see scan for full detail OUTSIDE LAB (SEE SCANNED REPORT) Comment:SCAN INCL: CMP, PROT ELECTRO,SERUM IMMUNOFIXATION, KAPPA/LAMBDA LT CH,UR IMMUNOFIXATION,CBCD,BETA 2 MICROGLOB CREATININE-OUTSID E LAB 0.92 0.50 - 1.03 MG/DL OUTSIDE LAB (SEE SCANNED REPORT) EGFR-OUTSIDE LAB 74 OUT SIDE LAB (SEE SCANNED REPORT) POTASSIUM-OUTSIDE LAB 4.5 3.5 - 5.3 MMOL/L OUTSIDE LAB (SEE SCANNED REPORT) GLUCOSE-OUTSIDE LAB 102 65 - 139 MG/DL OUTSIDE LAB (SEE SCANNED REPORT) HOURS FASTING OUTSID E LAB (SEE SCANNED REPORT) TRIGLYCERIDES-OUT SIDE LAB OUTSIDE LAB (SEE SCANNED REPORT) CHOLESTEROL-OUTSI DE LAB OUTSIDE LAB (SEE SCANNED REPORT) HDL-OUTSIDE LAB OUTS [facility] (SEE SCANNED REPORT) CHOL/HDL RATIO-OUTSIDE LAB OUTSIDE LA B (SEE SCANNED REPORT) LDL (CALCULATED)-OUTS [facility] OUTSIDE LAB (SEE SCANNED REPORT) LDL (DIRECT MEASURE)-OUTSIDE LAB OUTSIDE LAB (SEE SCANNED REPORT) HEMOGLOBIN, [id number] LAB OUTSIDE LAB (SEE SCANNED REPORT) PHOSPHORUS-OUTSID E LAB OUTSIDE LAB (SEE SCANNED REPORT) PTH-OUTSIDE LAB OUTS [facility] (SEE SCANNED REPORT) MICROALBUMIN RATIO-OUTSIDE LAB OUTSIDE LA B (SEE SCANNED REPORT) PROTEIN, UA-OUTSIDE LAB OUTSIDE LAB (SEE SCANNED REPORT) HEMOGLOBIN-OUTSID E LAB 14.1 11.7 - 15.5 G/DL OUTSIDE LAB (SEE SCANNED REPORT) 02/02/2023 Gamaliel Quinn MD LABORATORY OUTSIDE LAB (SEE SCANNED REPORT) documented in this encounter Care Teams Gun Sealing Machine Operator Relationship Specialty Start Date End Date Leonila Angel DO [address] [place] [address] PCP - General Family Medicine 02/03/23 documented as of this encounter
--- OUTSIDE RECORDS SUMMARY | 2023-06-12 19:31 | External Medical Summary | Summary of Care ---
Author Name Unknown Organization [facility] Address [address] [place] [address] Phone [phone] Care Team Providers Care Dry Pan Feeder Name Role Phone Paco Orozco PA-C Primary Care Provider [phone] Reason for Visit * Reason Comments Consultation * Evaluate & Treat - Unlimited Visits (Within 10 days (routine)) - Pending Review Specialty Diagnoses / Procedures Referred By Jo Ann villegas Referred To Contact Hematology/Oncology / Hematology Oncology Diagnoses Hypogammaglobulinemia (HCC) Marla Moon CRNP [address] [place] [address] Referral ID Status Reason Start Date Expiration Date Visits Requested Visits Authorized [id number] Pending Review Specialty Services Required 01/10/[phone] Encounter Details Date Type Department Care Team Description 02/02/2023 Office Visit Hematology/Oncolog y State Vera Maharaj [address] [facility] [place] [address] Gamaliel Quinn MD [address] [facility] [place] [address] Hypogammaglobulinemia (HCC)* Allergies Active Allergy Reactions Severity Noted Date Comments Gold-Containing Drug Products 04/23/2022 Penicillins Rash 04/23/2022 Mirtazapine Other (Please comment) 12/10/2022 SOB Sulfa Antibiotics Rash 04/23/2022 Topiramate 04/23/2022 Blurry vision documented as of this encounter (statuses as of 02/02/2023) Medications Medication Sig Dispensed Refills Start Date [...] Oral Capsule Take by mouth. 0 Active Burt 3 1000 MG Oral Capsule Take by [...] by mouth in the morning. 60 Each 01/07/2023 Active Ventolin HFA 108 (90 Base) MCG/ACT Inhalation Aerosol Solution Inhale 2 Puffs by mouth every 4 hours as needed for Shortness of Breath. 18 g 1 01/07/2023 Active Ramelteon 8 MG Oral Tablet (Rozerem)Indication s:Insomnia, unspecified type Take 1 Tablet by mouth at bedtime. 30 Tablet 1 01/11/2023 Active Temazepam 30 MG Oral Capsule (Restoril)Indicatio ns:Insomnia, unspecified type Take 1 Capsule by mouth at bedtime as needed for Sleep. 30 Capsule 1 01/11/2023 Active Aimovig 140 MG/ML Subcutaneous Solution Auto-injector INJECT 1 ML BY SUBCUTANEOUS ROUTE ONCE A MONTH IN THE ABDOMEN, THIGH, OR OUTER AREA OF UPPER ARM Strength: 140 mg/mL 140 mL 3 05/27/2022 02/03/20 23 Discontinu ed(Medicat ion List Clean Up) predniSONE 10 MG Oral Tablet (Deltasone) 6 tab x 3 day, 4 tab x 3 days, 3 tab x 3 days, 2 tab x 3 days, then 1 tab x 3 days then stop 48 Tablet 2 08/13/2022 02/03/20 23 Discontinu ed(Medicat ion List Clean Up) Fremanezumab-vfrm 225 MG/1.5ML Subcutaneous Solution Prefilled Syringe (BTC [place]) Inject 1.5 mL under the skin Every Month. 1.5 mL 3 08/13/2022 02/03/20 23 Discontinu ed(Medicat ion List Clean Up) Hospital, Clinic, or Other Facility Administered Medication Ordered Dose Route Frequency Start Date End Date Status Albuterol Sulfate (Proventil) (2.5 MG/3ML) 0.083% inhalation solution 2.5 mgIndications:CONNOLLY (dyspnea on exertion) 2.5 mg NEBULIZER ONCE PRN 01/07/2023 Act chaparro documented as of this encounter (statuses as of 02/02/2023) Active Problems Problem Noted Date Abdominal discomfort [...] as of this encounter (statuses as of 02/02/2023) Immunizations Name Administration Dates Next Due Seasonal [...] Sign Reading Time Taken Comments Blood Pressure 136/90 02/02/2023 11:23 AM EDT Pulse 75 02/02/2023 11:23 AM EDT Temperature 36.5 C (97.7 F) 02/02/2023 11:23 AM E DT Respiratory Rate 16 02/02/2023 11:23 AM EDT Oxygen Saturation 96% 02/02/2023 11:23 AM EDT Inhaled Oxygen Concentration - - Weight 91.6 kg (202 lb) 02/02/2023 11:23 AM EDT Height 154.9 cm (5' 1") 02/02/2023 11:23 AM EDT Body Mass Index 38.17 02/02/2023 11:23 AM EDT documented in this encounter Progress Notes * Gamaliel Quinn MD - 02/02/2023 11:39 AM EDT Outpatient Consult Note Data Source: Patient, Epic record. 02/02/2023 11:39 AM Kaelyn Gardiner [id number] 52 year old QUEENIE Isbell CRNP Patient Encounter: HEMATOLOGY[facility]COLOGY [facility] Reason for consult: Hypogammaglobulinemia HPI: 52-year-old female with a history of multiple medical problems including asthma, anxiety, depression, diverticulosis/diverticulitis, fibromyalgia, hyperlipidemia, lung nodules, neuropathy, obstructive sleep apnea on CPAP was referred with the about diagnosis. Patient is complaining of generalized we akness, episodes of the abdominal pain. Her history is also significant for frequent sinus infection since childhood. She was also diagnosed of diverticulosis/diverticulitis and was treated with antibiotics with improvement in the symptoms. She had a serum protein electrophoresis done on 12/17/2022 which showed hypogammaglobulinemia. The level was 0.7 (normal is 0.8-1.7). Immunoglobulin levels including IgA, IgG and IgM were all normal.Last CBC was done on 04/15/2022 which shows WBC count of 9.49, hemoglobin 14 and platelet count 290. Creatinine was 0.9 and the rest of the electrolytes and LFTs were within normal limit. She also has a history of abdominal were done on bleeding and has appointment with magnetic doctor Oncology. She may need hysterectomy. She is also following Neurology for neuropathy. She denies smoking. Drinks alcohol rarely. Family history significant for mother and father were diagnosed of skin cancer. Maternal grandfather was diagnosed of lung cancer and maternal great grandmother was diagnosed of breast cancer Past Medical History: Diagnosis Date Anxiety Arthritis Asthma Cognitive changes Depression Diverticulosis Fibromyalgia Hyperlipidemia with target LDL less than 100 04/23/2022 Insomnia Lung nodule Migraine Migraine with aura and without status migrainosus, not intractable 04/23/2022 Neuropathy LISA (obstructive sleep apnea) 04/23/2022 PTSD (post-traumatic stress disorder) Sleep apnea Social anxiety disorder Current Outpatient Medications Medication Sig Dispense Refill Rosuvastatin Calcium 10 MG Oral Tablet (Crestor) Take 1 Tablet by mouth in the morning. Magnesium Citrate Powder Use as directed. clonazePAM 1 MG Oral Tablet (KlonoPIN) Take 0.5 Tablets by mouth 2 times a day as needed for Anxiety or Insomnia. 30 Tablet 0 Pregabalin 75 MG Oral Capsule (Lyrica) TAKE 1 CAPSULE BY MOUTH EVERYDAY AT BEDTIME 30 Capsule 2 Vitamin C 250 MG Oral Tablet (Ascorbic Acid) Take 2 Tablets by mouth in the morning. Zinc 50 MG Oral Capsule Take 1 Capsule by mouth in the morning. B Complex-C Oral Capsule Take by mouth. Burt 3 1000 MG Oral Capsule Take by [...] for Shortness of Breath. 18 g 1 Ramelteon 8 MG Oral Tablet (Rozerem) Take 1 Tablet by mouth at bedtime. 30 Tablet 1 Temazepam 30 MG Oral Capsule (Restoril) Take 1 Capsule by mouth at bedtime as needed for Sleep.30 Capsule 1 Current Facility-Administered Medications Medication Dose Route Frequency Provider Last Rate Last Admin Albuterol Sulfate (Proventil) (2.5 MG/3ML) 0.083% inhalation solution 2.5 mg 2.5 mg Nebulizer Once PRN Theron Lainez, DO Social History Socioeconomic History Marital status: Spouse [...] Concern Not on file Social History Narrative 1 cat and 1 dog in her home. No mold. Social Determinants of Health Financial Resource Strain: [...] on file Housing Stability: Not on file Family History Problem Relation Age of Onset Hyperlipidemia Mother Glaucoma Mother Hypertension Father Hyperlipidemia Father Hypertension Sister Migraines Daughter Breast Cancer Great-grandmother (Maternal) REVIEW OF SYSTEMS: General: No Fever, chills, night sweats, or weight loss. HEENT: No change in visual acuity, blurred or double vision. No epistaxis, facial pain, or change in hearing. Denies dysphagia, no muscosal ulceration, or sores noted. Cardiovascular: No CONNOLLY, or palpitations Respiratory: No shortness of breath, cough, hemoptysis, or pleuritic chest pain Gastrointestinal: Episodes of abdominal pain, nausea, No vomiting, diarrhea, rectal pain or bleeding Genitourinary: Denies Hematuria or dysuria Musculoskeletal: Generalized weakness and fatigue Skin: No skin rash or lesions noted Neurologic: History of neuropathy and currently on Lyrica and following Neurology Endocrine: No symptoms of hypothyroidism or hyperglycemia Hematologic: No bleeding or lymph nodes noted As mentioned above, all other systems were reviewed in full and are unremarkable. Review of patient's allergies indicates: Allergen Reactions Gold-Containing Drug Products Penicillins Rash Remeron [Mirtazapine] Other (Please comment) SOB Sulfa Antibiotics Rash Topamax [Topiramate] Blurry vision PHYSICAL EXAMINATION: General Appearance: Healthy appearing patient in no acute distress BP 136/90 (BP Site: Left Arm, BP Position: Sitting, BP Cuff Size: Large) | Pulse 75 | Temp 36.5 C(97.7 F) (Tympanic) | Resp 16 | Ht 1.549 m (5' 1") | Wt 91.6 kg (202 lb) | SpO2 96% | BMI 38.17 kg/m | BSA 1.99 m Vitals were reviewed. HEENT: No oral or pharyngeal masses, ulceration or thrush noted, no sinus tenderness. Neck is supple with no thyromegaly or JVD noted. Lymph Nodes: No lymphadenopathy noted in the occipital, pre and post auricular, cervical, supra andinfraclavicular, axillary, epitrochlear, inguinal, and popliteal region. Lungs/Thorax: Clear to auscultation, no accessory muscles of respiration being used. Heart: Regular rate and rhythm, normal S1, S2. Abdomen: Soft, nontender, bowel sounds present, no appreciable hepatosplenomegaly, no palpable masses Extremeties: Good pulses bilaterally, no peripheral edema. Skin: Normal skin tone with no rash, petechiae, ecchymosis noted. Musculoskeletal: No pain on palpation over bony prominence, no edema, no evidence of gout, no jointor bony deformity ASSESSMENT: 52-year-old female with a history of multiple medical problems including asthma, anxiety, depression, diverticulosis/diverticulitis, fibromyalgia, hyperlipidemia, lung nodules, neuropathy, obstructive sleep apnea on CPAP was referred the evaluation of hypogammaglobulinemia. Gammaglobulin level was 0.7 g/dL. Most common causes for hypogammaglobulinemia include common variable immunodeficiency, GI losses including malabsorption and protein-losing enteropathy, nephritic syndrome, hematologic malignancy andmedication including immunosuppressive medication and prednisone. She will need further workup including CBC, CMP, light chain, beta 2 microglobulin, serum and urineimmunofixation. Further management will depend on the result of these blood test. Discussed with the patient in detail about diagnosis reviewed all the available blood test result with her. Discussedwith her about the differential diagnosis. After detailed discussion she agreed to proceed with requested blood test. PLAN: As above. She will return to clinic for follow-up in 6 months with CBC, CMP, serum protein electrophoresis and immunoglobulin levels. The patient voiced understanding of all of the above. All questions and concerns were addressed in an apparently satisfactory manner. Gamaliel Quinn MD (This note was completed using the dictation program Fluency Direct. As such, there may be misspellings, word substitutions, or other variations that should not change the essence of the clinical content of this encounter note. If there is need for further clarification, please direct questions to me.) documented in this encounter Nursing Notes * Cecilia Carter, [facility] - 02/02/2023 11:24 AM EDT Patient identifed by name and birthdate Do you have any concerns about pain management for today's visit? Yes. Patient instructed to discuss pain concerns with provider during the visit today Living Will or Advance Directive for Health Care as noted on the problem list. [employer] is a way you can talk to your provider on line through e-mail. Would you like to sign up? I can activate it for you? ALREADY ACTIVE Filed Vitals: 02/02/23 1123 BP: 136/90 Pulse: 75 Resp: 16 Temp: 36.5 C (97.7 F) TempSrc: Tympanic SpO2: 96% Weight: 91.6 kg (202 lb) Height: 1.549 m (5' 1") Patient was instructed to not get up [...] Encounters Date Type Specialty Care Team Description 02/03/2023 Office Visit Family Medicine Leonila Angel DO [address] [facility] [place] [address] 02/09/2023 Office Visit Gynecology Obstetrics Chris Walker MD [address] [place] [address] 02/15/2023 Office Visit Neurology Yumiko Traore PA-C [address] [place] [address] 02/15/2023 Telemedicine Psychiatry Lim, NERI Mobley [address] [facility] [place] [address] 02/23/2023 Office Visit Orthopedics Theron Pineda, [address] [place] [address] 03/10/2023 Office Visit Gastroenterology Vaughn Powell CRNP [address] [place] [address] 03/30/2023 PulmDiagnostic Pulmonary Function [place], Pft [address] [place] [address] 04/01/2023 Office Visit Pulmonary Theron Lainez, [address] [place], [place] [id number] 06/16/2023 Office Visit Rheumatology Marla Moon CRNP [address] [place] [address] 08/08/2023 Office Visit Hematology Oncology [facility] [address] 09/21/2023 Office Visit Neurology Nila, Elle L, DO [address] [place] [address] Scheduled Orders Name Type Priority Associated Diagnoses Orde r Schedule [id number], SERUM Lab Routine Hypogammaglobulinemia (HCC) Ordered: 02/02/2023 CBC WITH WBC DIFFERENTIAL Lab Routine Hypogammaglobulinemia (HCC) Ordered: 02/02/2023 COMPREHENSIVE METABOLIC PANEL Lab Routine Hypogammaglobulinemia (HCC) Ordered: 02/02/2023 SERUM IMMUNOFIXATION Lab Routine Hypogammaglobulinemia (HCC) Ordered: 02/02/2023 IMMUNOGLOBULIN QUANTITATIVE Lab Routine Hypogammaglobulinemia (HCC) Ordered: 02/02/2023 SERUM FREE LIGHT CHAINS Lab Routine Hypogammaglobulinemia (HCC) Ordered: 02/02/2023 SERUM PROTEIN ELECTROPHORESIS REFLEX PROFILE Lab Routine Hypogammaglobulinemia (HCC) Ordered: 02/02/2023 URINE IMMUNOFIXATION, BENCE [place] PROTEIN, RANDOM URINE Lab Routine Hypogammaglobulinemia (HCC) Ordered: 02/02/2023 KAPPA/LAMBDA LIGHT CHAINS, FREE WITH RATIO, RANDOM URINE Lab Routine Hypogammaglobulinemia (HCC) Ordered: 02/02/2023 CBC WITH WBC DIFFERENTIAL Lab Routine Hypogammaglobulinemia (HCC) Expected: 08/09/2023, Expires: 02/21/2024 COMPREHENSIVE METABOLIC PANEL Lab Routine Hypogammaglobulinemia (HCC) Expected: 08/09/2023, Expires: 02/21/2024 IMMUNOGLOBULIN QUANTITATIVE Lab Routine Hypogammaglobulinemia (HCC) Expected: 08/09/2023, Expires: 02/21/2024 SERUM PROTEIN ELECTROPHORESIS REFLEX PROFILE Lab Routine Hypogammaglobulinemia (HCC) Expected: 08/09/2023, Expires: 02/21/2024 Health Maintenance Due Date Last Done Comments [...] 04/23/2022, 0 11/13/1997, 04/18/1996, Additional history exists Cervical Cancer Screening 04/27/2025 [...] as of this encounter Visit Diagnoses Diagnosis Hypogammaglobulinemia (HCC)- Primary Hypogammaglobulinaemia, unspecified documented in this encounter Care Teams Dry Pan Feeder Relationship Specialty Start Date End Date Paco Orozco PA-C [address] [facility] [place] [address] PCP - General Physician Payroll Benefits Administrator 04/23/22 documented as of this encounter
--- OUTSIDE RECORDS SUMMARY | 2023-06-12 19:31 | External Medical Summary | Summary of Care ---
Author Name Unknown Organization [facility] Address [address] [facility] [place] [address] Phone [phone] Care Team Providers Care Escort Car Driver Name Role Phone Tomfrances Leonila Collins DO [...] Capsule Take by mouth. 0 Active [place] 3 1000 MG Oral Capsule Take by [...] rhinitis, unspecified seasonality, unspecified trigger Administer 1 [place] into nostril in the morning and 1 [place] before bedtime. Use in each nostril as [...] 02/22/2023 Office Visit Dermatology Melisa Chin PA-C [address] [place] [address] [place] [address] 02/23/2023 Office Visit Orthopedics Theron Pineda, DO [address] [place] [address] 02/23/2023 Telemedicine Psychiatry Lim, NERI Mobley [address] [place] [address] 03/04/2023 Office Visit Gynecology Obstetrics Chris Walker MD [address] [place] [address] 03/09/2023 Imaging Radiology 03/10/2023 Office Visit Gastroenterology Vaughn Powell CRNP [address] [place] [address] 03/24/2023 Hospital Encounter Surgery Chris Walker MD [address] [place] [address] 03/24/2023 Surgery Surgery Chris Walker MD [address] [place] [address] HYSTEROSCOPY WITH BIOPSY AND/OR POLYPECTOMY WITH OR WITHOUT D&C 03/30/2023 PulmDiagnostic Pulmonary Function [place], Pft [address] [place] [address] 04/01/2023 Office Visit Pulmonary [facility] Lainez, DO [address] [facility] [address] 04/11/2023 Office Visit Gynecology Obstetrics Chris Walker MD [address] [place] [address] 04/29/2023 Office Visit Neurology Alexis Dong DO [address] [place] [address] 06/16/2023 Office Visit Rheumatology Marla Moon CRNP [address] [place] [address] 08/08/2023 Office Visit Hematology Oncology Gamaliel Quinn MD [address] [place] [address] 08/17/2023 Office Visit Allergy & Immunology Danie Corona MD [address] [place] [address] 09/21/2023 Office Visit Neurology Elle Dotson, DO [address] [place] [facility] [place] [address] Scheduled Procedures Name Priority Associated Diagnoses Date/Ti [...] filedocumented as of this encounter Care Teams Escort Car Driver Relationship Specialty Start Date End Date Leonila Angel DO [address] [place] [address] PCP - General Family Medicine 02/03/23 documented as of this encounter
--- OUTSIDE RECORDS SUMMARY | 2023-06-12 19:31 | External Medical Summary | Summary of Care ---
Author Name Unknown Organization [facility] Address [address] [facility] [place] [address] Phone [phone] Care Team Providers Care Correctional Corporal Name Role Phone Leonila Angel DO Primary Care Provider Reason for Referral * Evaluate & Treat - Unlimited Visits (Within 10 days (routine)) - Pending Review Specialty Diagnoses / Procedures Referred By oJ Ann villegas Referred To Contact Neurology Diagnoses Neuromuscular disease (HCC) Yumiko Traore PA-C [address] [place] [address] Referral ID Status Reason Start Date Expiration Date Visits Requested Visits Authorized [id number] Pending Review Specialty Services Required 02/15/[phone] Question Answer Referral Priority Within 10 days (routine) [facility] NEUROLOGY REFERRAL QUESTIONS Neuromuscular Does the patient's condition allow them to wait to be seen by a specialist or should they be seen by first available provider? Or is this a follow up with established provider? Specialist Comments Dr Dong with next available. Reason for Visit * Reason Comments Return Neuro Encounter Details Date Type Department Care Team Description 02/15/2023 Office Visit Neurology [facility] [address] [place] [address] [address] Yumiko Traore PA-C [address] [address] Migraine with aura and without status migrainosus, not intractable*; Neuromuscular disease (HCC) Allergies Active Allergy Reactions Severity Noted Date Comments Gold-Containing Drug Products 04/23/2022 Penicillins Rash 04/23/2022 Mirtazapine Other (Please comment) 12/10/2022 SOB Sulfa Antibiotics Rash 04/23/2022 Topiramate 04/23/2022 Blurry vision documented as of this encounter (statuses as of 02/15/2023) Medications Medication Sig Dispensed Refills Start Date [...] Oral Capsule Take by mouth. 0 Active [place] 3 1000 MG Oral Capsule Take by [...] rhinitis, unspecified seasonality, unspecified trigger Administer 1 [place] into nostril in the morning and 1 [place] before bedtime. Use in each nostril as directed. 23 g 5 02/14/2023 Active Hospital, Clinic, or Other Facility Administered Medication Ordered Dose Route Frequency Start Date End Date Status Albuterol Sulfate (Proventil) (2.5 MG/3ML) 0.083% inhalation solution 2.5 mgIndications:CONNOLLY (dyspnea on exertion) 2.5 mg NEBULIZER ONCE PRN 01/07/2023 Act chaparro documented as of this encounter (statuses as of 02/15/2023) Active Problems Problem Noted Date Abdominal discomfort [...] as of this encounter (statuses as of 02/15/2023) Immunizations Name Administration Dates Next Due Seasonal [...] Sign Reading Time Taken Comments Blood Pressure 130/80 02/15/2023 1:27 PM EDT Pulse 87 02/15/2023 1:27 PM EDT Temperature 36.7 C (98.1 F) 02/15/2023 1:27 PM ED T Respiratory Rate - - Oxygen Saturation 97% 02/15/2023 1:27 PM EDT Inhaled Oxygen Concentration - - Weight 91.2 kg (201 lb) 02/15/2023 1:27 PM EDT Height - - Body Mass Index 37.98 02/14/2023 2:31 PM EDT documented in this encounter Progress Notes * Yumiko Traore PA-C - 02/15/2023 1:14 PM EDT HISTORY & PHYSICAL EXAMINATION - NEUROLOGY Name: Kaelyn Gardiner Date: 02/15/2023 Time: 1:14 PM Referring Provider: Paco Orozco PA-C Chief Complaint: Chief Complaint Patient presents with Return Neuro This is a 52 year old right handed woman returns today for follow up for migraine. HPI & Source of HPI The patient was the historian, and she is reliable. She moved to the [facility] from [place] in February 2022. She has multiple complains of headache, memory issues, possible seizure disorder fibromyalgia. She saw a Dr Dong in [place] but she does not have any of her record with her today. She had an EEG, EMG, muscle biopsy etc butthere is no records to review. She has a long history of migraine headache which she has been triedon all the conventional treatments and is now on amovig monthy and nurtec EOD. She has a hard time tell my how many migraines she gets per week because sometime she has a daily headache and sometime they are gone for several weeks. She states an MRI brain was ordered before she left [place] but shenever had the imaging. She is also having memory issues which she states started when she was very young forgetting she was at school and forgetting her sisters name. She had a work up in [facility] but she does not remember what she has been on for headaches but she is currently on Amovig and Nurtec which is helping but she feels any medication she has ever been on wears off after using it for 12 months. She is reporting her is withholding medications and she is afraid of him. She had an EEG 3 days in [place] but we have no records. This started when she was 4 years old in the playground not knowing where she was. She does not drive and her does not think she needs the medications she leah. She has a outpatient case manager and can call her if things get worse but she afraid to level because her kids would be without insurance. She is a non smoker, minimal EtOH use, minimal caffeine use. Denies, CP, SOB, abdominal pain, N, V. I have reviewed the patient's medications and allergies, past medical, surgical, social and family history, updating these as appropriate. See Histories section of the electronic medical record for adisplay of this information. Patient Active Problem List Diagnosis Code Migraine with aura and without status migrainosus, not intractable G43.109 Hyperlipidemia with target LDL less than 100 E78.5 Fibromyalgia M79.7 Other insomnia G47.09 PTSD (post-traumatic stress disorder) F43.10 LISA (obstructive sleep apnea) G47.33 Asthma J45.909 Severe episode of recurrent major depressive disorder, without psychotic features ([facility]) F33.2 Abdominal discomfort R10.9 Lung nodule R91.1 Polyarthralgia M25.50 Neuropathy G62.9 Small fiber neuropathy G62.9 Dehydration E86.0 Sprain of medial collateral ligament of left knee S83.412A Patellofemoral pain syndrome M22.2X9 Family History Problem Relation Age of Onset Hyperlipidemia Mother Glaucoma Mother Hypertension Father Hyperlipidemia Father Hypertension Sister Migraines Daughter Breast Cancer Great-grandmother (Maternal) Medications: Are you taking your medications? yes Current Outpatient Medications Medication Sig Dispense Refill [...] B Complex-C Oral Capsule Take by mouth. Farley 3 1000 MG Oral Capsule Take by [...] Azelastine-Fluticasone 137-50 MCG/ACT Nasal Suspension Administer 1 [place] into nostril in the morning and 1 [place] before bedtime. Use in each nostril as directed. 23 g 5 Current Facility-Administered Medications Medication Dose Route Frequency Provider Last Rate Last Admin Albuterol Sulfate (Proventil) (2.5 MG/3ML) 0.083% inhalation solution 2.5 mg 2.5 mg Nebulizer Once PRN Theron Lainez, Review of patient's allergies indicates: Allergen Reactions Gold-Containing Drug Products Penicillins Rash Remeron [Mirtazapine] Other (Please comment) SOB Sulfa Antibiotics Rash Topamax [Topiramate] Blurry vision Review of Systems: A total number of 10 systems were reviewed pertinent negative and positives not addressed in HPI are listed in the following review. Physical Exam: Constitutional: BP 130/80 (BP Site: Right Arm, BP Position: Sitting, BP Cuff Size: Regular) | Pulse87 | Temp 36.7 C (98.1 F) (Tympanic) | Wt 91.2 kg (201 lb) | SpO2 97% | BMI 37.98 kg/m | BSA 1.98 m , appearance over nourished and healthy Musculoskeletal: no peripheral edema Skin: normal and intact Eyes: extraocular muscles intact (EOMI) NEUROLOGIC EXAMINATION: Mental status: Alert and interactive Oriented to person Speech fluent with no evidence of aphasia Cranial Nerves Normal findings for Cranial Nerves II - XII Gait/Stance: Posture normal. Gait normal: with steady with steps, base, arm swing, and tandem gait. Motor: Negative for pronator drift of out stretched arms with eyes closed. Strength: Normal - 5/5 all extremities LABORATORY: Recent labs reviewed Review of prior Studies: No recent imaging available. Impression: Kaelyn Gardiner is a 52 year old woman with a history of migraine headaches. Her neurologic examination today reveals no new focal defciit. The history and examination are suggestive of diagnosis/problem list. Testing and Referrals ordered: none ICD-10-CM 1. Migraine with aura and without status migrainosus, not intractable G43.109 2. Neuromuscular disease (HCC) G70.9 1. Return in 6 months or sooner if needed 2. Nurtec EOD in combination with propanolol is helping with the headaches 3. Neuro psych testing ordered during last visit but she didn't call them to schedule 4. Need to call her outpatient case manager for intervention with family issues 5. Continue nurtec 75 mg EOD - keep calender to remind her 6. Referral to neuro muscular- should have an EMG which she states she had in [place] will forward that information-patient requesting referral 7. Keep well hydrated 8. PCP for medical management 9. Call with questions concerns Medical Decision Making (determined by lowest of 2 of 3 elements): The medical decision making element of the number and complexity of problems addressed included at least 1 or more chronic illnesses with exacerbation, progression, or side effects of treatment (level 4). The medical decision making element of risk of complications, morbidity, and mortality of patient management is moderate (level 4) due to prescription drug management (moderate risk). The medical decision making element of the amount and complexity of data reviewed and analyzed included an independent interpretation of a test (level 4 at least). When 2 of 3 reach level 4, then this element is considered extensive (level 5). I personally spent a total of 30 minutes. This time was for a new office or established visit and was on the same calendar day. Education / Consultation - Topics covered as I spent 20 minutes, which is greater than 50% of this visit, counseling the patient on: Diagnostic Results Prognosis Importance of compliance with chosen treatment options Risk factor reductions Patient and family education Consulted with physician: Alexis Dong DO was available for direct supervision. Copy of note sent to PCP and Referring Provider. Total time of visit: 30 minutes. Yumiko Traore PA-C Neurology [facility] [address] [facility] [place] [address] 02/15/2023 1:14 PM documented in this encounter Plan of Treatment Upcoming Encounters Date Type Specialty Care Team Description 02/22/2023 Office Visit Dermatology Melisa Chin PA-C [address] [place] [address] [place] [address] 02/23/2023 Office Visit Orthopedics Theron Pineda DO [address] [place] [address] 02/23/2023 Telemedicine Psychiatry Lim, NERI Mobley [address] [facility] [place] [address] 03/09/2023 Imaging Radiology 03/10/2023 Office Visit Gastroenterology Vaughn Powell CRNP [address] [place] [address] 03/30/2023 PulmDiagnostic Pulmonary Function [place], Pft [address] [facility] [place] [address] 04/01/2023 Office Visit Pulmonary Theron Lainez DO [address] [place] [address] 04/29/2023 Office Visit Neurology Alexis Dong DO [address] [place] [address] 06/16/2023 Office Visit Rheumatology Marla Moon CRNP [address] [place] [address] 08/08/2023 Office Visit Hematology Oncology Gamaliel Quinn MD [address] [place] [address] 08/17/2023 Office Visit Allergy & Immunology Danie Corona MD [address] [place] [address] 09/21/2023 Office Visit Neurology Elle Dotson DO [address] [facility] [place] [address] Scheduled Procedures Name Priority Associated Diagnoses Date/Ti me PELVIC EXAMINATION UNDER ANESTHESIA Postmenopausal bleeding Uterine leiomyoma, unspecified location Pelvic pain in female HYSTEROSCOPY WITH BIOPSY AND /OR POLYPECTOMY WITH OR WITHOUT D&C Postmenopausal bleeding Uterine leiomyoma, unspecified location Pelvic pain in female Scheduled Referrals Name Type Priority Associated Diagnoses Orde r Schedule NEUROLOGY REFERRAL OP Referral Within 10 days (routine) Neuromuscular disease (HCC) Ordered: 02/15/2023 Health Maintenance Due Date Last Done Comments [...] as of this encounter Visit Diagnoses Diagnosis Migraine with aura and without status migrainosus, not intractable- Primary Migraine with aura, without mention of intractable migraine without mention of status migrainosus Neuromuscular disease (HCC) Myoneural disorders, unspecified documented in this encounter Care Teams Correctional Corporal Relationship Specialty Start Date End Date Leonila Angel DO [address] [place] [address] PCP - General Family Medicine 02/03/23 documented as of this encounter"
--- OUTSIDE RECORDS SUMMARY | 2023-06-12 19:31 | External Medical Summary | Summary of Care ---
Author Name Unknown Organization [facility] Address [address] [place] [facility] [place] [address] Phone [phone] Care Team Providers Care Underground Miner Name Role Phone Hanny Angel DO Primary Care Provider Reason for Visit * Reason Comments eRx-Medication Refill Encounter Details Date Type Department Care Team Description 02/08/20[address]ill General Internal Medicine [facility] [address] [facility] [place] [id number] Paco Orozco PA-C [address] [facility] [place] [address] Allergies Active Allergy Reactions Severity Noted Date [...] Oral Capsule Take by mouth. 0 Active [place] 3 1000 MG Oral Capsule Take by mouth. 0 Active Co Q 10 100 MG Oral Capsule Take by mouth. 0 Active D-Ribose Powder Use as directed. 0 Active Nurtec 75 MG Oral Tablet Disintegrating [...] AT BEDTIME 30 Capsule 2 02/09/2023 Active Pregabalin 75 MG Oral Capsule (Lyrica) TAKE 1 CAPSULE BY MOUTH EVERYDAY AT BEDTIME 30 Capsule 2 11/08/2022 02/10/20 23 Discontinued Hospital, Clinic, or Other Facility Administered Medication [...] encounter Miscellaneous Notes * Telephone Encounter - DO Marycruz Yan 02/09/2023 10:45 AM EDT Signed Prescriptions: Disp Refills Pregabalin 75 MG Oral Capsule (Lyrica) 30 Cap*2 Sig: TAKE 1 CAPSULE BY MOUTH EVERYDAY AT BEDTIMEAuthorizing Provider: HANNY ANGEL * Telephone Encounter - Pari De Los Santos [facility] - 02/09/2023 10:27 AM EDTPending Prescriptions: Disp Refills Pregabalin 75 MG Oral Capsule [Pharmacy Me*30 Cap*2 Sig: TAKE 1 CAPSULE BY MOUTH EVERYDAY AT BEDTIME * Telephone Encounter - Pari De Los Santos [facility] - 02/09/2023 10:27 AM EDT I have reviewed the patients controlled substance dispensing history in the Prescription Drug Monitoring Program in compliance with the [facility] regulations before prescribing a controlled substance. PDMP checked on 02/09/2023. Pending Prescriptions: Disp Refills Pregabalin 75 MG Oral Capsule (Lyrica) [P*30 Cap*2 Sig: TAKE 1 CAPSULE BY MOUTH EVERYDAY AT BEDTIME Last Visit: 07/28/2022 (in office), Visit date not found (telemedicine) Next Visit: Visit date not found Date medication was last filled: 01/04/23 Date medication is due for refill: 02/02/23 Pharmacy: [id number] [address] [facility] Is this request for a controlled substance? Yes and Urine Drug Screen Not completed Toxicology results: No results found for this or any previous visit. Please approve if appropriate. Thanks, Pari De Los Santos Clinical Pharmacist [facility] ([facility]) (Formerly Telepharmacy) [phone] 02/09/2023, 10:27 AM documented in this encounter Plan of Treatment Upcoming Encounters Date Type Specialty Care Team Description 02/09/2023 Office Visit Gynecology Obstetrics Chris Walker MD [address] [place] [address] 02/15/2023 Office Visit Neurology Yumiko Traore PA-C [address] [place] [address] 02/23/2023 Office Visit Orthopedics Theron Pineda, DO [address] [place] [address] 02/23/2023 Telemedicine Psychiatry Lim, NERI [place] [address] [facility] [address] [place] [address] 03/09/2023 Imaging Radiology 03/10/2023 Office Visit Gastroenterology Vaughn Powell CRNP [address] [place] [address] 03/30/2023 PulmDiagnostic Pulmonary Function West, Pft [address] [place] [address] 04/01/2023 Office Visit Pulmonary Theron Lainez, DO [address] [place] [address] 06/16/2023 Office Visit Rheumatology Marla Moon CRNP [address] [place], [place] [id number] 08/08/2023 Office Visit Hematology Oncology Gamaliel Quinn MD [address] [facility] [place] [address] 08/10/2023 Office Visit Allergy & Immunology Ruddy Slade MD [address] [facility] [address] [place] [address] 08/15/2023 Office Visit Dermatology Colton Proctor MD [address] [place] [address] 09/21/2023 Office Visit Neurology Hallie Dotsonlam Haney, DO [address] [facility] [place] [address] Health Maintenance Due Date Last Done Comments [...] filedocumented as of this encounter Care Teams Underground Miner Relationship Specialty Start Date End Date Hanny Angel, [address] [place] [address] PCP - General Family Medicine 02/03/23 documented as of this encounter
--- OUTSIDE RECORDS SUMMARY | 2023-06-12 19:31 | External Medical Summary | Summary of Care ---
Author Name Unknown Organization [facility] Address [address] [facility] [address] Phone [phone] Care Team Providers Care Routing Machine Operator Name Role Phone Tomfrances Leonila Collins [...] Oral Capsule Take by mouth. 0 Active [place] 3 1000 MG Oral Capsule Take by [...] rhinitis, unspecified seasonality, unspecified trigger Administer 1 [place] into nostril in the morning and 1 [place] before bedtime. Use in each nostril as [...] 02/22/2023 Office Visit Dermatology Melisa Chin PA-C [address] [place] [address] [place] [address] 02/23/2023 Office Visit Orthopedics Theron Pineda, DO [address] [place] [address] 02/23/2023 Telemedicine Psychiatry Lim, NERI [place] [address] [place] [address] 03/04/2023 Office Visit Gynecology Obstetrics Chris Walker MD [address] [place] [address] 03/09/2023 Imaging Radiology 03/10/2023 Office Visit Gastroenterology Vaughn Powell CRNP [address] [place] [address] 03/24/2023 Hospital Encounter Surgery Chris Walker MD [address] [place] [address] 03/24/2023 Surgery Surgery Chris Walker MD [address] [place] [address] HYSTEROSCOPY WITH BIOPSY AND/OR POLYPECTOMY WITH OR WITHOUT D&C 03/30/2023 PulmDiagnostic Pulmonary Function West, Pft [address] [place] [address] 04/01/2023 Office Visit Pulmonary Theron Lainez, DO [address] [facility] [address] 04/11/2023 Office Visit Gynecology Obstetrics Chris Walker MD [address] [place] [address] 04/29/2023 Office Visit Neurology Alexis Dong DO [address] [place] [address] 06/16/2023 Office Visit Rheumatology Marla Moon CRNP [address] [place] [address] 08/08/2023 Office Visit Hematology Oncology Gamaliel Quinn MD [address] [place] [address] 08/17/2023 Office Visit Allergy & Immunology Danie Corona MD [address] [place] [address] 09/21/2023 Office Visit Neurology Elle Dotson, DO [address] [facility] [place] [address] Scheduled Procedures Name Priority Associated Diagnoses Date/Ti [...] filedocumented as of this encounter Care Teams Routing Machine Operator Relationship Specialty Start Date End Date Leonila Angel DO [address] [place] [address] PCP - General Family Medicine 02/03/23 documented as of this encounter
--- OUTSIDE RECORDS SUMMARY | 2023-06-12 19:31 | External Medical Summary | Summary of Care ---
Author Name Unknown Organization [facility] Address [address] [place] [address] Phone [phone] Care Team Providers Care Silver Solderer Name Role Phone Leonila Angel DO Primary Care Provider Reason for Referral * Evaluate & Treat - Unlimited Visits (Within 30 days (routine)) - Pending Review Specialty Diagnoses / Procedures Referred By Jo Ann villegas Referred To Contact Dermatology Diagnoses Family history of melanoma Leonila Angel DO [address] [place] [address] Referral ID Status Reason Start Date Expiration Date Visits Requested Visits Authorized [id number] Pending Review Specialty Services Required 02/03/[phone] Question Answer Referral Priority Within 30 days (routine) Are you referring the patient for Mohs Surgery and have a current positive skin cancer biopsy result? No What is the reason for the patient referral? Rash/Skin Check/Eval of Lesion or Mole Comments FH melanoma * Evaluate & Treat - Unlimited Visits (Within 30 days (routine)) - Pending Review Specialty Diagnoses / Procedures Referred By Contsushila t Referred To Contact Allergy & Immunology Diagnoses Allergy, initial encounter Leonila Angel DO [address] [place] [address] Referral ID Status Reason Start Date Expiration Date Visits Requested Visits Authorized [id number] Pending Review Specialty Services Required 02/03/[phone] Question Answer Referral Priority Within 30 days (routine) For what condition is the patient being referred? Allergic Rhinitis/Allergic Conjunctivitis/Chronic Sinusitis/Nasal Polyps Encounter Details Date Type Department Care Team Description 02/03/2023 Office Visit Family Practice [facility] [place] [address] [facility] [place] [address] Leonila Angel, [address] [facility] [place] [address] Abdominal pain, generalized*; Allergy, initial encounter; Family history of melanoma Allergies Active Allergy Reactions Severity Noted Date [...] for Anxiety or Insomnia. 30 Tablet 0 3 Active Vitamin C 500 MG Oral Capsule Take 1,000 mg by mouth in the morning. 0 Active Zinc 50 MG Oral Capsule Take 1 Capsule by mouth in the morning. 0 Active B Complex-C Oral Capsule Take by mouth. 0 Active [place] 3 1000 MG Oral Capsule Take by mouth. 0 Active Co Q 10 100 MG Oral Capsule Take by mouth. 0 Active D-Ribose Powder Use as directed. 0 Active Nurtec 75 MG Oral Tablet Disintegrating DISSOLVE 1 TABLET (75 MG TOTAL) ON TONGUE EVERY OTHER DAY 15 Tablet 3 3 Active Propranolol HCl 10 MG Oral Tablet (Inderal) 1 tab at bedtime x 5 days then 1 tab twice daily for 5 days then 1 tab three times daily 90 Tablet 2 3 Active Fluticasone Furoate-Vilanterol 100-25 MCG/ACT Inhalation Aerosol Powder Breath Activated (BREO ellipta) Inhale 1 Puff by mouth in the morning. 60 Each 11 3 Active Ventolin HFA 108 (90 Base) MCG/ACT Inhalation Aerosol Solution Inhale 2 Puffs by mouth every 4 hours as needed for Shortness of Breath. 18 g 1 3 Active Additional Information Patient not taking.Reported on 02/14/2023 Ramelteon 8 MG Oral Tablet (Rozerem)Indication s:Insomnia, unspecified type Take 1 Tablet by mouth at bedtime. 30 Tablet 1 3 Active Temazepam 30 MG Oral Capsule (Restoril)Indicatio ns:Insomnia, unspecified type Take 1 Capsule by mouth at bedtime as needed for Sleep. 30 Capsule 1 3 Active Rosuvastatin Calcium 10 MG Oral Tablet (Crestor) Take 1 Tablet by mouth in the morning. 0 2 02/15/20 23 Discontinued Pregabalin 75 MG Oral Capsule (Lyrica) TAKE 1 CAPSULE BY MOUTH EVERYDAY AT BEDTIME 30 Capsule 2 3 02/10/20 23 Discontinued Hospital, Clinic, or Other [...] Taken Comments Blood Pressure - - Pulse 72 02/03/2023 8:45 AM EDT Temperature 35.6 C (96.1 F) 02/03/2023 8:45 AM ED T Respiratory Rate 16 02/03/2023 8:45 AM EDT Oxygen Saturation - - Inhaled Oxygen Concentration - - Weight 92.1 kg (203 lb) 02/03/2023 8:45 AM EDT Height - - Body Mass Index 38.36 02/02/2023 11:23 AM EDT documented in this encounter Patient Instructions * Patient Instructions* Leonila Angel DO - 02/03/2023 9:41 AM EDT Hydrocortisone cream over the counter Adapalene (differin gel) to lumps Print lab orders documented in this encounter Progress Notes * Leonila Angel DO - 02/03/2023 9:11 AM EDT Subjective: Kaelyn Gardiner is a 52 year old female. No chief complaint on file. HPI: 52 yo postmenopausal female presents with , recently moved to [place] from [place], having trouble getting medical records. Skin is peeling on face on eyebrow, and in ear- [facility] derm, recc: cortisone cream Sores are not healing. Picks at white bumps- acne vs keratosis pilaris, versus dermatofibroma- try adapalene OTC, FH melanoma, requests derm referral. Saw rheum- recommended w/u porphyria and carcinoid due to diarrhea, abd cramping, dehydration with low fat dairy, water. Colonoscopy done recently showed multiple diverticula- had diverticulitis onceas well. Scheduled to see GI next month Fibromyalgia Allergies- used to take allergy shots, stopped about 8 years ago, allergy symptoms really bad now despite steve BID. Triggering asthma as well. Started breo, saw pulm. Depression, seeing psychiatry, MR joon. Migraines- started propranolol, helping, uses Neurtec prn Had some PMB, pelvic pain, has appt with [facility] to discuss definitive treatment soon. Saw hematology for hypogammmaglobulinemia. Labs pending PHM: Patient Active Problem List Diagnosis Code Migraine with aura and without status migrainosus, not intractable G43.109 Hyperlipidemia with target LDL less than 100 E78.5 Fibromyalgia M79.7 Other insomnia G47.09 PTSD (post-traumatic stress disorder) F43.10 LISA (obstructive sleep apnea) G47.33 Asthma J45.909 Severe episode of recurrent major depressive disorder, without psychotic features ([facility]) F33.2 Abdominal discomfort R10.9 Lung nodule R91.1 Polyarthralgia M25.50 Neuropathy G62.9 Small fiber neuropathy G62.9 Dehydration E86.0 Sprain of medial collateral ligament of left knee S83.412A Patellofemoral pain syndrome M22.2X9 Outpatient Medications Prior to Visit Medication Sig Dispense Refill Ramelteon 8 MG Oral Tablet (Rozerem) Take 1 Tablet by mouth at bedtime. 30 Tablet 1 Temazepam 30 MG Oral Capsule (Restoril) Take 1 Capsule by mouth at bedtime as needed for Sleep.30 Capsule 1 Fluticasone Furoate-Vilanterol 100-25 MCG/ACT Inhalation Aerosol Powder Breath Activated (BREO ellipta) Inhale 1 Puff by mouth in the morning. 60 Each 11 Ventolin HFA 108 (90 Base) MCG/ACT Inhalation Aerosol Solution Inhale 2 Puffs by mouth every 4 hours as needed for Shortness of Breath. 18 g 1 Propranolol HCl 10 MG Oral Tablet (Inderal) 1 tab at bedtime x 5 days then 1 tab twice daily for 5 days then 1 tab three times daily 90 Tablet 2 Nurtec 75 MG Oral Tablet Disintegrating DISSOLVE 1 TABLET (75 MG TOTAL) ON TONGUE EVERY OTHER DAY 15 Tablet 3 B Complex-C Oral Capsule Take by mouth. Co Q 10 100 MG Oral Capsule Take by mouth. D-Ribose Powder Use as directed. [place] 3 1000 MG Oral Capsule Take by mouth. Vitamin C 250 MG Oral Tablet (Ascorbic Acid) Take 2 Tablets by mouth in the morning. Zinc 50 MG Oral Capsule Take 1 Capsule by mouth in the morning. Pregabalin 75 MG Oral Capsule (Lyrica) TAKE 1 CAPSULE BY MOUTH EVERYDAY AT BEDTIME 30 Capsule 2 clonazePAM 1 MG Oral Tablet (KlonoPIN) Take 0.5 Tablets by mouth 2 times a day as needed for Anxiety or Insomnia. 30 Tablet 0 Magnesium Citrate Powder Use as directed. Rosuvastatin Calcium 10 MG Oral Tablet (Crestor) Take 1 Tablet by mouth in the morning. Facility-Administered Medications Prior to Visit Medication Dose Route Frequency Provider Last Rate Last Admin Albuterol Sulfate (Proventil) (2.5 MG/3ML) 0.083% inhalation solution 2.5 mg 2.5 mg Nebulizer Once PRN Theron Lainez DO Last reviewed on 02/03/2023 8:44 AM by Abby Villagomez RN Review of patient's allergies indicates: Allergen Reactions Gold-Containing Drug Products Penicillins Rash Remeron [Mirtazapine] Other (Please comment) SOB Sulfa Antibiotics Rash Topamax [Topiramate] Blurry vision Objective: Pulse 72 | Temp 35.6 C (96.1 F) | Resp 16 | Wt 92.1 kg (203 lb) | BMI 38.36 kg/m | BSA 1.99 m Physical Exam: General: alert, no distress and obese Head: Normocephalic, No masses, lesions, tenderness or abnormalities Neck: supple, no adenopathy, no bruits, thyroid normal size, non-tender, without nodularity Heart: regular rate & rhythm, no murmur and no gallops Lungs: chest symmetric with normal AP diameter, no chest deformities noted, no chest wall tenderness, lungs clear to auscultation Pulses: carotid=2/4 w/o bruits Extremities: less than 2 second capillary refill, no joint deformities, effusion, or inflammation Skin: skin color, texture, turgor are normal, no rashes or significant lesions, positive for: +folliculitis/ acne/KP chin arms, back No [facility] derm seen today ASSESSMENT/PLAN: Abdominal pain, generalized (Primary) - PORPHYRINS, FRACTIONATED, QUANTITATIVE, RANDOM UR; Future; Expected date: 02/04/2023 - PORPHOBILINOGEN, QUANTITATIVE, RANDOM URINE; Future; Expected date: 02/04/2023 - ERYTHROCYTE PORPHYRIN (EP), WHOLE BLOOD; Future; Expected date: 02/04/2023 - 5 HIAA, RANDOM URINE; Future; Expected date: 02/03/2023 Allergy, initial encounter - ALLERGY REFERRAL OP Family history of melanoma - DERMATOLOGY REFERRAL OP Check-out note: Hydrocortisone cream over the counter Adapalene (differin gel) to lumps Print lab orders Leonila Angel DO documented in this encounter Nursing Notes * Abby Villagomez RN - 02/03/2023 8:40 AM EDT Skin is peeling on face. Sores are not healing. documented in this encounter Plan of Treatment Upcoming Encounters Date Type Specialty Care Team Description 02/22/2023 Office Visit Dermatology Melisa Chin PA-C [address] [place] [address] [place] [address] 02/23/2023 Office Visit Orthopedics Theron Pineda DO [address] [place] [address] 02/23/2023 Telemedicine Psychiatry Lim, NERI [place] [address] [facility] [place] [address] 03/09/2023 Imaging Radiology 03/10/2023 Office Visit Gastroenterology Vaughn Powell, NERI [address] [place] [address] 03/30/2023 PulmDiagnostic Pulmonary Function [facility], Pft [address] [place] [address] 04/01/2023 Office Visit Pulmonary Theron Lainez, DO [address] [place] [address] 06/16/2023 Office Visit Rheumatology Marla Moon CRNP [address] [place] [address] 08/08/2023 Office Visit Hematology Oncology Gamaliel Quinn MD [address] [place] [address] 08/17/2023 Office Visit Allergy & Immunology Danie Corona MD [address] [place] [address] 09/21/2023 Office Visit Neurology Nila, Elle L, DO [address] [place] [address] Scheduled Orders Name Type Priority Associated Diagnoses Orde r Schedule PORPHYRINS, FRACTIONATED, QUANTITATIVE, RANDOM UR Lab Routine Abdominal pain, generalized Expected: 02/04/2023, Expires: 02/04/2024 PORPHOBILINOGEN, QUANTITATIVE, RANDOM URINE Lab Routine Abdominal pain, generalized Expected: 02/04/2023, Expires: 02/04/2024 ERYTHROCYTE PORPHYRIN (EP), WHOLE BLOOD Lab Routine Abdominal pain, generalized Expected: 02/04/2023, Expires: 02/04/2024 5 HIAA, RANDOM URINE Lab Routine Abdominal pain, generalized Expected: 02/03/2023 (Approximate), Expires: 02/03/2024 Scheduled Procedures Name Priority Associated Diagnoses Date/Ti me PELVIC EXAMINATION UNDER ANESTHESIA Postmenopausal bleeding Uterine leiomyoma, unspecified location Pelvic pain in female HYSTEROSCOPY WITH BIOPSY AND /OR POLYPECTOMY WITH OR WITHOUT D&C Postmenopausal bleeding Uterine leiomyoma, unspecified location Pelvic pain in female Scheduled Referrals Name Type Priority Associated Diagnoses Orde r Schedule ALLERGY REFERRAL OP Referral Within 30 da ys (routine) Allergy, initial encounter Ordered: 02/03/2023 DERMATOLOGY REFERRAL OP Referral Within 30 days (routine) Family history of melanoma Ordered: 02/03/2023 Health Maintenance Due Date Last Done Comments [...] as of this encounter Visit Diagnoses Diagnosis Abdominal pain, generalized- Primary Allergy, initial encounter Family history of melanoma Family history of other specified malignant neoplasm documented in this encounter Care Teams Silver Solderer Relationship Specialty Start Date End Date Leonila Angel DO [address] [place] [address] PCP - General Family Medicine 02/03/23 documented as of this encounter"
--- OUTSIDE RECORDS SUMMARY | 2023-06-12 19:31 | External Medical Summary | Summary of Care ---
Author Name Unknown Organization [facility] Address [address] [facility] [place] [address] Phone [phone] Care Team Providers Care Soccer Referee Name Role Phone Leonila Angel DO Primary Care Provider Reason for Visit * Reason Onset Date Comments Surgery 02/15/2023 Encounter Details Date Type Department Care Team Description 02/15/2023 [facility] [address] [place] [address] Chris Walker MD [address] [place] [address] Surgery Allergies Active Allergy Reactions Severity Noted Date Comments Gold-Containing Drug Products 04/23/2022 Penicillins Rash 04/23/2022 Mirtazapine Other (Please comment) 12/10/2022 SOB Sulfa Antibiotics Rash 04/23/2022 Topiramate 04/23/2022 Blurry vision documented as of this encounter (statuses as of 02/16/2023) Medications Medication Sig Dispensed Refills Start Date [...] Oral Capsule Take by mouth. 0 Active [place] 3 1000 MG Oral Capsule Take [...] rhinitis, unspecified seasonality, unspecified trigger Administer 1 [place] into nostril in the morning and 1 [place] before bedtime. Use in each nostril as directed. 23 g 5 02/14/2023 Active Hospital, Clinic, or Other Facility Administered Medication Ordered Dose Route Frequency Start Date End Date Status Albuterol Sulfate (Proventil) (2.5 MG/3ML) 0.083% inhalation solution 2.5 mgIndications:CONNOLLY (dyspnea on exertion) 2.5 mg NEBULIZER ONCE PRN 01/07/2023 Act chaparro documented as of this encounter (statuses as of 02/16/2023) Active Problems Problem Noted Date Abdominal discomfort [...] as of this encounter (statuses as of 02/16/2023) Immunizations Name Administration Dates Next Due Seasonal [...] Miscellaneous Notes * Telephone Encounter - LISA Lopez - 02/16/2023 11:56 AM EDT Scheduled. * Telephone Encounter - LISA Lopez - 02/15/2023 1:12 PM EDT Called pt to schedule surgery. Pt was driving unable to talk. She advised I call her back tomorrow. documented in this encounter Plan of Treatment Upcoming Encounters Date Type Specialty Care Team Description 02/22/2023 Office Visit Dermatology Melisa Chin PA-Kirill [address] [place] [address] [place] [address] 02/23/2023 Office Visit Orthopedics Theron Pineda DO [address] [place] [address] 02/23/2023 Telemedicine Psychiatry Lim, NERI Mobley [address] [place] [facility] [place] [address] 03/04/2023 Office Visit Gynecology Obstetrics Chris Walker MD [address] [place] [address] 03/09/2023 Imaging Radiology 03/10/2023 Office Visit Gastroenterology Vaughn Powell CRNP [address] [place] [address] 03/24/2023 Hospital Encounter Surgery Chris Walker MD [address] [place] [address] 03/24/2023 Surgery Surgery Chris Walker MD [address] [place] [address] HYSTEROSCOPY WITH BIOPSY AND/OR POLYPECTOMY WITH OR WITHOUT D&C 03/30/2023 PulmDiagnostic Pulmonary Function [facility], Pft [address] [place] [address] 04/01/2023 Office Visit Pulmonary Theron Lainez, DO [address] [place] [address] 04/11/2023 Office Visit Gynecology Obstetrics Chris Walker MD [address] [place] [address] 04/29/2023 Office Visit Neurology Alexis Dong DO [address] [place] [address] 06/16/2023 Office Visit Rheumatology Marla Moon CRNP [address] [place] [address] 08/08/2023 Office Visit Hematology Oncology Gamaliel Quinn MD [address] [place] [address] 08/17/2023 Office Visit Allergy & Immunology Danie Corona MD [address] [place] [address] 09/21/2023 Office Visit Neurology Elle Dotson, DO [address] [facility] [place] [address] Scheduled Procedures Name Priority Associated Diagnoses Date/Ti [...] filedocumented as of this encounter Care Teams Soccer Referee Relationship Specialty Start Date End Date Leonila Angel DO [address] [place] [address] PCP - General Family Medicine 02/03/23 documented as of this encounter
--- OUTSIDE RECORDS SUMMARY | 2023-06-12 19:31 | External Medical Summary | Summary of Care ---
Author Name Unknown Organization [facility] Address [address] [facility] [place] [address] Phone [phone] Care Team Providers Care Side Hemmer Name Role Phone Tomfrances Leonila Collins DO [...] Oral Capsule Take by mouth. 0 Active [place] 3 1000 MG Oral Capsule Take by [...] rhinitis, unspecified seasonality, unspecified trigger Administer 1 [place] into nostril in the morning and 1 [place] before bedtime. Use in each nostril as [...] 02/22/2023 Office Visit Dermatology Melisa Chin PA-C [address] [place] [address] [place] [address] 02/23/2023 Office Visit Orthopedics Theron Pineda, DO [address] [place] [address] 02/23/2023 Telemedicine Psychiatry Lim, NERI Mobley [address] [facility] [place] [address] 03/04/2023 Office Visit Gynecology Obstetrics Chris Walker MD [address] [place] [address] 03/09/2023 Imaging Radiology 03/10/2023 Office Visit Gastroenterology Vaughn Powell CRNP [address] [place] [address] 03/24/2023 Hospital Encounter Surgery Chris Walker MD [address] [place] [address] 03/24/2023 Surgery Surgery Chris Walker MD [address] [place] [address] HYSTEROSCOPY WITH BIOPSY AND/OR POLYPECTOMY WITH OR WITHOUT D&C 03/30/2023 PulmDiagnostic Pulmonary Function [facility], [facility]ft [address] [place] [address] 04/01/2023 Office Visit Pulmonary Theron Lainez, DO [address] [facility] [address] 04/11/2023 Office Visit Gynecology Obstetrics Chris Walker MD [address] [place] [address] 04/29/2023 Office Visit Neurology Alexis Dong DO [address] [place] [address] 06/16/2023 Office Visit Rheumatology Marla Moon CRNP [address] [place] [address] 08/08/2023 Office Visit Hematology Oncology Gamaliel Quinn MD [address] [place] [address] 08/17/2023 Office Visit Allergy & Immunology Danie Corona MD [address] [place] [address] 09/21/2023 Office Visit Neurology Elle Dotson, DO [address] [place] [facility] [address] Scheduled Procedures Name Priority Associated Diagnoses Date/Ti [...] filedocumented as of this encounter Care Teams Side Hemmer Relationship Specialty Start Date End Date Leonila Angel DO [address] [place] [address] PCP - General Family Medicine 02/03/23 documented as of this encounter
--- OUTSIDE RECORDS SUMMARY | 2023-06-12 19:32 | External Medical Summary | Summary of Care ---
Author Name Unknown Organization [facility] Address [address] [place] [address] Phone [phone] Care Team Providers Care Tearer Press Clipping Name Role Phone Paco Orozco PA-C Primary Care Provider [phone] Reason for Visit * Reason Comments NEW PATIENT * Evaluate & Treat - Unlimited Visits (Within 10 days (routine)) - Pending Review Specialty Diagnoses / Procedures Referred By Jo Ann villegas Referred To Contact Pulmonary Diseases / Pulmonary Diagnoses Lung nodule Leonila Angel, DO [address] [place] [address] Referral ID Status Reason Start Date Expiration Date Visits Requested Visits Authorized [id number] Pending Review Specialty Services Required 12/13/[phone] Encounter Details Date Type Department Care Team Description 01/07/2023 Office Visit Pulmonary Medicine, [facility] [address] [place] [address] Theron Lainez, DO [address] [place] [address] CONNOLLY (dyspnea on exertion)*; Asthma with severity to be determined; Multiple pulmonary nodules Allergies Active Allergy Reactions Severity Noted Date Comments Gold-Containing Drug Products 04/23/2022 Penicillins Rash 04/23/2022 Mirtazapine Other (Please comment) 12/10/2022 SOB Sulfa Antibiotics Rash 04/23/2022 Topiramate 04/23/2022 Blurry vision documented as of this encounter (statuses as of 01/07/2023) Medications Medication Sig Dispensed Refills Start Date End Date Status Rosuvastatin Calcium 10 MG Oral Tablet (Crestor) Take 1 Tablet by mouth in the morning. 0 2 Active Magnesium Citrate Powder Use as directed. 0 Active Aimovig 140 MG/ML Subcutaneous Solution Auto-injector INJECT 1 ML BY SUBCUTANEOUS ROUTE ONCE A MONTH IN THE ABDOMEN, THIGH, OR OUTER AREA OF UPPER ARM Strength: 140 mg/mL 140 mL 3 2 Active Additional Information Patient not taking.Reported on 12/14/2022 predniSONE 10 MG Oral Tablet (Deltasone) 6 tab x 3 day, 4 tab x 3 days, 3 tab x 3 days, 2 tab x 3 days, then 1 tab x 3 days then stop 48 Tablet 2 3 Active Fremanezumab-vfrm 225 MG/1.5ML Subcutaneous Solution Prefilled Syringe (Justyle) Inject 1.5 mL under the skin Every Month. 1.5 mL 3 3 Active clonazePAM 1 MG Oral Tablet (KlonoPIN)Indicati ons:Generalized anxiety disorder,Panic disorder Take 0.5 Tablets by mouth 2 times a day as needed for Anxiety or Insomnia. 30 Tablet 0 3 Active Pregabalin 75 MG Oral Capsule (Lyrica) TAKE 1 CAPSULE BY MOUTH EVERYDAY AT BEDTIME 30 Capsule 2 3 Active Temazepam 30 MG Oral Capsule (Restoril)Indicati ons:Insomnia, unspecified type Take 1 Capsule by mouth at bedtime as needed for Sleep. 30 Capsule 1 3 Active Ramelteon 8 MG Oral Tablet (Rozerem)Indicatio ns:Insomnia, unspecified type Take 1 Tablet by mouth at bedtime. 30 Tablet 1 3 Active Vitamin C 250 MG Oral Tablet (Ascorbic Acid) Take 2 Tablets by mouth in the morning. 0 Active Zinc 50 MG Oral Capsule Take 1 Capsule by mouth in the morning. 0 Active B Complex-C Oral Capsule Take by mouth. 0 Active [place] 3 1000 MG Oral Capsule Take [...] of Breath. 18 g 1 3 Active Stiolto Respimat 2.5-2.5 MCG/ACT Inhalation Aerosol Solution INHALE 2 PUFFS BY MOUTH EVERY 24 HOURS 0 2 01/08/20 23 Discontinued Hospital, Clinic, or Other Facility Administered Medication Ordered Dose Route Frequency Start Date End Date Status Albuterol Sulfate (Proventil) (2.5 MG/3ML) 0.083% inhalation solution 2.5 mgIndications:CONNOLLY (dyspnea on exertion) 2.5 mg NEBULIZER ONCE PRN 01/07/2023 Act chaparro documented as of this encounter (statuses as of 01/07/2023) Active Problems Problem Noted Date Abdominal discomfort [...] as of this encounter (statuses as of 01/07/2023) Immunizations Name Administration Dates Next Due Seasonal [...] Sign Reading Time Taken Comments Blood Pressure 126/80 01/07/2023 11:23 AM EDT Pulse 96 01/07/2023 11:23 AM EDT Temperature 36.9 C (98.5 F) 01/07/2023 11:23 AM E DT Respiratory Rate 18 01/07/2023 11:23 AM EDT Oxygen Saturation 96% 01/07/2023 11:24 AM EDT ra, amb Inhaled Oxygen Concentration - - Weight 90.4 kg (199 lb 6.4 oz) 01/07/2023 11:23 AM EDT Height 154.9 cm (5' 1") 01/07/2023 11:23 AM EDT Body Mass Index 37.68 01/07/2023 11:23 AM EDT documented in this encounter Progress Notes * Theron Lainez, - 01/07/2023 11:57 AM EDT INITIAL PULMONARY CONSULTATION NOTE REFERRING PHYSICIAN: Self REASON FOR REFERRAL: Pulmonary nodules and possible asthma HPI: Kaelyn Gardiner is a 52 year old female presenting for evaluation of pulmonary nodules and possible asthma. She previously lived in [place] and followed with a x ray service engineer Dr. Rdz. She reports having pulmonary nodules incidentally discovered around 2018 which were followed every 6 months for approximately 2 years with no significant change. She also had a 2nd opinion at [facility] with a CT as below. She was followed with serial PFTs and was found to have a decline in her lung function. She wastold she had an "asthma like illness". She [...] and these typically last for 6 months. Forher allergies she is currently taking Miranda, saline rinses, Flonase. She is used azelastine in the past but this causes throat irritation. She does have obstructive sleep apnea uses CPAP nightly, since her machine was replaced after the recall she does not feel the machine is working as well. PAST PULMONARY / SOCIAL HISTORY: Never smoker, she is very sensitive to smoke exposure No known inhaled occupational exposures She did have radon in a home for a few years before this was discovered Pet cat and dog No farming or outdoor animal exposures No mold or water problems in the house Past Medical History: Diagnosis Date Anxiety Arthritis Asthma Cognitive changes Depression Diverticulosis Fibromyalgia Hyperlipidemia with target LDL less than 100 04/23/2022 Insomnia Lung nodule Migraine Migraine with aura and without status migrainosus, not intractable 04/23/2022 Neuropathy LISA (obstructive sleep apnea) 04/23/2022 PTSD (post-traumatic stress disorder) Sleep apnea Social anxiety disorder Past Surgical History: Procedure Laterality Date VT CHOLECYSTECTOMY REMOVAL OF ADENOIDS, AGE 12+ OB History 2 Para Term AB Living 2 SAB IAB Ectopic Multiple Live Births 2 Obstetric Comments SVDx2 Review of patient's allergies indicates: Allergen Reactions Gold-Containing Drug Products Penicillins Rash Remeron [Mirtazapine] Other (Please comment) SOB Sulfa Antibiotics Rash Topamax [Topiramate] Blurry vision Current Outpatient Medications Medication Sig Dispense Refill Rosuvastatin Calcium 10 MG Oral Tablet (Crestor) Take 1 Tablet by mouth in the morning. Magnesium Citrate Powder Use as directed. Fremanezumab-vfrm 225 MG/1.5ML Subcutaneous Solution Prefilled Syringe (Justyle) Inject 1.5 mL under the skin Every Month. 1.5 mL 3 clonazePAM 1 MG Oral Tablet (KlonoPIN) Take 0.5 Tablets by mouth 2 times a day as needed for Anxiety or Insomnia. 30 Tablet 0 Pregabalin 75 MG Oral Capsule (Lyrica) TAKE 1 CAPSULE BY MOUTH EVERYDAY AT BEDTIME 30 Capsule 2 Temazepam 30 MG Oral Capsule (Restoril) Take 1 Capsule by mouth at bedtime as needed for Sleep. 30 Capsule 1 Ramelteon 8 MG Oral Tablet (Rozerem) Take 1 Tablet by mouth at bedtime. 30 Tablet 1 Vitamin C 250 MG Oral Tablet (Ascorbic Acid) Take 2 Tablets by mouth in the morning. Zinc 50 MG Oral Capsule Take 1 Capsule by mouth in the morning. B Complex-C Oral Capsule Take by mouth. [place] 3 1000 MG Oral Capsule Take [...] for Shortness of Breath. 18 g 1 Aimovig 140 MG/ML Subcutaneous Solution Auto-injector INJECT 1 ML BY SUBCUTANEOUS ROUTE ONCE A MONTH IN THE ABDOMEN, THIGH, OR OUTER AREA OF UPPER ARM Strength: 140 mg/mL (Patient not taking: Reported on 12/14/2022) 140 mL 3 predniSONE 10 MG Oral Tablet (Deltasone) 6 tab x 3 day, 4 tab x 3 days, 3 tab x 3 days, 2 tab x 3 days, then 1 tab x 3 days then stop 48 Tablet 2 Current Facility-Administered Medications Medication Dose Route Frequency Provider Last Rate Last Admin Albuterol Sulfate (Proventil) (2.5 MG/3ML) 0.083% inhalation solution 2.5 mg 2.5 mg Nebulizer Once PRN Theron Lainez, DO FAMILY HISTORY: Family History Problem Relation Age of Onset Hyperlipidemia Mother Glaucoma Mother Hypertension Father Hyperlipidemia Father Hypertension Sister Migraines Daughter Breast Cancer Great-grandmother (Maternal) PHYSICAL EXAM: BP 126/80 | Pulse 96 | Temp 36.9 C (98.5 F) (Tympanic) | Resp 18 | Ht 1.549 m (5' 1") | Wt 90.4kg (199 lb 6.4 oz) | SpO2 96% Comment: ra, amb | BMI 37.68 kg/m | BSA 1.97 m Constitutional: no acute distress, able to converse without apparent dyspnea Eyes: anicteric, pupils equal ENT: external ears normal, wearing a face mask Neck: trachea midline, JVP normal CV: normal rate and rhythm, no murmurs Chest: normal respiratory effort, clear to auscultation, no wheezing or crackles Abdomen: obese Extremities: no clubbing, no cyanosis Neuro: alert, oriented Pulmonary Function Test Results: Ordered Chest CT scan (no records have been able to be obtained yet, she showed me a CT chest report on herphone from [facility]): 05/23/2021: "Multiple 3-5 mm noncalcified pulmonary nodules scattered in both lungs" Assessment: R06.09 CONNOLLY (dyspnea on exertion) (primary encounter diagnosis) - 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 Rdz, prior x ray service engineer for PFTs and imaging Follow up in 2 months with PFTs Therno Lainez DO Associate - Pulmonary and Critical Care Medicine [facility] [address] [facility] [address] documented in this encounter Nursing Notes * Jen Malhotra LPN - 01/07/2023 11:16 AM EDT New pt referred for evaluation of lung nodules. MMRC Dyspnea Scale = 1 (I get short of breath when hurrying on level ground or walking up a slight hill) Interm History/Respiratory Symptoms Cough: occasional, worse at night; white phlegm Hemoptysis: no Sinus Symptoms: "severe allergies" Hospitalizations: [facility] 12/05-12/08/22 left knee injury ED Trips: 12/05/22 Triggers: scent, trees, grasses, flower Nocturnal: cough CPAP/BiPAP/O2: CPAP at night Flu Vaccine: 2021 Pneumovax: no Prevnar: no COVID 19: yes, unsure of dates documented in this encounter Plan of Treatment Upcoming Encounters Date Type Specialty Care Team Description 01/11/2023 Telemedicine Psychiatry Lim, NERI Mobley [address] [facility] [place] [address] 01/11/2023 Office Visit Orthopedics Theron Pineda DO [address] [place] [address] 02/09/2023 Office Visit Gynecology Obstetrics Chris Walker MD [address] [place] [address] 02/15/2023 Office Visit Neurology Yumiko Traore PA-C [address] [place] [address] 03/10/2023 Office Visit Gastroenterology Vaughn Powell CRNP [address] [facility] [address] 03/30/2023 PulmDiagnostic Pulmonary Function [place], [facility] [address] [facility], [place] [address] 04/01/2023 Office Visit Pulmonary Theron Lainez, DO [address], [place] [id number] 06/16/2023 Office Visit Rheumatology Marla Moon CRNP [address] [place] [address] 09/21/2023 Office Visit Neurology Elle Dotson, DO [address] [facility] [place] [address] Scheduled Orders Name Type Priority Associated Diagnoses Orde r Schedule RESPIRATORY MUSCLE PRESSURES (BUGLE PRESSURES) Procedures Routine CONNOLLY (dyspnea on exertion) Ordered: 01/07/2023 SPIROMETRY B/A BRONCHODILATOR Procedures Routine CONNOLLY (dyspnea on exertion) Expected: 01/14/2023, Expires: 02/08/2024 LUNG VOLUMES (PLETHYSMOGRAPHY) Procedures Routine CONNOLLY (dyspnea on exertion) Expected: 01/14/2023, Expires: 02/08/2024 DIFFUSION CAPACITY (DLCO) Procedures Routine CONNOLLY (dyspnea on exertion) Expected: 01/14/2023, Expires: 02/08/2024 Health Maintenance Due Date Last Done Comments [...] exertion)- Primary Other dyspnea and respiratory abnormality Asthma with severity to be determined Multiple pulmonary nodules Other nonspecific abnormal finding of lung field documented in this encounter Care Teams Tearer Press Clipping Relationship Specialty Start Date End Date Paco Orozco PA-C [address] [facility] [place], [place] [address] PCP - General Physician Gas Controller 04/23/22 documented as of this encounter
--- OUTSIDE RECORDS SUMMARY | 2023-06-12 19:32 | External Medical Summary | Summary of Care ---
Author Name Unknown Organization [facility] Address [address] [facility] [address] Phone [phone] Care Team Providers Care Maintenance Supervisor Electrical Name Role Phone Paco Orozco PA-C Primary Care Provider [phone] Reason for Referral * Evaluate & Treat - Unlimited Visits (Within 30 days (routine)) - Pending Review Specialty Diagnoses / Procedures Referred By Contac t Referred To Contact Neurology Diagnoses Polyarthralgia Neuropathy Small fiber neuropathy Leonila Angel DO [address] [place] [address] Referral ID Status Reason Start Date Expiration Date Visits Requested Visits Authorized [id number] Pending Review Specialty Services Required 12/13/[phone] Question Answer Referral Priority Within 30 days (routine) [facility] NEUROLOGY REFERRAL QUESTIONS Neuromuscular Does the patient's condition allow them to wait to be seen by a specialist or should they be seen by first available provider? Or is this a follow up with established provider? First Available * Evaluate & Treat - Unlimited Visits (Within 10 days (routine)) - Pending Review Specialty Diagnoses / Procedures Referred By Contac t Referred To Contact Vascular Surgery Diagnoses Lung nodule Leonila Angel DO [address] [place] [address] Referral ID Status Reason Start Date Expiration Date Visits Requested Visits Authorized [id number] Pending Review Specialty Services Required 12/13/[phone] Question Answer Referral Priority Within 10 Days (Routine) Reason for Referral Abdominal Aortic Aneurysm * Evaluate & Treat - Unlimited Visits (Within 10 days (routine)) - Pending Review Specialty Diagnoses / Procedures Referred By Contac t Referred To Contact Pulmonary Diseases / Pulmonary Diagnoses Lung nodule Leonila Angel, [address] [place] [address] Referral ID Status Reason Start Date Expiration Date Visits Requested Visits Authorized [id number] Pending Review Specialty Services Required 12/13/[phone] Question Answer Referral Priority Within 10 Days (Routine) Primary Reason for Referral? Lung Nodule/Mass * Evaluate & Treat - Unlimited Visits (Within 30 days (routine)) - Pending Review Specialty Diagnoses / Procedures Referred By Jo Ann t Referred To Contact Rheumatology Diagnoses Fibromyalgia Polyarthralgia Neuropathy Leonila Angel DO [address] [place] [address] Referral ID Status Reason Start Date Expiration Date Visits Requested Visits Authorized [id number] Pending Review Specialty Services Required 12/13/[phone] Question Answer Referral Priority Within 30 days (routine) Reason for referral: Other Conditions Comments See notes- joint pain, muscle pain, abdominal pain, worried about underlying autoimmune condition. * Evaluate & Treat - Unlimited Visits (Within 30 days (routine)) - Pending Review Specialty Diagnoses / Procedures Referred By Contsushila t Referred To Contact Gastroenterology Diagnoses Abdominal discomfort Leonila Angel DO [address] [place] [address] Referral ID Status Reason Start Date Expiration Date Visits Requested Visits Authorized [id number] Pending Review Specialty Services Required 12/13/[phone] Question Answer Referral Priority Within 30 days (routine) For what condition is the patient being referred? All Gastro Conditions Reason for Visit * Reason Comments Hospital Follow-Up Encounter Details Date Type Department Care Team Description 12/13/2022 Office Visit Family Practice State Vera Maharaj [address] [place] [address] Leonila Angel DO [address] [facility] [place] [address] Small fiber neuropathy*; Abdominal discomfort; Lung nodule; Fibromyalgia; Polyarthralgia; Neuropathy; Dehydration; Sprain of medial collateral ligament of left knee, initial encounter; Patellofemoral stress syndrome, unspecified laterality; At risk for falls; Migraine variant, intractable; Diverticulitis of colon; Ambulatory dysfunction; LISA on CPAP Allergies Active Allergy Reactions Severity Noted Date Comments Gold-Containing Drug Products 04/23/2022 Penicillins Rash 04/23/2022 Mirtazapine Other (Please comment) 12/10/2022 SOB Sulfa Antibiotics Rash 04/23/2022 Topiramate 04/23/2022 Blurry vision documented as of this encounter (statuses as of 12/23/2022) Medications Medication Sig Dispensed Refills Start Date End Date Status Rosuvastatin Calcium 10 MG Oral Tablet (Crestor) Take 1 Tablet by mouth in the morning. 0 01/29/2022 Active Stiolto Respimat 2.5-2.5 MCG/ACT Inhalation Aerosol Solution INHALE 2 PUFFS BY MOUTH EVERY 24 HOURS 0 03/03/2022 Active Magnesium Citrate Powder Use as directed. 0 Active Nurtec 75 MG Oral Tablet Disintegrating TAKE 1 TABLET (75 MG TOTAL) BY MOUTH EVERY OTHER DAY. Strength: 75 mg 15 Tablet 3 05/13/2022 Active Aimovig 140 MG/ML Subcutaneous Solution Auto-injector [...] then stop 48 Tablet 2 08/13/2022 Active Fremanezumab-vfrm 225 MG/1.5ML Subcutaneous Solution Prefilled Syringe (MarketGid) Inject 1.5 mL under the skin Every Month. 1.5 mL 3 08/13/2022 Active clonazePAM 1 MG Oral Tablet (KlonoPIN)Indicatio ns:Generalized anxiety disorder,Panic disorder Take 0.5 Tablets by mouth 2 times a day as needed for Anxiety or Insomnia. 30 Tablet 0 08/23/2022 Active Pregabalin 75 MG Oral Capsule (Lyrica) TAKE 1 CAPSULE BY MOUTH EVERYDAY AT BEDTIME 30 Capsule 2 11/08/2022 Active Temazepam 30 MG Oral Capsule (Restoril)Indicatio ns:Insomnia, unspecified type Take 1 Capsule by mouth at bedtime as needed for Sleep. 30 Capsule 1 12/10/2022 Active Ramelteon 8 MG Oral Tablet (Rozerem)Indication s:Insomnia, unspecified type Take 1 Tablet by mouth at bedtime. 30 Tablet 1 12/10/2022 Active Azelastine HCl 0.1 % Nasal Solution Administer 1 [place] into nostril in the morning and 1 [place] before bedtime. 0 12/14/19 23 Discontinu ed(End of Procedure) documented as of this encounter (statuses as of 12/23/2022) Active Problems Problem Noted Date Abdominal discomfort [...] as of this encounter (statuses as of 12/23/2022) Immunizations Name Administration Dates Next Due Seasonal [...] Sign Reading Time Taken Comments Blood Pressure 122/84 12/13/2022 11:24 AM EDT Pulse 98 12/13/2022 11:24 AM EDT Temperature 36.3 C (97.3 F) 12/13/2022 11:24 AM E DT Respiratory Rate 18 12/13/2022 11:24 AM EDT Oxygen Saturation 98% 12/13/2022 11:24 AM EDT Inhaled Oxygen Concentration - - Weight 89.8 kg (198 lb) 12/13/2022 11:24 AM EDT Height - - Body Mass Index 38.67 07/28/2022 2:13 PM EST documented in this encounter Progress Notes * Leonila Angel, - 12/13/2022 11:55 AM EDT Images from the original note were not included. Subjective: Kaelyn Gardiner is a 52 year old female. Chief Complaint Patient presents with Hospital Follow-Up HPI: Patient's past medical, surgical, family, and social history were reviewed. Medications, allergies, immunizations, and health care maintenance screenings were also reviewed. Ad[facility] to [facility] 12/05-12/08/2022 after fall and pain all over. Had recent high grade MCL tear, PFS, knee brace prescribed by ortho consider future steroid injection Hospital records, labs, studies, and discharge instructions reviewed with patient and who accompanies her today. Complex medical history: Has joint pain, abdominal pain, migraines, See previous OVNs for full details. Still awaiting records from [place], has had full workup including muscle and nerve biopsies which were not remarkable. Has diverticulitis flares, feels better after abx. Roberts the best after antifungals for thrush in hospital in 2018.Helped all her muscle and joint problems. PHM: Patient Active Problem List Diagnosis Code Migraine with aura and without status migrainosus, not intractable G43.109 Hyperlipidemia with target LDL less than 100 E78.5 Fibromyalgia M79.7 Other insomnia G47.09 PTSD (post-traumatic stress disorder) F43.10 LISA (obstructive sleep apnea) G47.33 Asthma J45.909 Severe episode of recurrent major depressive disorder, without psychotic features ([facility]) F33.2 Abdominal discomfort R10.9 Lung nodule R91.1 [...] bedtime as needed for Sleep.30 Capsule 1 Pregabalin 75 MG Oral Capsule (Lyrica) TAKE 1 CAPSULE BY MOUTH EVERYDAY AT BEDTIME 30 Capsule 2 clonazePAM 1 MG Oral Tablet (KlonoPIN) Take 0.5 Tablets by mouth 2 times a day as needed for Anxiety or Insomnia. 30 Tablet 0 Fremanezumab-vfrm 225 MG/1.5ML Subcutaneous Solution Prefilled Syringe (MarketGid) Inject 1.5 mL under the skin Every Month. 1.5 mL 3 predniSONE 10 MG Oral Tablet (Deltasone) 6 tab x 3 day, 4 tab x 3 days, 3 tab x 3 days, 2 tab x3 days, then 1 tab x 3 days then stop 48 Tablet 2 Aimovig 140 MG/ML Subcutaneous Solution Auto-injector INJECT 1 ML BY SUBCUTANEOUS ROUTE ONCE A MONTH IN THE ABDOMEN, THIGH, OR OUTER AREA OF UPPER ARM Strength: 140 mg/mL (Patient not taking: Reported on 12/14/2022) 140 mL 3 Nurtec 75 MG Oral Tablet Disintegrating TAKE 1 TABLET (75 MG TOTAL) BY MOUTH EVERY OTHER DAY. Strength: 75 mg 15 Tablet 3 Magnesium Citrate Powder Use as directed. Rosuvastatin Calcium 10 MG Oral Tablet (Crestor) Take 1 Tablet by mouth in the morning. Stiolto Respimat 2.5-2.5 MCG/ACT Inhalation Aerosol Solution INHALE 2 PUFFS BY MOUTH EVERY 24 HOURS [DISCONTINUED] Azelastine HCl 0.1 % Nasal Solution Administer 1 [place] into nostril in the morning and 1 [place] before bedtime. No facility-administered medications prior to visit. Last reviewed on 12/14/2022 8:56 AM by NERI Snowden Review of patient's allergies indicates: Allergen Reactions Gold-Containing Drug Products Penicillins Rash Remeron [Mirtazapine] Other (Please comment) SOB Sulfa Antibiotics Rash Topamax [Topiramate] Blurry vision Objective: BP 122/84 | Pulse 98 | Temp 36.3 C (97.3 F) (Tympanic) | Resp 18 | Wt 89.8 kg (198 lb) | SpO2 98% | BMI 38.67 kg/m | BSA 1.95 m Physical Exam: General: alert, healthy and no distress Head: Normocephalic, No masses, lesions, tenderness or abnormalities Eye Exam: PERRLA, extraocular movements intact, conjunctiva are pink and non- injected, sclera clear Ears: External ears normal, Canals clear, TM's Normal Nose: no mucosal erythema, no mucosal edema, no purulent discharge Oropharynx: no exudate, no erythema, lips, buccal mucosa, and tongue normal and mucous membranes are moist Neck: supple, no adenopathy, no bruits, thyroid normal size, non-tender, without nodularity Lymph: no palpable lymphadenopathy Heart: regular rate & rhythm, no murmur and no gallops Lungs: chest symmetric with normal AP diameter, no chest deformities noted, no chest wall tenderness, lungs clear to auscultation Pulses: carotid=2/4 w/o bruits Extremities: less than 2 second capillary refill, no joint deformities, effusion, or inflammation Latest Reference Range & Units 04/23/22 09:32 Triglycerides <=174 mg/dL 164 Cholesterol <200 mg/dL 185 Non-HDL Cholesterol <=159 mg/dL 135 HDL Cholesterol >49 mg/dL 50 LDL Cholesterol <=129 mg/dL 102 Sodium 135 - 146 mmol/L 141 Potassium 3.5 - 5.1 mmol/L 4.0 Chloride 98 - 107 mmol/L 102 CO2 22 - 32 mmol/L 28 BUN 6 - 20 mg/dL 16 Creatinine 0.5 - 1.0 mg/dL 0.9 Estimated Glomerular Filtration Rate >=60 mL/min 74 Anion Gap 7 - 15 mmol/L 11 Glucose 70 - 120 mg/dL 104 Calcium 8.4 - 10.2 mg/dL 9.7 Protein 6.0 - 8.3 g/dL 7.0 TSH 0.27 - 4.20 uIU/mL 3.16 TSH WITH FREE T4 IF INDICATED Rpt ANEMIA CBC Rpt WBC 4.00 - 10.80 K/uL 9.49 HGB 12.0 - 15.3 g/dL 14.0 HCT 36.0 - 45.2 % 43.5 MCV 81.5 - 97.5 fL 95.0 PLT 140 - 400 K/uL 294 Absolute Neutrophils 1.80 - 7.70 K/uL 5.91 Absolute Lymphocytes 1.00 - 4.80 K/ul 2.18 Absolute Monocytes 0.00 - 1.10 K/uL 0.64 Absolute Eosinophils 0.00 - 0.70 K/uL 0.60 Absolute Basophils 0.00 - 0.20 K/uL 0.08 Albumin 3.8 - 5.0 g/dL 4.7 AST 10 - 35 U/L 22 ALT 10 - 35 U/L 19 Alkaline Phosphatase 35 - 130 U/L 89 Bilirubin, Total <=1.2 mg/dL 0.6 ASSESSMENT/PLAN: Small fiber neuropathy (Primary) - NEUROLOGY REFERRAL OP Abdominal discomfort - GASTROENTEROLOGY REFERRAL OP Lung nodule - STAIR LUNG NODULE REFERRAL OP (SYSTEM FOR TRACKING ABNORMALITIES OF IMPORTANCE RELIABLY) - STAIR AAA REFERRAL OP (SYSTEM FOR TRACKING ABNORMALITIES OF IMPORTANCE RELIABLY) Fibromyalgia - RHEUMATOLOGY REFERRAL OP Polyarthralgia - RHEUMATOLOGY REFERRAL OP - NEUROLOGY REFERRAL OP Neuropathy - RHEUMATOLOGY REFERRAL OP - NEUROLOGY REFERRAL OP Dehydration Labs okay at DC, eat and drink water regularly Sprain of medial collateral ligament of left knee, initial encounter Patellofemoral stress syndrome, unspecified laterality At risk for falls Ambulatory dysfunction Knee support, f/u ortho, continue PT Migraine variant, intractable nurtec prn Diverticulitis of colon Resolved with abx LISA on CPAP Not using recently Advise writing down in simple outline form the issues she is having to take to her new specialists.Her records will be helpful too. I met patient for first time today and she provided all her complex medical problems which flowed one into the other and were difficult to understand from a medical standpoint what her diagnoses were, what workups she has had, what is old versus new, and what treatments had been tried, or why they were recommended. Also advised that in an office appointment we usually only have time to deal with one main problem, so may need to pick the most important one at a time to focus on, and plan to schedule follow up visits to discuss others. At this point I am happy to refer to specialists, I am not aware of any new available treatments for small fiber neuropathy, but I think there are some promising ones in the research phase that may be available in the future. 60 min spent with patient, reviewing history, performing physical exam, reviewing labs, studies, specialist OVNs, and reports, educating and coordinating care, discussing treatment Leonila Angel DO documented in this encounter Nursing Notes * Brook Jarvis LPN - 12/13/2022 11:17 AM EDT Kaelyn Gardiner presents for hospital follow up. Medications & HM reviewed. documented in this encounter Plan of Treatment Upcoming Encounters Date Type Specialty Care Team Description 12/29/2022 Telemedicine Orthopedics Theron Pineda DO [address] [place] [id number] 01/07/2023 [facility] Visit [facility] [address] [facility] [address] 01/11/2023 Telemedicine Psychiatry Lim, NERI Mobley [address] [place] [address] 02/09/2023 Office Visit Gynecology Obstetrics Chris Walker MD [address] [place] [id number] 02/15/2023 Office Visit Neurology Yumiko Traore PA-C [address] [place] [address] 03/10/2023 Office Visit Gastroenterology Vaughn Powell CRNP [address] [place] [id number] 06/16/2023 Office Visit Rheumatology Marla Moon CRNP [address] [place] [address] Scheduled Referrals Name Type Priority Associated Diagnoses Order Schedule GASTROENTEROLOGY REFERRAL OP Referral Within 30 days (routine) Abdominal discomfort Ordered: 12/13/2022 RHEUMATOLOGY REFERRAL OP Referral Within 30 days (routine) Fibromyalgia Polyarthralgia Neuropathy Ordered: 12/13/2022 STAIR LUNG NODULE REFERRAL OP (SYSTEM FOR TRACKING ABNORMALITIES OF IMPORTANCE RELIABLY) Referral Within 10 days (routine) Lung nodule Ordered: 12/13/2022 STAIR AAA REFERRAL OP (SYSTEM FOR TRACKING ABNORMALITIES OF IMPORTANCE RELIABLY) Referral Within 10 days (routine) Lung nodule Ordered: 12/13/2022 NEUROLOGY REFERRAL OP Referral Within 30 days (routine) Polyarthralgia Neuropathy Small fiber neuropathy Ordered: 12/13/2022 Health Maintenance Due Date Last Done Comments [...] visit until score < 10) 11/13/2022 11/12/2022 Diabetes Screening 04/23/2025 04/23/2022, 0 11/13/1997, 04/18/1996, Additional history exists Lipid Panel 04/23/2027 04/23/2022 Pap Smear 04/27/2027 04/27/2022 Influenza Vaccine (FLU shot) Completed 04/23/2022, 04/23/2022 Zoster Vaccines Completed 07/28/2022, 04/23/2022 GARDASIL-HPV IMMUNIZATION SERIES Aged Out No longer eligible based on patient's age to complete this topic MENINGOCOCCAL (MENACTRA/MENVEO) Aged Out No longer eligible based on patient's age to complete this topic documented as of this encounter Medical Devices Not on filedocumented as of this encounter Visit Diagnoses Diagnosis Small fiber neuropathy- Primary Unspecified hereditary and idiopathic peripheral neuropathy Abdominal discomfort Abdominal pain, unspecified site Lung nodule Solitary pulmonary nodule Fibromyalgia Mylagia and myositis, unspecified Polyarthralgia Pain in joint, multiple sites Neuropathy Mononeuritis of unspecified site Dehydration Sprain of medial collateral ligament of left knee, initial encounter Patellofemoral stress syndrome, unspecified laterality At risk for falls Personal history of fall Migraine variant, intractable Variants of migraine, not elsewhere classified, with intractable migraine, so stated, without mention of status migrainosus Diverticulitis of colon Diverticulitis of colon (without mention of hemorrhage) Ambulatory dysfunction LISA on CPAP Obstructive sleep apnea (adult) (pediatric) documented in this encounter Care Teams Maintenance Supervisor Electrical Relationship Specialty Start Date End Date Paco Orozco PA-C [address] [place] [address] [place] [address] PCP - General Physician Wireless Architect 04/23/22 documented as of this encounter"
--- OUTSIDE RECORDS SUMMARY | 2023-06-12 19:32 | External Medical Summary | Summary of Care ---
Author Name Unknown Organization [facility] Address [address] [facility] [place] [address] Phone [phone] Care Team Providers Care Console Operator Name Role Phone Paco Orozco PA-C Primary Care Provider [phone]- [phone] Reason for Visit * Reason Comments Follow Up Encounter Details Date Type Department Care Team Description 12/17/2022 Telemedicine Neuropsychology [place] [address] [facility] [place] [address] Joshua Sylvester, PhD [address] [facility] [place] [address] Cognitive dysfunction*; Moderately severe recurrent major depression (HCC); STARR (generalized anxiety disorder); PTSD (post-traumatic stress disorder); Insomnia, persistent; LISA (obstructive sleep apnea); Fibromyalgia; Hx of migraines Allergies Active Allergy Reactions Severity Noted Date Comments Gold-Containing Drug Products 04/23/2022 Penicillins Rash 04/23/2022 Mirtazapine Other (Please comment) 12/10/2022 SOB Sulfa Antibiotics Rash 04/23/2022 Topiramate 04/23/2022 Blurry vision documented as of this encounter (statuses as of 12/17/2022) Medications Medication Sig Dispensed Refills Start Date [...] Fremanezumab-vfrm 225 MG/1.5ML Subcutaneous Solution Prefilled Syringe (Nihon Gigei) Inject 1.5 mL under the skin Every [...] 11/08/2022 Active Temazepam 30 MG Oral Capsule (Restoril)Indication s:Insomnia, unspecified type Take 1 Capsule by mouth at bedtime as needed for Sleep. 30 Capsule 1 12/10/2022 Active Ramelteon 8 MG Oral Tablet (Rozerem)Indications :Insomnia, unspecified type Take 1 Tablet by mouth at bedtime. 30 Tablet 1 12/10/2022 Active Vitamin C 250 MG Oral Tablet (Ascorbic Acid) Take 2 Tablets by mouth in the morning. 0 Active Zinc 50 MG Oral Capsule Take 1 Capsule by mouth in the morning. 0 Active B Complex-C Oral Capsule Take by mouth. 0 Active [place] 3 1000 MG Oral Capsule Take by mouth. 0 Active Co Q 10 100 MG Oral Capsule Take by mouth. 0 Active D-Ribose Powder Use as directed. 0 Act chaparro documented as of this encounter (statuses as of 12/17/2022) Active Problems Problem Noted Date Severe episode of recurrent major depressive disorder, without psychotic features 07/28/2022 Migraine with aura and without status mi grainosus, not intractable 04/23/2022 Hyperlipidemia with target LDL less than 100 04/23/2022 Fibromyalgia 04/23/2022 Other insomnia 04/23/2022 PTSD (post-traumatic stress disorder) LISA (obstructive sleep apnea) 04/23/2022 Asthma 04/23/2022 documented as of this encounter (statuses as of 12/17/2022) Immunizations Name Administration Dates Next Due Seasonal [...] as of this encounter Progress Notes * Joshua Sylvester, PhD - 12/17/2022 2:25 PM EDT Patient location: HOME. I was in a hospital or clinic location. After connecting through [employer],patient was verified with two unique identifiers. 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 Methods to assure confidentiality were taken. Patient acknowledged consent and understanding of pr ivacy and security of the Telemedicine visit. The patient agreed to participate. NEUROPSYCHOLOGY FEEDBACK NOTE Ms. Kaelyn Gardiner presented for a neuropsychology feedback appointment to review the results, impressions, and recommendations of an evaluation that was conducted on 12/03/2022. Patient reported that she had been hospitalized from significant pain and dehydration between the initial evaluation and now. She is feeling a little bit better, though is still dealing with pain. Psychiatric status is unchanged; safety issues today were denied. She is planning on leaving town for the next week for a family reunion, which she is looking forward to. Results, impressions, and recommendations were reviewed. Patient verbalized understanding and expressed appreciation. She is aware that I can be contacted with any additional questions. Patient was stable at the conclusion of the appointment. Summary and Conclusions: On formal neuropsychological testing, Ms. Gardiner appeared to put forth goodeffort. General intellectual functioning was estimated to be in the [id number] average range, with commensurate reading ability. Attention/working memory was within normal expectation. Information processing speed was strong. Fundamental language showed normal confrontation picture naming and intact verbal fluency. Overall, learning/memory was within broad expectation, with a pattern characterized by fair encoding, good delayed recall, and strong benefit from recognition cues. Visuospatial/constructional ability was completely within normal limits. Executive functioning (e.g., cognitive set- shifting/divided attention, novel problem solving/response to feedback, generative thinking, andplanning) was within expectation. Pt screened positive for moderately severe depression and moderate anxiety. She denied any substantial day-to-day functional changes stemming from her perceived cognitive problems. Impression is one of normal cognitive functioning, with intact abilities observed in each of the broad cognitive domains assessed. That said, the pt experiences cognitive inefficienies in her daily life. Etiology of the pts subjective cognitive issues is likely multifactorial. First, the pt has notably elevated levels of psychiatric distress and meets diagnostic criteria for major depression, generalized anxiety, and likely PTSD (related to numrous traumatic events throughout her life); she also has substantial, ongoing psychosocial stressors. It is well known that emotional distress can negatively impact cognitive functioning across numerous domains. Second, the pt has chronically poor sleep; she has been diagnosed with insomnia and has had periods of time in the past where she could not sleep for days; she also has LISA, though treats it consistently with a CPAP. Chronic sleep dysfunction can also have negative downstream effects on cognitive functioning. Third, the pt deals with s ignificant chronic pain issues (fibromyalgia, migraines, neuropathy), and this is likely contributory to her cognitive inefficiency, to at least some degree, as well. Finally, the pt had a mildly abnormal EEG back in December 2021 of unknown significance; pt could discuss with neurology provider whether or not doing additional work-up for underlying seizures is clinically indicated. Going forward, itis strongly recommend that pt treat the modifiable risk factors listed above, as doing so would likely result in an improvement in subjective cognitive symptoms. See specific recommendations listed below. Diagnostic Impressions: Major Depressive Disorder, Moderate Generalized Anxiety Disorder R/O PTSD Insomnia Sleep Apnea Fibromyalgia Migraines Recommendations: 1. Continue with psychiatric care. Consider engaging in psychotherapy for trauma. 2. Practice good self-care and stress management. Reduction of psychosocial stressors would likely result in improved cognitive functioning. Could work on this in psychotherapy. 3. Continue to follow up with Sleep Medicine sleep apnea and insomnia. The patient may also be ableto improve sleep quality by maintaining proper sleep hygiene techniques including: ? decreasing caffeine intake throughout the day particularly after lunch ? eliminating alcohol use, particularly in the afternoon ? reduce frequency of naps during the day ? setting a consistent schedule for going to bed and waking up ? primarily use the bedroom for sleep ? plan quiet activities during the hour or so before laying down to bed ? reduce blue light/screen exposure an hour prior to sleep 4. Practice good pain management. Consider referral to Pain Medicine, Pain Pharmacy, or Pain Psychology as appropriate. 5. Follow-up with neurology. Could discuss additional work-up for underlying seizure activity in the context of a mildly abnormal 2021 EEG and history of black out episodes. 6. Regarding memory and new learning, the patient may see improvements by actively organizing zz-uk-rfnrkel information by: ? associating new information with something that is already familiar to her ? creating a visual image of the information when possible ? actively rehearsing new information out loud (or to himself) frequently ? providing cues/prompts (e.g., referring to notes/lists) when experiencing recall difficulty ? monitoring one's behavior to ensure that direct attention/eye contact is focused on the xb-ry-[id number] information or speaker ? placing frequently used items (keys, wallet) in a central (specific) location so they are easily retrieved. 7. The following may help with perceived difficulties with sustained/complex attention in her day-to-day environment: ? decrease distractions in the environment whenever possible when working on complex tasks requiring focused attention and organization (e.g., going to a quiet room, removing materials from view thatare not directly relevant to the current task, etc.) ? break up complex, multi-step tasks into smaller components so that there is a decreased need to constantly monitor multiple components of a task ? allow extra time to complete tasks that are complex and require sustained attention in order to decrease the feeling of being overwhelmed ? take frequent breaks when working on a task in order to reduce fatigue and frustration 8. The patient is encouraged to engage in routine physical exercise, within her physical capabilities, as long as she is able to do so safely. This will help maintain both her physical status (i.e., regulating blood pressure, improving sleep) and her emotional/mental functioning. 9. Practice good dietary habits. The following is one diet with scientific evidence for maintainingbrain health: MIND-DASH diet: GOOD: Green leafy vegetables (like spinach and salad greens): At least six servings a week Other vegetables: At least one a day Nuts: Five servings a week Berries: Two or more servings a week Beans: At least three servings a week Whole grains: Three or more servings a day Fish: Once a week Poultry (like chicken or turkey): Two times a week [place] oil: Use it as your main cooking oil. AVOID: Red meat: Less than four servings a week Butter and margarine: Less than a tablespoon daily Cheese: Less than one serving a week Pastries and sweets: Less than five servings a week Fried or fast food: Less than one serving a week Joshua Sylvester, Ph.D., [facility] Neuropsychologist Service Time: 30 mins ([id number]) documented in this encounter Plan of Treatment Upcoming Encounters Date Type Specialty Care Team Description 12/29/2022 Telemedicine Orthopedics Theron Pineda, [address] [place] [address] 01/07/2023 Office Visit Pulmonary [facility] Lainez [facility] [address] [facility] [address] 01/11/2023 Telemedicine Psychiatry Lim, NERI Mob[place] [address] [place] [address] 02/09/2023 Office Visit Gynecology Obstetrics Chris Walker MD [address] [place] [address] 02/15/2023 Office Visit Neurology Yumiko Traore PA-C [address] [place] [address] 03/10/2023 Office Visit Gastroenterology Vaughn Powell CRNP [address] [place] [address] 06/16/2023 Office Visit Rheumatology Marla Moon CRNP [address] [place] [address] Health Maintenance Due Date Last Done Comments [...] as of this encounter Visit Diagnoses Diagnosis Cognitive dysfunction- Primary Unspecified persistent mental disorders due to conditions classified elsewhere Moderately severe recurrent major depression (HCC) STARR (generalized anxiety disorder) Generalized anxiety disorder PTSD (post-traumatic stress disorder) Posttraumatic stress disorder Insomnia, persistent Persistent disorder of initiating or maintaining sleep LISA (obstructive sleep apnea) Obstructive sleep apnea (adult) (pediatric) Fibromyalgia Mylagia and myositis, unspecified Hx of migraines Personal history of other disorders of nervous system and sense organs documented in this encounter Care Teams Console Operator Relationship Specialty Start Date End Date Paco Orozco PA-C [address] [place] [address] PCP - General Physician Hotel Service Supervisor 04/23/22 documented as of this encounter
--- OUTSIDE RECORDS SUMMARY | 2023-06-12 19:32 | External Medical Summary | Summary of Care ---
Author Name Unknown Organization [facility] Address [address] [place] [address] Phone [phone] Care Team Providers Care Stave Cutting Supervisor Name Role Phone Paco Orozco PA-C Primary Care Provider [phone]- [phone] Encounter Details Date Type Department Care Team Description 01/10/2023 Telephone [facility] [address] [place] [address] Marla Moon CRNP [address] [place] [address] Allergies Active Allergy Reactions Severity Noted Date Comments Gold-Containing Drug Products 04/23/2022 Penicillins Rash 04/23/2022 Mirtazapine Other (Please comment) 12/10/2022 SOB Sulfa Antibiotics Rash 04/23/2022 Topiramate 04/23/2022 Blurry vision documented as of this encounter (statuses as of 01/10/2023) Medications Medication Sig Dispensed Refills Start Date [...] Fremanezumab-vfrm 225 MG/1.5ML Subcutaneous Solution Prefilled Syringe (Pump Audio) Inject 1.5 mL under the skin Every [...] Oral Capsule Take by mouth. 0 Active [place] 3 1000 MG Oral Capsule Take [...] of Breath. 18 g 1 01/07/2023 Active Hospital, Clinic, or Other Facility Administered Medication Ordered Dose Route Frequency Start Date End Date Status Albuterol Sulfate (Proventil) (2.5 MG/3ML) 0.083% inhalation solution 2.5 mgIndications:CONNOLLY (dyspnea on exertion) 2.5 mg NEBULIZER ONCE PRN 01/07/2023 Act chaparro documented as of this encounter (statuses as of 01/10/2023) Active Problems Problem Noted Date Abdominal discomfort [...] as of this encounter (statuses as of 01/10/2023) Immunizations Name Administration Dates Next Due Seasonal [...] encounter Miscellaneous Notes * Telephone Encounter - Marla Sheri Red, VETERINARY TECHNOLOGIST - 01/10/2023 12:35 PM EDT Ask A Doc sent regarding hypogammaglobulinemia and need for referral. documented in this encounter Plan of Treatment Upcoming Encounters Date Type Specialty Care Team Description 01/11/2023 Telemedicine Psychiatry Lim, NERI [place] [address] [facility] [address] 01/11/2023 Office Visit Orthopedics Theron Pineda DO [address] [place] [address] 02/09/2023 Office Visit Gynecology Obstetrics Chris Walker MD [address] [place] [address] 02/15/2023 Office Visit Neurology Yumiko Traore PA-C [address] [facility] [place] [address] 03/10/2023 Office Visit Gastroenterology Vaughn Powell CRNP [address] [place] [address] 03/30/2023 PulmDiagnostic Pulmonary Function [place], P[facility] [address] [place] [address] 04/01/2023 Office Visit Pulmonary Theron Lainez DO [address] [place], [place] [id number] 06/16/2023 Office Visit Rheumatology Marla Moon CRNP [address] [place] [address] 09/21/2023 Office Visit Neurology Elle Dotson, DO [address] [facility] [place] [address] Health Maintenance Due Date Last Done Comments [...] filedocumented as of this encounter Care Teams Stave Cutting Supervisor Relationship Specialty Start Date End Date Paco Orozco PA-C [address] [facility] [place] [address] PCP - General Physician Post Production Assistant 04/23/22 documented as of this encounter
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
--- OUTSIDE RECORDS SUMMARY | 2023-06-12 19:32 | External Medical Summary | Summary of Care ---
Author Name Unknown Organization [facility] Address [address] [facility] [place] [address] Phone [phone] Care Team Providers Care Simulation Analyst Name Role Phone Paco Orozco PA-C Primary Care Provider +1- [phone] Encounter Details Date Type Department Care Team Description 12/03/2022 Documentation Neuropsychology [facility] [address] [facility] [place] [address] Joshua Sylvester, PhD 200 [place] [address] Allergies Active Allergy Reactions Severity Noted Date [...] Fremanezumab-vfrm 225 MG/1.5ML Subcutaneous Solution Prefilled Syringe ([employer]) Inject 1.5 mL under the skin Every Month. 1.5 mL 3 08/13/2022 Active clonazePAM 1 MG Oral Tablet (KlonoPIN)Indication s:Generalized anxiety disorder,Panic disorder Take 0.5 Tablets by mouth 2 times a day as needed for Anxiety or Insomnia. 30 Tablet 0 08/23/2022 Active Pregabalin 75 MG Oral Capsule (Lyrica) TAKE 1 CAPSULE BY MOUTH EVERYDAY AT BEDTIME 30 Capsule 2 11/08/2022 Active documented as of this encounter (statuses [...] Sylvester, PhD - 12/17/2022 2:25 PM EDT NEUROPSYCHOLOGY: SCORE SUMMARY SHEET Name: Kaelyn Gardiner Age: 52 Education: 15 years Date of Evaluation: 12/03/2022 DEPARTMENT OF PSYCHIATRY NEUROPSYCHOLOGICAL TEST RESULTS IQ, Index, and Standard Scores (SS): Mean = 100; Standard Deviation = 15 Scaled Scores: Mean = 10; Standard Deviation = 3 Z scores (z): Mean = 0; Standard Deviation = 1 T scores (T); Mean = 50; Standard Deviation = 10 GENERAL INTELLECTUAL FUNCTIONING/ACHIEVEMENT Wide Range Achievement Test - 4TH Edition (WRAT-4) Word Reading Standard Score = 104; Grade Equivalent = >12.9 Rust Intellectual Screening Test (RIST) Guess What: T = 61 Odd-Item Out: T = 52 Index = 112 (105-118, 95% Confidence Interval) ATTENTION/PROCESSING SPEED Neuropsychological Assessment Battery (NAB Form 1) Attention Module Digits Forward: T = 43 (raw = 8/14) Digits Backward: T = 57 (raw = 7/14) Dots: T = 65 [place] Making Test [place] A: T = 58 (0 errors) Steven Adult Intelligence Scale-IV (WAIS-IV) Processing Speed Index = 120 (110-126, 95% Confidence Interval) Symbol Search: ss = 15 Coding: ss = 12 LEARNING AND MEMORY Neuropsychological Assessment Battery (NAB Form 1) Memory Module Memory Module Index Score = 90 (82-98, 95% Confidence Interval) List Learning List A Immediate Recall (4,8,11): T = 41 List Learning List B Immediate Recall (7): T = 57 List Learning List A Short-Delayed Recall (9): T = 50 List Learning List A Long-Delayed Recall (8): T = 46 List Learning Percent Retention: 89%, 25%ile List Learning List A Long-Delayed Yes/No Recognition (12): 75%ile List Learning List A Long-Delayed Yes/No Recognition False Alarms (1): 12%ile List Learning List A Recognition Discriminability Index (11): 75%ile Story Learning Phrase Unit Immediate Recall: T = 48 Story Learning Phrase Unit Delayed Recall: T = 48 Story Learning Percent Retention: 92%, 25%ile Shape Learning Immediate Recognition (4,8,8): T = 55 Shape Learning Delayed Recognition (7): T = 54 Shape Learning Percent Retention: 88%, 25%ile Shape Learning Delayed Yes/No Recognition (9): 75%ile Shape Learning Delayed Yes/No Recognition False Alarms (0): 50%ile Shape Learning Recognition Discriminability Index: 90%ile Daily Living Memory Immediate Recall: T = 40 Daily Living Memory Delayed Recall: T = 30 Daily Living Percent Retention: 80%, 14%ile Daily Living Memory Delayed Recognition (10): 75%ile Repeatable Battery for the Assessment of Neuropsychological Status (Form A) Delayed Memory Figure Recall: ss = 10 LANGUAGE Neuropsychological Assessment Battery (NAB Form 1) Language Module Naming: T = 53 (raw = 31/31) Controlled Oral Word Association Test FAS: T = 54 Animals: T = 53 VISUOSPATIAL Repeatable Battery for the Assessment of Neuropsychological Status (Form A) Visuospatial/Constructional Index: SS = 112 Figure Copy: ss = 11 Line Orientation: >75cumul%ile EXECUTIVE FUNCTIONS Neuropsychological Assessment Battery (NAB Form 1) Executive Functions Module Mazes: T = 61 [place] Making Test [place] B: T = 57 (0 errors) Controlled Oral Word Association Test FAS: T = 54 Animals: T = 53 Modified Wisconsin Card Sorting Test Number of Categories Correct: T = 51 (raw = 6) Number of Perseverative Errors: T = 57 Number of Total Errors: T = 56 Percent of Perseverative Errors: T = 58 Executive Function Composite: SS = 107 (average) Clock Drawing Test: raw = 9/10 PERFORMANCE VALIDITY The Aris 15 Item Test: Recall raw = 12/15 Recognition raw = 12/15 Recognition Score = 24 The Dot Counting Test: E-Score = 7 EMOTIONAL/BEHAVIOR RATING SCALES PHQ-9: raw = 18 (moderately severe) STARR-7: raw = 14 (moderate) Joshua Sylvester, Ph.D., ABN Neuropsychologist documented in this encounter Plan of Treatment Upcoming Encounters Date Type Specialty Care Team Description 12/29/2022 Telemedicine Orthopedics Theorn Pineda DO [address] [facility] [place] [address] 01/07/2023 Office Visit Pulmonary Theron Lainez, [address] [place] [address] 01/11/2023 Telemedicine Psychiatry Lim, NERI Mobley [address] [place] [address] 02/09/2023 Office Visit Gynecology Obstetrics Chris Walker MD [address] [place] [address] 02/15/2023 Office Visit Neurology Yumiko Traore PA-C [address] [place] [address] 03/10/2023 Office Visit Gastroenterology Vaughn Powell CRNP [address] [place] [address] 06/16/2023 Office Visit Rheumatology Marla Moon CRNP [address] [place] [address] Health Maintenance Due Date Last Done Comments [...] filedocumented as of this encounter Care Teams Simulation Analyst Relationship Specialty Start Date End Date Paco Orozco PA-C [address] [facility] [place] [address] PCP - General Physician Loss Prevention Lead 04/23/22 documented as of this encounter
--- OUTSIDE RECORDS SUMMARY | 2023-06-12 19:32 | External Medical Summary | Summary of Care ---
Author Name Unknown Organization [facility] Address [address] [facility] [address] Phone [phone] Care Team Providers Care Veterinarian Name Role Phone Paco Orozco PA-C Primary Care Provider +1- [phone] Encounter Details Date Type Department Care Team Description 12/29/2022 Telemedicine Orthopaedics [facility] [address] [place] [address] Theron Pineda, [address] [place] [address] Tear of MCL (medial collateral ligament) of knee, left, sequela*; Internal derangement of left knee; Primary osteoarthritis of left knee Allergies Active Allergy Reactions Severity Noted Date Comments Gold-Containing Drug Products 04/23/2022 Penicillins Rash 04/23/2022 Mirtazapine Other (Please comment) 12/10/2022 SOB Sulfa Antibiotics Rash 04/23/2022 Topiramate 04/23/2022 Blurry vision documented as of this encounter (statuses as of 12/29/2022) Medications Medication Sig Dispensed Refills Start Date [...] Fremanezumab-vfrm 225 MG/1.5ML Subcutaneous Solution Prefilled Syringe ([employer]) Inject 1.5 mL under the skin Every [...] Oral Capsule Take by mouth. 0 Active Searcy 3 1000 MG Oral Capsule Take by mouth. 0 Active Co Q 10 100 MG Oral Capsule Take by mouth. 0 Active D-Ribose Powder Use as directed. 0 Act chaparro documented as of this encounter (statuses as of 12/29/2022) Active Problems Problem Noted Date Abdominal discomfort [...] as of this encounter (statuses as of 12/29/2022) Immunizations Name Administration Dates Next Due Seasonal [...] Progress Notes * Theron Pineda, DO - 12/29/2022 7:45 AM EDT After connecting to the patient via telephone, the patient was identified by name and date of . Patient was then informed that this was a telephone call only visit. The patient agreed to participate. MRI 11/30/22 IMPRESSION 1. High-grade tear of the medial collateral ligament at its femoral attachment, with few (if any) fibers remaining intact. 2. Hyydlyeg-ax-zsyaqr patellofemoral chondromalacia. 3. Mild chondrosis in the medial compartment. Visit Disposition: reviewed MRI, she is doing rehab and bracing, feels slow improvement, she would like to do PRP as well, info given to her No charge phone call Total call duration was 8 minutes. Tear of MCL (medial collateral ligament) of knee, left, sequela (Primary) Internal derangement of left knee Primary osteoarthritis of left knee Theron Pineda DO, JAMEEL, FAAFP, RMSK [facility] documented in this encounter Plan of Treatment Upcoming Encounters Date Type Specialty Care Team Description 01/07/2023 Office Visit Pulmonary Theron Lainez DO [address] [place], [place] [id number] 01/11/2023 Telemedicine Psychiatry Lim, NERI Mobley [address] [place] [address] 01/11/2023 Office Visit Orthopedics Theron Pineda DO [address] [place] [address] 02/09/2023 Office Visit Gynecology Obstetrics Chris Walker MD [address] [place] [address] 02/15/2023 Office Visit Neurology Yumiko Traore PA-C [address] [place] [address] 03/10/2023 Office Visit Gastroenterology Vaughn Powell CRNP [address] [place] [address] 06/16/2023 Office Visit Rheumatology Marla Moon CRNP [address] [place] [address] Health Maintenance Due Date Last Done Comments [...] collateral ligament) of knee, left, sequela- Primary Internal derangement of left knee Unspecified internal derangement of knee Primary osteoarthritis of left knee Primary localized osteoarthrosis, lower leg documented in this encounter Care Teams Veterinarian Relationship Specialty Start Date End Date Paco Orozco PA-Kirill 200 [place] [address] PCP - General Physician Solar Sales Estimator 04/23/22 documented as of this encounter
--- OUTSIDE RECORDS SUMMARY | 2023-06-12 19:32 | External Medical Summary | Summary of Care ---
Author Name Unknown Organization [facility] Address [address] [place] [address] Phone [phone] Care Team Providers Care Dietetic Assistant Name Role Phone Paco Orozco PA-C Primary Care Provider +1- [phone] Reason for Visit * Reason Onset Date Comments STAIR Lung Nodule 12/13/2022 Encounter Details Date Type Department Care Team Description 12/13/2022 Telephone STAIR LUNG NODULE [address] [place] [address] Program, Stair [address] [place] [address] STAIR Lung Nodule Allergies Active Allergy Reactions Severity Noted Date Comments Gold-Containing Drug Products 04/23/2022 Penicillins Rash 04/23/2022 Mirtazapine Other (Please comment) 12/10/2022 SOB Sulfa Antibiotics Rash 04/23/2022 Topiramate 04/23/2022 Blurry vision documented as of this encounter (statuses as of 12/31/2022) Medications Medication Sig Dispensed Refills Start Date [...] Fremanezumab-vfrm 225 MG/1.5ML Subcutaneous Solution Prefilled Syringe ([employer]) Inject 1.5 mL under the skin Every [...] at bedtime. 30 Tablet 1 12/10/2022 Active documented as of this encounter (statuses as of 12/31/2022) Active Problems Problem Noted Date Abdominal discomfort [...] as of this encounter (statuses as of 12/31/2022) Immunizations Name Administration Dates Next Due Seasonal [...] encounter Miscellaneous Notes * Telephone Encounter - Nneka More LPN - 12/31/2022 7:54 AM EDT Patient is now scheduled for a Pulmonary Visit with Dr. Lainez. Will track and monitor his Care [facility]. * Telephone Encounter - Nneka More LPN - 12/14/2022 12:09 PM EDT Lung Nodule Referral Triaging - Clinical Summary Name: Kaelyn Gardiner Age: [age] year old Patient Identified by: Specialty Referral Questions: 1. Have you ever smoked Cigarettes? no - never smoked 2. Have you ever had Cancer? No 3. Do you have any first degree relatives (parent, sibling or child) who have or had lung cancer? mgf - smoker 4. Have you ever had any Chest X-Rays done outside of [facility] in the past 5 years? Yes; Where: somewhere [place]; When: 5. Have you ever had any CAT scans of your chest, abdomen or spine done outside of [facility] in thepast 5 years? Yes; Where: [place], [place] ; When: 6. New patient to this specialty Next Steps: Assembly: CXR/Chest CT/Abdomen CT/Spine CT outside of [facility]: outside CXR/CT scan disk requested Ordering: Recent CT Chest (within 12 months): Ordered Message will be forwarded to BOTANY TECHNICIAN Nodule Pool when necessary imaging is available for review. Nneka More LPN Coordinator STAIR (System to Track Abnormalities of Importance Reliably) Patient managed in STAIR Program for Pulmonary Nodule - added Requested imaging from [facility] in [place], [place] fax [phone] Rdz, Memorial Designer in [facility] [address] phone [phone] * Telephone Encounter - Nneka More LPN - 12/14/2022 12:07 PM EDT Attempted patient again, left message for patient to return call to enroll in STAIR * Telephone Encounter - Nneka More LPN - 12/14/2022 9:56 AM EDT Was speaking with patient and enrolling in STAIR, but her cell clinic receptionist was bad. Will attempt to call back in a little bit. documented in this encounter Plan of Treatment Upcoming Encounters Date Type Specialty Care Team Description 01/07/2023 Office Visit Pulmonary Theron Lainez, [address] [place] [address] 01/11/2023 Telemedicine Psychiatry Lim, NERI Mobley [address] [place] [address] 01/11/2023 Office Visit Orthopedics Theron Pineda DO [address] [facility] [place] [address] 02/09/2023 Office Visit Gynecology Obstetrics Chris Walker MD [address] [place] [address] 02/15/2023 Office Visit Neurology Yumiko Traore PA-C [address] [place] [address] 03/10/2023 Office Visit Gastroenterology Vaughn Powell CRNP [address] [place] [address] 06/16/2023 Office Visit Rheumatology Marla Moon CRNP [address] [place], [place] [id number] Health Maintenance Due Date Last Done Comments [...] filedocumented as of this encounter Care Teams Dietetic Assistant Relationship Specialty Start Date End Date Paco Orozco PA-Kirill [address] [facility] [place] [address] PCP - General Physician Consulting Marine Engineer 04/23/22 documented as of this encounter
--- OUTSIDE RECORDS SUMMARY | 2023-06-12 19:32 | External Medical Summary | Summary of Care ---
Author Name Unknown Organization [facility] Address [address] [place] [address] Phone [phone] Care Team Providers Care Dairy Nutritionist Name Role Phone Paco Orozco PA-C Primary Care Provider +1- [phone] Reason for Referral * Evaluate & Treat - Unlimited Visits (Within 10 days (routine)) - Pending Review Specialty Diagnoses / Procedures Referred By Jo Ann villegas Referred To Contact Hematology/Oncology / Hematology Oncology Diagnoses Hypogammaglobulinemia (HCC) Marla Moon CRNP [address] [place] [address] Referral ID Status Reason Start Date Expiration Date Visits Requested Visits Authorized [id number] Pending Review Specialty Services Required 01/10/[phone] Question Answer Referral Priority Within 10 days (routine) Reason for Referral Abnormal SPEP or Protein Comments 52 year old with abnormal SPEP-- consistent with hypogammaglobulinemia. Results found under "Lab" tab in "outside records". Please eval and treat. Thanks. Reason for Visit * Reason Onset Date Comments Referral 01/10/2023 Encounter Details Date Type Department Care Team Description 01/10/2023 Telephone [facility], [place] [address] [place] [address] Marla Moon CRNP [address] [place] [address] Referral Allergies Active Allergy Reactions Severity Noted Date [...] Fremanezumab-vfrm 225 MG/1.5ML Subcutaneous Solution Prefilled Syringe (MobileRQ) Inject 1.5 mL under the skin Every [...] Oral Capsule Take by mouth. 0 Active Ulysses 3 1000 MG Oral Capsule Take by [...] 01/11/2023 Telemedicine Psychiatry Lim, NERI [place] [address] [facility] [place] [address] 01/11/2023 Office Visit Orthopedics Theron Pineda DO [address] [place] [address] 02/09/2023 Office Visit Gynecology Obstetrics Chris Walker MD [address] [place] [address] 02/15/2023 Office Visit Neurology Yumiko Traore PA-C [address] [place] [address] 03/10/2023 Office Visit Gastroenterology Vaughn Powell CRNP [address] [place] [address] 03/30/2023 PulmDiagnostic Pulmonary Function [place], [facility] [address] [place] [address] 04/01/2023 Office Visit Pulmonary Theron Lainez, DO [address] [place] [address] 06/16/2023 Office Visit Rheumatology Marla Moon CRNP [address] [place] [address] 09/21/2023 Office Visit Neurology Elle Dotson, DO [address] [facility] [place] [address] Scheduled Referrals Name Type Priority Associated Diagnoses Orde r Schedule HEMATOLOGY/ONCOLOGY REFERRAL OP Referral Within 10 days (routine) Hypogammaglobulinemi a (HCC) Ordered: 01/10/2023 Health Maintenance Due Date Last Done Comments [...] unspecified documented in this encounter Care Teams Dairy Nutritionist Relationship Specialty Start Date End Date Paco Orozco PA-C [address] [place] [address] [place] [address] PCP - General Physician Electrical Engineering Professor 04/23/22 documented as of this encounter
--- OUTSIDE RECORDS SUMMARY | 2023-06-12 19:32 | External Medical Summary | Summary of Care ---
Author Name Unknown Organization [facility] Address [address] [place] [place] [address] Phone [phone] Care Team Providers Care Professor Of Industrial Technology Name Role Phone Paco Orozco PA-C Primary Care Provider +1- [phone] Reason for Visit * Reason Onset Date Comments Fax 12/10/2022 Discharg summery Encounter Details Date Type Department Care Team Description 12/10/2022 Telephone General Internal Medicine [facility] [address] [place] [address] Paco Orozco PA-C [address] [facility] [address] Fax (Discharg summery) Allergies Active Allergy Reactions Severity Noted Date Comments Gold-Containing Drug Products 04/23/2022 Penicillins Rash 04/23/2022 Mirtazapine Other (Please comment) 12/10/2022 SOB Sulfa Antibiotics Rash 04/23/2022 Topiramate 04/23/2022 Blurry vision documented as of this encounter (statuses as of 12/15/2022) Medications Medication Sig Dispensed Refills Start Date [...] Fremanezumab-vfrm 225 MG/1.5ML Subcutaneous Solution Prefilled Syringe (UPlanMe) Inject 1.5 mL under the skin Every [...] as of this encounter (statuses as of 12/15/2022) Active Problems Problem Noted Date Severe episode of recurrent major depressive disorder, without psychotic features 07/28/2022 Migraine with aura and without status mi grainosus, not intractable 04/23/2022 Hyperlipidemia with target LDL less than 100 04/23/2022 Fibromyalgia 04/23/2022 Other insomnia 04/23/2022 PTSD (post-traumatic stress disorder) LISA (obstructive sleep apnea) 04/23/2022 Asthma 04/23/2022 documented as of this encounter (statuses as of 12/15/2022) Immunizations Name Administration Dates Next Due Seasonal [...] encounter Miscellaneous Notes * Telephone Encounter - Zahraa Shipley LPN - 12/15/2022 2:21 PM EDT Faxed d/c summary to number provided. Confirmation received. * Telephone Encounter - LISA Amaro - 12/10/2022 3:07 PM EDT Caller requesting the following information to be faxed: Name/Company of caller: [employer] Information requested to be faxed: Hospital discharge sofia Fax number: [phone] Attention to Name/Company: [employer] Any additional information?: na documented in this encounter Plan of Treatment Upcoming Encounters Date Type Specialty Care Team Description 12/17/2022 Telemedicine Psychiatry Joshua Sylvester, PhD [address] [place] [address] 12/20/2022 Telemedicine Orthopedics Theron Pineda, DO [address] [place] [address] 01/07/2023 Office Visit Pulmonary Theron Laniez, DO [address] [facility] [place] [address] 01/11/2023 Telemedicine Psychiatry Lim, NERI Mobley [address] [place] [address] 02/09/2023 Office Visit Gynecology Obstetrics Chris Walker MD [address] [place] [address] 02/15/2023 Office Visit Neurology Yumiko Traore PA-C [address] [place] [address] 03/10/2023 Office Visit Gastroenterology Vaughn Powell CRNP [address] [place] [address] 06/16/2023 Office Visit Rheumatology Marla Moon CRNP [address] [place] [address] Health Maintenance Due Date Last Done Comments [...] filedocumented as of this encounter Care Teams Professor Of Industrial Technology Relationship Specialty Start Date End Date Paco Orozco PA-C [address] [place] [address] PCP - General Physician Cosmetics Presser 04/23/22 documented as of this encounter
--- OUTSIDE RECORDS SUMMARY | 2023-06-12 19:32 | External Medical Summary | Summary of Care ---
Author Name Unknown Organization [facility] Address [address] [facility] [place] [address] Phone [phone] Care Team Providers Care Spindraw Operator Name Role Phone Paco Orozco PA-C Primary Care Provider +1- [phone] Reason for Visit * Reason Comments eRx-Medication Refill Encounter Details Date Type Department Care Team Description 01/01/2023 Refill Neurology [facility] [place] [address] [place] [address] Yumkio Traore PA-C [address] [place] [address] Allergies Active Allergy Reactions Severity Noted Date Comments Gold-Containing Drug Products 04/23/2022 Penicillins Rash 04/23/2022 Mirtazapine Other (Please comment) 12/10/2022 SOB Sulfa Antibiotics Rash 04/23/2022 Topiramate 04/23/2022 Blurry vision documented as of this encounter (statuses as of 01/03/2023) Medications Medication Sig Dispensed Refills Start Date End Date Status Rosuvastatin Calcium 10 MG Oral Tablet (Crestor) Take 1 Tablet by mouth in the morning. 0 2 Active Stiolto Respimat 2.5-2.5 MCG/ACT Inhalation Aerosol Solution INHALE 2 PUFFS BY MOUTH EVERY 24 HOURS 0 2 Active Magnesium Citrate Powder Use [...] Fremanezumab-vfrm 225 MG/1.5ML Subcutaneous Solution Prefilled Syringe (Say-Hey) Inject 1.5 mL under the skin Every [...] Oral Capsule Take by mouth. 0 Active Pinson 3 1000 MG Oral Capsule Take by mouth. 0 Active Co Q 10 100 MG Oral Capsule Take by mouth. 0 Active D-Ribose Powder Use as directed. 0 Act chaparro Nurtec 75 MG Oral Tablet Disintegrating DISSOLVE 1 TABLET (75 MG TOTAL) ON TONGUE EVERY OTHER DAY 15 Tablet 3 3 Active Nurtec 75 MG Oral Tablet Disintegrating TAKE 1 TABLET (75 MG TOTAL) BY MOUTH EVERY OTHER DAY. Strength: 75 mg 15 Tablet 3 2 01/04/20 23 Discontinued documented as of this encounter (statuses as of 01/03/2023) Active Problems Problem Noted Date Abdominal discomfort [...] as of this encounter (statuses as of 01/03/2023) Immunizations Name Administration Dates Next Due Seasonal [...] encounter Miscellaneous Notes * Telephone Encounter - Yumiko Traore PA-C - 01/03/2023 11:45 AM EDT Signed Prescriptions: Disp Refills Nurtec 75 MG Oral Tablet Disintegrating 15 Tab*3 Sig: DISSOLVE 1 TABLET (75 MG TOTAL) ON TONGUE EVERY OTHER DAY Authorizing Provider: YUMIKO TRAORE * Telephone Encounter - Naa [facility] - 01/03/2023 11:07 AM EDT Pending Prescriptions: Disp Refills Nurtec 75 MG Oral Tablet Disintegrating [P*15 Tab*3 Sig: DISSOLVE 1 TABLET (75 MG TOTAL) ON TONGUE EVERY OTHER DAY * Telephone Encounter - [facility] - 01/01/2023 11:29 PM EDTPending Prescriptions: Disp Refills Nurtec 75 MG Oral Tablet Disintegrating [P*15 Tab*3 Sig: DISSOLVE 1 TABLET (75 MG TOTAL) ON TONGUE EVERY OTHER DAY * [facility] - 01/01/2023 11:28 PM EDT Did you pend patient's preferred pharmacy and medication before forwarding?yes Pharmacy: [id number] [address] [place] [address] Pending Prescriptions: Disp Refills Nurtec 75 MG Oral Tablet Disintegrating [*15 Tab*3 Sig: DISSOLVE 1 TABLET (75 MG TOTAL) ON TONGUE EVERY OTHER DAY Last Visit: 08/13/2022 (in office), Visit date not found (telemedicine) Next Visit: 02/15/2023 If no future appointments scheduled, and last appointment is greater than a year ago, please schedule patient for a follow-up appointment Last date the medication was ordered: 05/13/2022 Is this request for a controlled substance?No Urine Drug Screen:No results found for this or any previous visit. Patient Phone Numbers Labs: Lab Results Component Value Date/Time CREAT 0.9 04/23/2022 09:32 AM CREAT 0.70 11/13/1997 10:59 AM POTASSIUM 4.0 04/23/2022 09:32 AM POTASSIUM 4.4 11/13/1997 10:59 AM POTASSIUM 3.4 (L) 04/18/1996 09:25 AM TSH 3.16 04/23/2022 09:32 AM TSH 1.44 11/13/1997 10:59 AM TSH 1.98 04/18/1996 09:25 AM LDLCALC 102 04/23/2022 09:32 AM ALT 19 04/23/2022 09:32 AM documented in this encounter Plan of Treatment Upcoming Encounters Date Type Specialty Care Team Description 01/07/2023 Office Visit Pulmonary Ther[facility] Lainez DO [address] [facility] [address] 01/11/2023 Telemedicine Psychiatry Lim, NERI [place] [address] [facility] [place] [address] 01/11/2023 Office Visit Orthopedics Theron Pineda DO [address] [place] [address] 02/09/2023 Office Visit Gynecology Obstetrics Chris Walker MD [address] [place] [address] 02/15/2023 Office Visit Neurology Yumiko Traore PA-C [address] [place] [address] 03/10/2023 Office Visit Gastroenterology Vaughn Powell CRNP [address] [place] [address] 06/16/2023 Office Visit Rheumatology Marla Moon CRNP [address] [place] [address] Health Maintenance Due Date Last Done Comments [...] filedocumented as of this encounter Care Teams Spindraw Operator Relationship Specialty Start Date End Date Paco Orozco PA-C [address] [place] [address] PCP - General Physician Surveillance Analyst 04/23/22 documented as of this encounter
--- OUTSIDE RECORDS SUMMARY | 2023-06-12 19:32 | External Medical Summary | Summary of Care ---
Author Name Unknown Organization [facility] Address [address] [place] [address] Phone [phone] Care Team Providers Care Scout Sniper Name Role Phone Paco Orozco PA-C Primary Care Provider [phone]- [phone] Encounter Details Date Type Department Care Team Description 10/29/2022 [facility] [address] [place] [address] Jerson Coello, [facility] [address] [place] [address] Depressive disorder*; Anxiety state Allergies Active Allergy Reactions Severity Noted Date Comments Gold-Containing Drug Products 04/23/2022 Penicillins Rash 04/23/2022 Mirtazapine Other (Please comment) 12/10/2022 SOB Sulfa Antibiotics Rash 04/23/2022 Topiramate 04/23/2022 Blurry vision documented as of this encounter (statuses as of 12/21/2022) Medications Medication Sig Dispensed Refills Start Date [...] Fremanezumab-vfrm 225 MG/1.5ML Subcutaneous Solution Prefilled Syringe (Smilebox) Inject 1.5 mL under the skin Every Month. 1.5 mL 3 08/13/19 23 Active clonazePAM 1 MG Oral Tablet (KlonoPIN)Indicati ons:Generalized anxiety disorder,Panic disorder Take 0.5 Tablets by mouth 2 times a day as needed for Anxiety or Insomnia. 30 Tablet 0 08/23/19 23 Active Azelastine HCl 0.1 % Nasal Solution Administer 1 [place] into nostril in the morning and 1 [place] before bedtime. 0 023 Discontinued(En d of Procedure) hydrOXYzine HCl 25 MG Oral TabletIndications: Generalized anxiety disorder,Major depressive disorder, recurrent severe without psychotic features (HCC) Take 1 Tablet by mouth at bedtime as needed for Other (insomnia). 15 Tablet 0 09/21/19 23 023 Discontinued Pregabalin 75 MG Oral Capsule (Lyrica) TAKE 1 CAPSULE BY MOUTH EVERYDAY AT BEDTIME 30 Capsule 0 10/06/19 23 023 Discontinued(Re fill) Ramelteon 8 MG Oral Tablet (Rozerem) Take 1 Tablet by mouth at bedtime. 30 Tablet 1 10/26/19 23 023 Discontinued(Re fill) Hospital, Clinic, or Other Facility Administered Medication Ordered Dose Route Frequency Start Date End Date Status Ramelteon (Rozerem) tab 8 mgIndications:PTSD (post-traumatic stress disorder),Generalized anxiety disorder,Panic disorder,Insomnia, unspecified type 8 mg OR HS 10/11/2022 11/08/2022 Disconti nued documented as of this encounter (statuses as of 12/21/2022) Active Problems Problem Noted Date Severe episode of recurrent major depressive disorder, without psychotic features 07/28/2022 Migraine with aura and without status mi grainosus, not intractable 04/23/2022 Hyperlipidemia with target LDL less than 100 04/23/2022 Fibromyalgia 04/23/2022 Other insomnia 04/23/2022 PTSD (post-traumatic stress disorder) LISA (obstructive sleep apnea) 04/23/2022 Asthma 04/23/2022 documented as of this encounter (statuses as of 12/21/2022) Immunizations Name Administration Dates Next Due Seasonal [...] of this encounter Progress Notes * Jade Mccauley LCSW - 12/21/2022 9:18 AM EDT I have discussed the patient's management with the Social Work Fellow and agree with the note. Please refer to the documented findings and plan of care. This patient's visit today consisted of a telemedicine visit using real time audio/video technology. I did not personally interact with this patient. Jade Mccauley LCSW * Jerson Coello, GINA - 10/29/2022 2:28 PM EDT Psychotherapy Return Progress Note [facility], [address] [address] 10/29/2022 Kaelyn Gardiner [id number] Televideo Medicine Visit Disclosure After connecting to the patient via telephone, the patient was identified by name and date of . Patient was then informed that this was a Telemedicine visit and that the exam was being conductedconfidentially. My office door was closed, and no one else was in the room with me. Patient acknowledged consent and understanding of privacy and security of this virtual visit .I informed the patient that I have reviewed their record in [facility] and presented the opportunity for them to ask any questions regarding the visit today. The patient agreed to participate. Provider reviewed elements of Outpatient Services Description including limits of confidentiality, how to contact the department, risks and benefits of treatment and consent for treatment. Patient isunable to sign acknowledgment receiving form. Signature will be obtained when Covid 19 crisis has passed and in person services resume. For [facility] members, Encounter Form unable to be signed, signature exempt - Telehealth, and will beobtained when Covid 19 crisis has passed and in person services resume. Treatment plan signature page document signatures may be marked "signature exempt - Telehealth" with a provider policy to obtain signatures as soon as possible after the COVID-19 crisis has passed and in person services resume. Information was provided to the patient about confidentiality of behavioral health records including the limits of confidentiality. Specifically this included the exceptions to confidentiality which are: 1. Child abuse/neglect-this provider is a mandated bundle person for child abuse/neglect in the [facility]. If I become aware of child abuse or neglect I am legally required to file a report. 2. Imminent Risk-if a person coming before me is at risk for imminently harming themselves or someone else, it is my legal responsibility to take action to protect life/ensure safety. 3. Court Orders-while rare, I can be compelled to testify in court if required by a ambulance paramedic or legal order. This most often occurs in child abuse or child custody cases but also occasionally occurs in felony cases in which the court believes I have information pertinent to the case. I will do my bestto inform you if this request occurs. Patient informed that case notes will be reviewed with Jade Mccauley LCSW during supervisory meetings. Rights and responsibilities of treatment discussed. Patient informed that the session will be held in keeping with [facility] policies and procedures as well as [facility] regulations. Documentation of sessions will be recorded in the [facility] medical record and is viewableby other [facility] care providers with a legitimate need to access this information. Patient informed about importance of keeping scheduled appointments and to provide 24 hours of advance notice if canceling an appointment when possible. Patients may be dismissed from care for repeated failure to keep scheduled appointments. The patients confirms understanding of this information and consents to treatment. The patient had no additional questions or concerns. [facility] is committed to coordinated care through an integrated delivery system and shared medicalrecord. Since our patients are seen both in primary care and behavioral health (as well as other specialties), each provider has immediate access to information to enable collaboration across the continuum. Start time: 1500 Stop time: 1545 Total direct [id number] time: 45 minutes Location from which the service is delivered: Provider's home via secure HIPAA- compliant platform Location of the member: Patient's home Visit Disposition: return visit for IOP Review/Discharge Planning Diagnosis: Outpatient Adult Therapy Treatment Plan Treatment plan was developed on 10/29/22, treatment will continue to focus on goals below; Treatment update will occur when clinically indicated or by 04/26/2023. Outpatient Adult Therapy Treatment Plan Treatment plan was developed on 09/27/22, treatment will continue to focus on goals below; Treatment update will occur when clinically indicated or by 03/25/2023. 1. Patient's goals captured in patient's words: "Find a better way of dealing with trama and havingsupports" 2. Expected family or significant other involvement: Not applicable 3. Type of Service:Group 4. Crisis Planning: Suicide Safety Plan 5. Patients Strengths and Facilitating Factors to care: Recognizes need for change, Seeking help, Goal Oriented, Attempting to realize ones potential, Has a purpose in life, Has hobbies, Access to housing, Cooperative, Able to care for own personal hygiene and Abstain from using alcohol and/or drugs Signature Obtained on Treatment Plan Patient/ Family Received Copy of Treatment Plan Duration of Treatment Frequency of Treatment Treatment plan developed with patient and/or family during telemedicine/telephonic visit. No treatment plan signature page was signed. Will obtain signatures once sessions resume in clinic. Patient has access to [facility] 12-15 sessions 3x weekly Patient Identified Needs/Goals Interventions Objective/ Discharge Criteria Problem/Need 1: Anxiety, Depression and PTSD Cognitive Behavioral Therapy (CBT), which includes psychoeducation, cognitive restructuring, relaxation/diaphragmatic breathing, problem-solving, and behavioral activation Action Plan: Assess Pt status/complete assessments Review and update Crisis plan Review F/U resources and referrals SYMPTOMS: Mood - anxious and depressed Sleep - poor with DIMS (difficulty initiating & maintaining sleep). Hours of sleep per night: 4- 6 Interest - loss of interest or pleasure in usual activities Guilt - extreme sense of worthlessness, hopelessness and overwhelming Energy - down significantly Concentration - difficulty with focus and attention Appetite - increased Psychomotor changes - unremarkable Suicide - patient admits to thoughts but denies active plan or intent. Vidal-7 Question 10/29/2022 8:45 AM EDT - Filed by Patient Over the last 2 weeks, how often have you been bothered by the following problems? Feeling nervous, anxious, or on edge Several days Not being able to stop or control worrying Several days Worrying too much about different things Several days Trouble relaxing Several days Being so restless that is hard to sit still Several days Becoming easily annoyed or irritable Several days Feeling afraid as if something awful might happen Several days Total score of all questions (range: 0 - 21) 7 (Mild) Phq9-Depression Question 10/29/2022 8:45 AM EDT - Filed by Patient Over the last two weeks, how often have you been bothered by any of the following problems? Little interest or pleasure in doing things Several days Feeling down, depressed or hopeless Several days Over the last two weeks, how often have you been bothered by any of the following problems? Trouble falling or staying asleep, or sleeping too much Nearly everyday Feeling tired or having little energy Nearly everyday Poor appetite or overeating More than half the days Feeling bad about yourself - or that you are a failure, or have let yourself or your family down More than half the days Trouble concentrating on things, such as reading the newspaper or watching television Several days Moving or speaking so slowly that other people could have noticed. Or the opposite - being so fidgety or restless that you have been moving around a lot more than usual Not at all Thoughts that you would be better off , or of hurting yourself Not at all Question 1 score (range: 0 - 3) 1 Question 2 score (range: 0 - 3) 1 Question 3 score (range: 0 - 3) 3 Question 4 score (range: 0 - 3) 3 Question 5 score (range: 0 - 3) 2 Question 6 score (range: 0 - 3) 2 Question 7 score (range: 0 - 3) 1 Question 8 score (range: 0 - 3) 0 Question 9 score (range: 0 - 3) 0 Sum of all PHQ9 questions. (range: 0 - 27) 13 (Moderate Depression) Item 9 on PHQ-9 Score: 0 Negative If positive- write Pt's comments- if passive wish to not be here, use Pt's words in quotes Young Suicide Severity Rating Scale Results 10/27/2022 10:42 [place] SUICIDE SEVERITY RATING SCALE (C-SSRS) Have you wished you were or wished you could go to sleep and not wake up? (In the Past Month or Since Last Visit) No Have you had any actual thoughts of [...] illness/chronic pain;Social and family isolation;History of Trauma MED CHANGES/SIDE EFFECTS: Pursing prescription melatonin no other changes. Pt has stop sertraline due to side effects. PATIENT'S AGENDA: IOP Review and Discharge Plan discussion PROGRESS TOWARDS ACTION PLAN FROM PREVIOUS SESSIONS: SUMMARY/IMPRESSIONS: Patient indicated that she feels she is learning and finding value in the vIOPespecially in that it has been beneficial with her social anxiety. Her physical issues remain a struggle for her. Kaelyn made the observation that the end of third session is when patients are interested in talking because so many with social anxiety feel that they have a connection with similar people and do not want the session to end. She is interested in other group therapy options with [facility] as well as her [facility] onsite case manager is looking into other programs that she can attend. Kaelyn enjoys the connection with others in the group ans also feels sheis gaining from the program, therefore, would like to remain in the programs for the full six weeks, until Saturday, November 12, 2022. MENTAL STATUS EVALUATION: Appearance: relaxed comfortable, causal Behavior: appropriate, cooperative and pleasant Speech: normal pitch, normal rate and normal volume Affect: appropriate Thought Process: within normal limits Thought Content: appropriate Delusions: No Hallucinations: No Obsessions: No Homicidal: No Sensorium: alert and oriented to person, place, time and situation Cognition: grossly intact Insight: good Judgment: good PATIENT'S SESSION EVALUATION:Positive STRATEGIES: Supportive listening Review crisis plan F/U with referral and resources PLAN:Pt has tentative discharge ofMay 2022. ReturnPt will [facility] November 01, [facility]22. Continued treatment is medical necessary: Action Plan: 1.Pt to continue with [facility] 2.Return to with Radha Delatorre Safety Plan Creation Date: 09/27/22 Last Update Date: 10/04/22 Step 1: Warning signs: Warning Signs stop sleeping health issues cause - anxiety Isolation Step 2: Internal coping strategies - Things I can do to take my mind off my problems without contacting another person: Strategies walking, crafting writing puzzles Step 3: People and social settings that provide distraction: Name Contact Information Colton Gardiner [phone] Dottie Gardiner [phone] Step 4: People whom I can ask for help during a crisis: Name Contact Information Colton Gardiner Step 5: Professionals or agencies I can contact during a crisis: Name Contact Information [facility] Psychiatry [phone] Suicide Prevention Lifeline Phone: Call or Text 527 Crisis Text Line: Text HOME to 109138 Step 6: Making the environment safer (plan for lethal means safety): Pt. States no access to weapons. Pt. Does have access to prescription medications Optional: What is most important to me and worth living for?: My daughter Nandini Safety Plan. Liliana Kim and Dominic Enriquez. Used with permission of the authors. CRISIS PLANNING: Kaelyn Gardiner has been provided with Psychiatry emergency telephone numbers, including Crisis Hot Line, and information on how to access our system. The crisis plan was reviewed and updated if necessary based on the information above. [facility], [place] [address] [facility] [address] 10/29/2022 documented in this encounter Plan of Treatment Upcoming Encounters Date Type Specialty Care Team Description 12/29/2022 Telemedicine Orthopedics Theron Pineda DO [address] [place] [id number] 01/07/2023 Office Visit Pulmonary Theron Lainez DO [address] [place] [address] 01/11/2023 Telemedicine Psychiatry Lim, NERI Mobley [address] [facility] [place] [address] 02/09/2023 Office Visit Gynecology Obstetrics Chris Walker MD [address] [place] [address] 02/15/2023 Office Visit Neurology Yumiko Traore PA-C [address] [facility] [place] [address] 03/10/2023 Office Visit Gastroenterology Vaughn Powell CRNP [address] [place] [address] 06/16/2023 Office Visit Rheumatology Marla Moon CRNP [address] [place] [address] Health Maintenance Due Date Last Done Comments [...] as of this encounter Visit Diagnoses Diagnosis Depressive disorder- Primary Depressive disorder, not elsewhere classified Anxiety state Anxiety state, unspecified documented in this encounter Care Teams Scout Sniper Relationship Specialty Start Date End Date Paco Orozco PA-C [address] [place] [address] PCP - General Physician Calculus Professor 04/23/22 documented as of this encounter
--- OUTSIDE RECORDS SUMMARY | 2023-06-12 19:32 | External Medical Summary | Summary of Care ---
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 0 Active [place] 3 1000 MG Oral Capsule Take by [...] for Sleep. 30 Capsule 1 01/11/2023 Active Temazepam 30 MG Oral Capsule (Restoril)Indicatio ns:Insomnia, unspecified type Take 1 Capsule by mouth at bedtime as needed for Sleep. 30 Capsule 1 12/10/2022 01/12/20 23 Discontinu ed(Refill) Ramelteon 8 MG Oral Tablet (Rozerem)Indication s:Insomnia, unspecified type Take 1 Tablet by mouth at bedtime. 30 Tablet 1 12/10/2022 01/12/20 23 Discontinu ed(Refill) Hospital, Clinic, or Other Facility [...] encounter Progress Notes * NERI Sosa - 01/11/2023 12:04 PM EDT OUTPATIENT PSYCHIATRY [place] [address] MEDICATION MANAGEMENT & PSYCHOTHERAPY RETURN VISIT NOTE Name: Kaelyn Gardiner : 1970 Date Seen: 01/11/2023 Time Seen: 1204 LOCATION FROM WHICH SERVICE IS DELIVERED Provider's Home via HIPAA-compliant platform PATIENT'S CURRENT PHYSICAL LOCATION Pt home address After connecting through [employer], patient was verified with two unique identifiers. Patient (or authorized legal termite control representative) was then informed that this was [...] induced seizures. Stressors include recent move from [place] with and younger daughter and conflict with older daughter. She suffers from insomnia for many years, sometimes only sleeping a couple hours or not at all during the night. Has difficulty taking medication in the morning due to inability to eat in the morning CURRENT PSYCHIATRIC PROVIDERS/SERVICES: [facility] case management services [facility] peer support [...] of [facility] resource center during History of homelessness/snf living? no Education: BS in math Employment/Occupational status: not employed history: no Legal history: no Trauma history: see above Social support/supportive people in life: daughter, family friends Leisure/recreational activities: cross stitch, reading, nature, car rides Advent/philosophical beliefs: Yazidi - non practicing CHANGE IN SUBSTANCE USE [...] appointments: Wt Readings from Last 3 Encounters: 01/07/23 90.4 kg (199 lb 6.4 oz) 12/14/22 90.9 kg (200 lb 4.8 oz) 12/13/22 89.8 kg (198 lb) LABORATORY RESULTS: No results found for this or any previous visit (from the past 1344 hour(s)). REVIEW OF SYSTEMS: stable MENTAL STATUS EVALUATION: General Appearance: appropriately dressed, appropriately groomed, and good eye contact Attitude/Behavior: cooperative, open and friendly, engaged Motor Behavior/Muscle Strength & Tone/Gait & Station: no abnormalities noted Speech: normal, rate, tone and volume Mood: frustrated Affect: euthymic Thought Process: circumstantial, focused on others Thought Content/Perceptions: somatic; pt focuses on others and requires encouragement to focus of her feelings; denies active suicidal ideation, plan or intent presently; denies homicidal ideations, auditory hallucinations, visual hallucinations, delusions, impulsivity to act out or preoccupation with violence; Patient does not appear to be internally preoccupied. No evidence of illusions, depersonalization, derealization, or dissociation. Attention span/concentration as [...] Insight: fair Judgement: fair Impulse Control: fair [place] Suicide Severity Rating Scale Results 01/11/2023 12:15 [place] SUICIDE SEVERITY RATING SCALE (C-SSRS) Have [...] occur when clinically indicated or by 07/14/23. 1. Patient's goals captured in patient's words: "To continue to be able to sleep." 2. Crisis Planning: What I can do if I ever experience a crisis (much worse symptoms, severe distress or thoughts of self-harm): Art/Music and Exercise/Walk 3. People I can call in the event of a crisis: Family Member daughter 2. Additional resources I can utilize if the previous steps are ineffective (e.g: ED, hotlines): Suicide and Crisis Lifeline - 533 3. Patient/Family Received Copy of Treatment Plan: Patient has access to [facility] 4. Signature Obtained on Treatment Plan: No 5. Expected family or significant other involvement: Offer Support and Crisis Support 6. Patient strengths and facilitating factors to care:Seeking [...] to be made at this time. Discussed snf plan to taper/discontinue clonazepam. Pt would benefit from additional support services through [facility], including blended case management, peer support and [...] of insomnia, which is consistent with her snf history. She feels medications have been helpful [...] fluid intake, and to consider returning to hoahaoism services. 07/26/22: Pt has responded well to [...] attacks since last appt. Was connected with [facility] and casemanager [...] IOP program, has accessed emergency housing support [facility] for short term placement outside of home, [...] the home presently. Pt is assigned case management manager through [facility] and meets with her every 2 weeks, she will be scheduling initial appt with [facility] for peer support and she is to schedule transportation to tour [facility] psych rehab. Pt states she enjoyed the socialization of IOP. She was encouraged to follow up with [facility], as this will provide socialization and support. [...] peer support services and she likes her dispute specialist. Is attending [facility] psych rehab one day per week, but [...] is to continue current medications as prescribed. Diagnosis: Major depressive disorder [...] Drug Monitoring Program in compliance with the [facility] regulations before prescribing a controlled substance. Laboratory/Diagnostics: none Community support/Counseling: Continue to offer psychotherapy utilizing Supportive listening as adjunct to evaluation, managementand prescription of psychiatric medications. Recommended additional individual therapy. Pt in agreement. Trauma therapy is indicated. Discussed referral to community provider with the assistance of [facility] case management manager [facility] psych rehab one day per week [facility] with [facility] services - [facility] PCP/medical: Continue to follow up with primary care provider and/or medical specialists as scheduled/appropriate. Return Appointment: Kaelyn Gardiner is to return in 4 weeks. Sooner PRN. This treatment plan was [...] up to date on regular health maintenance perprimary care provider recommendations. Kaelyn Gardiner was encouraged to keep active in productive hobbies and exercise, as this can help manage emotions, improve sleep, wellbeing and overall health. Pt was cautioned to not drink alcohol or use illicit drugs as these can make symptoms worse by blocking the effects of prescribed medications. Advised to avoid tobacco and products containing nicotineand to limit caffeine use. Nicotine and caffeine are stimulants that can cause difficulty with symptom management and pose increased health risks. Please note >17 minutes of counseling time over and above medication management was spent with patient discussing self care and providing supportive therapy, including Supportive listening Annabel Lim, MSN, AUTO TRANSMISSION SPECIALIST, PMHNP-[facility] Psychiatry [facility] Current Outpatient Medications Medication Sig Dispense Refill clonazePAM 1 MG Oral Tablet (KlonoPIN) Take 0.5 Tablets by mouth 2 times a day as needed for Anxiety or Insomnia. 30 Tablet 0 Pregabalin 75 MG Oral Capsule (Lyrica) TAKE 1 CAPSULE BY MOUTH EVERYDAY AT BEDTIME 30 Capsule 2 Nurtec 75 MG Oral Tablet Disintegrating DISSOLVE 1 TABLET (75 MG TOTAL) ON TONGUE EVERY OTHER DAY 15 Tablet 3 Propranolol HCl 10 MG Oral Tablet (Inderal) 1 tab at bedtime x 5 days then 1 tab twice daily for 5 days then 1 tab three times daily 90 Tablet 2 Ramelteon 8 MG Oral Tablet (Rozerem) Take 1 Tablet by mouth at bedtime. 30 Tablet 1 Temazepam 30 MG Oral Capsule (Restoril) Take 1 Capsule by mouth at bedtime as needed for Sleep.30 Capsule 1 Rosuvastatin Calcium 10 MG Oral Tablet (Crestor) Take 1 Tablet by mouth in the morning. (Patient not taking: Reported on 01/11/2023) Magnesium Citrate Powder Use as directed. Aimovig 140 MG/ML Subcutaneous Solution Auto-injector INJECT [...] 1 tab x 3 days then stop (Patient not taking: Reported on 01/11/2023) 48 Tablet 2 Fremanezumab-vfrm 225 MG/1.5ML Subcutaneous Solution Prefilled Syringe ([employer] Inject 1.5 mL under the skin Every Month. 1.5 mL 3 Vitamin C 250 MG Oral Tablet (Ascorbic Acid) Take 2 Tablets by mouth in the morning. Zinc 50 MG Oral Capsule Take 1 Capsule by mouth in the morning. B Complex-C Oral Capsule Take by mouth. [place] 3 1000 MG Oral Capsule Take by [...] for Shortness of Breath. 18 g 1 Current Facility-Administered Medications Medication Dose Route Frequency Provider Last Rate Last Admin Albuterol Sulfate (Proventil) (2.5 MG/3ML) 0.083% inhalation solution 2.5 mg 2.5 mg Nebulizer Once PRN Theron Lainez DO documented in this encounter Plan of Treatment Upcoming Encounters Date Type Specialty Care Team Description 01/11/2023 Office Visit Orthopedics Theron Pineda DO [address] [place] [address] Kaelyn Gardiner 02/09/2023 Office Visit Gynecology Obstetrics Chris Walker MD [address] [place] [address] 02/15/2023 Office Visit Neurology Yumiko Traore PA-C [address] [place] [address] 02/15/2023 Telemedicine Psychiatry Lim, NERI Mob[place] [address] [facility] [place] [address] 03/10/2023 Office Visit Gastroenterology Vaughn Powell, NERI [address] [facility] [place] [address] 03/30/2023 PulmDiagnostic Pulmonary Function [place], [facility] [address] [facility] [place] [address] 04/01/2023 Office Visit Pulmonary Theron Lainez, DO [address] [place] [address] 06/16/2023 Office Visit Rheumatology Marla Moon CRNP [address], [place] [id number] 09/21/2023 Office Visit Neurology Elle Dotson DO [address] [place] [address] Health Maintenance Due Date Last Done Comments [...] episode, severe, without mention of psychotic behavior Insomnia, unspecified type Panic disorder Panic disorder without agoraphobia PTSD (post-traumatic stress disorder) Posttraumatic stress disorder documented in this encounter Care Teams Pig Machine Operator Relationship Specialty Start Date End Date Paco Orozco PA-C [address] [facility] [place] [address] PCP - General Physician Night Court Magistrate 04/23/22 documented as of this encounter
--- OUTSIDE RECORDS SUMMARY | 2023-06-12 19:32 | External Medical Summary | Summary of Care ---
Author Name Unknown Organization [facility] Address [address] [facility] [place] [address] Phone [phone] Care Team Providers Care Reconciliation Specialist Name Role Phone Paco Orozco PA-C Primary Care Provider [phone]- [phone] Encounter Details Date Type Department Care Team Description 12/17/2022 Result Scan Unspecified Department <No scans attached> Allergies Active Allergy Reactions [...] Fremanezumab-vfrm 225 MG/1.5ML Subcutaneous Solution Prefilled Syringe ([employer]) Inject 1.5 mL under the skin Every [...] Oral Capsule Take by mouth. 0 Active [place] 3 1000 MG Oral Capsule Take by [...] 12/29/2022 Telemedicine Orthopedics Theron Pineda DO [address] [address] 01/07/2023 Office Visit Pulmonary Theron Lainez DO [address] [place] [address] 01/11/2023 Telemedicine Psychiatry Lim, NERI [place] [address] [place] [address] 02/09/2023 Office Visit Gynecology Obstetrics Chris Walker MD [address] [place] [address] 02/15/2023 Office Visit Neurology Yumiko Traore PA-C [address] [place] [address] 03/10/2023 Office Visit Gastroenterology Vaughn Powell CRNP [address] [place] [address] 06/16/2023 Office Visit Rheumatology Marla Moon CRNP [address] [place] [address] Health Maintenance Due Date Last Done Comments [...] Date/Time Associated Diagnosis Comments OUTSIDE LAB RESULTS 12/17/2022 documented in this encounter Results * OUTSIDE LAB RESULTS (12/17/2022) 12/17/2022 No Physician Data Unknown LABORATORY documented in this encounter Care Teams Reconciliation Specialist Relationship Specialty Start Date End Date Paco Orozco PA-C [address] [facility] [place] [address] PCP - General Physician Community Specialist 04/23/22 documented as of this encounter
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
[2023-06-12] MEDS ORDERED: SODIUM CHLORIDE 0.9% 1,000 ML IV STA (19:47)
[2023-06-12] MEDS ORDERED: ONDANSETRON INJ 2 MG/ML 2 ML VIAL IV STA (19:47)
[2023-06-12] MEDS ORDERED: KETOROLAC TROMETHAMINE 15 MG/ML VIAL IV STA (19:47)
[2023-06-12 20:15] LABS: Basophils # (auto) 0.06 K/uL (0.00-0.20); Basophils % (auto) 0.4 %; Eosinophils % (auto) 1.4 %; Hematocrit (blood only) 42.6 % (37.0-47.0); Hemoglobin 14.2 g/dl (12.0-16.0); Immature Granulocytes # (auto) 0.08 K/uL (0.01-0.20); Immature Granulocytes % (auto) 0.5 %; Lymphocytes # (auto) 1.69 K/uL (1.20-3.40); Lymphocytes % (auto) 11.6 %; Mean Corpuscular Hgb Conc 33.3 g/dL (32.0-36.0); Mean Corpuscular Volume 90.1 fL (80.0-100.0); Mean Platelet Volume 11.3 fL (9.4-12.4); Monocytes # (auto) 0.89 K/uL (0.11-0.59); Monocytes % (auto) 6.1 %; Neutrophils # (auto) 11.68 K/uL (1.40-6.50); Platelet Count 259 K/uL (130-400); RDW Coefficient of Variation 12.8 % (11.5-14.5); RDW Standard Deviation 42.4 fL (36.4-46.3); Red Blood Count 4.73 M/uL (4.20-5.40)
[2023-06-12 20:20] LABS: Appearance Urine Clear (Clear); Bacteria Urine Automated Negative (Negative); Blood Urine 2+ (Negative); Cast Urine Automated 0 /lpf (0-5); Color Urine Dark Yellow; Glucose Urine UA Negative (Negative); Ketones Urine 1+ (Negative); Leukocyte Esterase Urine Negative (Negative); Nitrite Urine Negative (Negative); Protein Urine 1+ (Negative); Urobilinogen Urine Negative (Negative); pH Urine 5.5 (4.5-7.5)
[2023-06-12 20:21] LABS: Bilirubin Urine 1+ (Negative)
[2023-06-12 20:45] LABS: Albumin Globulin Ratio 1.4 (0.9-2); Albumin Level 4.3 gm/dl (3.4-5.0); BUN Creatinine Ratio 9.7 (10-20); Calcium 9.7 mg/dl (8.6-10.3); Creatinine Clr Calc Pharmacy 69.3 ml/min; Est GFR (African American) 80.8 ml/min; Est GFR (Non-African American) 69.7 ml/min; Potassium 3.6 mmol/L (3.5-5.1); Total Protein 7.3 gm/dl (6.0-8.3)
[2023-06-12 20:50] LABS: Pregnancy Test, Serum Negative (Negative)
[2023-06-12 20:51] LABS: Troponin I High Sensitivity 3.9 pg/ml (0-14)
[2023-06-12 20:57] LABS: Adenovirus PCR Not Detected (NotDetected); Bordetella parapertussis PCR Not Detected (NotDetected); Bordetella pertussis PCR Not Detected (NotDetected); Chlamydia pneumoniae PCR Not Detected (NotDetected); Coronavirus 229E PCR Not Detected (NotDetected); Coronavirus CoV-2 (COVID19)PCR Not Detected (NotDetected); Coronavirus HKU1 PCR Not Detected (NotDetected); Coronavirus NL63 PCR Not Detected (NotDetected); Coronavirus OC43PCR Not Detected (NotDetected); Human Metapneumovirus PCR Not Detected (NotDetected); Influenza A PCR Not Detected (NotDetected); Influenza B PCR Not Detected (NotDetected); Mycoplasma pneumoniae PCR Not Detected (NotDetected); Parainfluenza Virus 1 PCR Not Detected (NotDetected); Parainfluenza Virus 2 PCR Not Detected (NotDetected); Parainfluenza Virus 3 PCR Not Detected (NotDetected); Parainfluenza Virus 4 PCR Not Detected (NotDetected); Respiratory Syncytial VirusPCR Not Detected (NotDetected); Rhinovirus/Enterovirus PCR Not Detected (NotDetected)
[2023-06-12 20:58] LABS: INR 1.1 (0.9-1.1); Partial Thromboplastin Ratio 1.1; Partial Thromboplastin Time 30 Seconds (21-31); Prothrombin Time 12.1 Seconds (9.0-12.0)
[2023-06-12 21:00] LABS: Thyroid Stimulating Hormone 1.179 uIu/ml (0.300-4.500)
[2023-06-12] MEDS ORDERED: OPTIRAY 320 125ml IV ONE (21:29)
[2023-06-12] MEDS ORDERED: MoRPHine SULFATE 4 MG/ML 1 ML CARP\\VIAL IV STA (21:40)
--- NOTE | 2023-06-12 22:07 | CT Scan Report ---
Exam(s): CTA CHEST IV Amt: 115 ml optiray 320 EXAM: CT Angiography Chest With Intravenous Contrast CLINICAL HISTORY: Reason for exam: PE. TECHNIQUE: Axial computed tomographic angiography images of the chest with intravenous contrast. CTDI is 27.54 mGy and DLP is 2187.39 mGy-cm. Automated exposure control was utilized for the study. A dose lowering technique was utilized adhering to the principles of ALARA. MIP reconstructed images were created and reviewed. COMPARISON: No relevant prior studies available. FINDINGS: Pulmonary arteries: Unremarkable. No pulmonary embolism. Aorta: No acute findings. No thoracic aortic aneurysm. Lungs: Unremarkable. No mass. No consolidation. Pleural space: Unremarkable. No significant effusion. No pneumothorax. Heart: Unremarkable. No cardiomegaly. No significant pericardial effusion. No evidence of RV dysfunction. Bones/joints: No acute fracture. No dislocation. Soft tissues: Unremarkable. Lymph nodes: Unremarkable. No enlarged lymph nodes. IMPRESSION: No acute process. No pulmonary embolism. Electronically signed by: Pamela Moy MD 06/12/23 22:06 PM
--- NOTE | 2023-06-12 22:11 | CT Scan Report ---
Exam(s): CT ABDOMEN + PELVIS With Contrast IV Amt: 115 ml optiray 320 EXAM: CT Abdomen and Pelvis With Intravenous Contrast CLINICAL HISTORY: Reason for exam: abdominal pain. TECHNIQUE: Axial computed tomography images of the abdomen and pelvis with intravenous contrast. CTDI is 27.54 mGy and DLP is 2187.39 mGy-cm. Automated exposure control was utilized for the study. A dose lowering technique was utilized adhering to the principles of ALARA. CONTRAST: Patient received 115 ml optiray 320 of IV contrast COMPARISON: No relevant prior studies available. FINDINGS: Lung bases: Unremarkable. No mass. No consolidation. ABDOMEN: Liver: Unremarkable. No mass. Gallbladder and bile ducts: Prior cholecystectomy. No ductal dilation. Pancreas: Unremarkable. No mass. No ductal dilation. Spleen: Unremarkable. No splenomegaly. Adrenals: Unremarkable. No mass. Kidneys and ureters: Unremarkable. No solid mass. No hydronephrosis. Stomach and bowel: Scattered diverticuli with wall thickening of the sigmoid colon and moderate adjacent mesenteric edema, characteristic of acute diverticulitis. Tiny foci of air near the sigmoid colon, best seen on series 6, image 242 may represent a small microperforation. No abscess. No obstruction. PELVIS: Appendix: No findings to suggest acute appendicitis. Bladder: Unremarkable. No mass. Reproductive: Multiple uterine fibroids. ABDOMEN and PELVIS: Intraperitoneal space: Unremarkable. No free air. No significant fluid collection. Bones/joints: No acute fracture. No dislocation. Soft tissues: Unremarkable. Vasculature: 2 splenic artery aneurysms noted, measuring 11.1 and 10.5 mm. Lymph nodes: Unremarkable. No enlarged lymph nodes. IMPRESSION: 1. Scattered diverticuli with wall thickening of the sigmoid colon and moderate adjacent mesenteric edema, characteristic of acute diverticulitis. Tiny foci of air near the sigmoid colon, best seen on series 6, image 242 may represent a small microperforation. No abscess. 2. 2 splenic artery aneurysms noted, measuring 11.1 and 10.[address] annual abdominal CT or MR follow-up. Electronically signed by: Pamela Moy MD 06/12/23 22:10 PM
[2023-06-12] MEDS ORDERED: CIPROFLOXACIN / D5W 400 MG/200 ML BAG IV STA (22:30)
[2023-06-12] MEDS ORDERED: metroNIDAZOLE 500 MG/100 ML BAG IV STA (22:30)
--- NOTE | 2023-06-12 22:31 | Surgery Consultation ---
<Statement entered by Emeterio Han, - 06/13/23 09:05> This patient was discussed with the surgical PA. I agreed with this plan. Date of Consultation June 12, 2023 Assessment & Plan (1) Diverticulitis: I discussed with the treating clinician the emergency department the patient is going to be admitted on the hospitalist service. I also discussed surgical recommendations with the hospitalist service. They are as follows: Implement n.p.o. status. (I did inform the patient that it would be okay for her to have an occasional ice chip for comfort) Provide IV fluid for hydration Provide analgesics Provide antiemetics Antibiotics to be initiated. As the patient does have a penicillin allergy (she is unsure of her reaction) she will be initiated on Cipro and Flagyl. Serial labs should be followed Serial abdominal exams will be followed I discussed with the patient that would be preferable to treat this condition in a conservative manner as noted above as any emergency surgery on an unprepped bowel would likely necessitate a colostomy. The patient notes that she wishes to avoid this. I did discuss with the patient that we will monitor her clinical response to the above plan with further recommendations to follow. I discussed with the patient that if she fails to show significant clinical improvement to the above measures within the next 2 to 3 days consideration can be given to repeating a CT scan of her abdomen. At the present time the patient is nontoxic-appearing. She does not have hypotension, tachycardia, or fever. She also does not have acute kidney injury. She does exhibit a slight leukocytosis. I therefore feel surgical intervention on an emergent basis is not required at this time. Additional recommendations be forthcoming based on her clinical course as unfolds History of Present Illness Reason for Consultation: Diverticulitis History of Present Illness This is a 53-year-old female who presented to the emergency department secondary to abdominal pain. The patient relates that she had a history of diverticulitis approximate 5 years ago and then again in 2019. The patient says that she was hospitalized each time and she did not require any surgical intervention. The patient reports that she has had an up-to-date colonoscopy as she has undergone a colonoscopy this past summer performed at an outpatient [facility] facility. To the best of her knowledge she thinks they only remove some polyps and did not identify other significant pathology. Patient notes that around Thanks of this year the patient was having episodes of on and off constipation. She notes that this happened approximately 2 days before , 1 week later, and then 5 days before her presentation this evening. Last night the patient also noted that she had worsening lower abdominal pain with occasional shakes, chills, and low-grade fever. In addition the patient reports that she has had nausea and vomiting. She denies any mitigating factors to her pain. She does note that her most recent bowel movement was approximate 6:00 PM yesterday. She notes that that her bowel movement was soft but was nonbloody and nonmelanotic. Because of her symptoms she initially presented to urgent care and patient was referred to the emergency department as it was felt that urgent care was not fit to care for her underlying problem. The patient does report she has had prior abdominal surgeries in the form of a laparoscopic cholecystectomy. In addition to the abdominal complaints noted above she does note that some of the abdominal pain tends to radiate up into her chest. Since arrival to the hospital this patient has had labs and imaging which I independently reviewed. The patient had a CT scan of the abdomen and pelvis that showed no evidence of pulmonary emboli. There is no evidence of pneumonia. Patient did have a CT scan of the abdomen pelvis as well where patient was noted to have findings consistent with acute diverticulitis of the sigmoid colon (patient was noted to have wall thickening of the sigmoid colon with some mesenteric edema). There is also a tiny area near the sigmoid colon that was felt to represent a potential small microperforation. There is no evidence of abscess. Labs include a CBC her white blood cell count was 14.6. Hemoglobin, hematocrit, platelet count were normal. Chemistry profile showed sodium and potassium along with the BUN and creatinine were normal. There is no elevation of LFTs or lipase. A test was negative. Urinalysis was not indicative of infection. The patient had a bio fire study checked and no pathogens were identified on this study. At the time of my interview the patient was resting comfortably in bed and she was no distress. Allergies Allergy/AdvReac Type Severity Reaction Status Date / Time Penicillins Allergy Unknown Verified 12/05/22 05:48 Sulfa (Sulfonamide Allergy Unknown Verified 12/05/22 05:48 Antibiotics) garlic AdvReac Unknown Verified 12/05/22 05:48 lettuce AdvReac Unknown Verified 12/05/22 05:48 peach AdvReac Unknown Verified 12/05/22 05:48 peanut AdvReac Unknown Verified 12/05/22 05:48 pepper (genus Capsicum) AdvReac Unknown Verified 12/05/22 05:48 shellfish derived AdvReac Unknown Verified 12/05/22 05:48 soy AdvReac Unknown Verified 12/05/22 05:48 wheat AdvReac Unknown Verified 12/05/22 05:48 low fat dairy AdvReac Unknown Uncoded 12/05/22 05:48 Home Medications Medication Instructions Recorded Confirmed Type clonazepam 1 mg tablet 0.5 mg 12/05/22 History erenumab-aooe 140 mg/mL 140 mg subcut 12/05/22 History subcutaneous auto-injector (Aimovig Autoinjector) pregabalin 75 mg capsule 75 mg 12/05/22 History rimegepant 75 mg disintegrating 75 mg 12/05/22 History tablet (Nurtec ODT) rosuvastatin 10 mg tablet 10 mg 12/05/22 History temazepam 30 mg capsule 30 mg 12/05/22 History tiotropium 2.5 mcg-olodaterol 2.5 2 puff inhalation DAILY 12/05/22 12/05/22 History mcg/actuation mist for inhalation (Stiolto Respimat) Patient History Medical History Peripheral neuropathy Environmental and seasonal allergies Fibromyalgia Asthma Dyslipidemia Insomnia PTSD (post-traumatic stress disorder) Depression Anxiety Surgical History History of tonsillectomy History of cholecystectomy History of colonoscopy Social History Smoking Status: Never smoker Hx Alcohol Use: Yes Hx Substance Use: No Preferred Language: Monegasque Communication Ability: Effective Pneumatic Systems Operator Required: No Beliefs That Will Affect Care: None Current Living Situation: Spouse, Family and Other Current Living Situation Comment: Live with daughter and Feels Safe at Home: No Is there a partner from a previous relationship who is making you feel unsafe now?: No Assistive Devices: Walker Review of Systems Constitutional: + fever and + chills Eyes: + corrective lenses Ear, Nose, Mouth, Throat: no hearing loss Respiratory: no cough and no dyspnea Cardiovascular: + chest pain Gastrointestinal: as per Subjective / HPI Genitourinary: no dysuria Musculoskeletal: no back pain Integumentary: no rash Neurologic: + headache(s); no localized weakness Physical Exam Constitutional: WD/WN, vitals as above Eyes: Wears glasses ENMT: Ears: no hearing impairment Neck: trachea midline Respiratory: normal respiratory effort; no respiratory distress and no labored breathing Cardiovascular: Rate/Rhythm: regular rate and regular rhythm Gastrointestinal (Abdomen): Abdomen soft, nonrigid, and nondistended. Bowel sounds are hypoactive. Patient did have pain with palpation in a generalized fashion throughout her abdomen but this appeared to be greatest in the lower abdomen. There is no rebound tenderness or guarding. Musculoskeletal: No calf tenderness Skin: no rashes Neurologic: moves all extremities Psychiatric: A+Ox3, euthymic affect Results & Data Vital Signs (Past 12 Hours) Vital Signs Temp Pulse Resp BP Pulse Ox O2 Del Method 06/12/23 21:00 137/91 06/12/23 21:00 89 20 06/12/23 20:50 81 22 06/12/23 20:40 98 H 15 06/12/23 20:31 87 24 06/12/23 20:31 126/85 06/12/23 20:30 86 24 06/12/23 20:20 86 15 06/12/23 20:10 85 17 06/12/23 20:09 150/100 H 06/12/23 20:09 89 14 06/12/23 20:04 91 H 13 06/12/23 20:04 91 H 06/12/23 20:01 Room Air 06/12/23 20:01 15 98 Room Air 06/12/23 19:27 36.8 C 100 H 18 163/97 H 97 Room Air PG Care Time/CCT Total # of Minutes Spent Total Time Spent with Patient: Total time spent is greater than 50% in coordination of care (as documented) at patient's floor/unit and/or counseling patient: Coding Level of Care Code 38993 IN/OBS CONSULT LVL 5,80M Diagnoses Diverticulitis K57.92
[2023-06-12] MEDS ORDERED: KETOROLAC TROMETHAMINE 15 MG/ML VIAL IV PRN (22:44)
[2023-06-12] MEDS ORDERED: LACTATED RINGER'S 1,000 ML IV STA (22:55)
[2023-06-12] MEDS ORDERED: PROPRANOLOL HCL 10 MG TAB PO STA (22:58)
--- NOTE | 2023-06-13 00:25 | CT Scan Report ---
Exam(s): CT HEAD Without Contrast EXAM: CT Head Without Intravenous Contrast CLINICAL HISTORY: Reason for exam: bee, htn crisis. TECHNIQUE: Axial computed tomography images of the head/brain without intravenous contrast. CTDI is 37.17 mGy and DLP is 547.75 mGy-cm. Automated exposure control was utilized for the study. A dose lowering technique was utilized adhering to the principles of ALARA. COMPARISON: No relevant prior studies available. FINDINGS: No acute intracranial hemorrhage. No midline shift or mass effect. The territorial gonzalez-white matter differentiation is maintained throughout. The ventricles and sulci are commensurate with age. The visualized orbits appear grossly unremarkable. The calvarium is intact. The visualized paranasal sinuses and mastoid air cells are grossly clear. IMPRESSION: No acute intracranial hemorrhage, midline shift, or mass effect. Electronically signed by: Ruddy Barker MD 06/13/23 00:24 AM
[2023-06-13] MEDS ORDERED: PREGABALIN 75 MG CAP PO STA (00:45)
--- NOTE | 2023-06-13 00:45 | History & Physical Report ---
Date of Service June 13, 2023 Assessment & Plan (1) Diverticulitis of large intestine with complication: Plan: Complicated diverticulitis. Diverticulitis with microperforation No sepsis for now Headache and chest pain probably from hypertensive crisis secondary discomfort LISA on CPAP hx migraine on beta-norma prophylaxis fibromyalgia Hyperglycemia rule out DM anxiety/mood disorder at baseline Medical telemetry given uncontrolled BP Analgesia Change propranolol to metoprolol if with persistent BP elevation TTE Re: Chest pain Cipro Flagyl for complicated diverticulitis General surgery consult Re: Complicated diverticulitis (Patient already seen at the ER by provider who recommends bowel rest in addition to antibiotic regimen.) Check hemoglobin A1c DVT prophylaxis. SCDs Re: L GIB Full code Text document was generated using [employer] voice recognition software. It may contain grammatical or spelling errors. Kindly contact undersigned for clarification of any documentation item in question. History of Present Illness Chief Complaint: Chest pain, worsening abdominal pain Primary Care Provider: Leonila Angel, History obtained from patient and records. Medical history significant for LISA on CPAP, past history diverticulitis, migraine, fibromyalgia, anxiety/mood disorder. Last confinement November 2022 for left knee pain secondary to fall Patient noted worsening of achy chronic generalized abdominal pain in the last week. Alternating constipation/diarrhea. Hematochezia from straining. Some chills. Substernal chest pain different from abdominal pain. Achy headache symptoms different from migraine with neck pain. Highest SBP of 180s documented at the ER. IV Cipro and Flagyl administered for diverticulitis. Medical History as above 2022 colonoscopy showed diverticulosis Surgical History : Hysteroscopy with biopsy, cholecystectomy, adenoidectomy Family History : Breast cancer, colon polyps, migraine Personal/Social history : Non-smoker, occasional EtOH intake, disabled Allergies Allergy/AdvReac Type Severity Reaction Status Date / Time Penicillins Allergy Unknown Verified 06/12/23 23:26 Sulfa (Sulfonamide Allergy Unknown Verified 06/12/23 23:26 Antibiotics) garlic AdvReac Unknown Verified 06/12/23 23:26 lactose AdvReac Unknown Verified 06/13/23 03:03 lettuce AdvReac Unknown Verified 06/12/23 23:26 peach AdvReac Unknown Verified 06/12/23 23:26 peanut AdvReac Unknown Verified 06/12/23 23:26 pepper (genus Capsicum) AdvReac Unknown Verified 06/12/23 23:26 shellfish derived AdvReac Unknown Verified 06/12/23 23:26 soy AdvReac Unknown Verified 06/12/23 23:26 wheat AdvReac Unknown Verified 06/12/23 23:26 Home Medications Medication Instructions Recorded Confirmed Type D-Ribose Tabs 1 tab PO DAILY 06/12/23 06/13/23 History albuterol sulfate 90 mcg/actuation 2 puff inhalation Q4 PRN Shortness 06/12/23 06/12/23 History aerosol inhaler (Ventolin HFA) Of Breath Or Wheezing clindamycin phosphate 1 % topical 1 applic topical DIRECTED 06/12/23 06/12/23 History gel clonazepam 1 mg tablet 0.5 mg PO BID PRN Anxiety 06/12/23 06/12/23 History cyclobenzaprine 10 mg tablet 10 mg PO TID PRN Muscle Spasm 06/12/23 06/12/23 History fluticasone furoate 100 1 ea inhalation DAILY 06/12/23 06/13/23 History mcg-vilanterol 25 mcg/dose inhalation powder (Breo Ellipta) fluticasone propionate 50 2 spray intranasal AMHS 06/12/23 06/13/23 History mcg/actuation nasal spray,suspension melatonin 5 mg tablet 0 mg PO HS 06/12/23 06/13/23 History naratriptan 2.5 mg tablet 2.5 mg PO DIRECTED PRN Migraine 06/12/23 06/13/23 History Headache ondansetron HCl 4 mg tablet 4 mg PO Q8 PRN Nausea 06/12/23 06/12/23 History pregabalin 75 mg capsule 75 mg PO HS 06/12/23 06/12/23 History propranolol 10 mg tablet 10 mg PO TID 06/12/23 06/12/23 History rosuvastatin 10 mg tablet 10 mg PO QAM 06/12/23 06/12/23 History zolpidem 12.5 mg tablet,extended 12.5 mg PO HS 06/12/23 06/12/23 History release,multiphase erenumab-aooe 140 mg/mL 140 mg subcut .MONTH 06/13/23 06/13/23 History subcutaneous auto-injector (Aimovig Autoinjector) Past Med/Surg History Medical History Peripheral neuropathy Environmental and seasonal allergies Fibromyalgia Asthma Dyslipidemia Insomnia PTSD (post-traumatic stress disorder) Depression Anxiety Surgical History History of tonsillectomy History of cholecystectomy History of colonoscopy Social History Smoking Status: Never smoker Hx Alcohol Use: Yes Hx Substance Use: No Preferred Language: Bulgarian Communication Ability: Effective Engineering Consultant Required: No Beliefs That Will Affect Care: None Current Living Situation: Spouse and Family Current Living Situation Comment: Live with daughter and Feels Safe at Home: No Is there a partner from a previous relationship who is making you feel unsafe now?: No Assistive Devices: Glasses Review of Systems Review of Systems: As per HPI, all other systems reviewed and negative Physical Exam Physical Exam: GENERAL: Comfortable, slightly anxious, obese, no respiratory distress SKIN: Normal color, warm HEENT: Bespectacled, [place] palpebral conjunctivae, no ptosis, dry buccal mucosa NECK : Supple, short neck, no tenderness CHEST : CTA, no tenderness HEART : RRR, no obvious murmurs ABDOMEN: Some distention, left-sided abdominal tenderness EXTREMITIES : Minimal LE swelling, no LE tenderness, no other conspicuous deformities noted NEUROLOGIC : Coherent, no facial asymmetry, no other gross focality Results & Data Results & Data Vital Signs (Past 12 Hours) Vital Signs Temp Pulse Pulse Resp BP BP Pulse Ox 06/13/23 00:23 36.9 C 76 16 134/90 97 06/12/23 23:30 83 18 130/86 06/12/23 22:40 87 12 06/12/23 22:33 184/113 H 06/12/23 22:33 109 H 16 06/12/23 22:31 86 24 06/12/23 22:20 82 23 06/12/23 22:10 82 23 06/12/23 22:01 88/73 L 06/12/23 22:01 84 15 06/12/23 22:00 80 13 06/12/23 21:50 87 15 06/12/23 21:40 88 24 06/12/23 21:37 134/102 H 06/12/23 21:37 85 21 06/12/23 21:36 89 12 06/12/23 21:00 137/91 06/12/23 21:00 89 20 06/12/23 20:50 81 22 06/12/23 20:40 98 H 15 06/12/23 20:31 87 24 06/12/23 20:31 126/85 06/12/23 20:30 86 24 06/12/23 20:20 86 15 06/12/23 20:10 85 17 06/12/23 20:09 150/100 H 06/12/23 20:09 89 14 06/12/23 20:04 91 H 13 06/12/23 20:04 91 H 06/12/23 20:01 06/12/23 20:01 15 98 06/12/23 19:27 36.8 C 100 H 18 163/97 H 97 O2 Del Method 06/13/23 00:23 Room Air 06/12/23 23:30 Room Air 06/12/23 22:40 06/12/23 22:33 06/12/23 22:33 06/12/23 22:31 06/12/23 22:20 06/12/23 22:10 06/12/23 22:01 06/12/23 22:01 06/12/23 22:00 06/12/23 21:50 06/12/23 21:40 06/12/23 21:37 06/12/23 21:37 06/12/23 21:36 06/12/23 21:00 06/12/23 21:00 06/12/23 20:50 06/12/23 20:40 06/12/23 20:31 06/12/23 20:31 06/12/23 20:30 06/12/23 20:20 06/12/23 20:10 06/12/23 20:09 06/12/23 20:09 06/12/23 20:04 06/12/23 20:04 06/12/23 20:01 Room Air 06/12/23 20:01 Room Air 06/12/23 19:27 Room Air Laboratory Results Laboratory Results WBC 14.60 K/ul (4.8-10.8) H 06/12/23 20:00 RBC 4.73 M/uL (4.20-5.40) 06/12/23 20:00 Hgb 14.2 g/dl (12.0-16.0) 06/12/23 20:00 Hct 42.6 % (37.0-47.0) 06/12/23 20:00 MCV 90.1 fL (80.0-100.0) 06/12/23 20:00 MCH 30.0 pg (25.0-34.0) 06/12/23 20:00 MCHC 33.3 g/dL (32.0-36.0) 06/12/23 20:00 RDW Std Deviation 42.4 fL (36.4-46.3) 06/12/23 20:00 RDW Coeff of [place] 12.8 % (11.5-14.5) 06/12/23 20:00 Plt Count 259 K/uL (130-400) 06/12/23 20:00 MPV 11.3 fL (9.4-12.4) 06/12/23 20:00 Immature Gran % (Auto) 0.5 % 06/12/23 20:00 Neut % (Auto) 80.0 % 06/12/23 20:00 Lymph % (Auto) 11.6 % 06/12/23 20:00 [place] % (Auto) 6.1 % 06/12/23 20:00 Eos % (Auto) 1.4 % 06/12/23 20:00 Baso % (Auto) 0.4 % 06/12/23 20:00 Neut # (Auto) 11.68 K/uL (1.40-6.50) H 06/12/23 20:00 Lymph # (Auto) 1.69 K/uL (1.20-3.40) 06/12/23 20:00 [place] # (Auto) 0.89 K/uL (0.11-0.59) H 06/12/23 20:00 Eos # (Auto) 0.20 K/uL (0.00-0.50) 06/12/23 20:00 Baso # (Auto) 0.06 K/uL (0.00-0.20) 06/12/23 20:00 Immature Gran # (Auto) 0.08 K/uL (0.01-0.20) 06/12/23 20:00 PT 12.1 Seconds (9.0-12.0) H 06/12/23 20:00 INR 1.1 (0.9-1.1) 06/12/23 20:00 APTT 30 Seconds (21-31) 06/12/23 20:00 PTT Ratio 1.1 06/12/23 20:00 Sodium 140 mmol/L (136-145) 06/12/23 20:00 Potassium 3.6 mmol/L (3.5-5.1) 06/12/23 20:00 Chloride 105 mmol/L (98-107) 06/12/23 20:00 Carbon Dioxide 25 mmol/L (21-32) 06/12/23 20:00 Anion Gap 10 (3-11) 06/12/23 20:00 BUN 9 mg/dl (6-23) 06/12/23 20:00 Creatinine 0.93 mg/dl (0.6-1.2) 06/12/23 20:00 Est Cr Clr Drug Dosing 69.3 ml/min 06/12/23 20:00 Est GFR ( Amer) 80.8 ml/min 06/12/23 20:00 Est GFR (Non-Af Amer) 69.7 ml/min 06/12/23 20:00 BUN/Creatinine Ratio 9.7 (10-20) L 06/12/23 20:00 Glucose 116 mg/dl (70-99(Fasting)) H 06/12/23 20:00 Lactate 1.0 mmol/L (0.4-2.0) 06/12/23 20:00 Calcium 9.7 mg/dl (8.6-10.3) 06/12/23 20:00 Total Bilirubin 1.0 mg/dl (0.2-1.0) 06/12/23 20:00 AST 13 U/L (13-39) 06/12/23 20:00 ALT 10 U/L (7-52) 06/12/23 20:00 Alkaline Phosphatase 75 U/L (34-104) 06/12/23 20:00 Troponin I High Sens 3.9 pg/ml (0-14) 06/12/23 20:00 Total Protein 7.3 gm/dl (6.0-8.3) 06/12/23 20:00 Albumin 4.3 gm/dl (3.4-5.0) 06/12/23 20:00 Globulin 3.0 gm/dl (2.5-4.0) 06/12/23 20:00 Albumin/Globulin Ratio 1.4 (0.9-2) 06/12/23 20:00 Lipase 11 U/L (11-82) 06/12/23 20:00 TSH 1.179 uIu/ml (0.300-4.500) 06/12/23 20:00 HCG, Qual Negative (Negative) 06/12/23 20:00 Urine Color Dark Yellow 06/12/23 20:00 Urine Appearance Clear (Clear) 06/12/23 20:00 Urine pH 5.5 (4.5-7.5) 06/12/23 20:00 Ur Specific [place] 1.030 (1.000-1.030) 06/12/23 20:00 Urine Protein 1+ (Negative) H 06/12/23 20:00 Urine Glucose (UA) Negative (Negative) 06/12/23 20:00 Urine Ketones 1+ (Negative) H 06/12/23 20:00 Urine Blood 2+ (Negative) H 06/12/23 20:00 Urine Nitrite Negative (Negative) 06/12/23 20:00 Urine Bilirubin 1+ (Negative) H 06/12/23 20:00 Urine Urobilinogen Negative (Negative) 06/12/23 20:00 Ur Leukocyte Esterase Negative (Negative) 06/12/23 20:00 Urine WBC (Auto) 1-5 /hpf (0-5) 06/12/23 20:00 Urine RBC (Auto) 10-30 /hpf (0-4) H 06/12/23 20:00 U Hyaline Cast (Auto) 0 /lpf (0-5) 06/12/23 20:00 U Epithel Cells (Auto) 5-10 /lpf (0-5) H 06/12/23 20:00 Urine Bacteria (Auto) Negative (Negative) 06/12/23 20:00 Adenovirus (PCR) Not Detected (NotDetected) 06/12/23 20:00 B. pertussis DNA (PCR) Not Detected (NotDetected) 06/12/23 20:00 B.parapertussis DNA PCR Not Detected (NotDetected) 06/12/23 20:00 C. pneumoniae DNA (PCR) Not Detected (NotDetected) 06/12/23 20:00 Coronavirus OC43 (PCR) Not Detected (NotDetected) 06/12/23 20:00 Coronavirus HKU1 (PCR) Not Detected (NotDetected) 06/12/23 20:00 Coronavirus 229E (PCR) Not Detected (NotDetected) 06/12/23 20:00 SARS-CoV-2 (PCR) Not Detected (NotDetected) 06/12/23 20:00 Coronavirus NL63 (PCR) Not Detected (NotDetected) 06/12/23 20:00 Human Metapneumovir PCR Not Detected (NotDetected) 06/12/23 20:00 Influenza Type A (PCR) Not Detected (NotDetected) 06/12/23 20:00 Influenza Type B (PCR) Not Detected (NotDetected) 06/12/23 20:00 M. pneumoniae (PCR) Not Detected (NotDetected) 06/12/23 20:00 Parainfluenza 1 (PCR) Not Detected (NotDetected) 06/12/23 20:00 Parainfluenza 2 (PCR) Not Detected (NotDetected) 06/12/23 20:00 Parainfluenza 3 (PCR) Not Detected (NotDetected) 06/12/23 20:00 Parainfluenza 4 (PCR) Not Detected (NotDetected) 06/12/23 20:00 RSV (PCR) Not Detected (NotDetected) 06/12/23 20:00 Entero/Rhino (PCR) Not Detected (NotDetected) 06/12/23 20:00 Impressions Chest CTA 06/12/23 19:47 Exam(s): CTA CHEST IV Amt: 115 ml optiray 320 EXAM: CT Angiography Chest With Intravenous Contrast CLINICAL HISTORY: Reason for exam: PE. TECHNIQUE: Axial computed tomographic angiography images of the chest with intravenous contrast. CTDI is 27.54 mGy and DLP is 2187.39 mGy-cm. Automated exposure control was utilized for the study. A dose lowering technique was utilized adhering to the principles of ALARA. MIP reconstructed images were created and reviewed. COMPARISON: No relevant prior studies available. FINDINGS: Pulmonary arteries: Unremarkable. No pulmonary embolism. Aorta: No acute findings. No thoracic aortic aneurysm. Lungs: Unremarkable. No mass. No consolidation. Pleural space: Unremarkable. No significant effusion. No pneumothorax. Heart: Unremarkable. No cardiomegaly. No significant pericardial effusion. No evidence of RV dysfunction. Bones/joints: No acute fracture. No dislocation. Soft tissues: Unremarkable. Lymph nodes: Unremarkable. No enlarged lymph nodes. IMPRESSION: No acute process. No pulmonary embolism. Electronically signed by: Pamela Moy MD 06/12/23 22:06 PM Abdomen/Pelvis CT 06/12/23 19:48 Exam(s): CT ABDOMEN + PELVIS With Contrast IV Amt: 115 ml optiray 320 EXAM: CT Abdomen and Pelvis With Intravenous Contrast CLINICAL HISTORY: Reason for exam: abdominal pain. TECHNIQUE: Axial computed tomography images of the abdomen and pelvis with intravenous contrast. CTDI is 27.54 mGy and DLP is 2187.39 mGy-cm. Automated exposure control was utilized for the study. A dose lowering technique was utilized adhering to the principles of ALARA. CONTRAST: Patient received 115 ml optiray 320 of IV contrast COMPARISON: No relevant prior studies available. FINDINGS: Lung bases: Unremarkable. No mass. No consolidation. ABDOMEN: Liver: Unremarkable. No mass. Gallbladder and bile ducts: Prior cholecystectomy. No ductal dilation. Pancreas: Unremarkable. No mass. No ductal dilation. Spleen: Unremarkable. No splenomegaly. Adrenals: Unremarkable. No mass. Kidneys and ureters: Unremarkable. No solid mass. No hydronephrosis. Stomach and bowel: Scattered diverticuli with wall thickening of the sigmoid colon and moderate adjacent mesenteric edema, characteristic of acute diverticulitis. Tiny foci of air near the sigmoid colon, best seen on series 6, image 242 may represent a small microperforation. No abscess. No obstruction. PELVIS: Appendix: No findings to suggest acute appendicitis. Bladder: Unremarkable. No mass. Reproductive: Multiple uterine fibroids. ABDOMEN and PELVIS: Intraperitoneal space: Unremarkable. No free air. No significant fluid collection. Bones/joints: No acute fracture. No dislocation. Soft tissues: Unremarkable. Vasculature: 2 splenic artery aneurysms noted, measuring 11.1 and 10.5 mm. Lymph nodes: Unremarkable. No enlarged lymph nodes. IMPRESSION: 1. Scattered diverticuli with wall thickening of the sigmoid colon and moderate adjacent mesenteric edema, characteristic of acute diverticulitis. Tiny foci of air near the sigmoid colon, best seen on series 6, image 242 may represent a small microperforation. No abscess. 2. 2 splenic artery aneurysms noted, measuring 11.1 and 10.[address] annual abdominal CT or MR follow-up. Electronically signed by: Pamela Moy MD 06/12/23 22:[address] 06/12/23 22:56 Exam(s): CT HEAD Without Contrast EXAM: CT Head Without Intravenous Contrast CLINICAL HISTORY: Reason for exam: bee, htn crisis. TECHNIQUE: Axial computed tomography images of the head/brain without intravenous contrast. CTDI is 37.17 mGy and DLP is 547.75 mGy-cm. Automated exposure control was utilized for the study. A dose lowering technique was utilized adhering to the principles of ALARA. COMPARISON: No relevant prior studies available. FINDINGS: No acute intracranial hemorrhage. No midline shift or mass effect. The territorial gonzalez-white matter differentiation is maintained throughout. The ventricles and sulci are commensurate with age. The visualized orbits appear grossly unremarkable. The calvarium is intact. The visualized paranasal sinuses and mastoid air cells are grossly clear. IMPRESSION: No acute intracranial hemorrhage, midline shift, or mass effect. Electronically signed by: Ruddy Barker MD 06/13/23 00:24 AM Diagnostic Findings EKG as per my interpretation : Rate 90, NSR, normal axis, T wave abnormalities inferior leads
[2023-06-13] MEDS ORDERED: clonazePAM 0.5 MG TAB PO PRN (01:22)
[2023-06-13] MEDS ORDERED: CYCLOBENZAPRINE HCL 10 MG TAB PO PRN (01:22)
[2023-06-13] MEDS: ZOLPIDEM TARTRATE 10 MG TAB PO PRN ×2 (02:52→22:55)
[2023-06-13] MEDS: oxyCODONE HCL IR 5 MG TAB (IMMEDIATE RELEASE) PO PRN ×2 (02:52→14:52)
[2023-06-13 04:47] LABS: Basophils # (auto) 0.05 K/uL (0.00-0.20); Basophils % (auto) 0.5 %; Eosinophils # (auto) 0.35 K/uL (0.00-0.50); Eosinophils % (auto) 3.2 %; Hematocrit (blood only) 37.4 % (37.0-47.0); Hemoglobin 12.1 g/dl (12.0-16.0); Immature Granulocytes # (auto) 0.05 K/uL (0.01-0.20); Immature Granulocytes % (auto) 0.5 %; Lymphocytes # (auto) 2.32 K/uL (1.20-3.40); Lymphocytes % (auto) 21.4 %; Mean Corpuscular Hemoglobin 29.7 pg (25.0-34.0); Mean Corpuscular Hgb Conc 32.4 g/dL (32.0-36.0); Mean Corpuscular Volume 91.7 fL (80.0-100.0); Mean Platelet Volume 11.6 fL (9.4-12.4); Monocytes # (auto) 0.76 K/uL (0.11-0.59); Neutrophils % (auto) 67.4 %; Platelet Count 230 K/uL (130-400); RDW Standard Deviation 43.6 fL (36.4-46.3); Red Blood Count 4.08 M/uL (4.20-5.40); White Blood Count 10.83 K/ul (4.8-10.8)
[2023-06-13 04:59] LABS: BUN Creatinine Ratio 10.2 (10-20); Calcium 8.6 mg/dl (8.6-10.3); Creatinine Clr Calc Pharmacy 73.2 ml/min; Est GFR (African American) 86.3 ml/min; Est GFR (Non-African American) 74.5 ml/min; Potassium 3.7 mmol/L (3.5-5.1)
--- NOTE | 2023-06-13 09:10 | Surgery Progress Note ---
Date of Service June 13, 2023 Assessment & Plan (1) Diverticulitis: Plan: The patient is hemodynamically stable, afebrile since presentation to the emergency department. Leukocytosis is trending down on labs performed this a.m. Patient's symptoms are improving. No acute surgical intervention. Conservative management has been initiated and the patient has been admitted to medicine. Continue n.p.o. IV fluid hydration IV antibiotics. The patient is allergic to penicillins and had been started on Cipro and Flagyl in the emergency department. Analgesics Antiemetics as needed Follow-up labs in the a.m. Will reassess in the a.m. Admission and Anticipated Discharge Date Admission Date: June 13, 2023 Subjective This patient was seen and examined this a.m. She admits that her abdominal pain has improved. She still complains of lower abdominal pain at the suprapubic region and left lower quadrant. Kaelyn says she has fibromyalgia and some nerve pain issues that also affect her intra-abdominal area since her first bout of severe diverticulitis 5 years ago. Kaelyn denies having any further fevers or chills since she has been in the hospital, no nausea or vomiting. Physical Exam Constitutional: + obese; not ill appearing, not in distr ess and not diaphoretic Respiratory: normal respiratory effort; no respiratory distress, no labored breathing and does not use accessory muscles Gastrointestinal (Abdomen): Abdomen is soft. Nondistended. Minimally tender to palpation at the right upper quadrant and epigastric area which she attributes to her neurologic dysfunction. Mild to moderate tenderness at the left lower quadrant and suprapubic area without voluntary guarding. Results & Data Vital Signs (Past 12 Hours) Vital Signs Temp Pulse Pulse Resp BP BP Pulse Ox 06/13/23 06:57 66 06/13/23 03:09 36.8 C 69 18 129/86 95 06/13/23 03:09 06/13/23 01:22 79 06/13/23 00:23 36.9 C 76 16 134/90 97 06/12/23 23:30 83 18 130/86 06/12/23 22:40 87 12 06/12/23 22:33 184/113 H 06/12/23 22:33 109 H 16 06/12/23 22:31 86 24 06/12/23 22:20 82 23 12/17/23 22:10 82 23 06/12/23 22:01 88/73 L 06/12/23 22:01 84 15 06/12/23 22:00 80 13 06/12/23 21:50 87 15 06/12/23 21:40 88 24 06/12/23 21:37 134/102 H 06/12/23 21:37 85 21 06/12/23 21:36 89 12 Pulse Ox O2 Del Method O2 Del Method 06/13/23 06:57 06/13/23 03:09 Room Air 06/13/23 03:09 95 Room Air 06/13/23 01:22 06/13/23 00:23 Room Air 06/12/23 23:30 Room Air 06/12/23 22:40 06/12/23 22:33 06/12/23 22:33 06/12/23 22:31 06/12/23 22:20 06/12/23 22:10 06/12/23 22:01 06/12/23 22:01 06/12/23 22:00 06/12/23 21:50 06/12/23 21:40 06/12/23 21:37 06/12/23 21:37 06/12/23 21:36 PG Care Time/CCT Total # of Minutes Spent Total Time Spent with Patient: Total time spent is greater than 50% in coordination of care (as documented) at patient's floor/unit and/or counseling patient: Coding [place] [address] SUB INP/OBS CARE 125MIN Patient Type Established History Problem Focused Exam Expanded Problem Focused Medical Decision Making Straight Forward Diagnoses Diverticulitis K57.92
[2023-06-13] MEDS: FLUTICASONE/VILANTEROL 100/25MCG 14 PUFFS/INHALER INH SCH (09:44)
[2023-06-13] MEDS: PROPRANOLOL HCL 10 MG TAB PO SCH ×3 (09:44→21:18)
[2023-06-13] MEDS: FLUTICASONE PROPIONATE NA SPR 16 GM BTL SCH ×2 (09:44→21:50)
[2023-06-13] MEDS: ROSUVASTATIN CALCIUM 10 MG TAB PO SCH (09:45)
[2023-06-13] MEDS: metroNIDAZOLE 500 MG/100 ML BAG IV SCH ×2 (09:49→17:27)
[2023-06-13] MEDS: CIPROFLOXACIN / D5W 400 MG/200 ML BAG IV SCH ×2 (10:52→21:14)
[2023-06-13] MEDS: ACETAMINOPHEN 325 MG TAB PO PRN ×2 (11:55→21:37)
[2023-06-13] MEDS ORDERED: FAMOTIDINE 20 MG in SYRINGE 3 ML IV SCH (13:35)
[2023-06-13] MEDS: FAMOTIDINE 20MG IV PUSH 20 MG/5 ML SYR IV SCH ×2 (14:44→21:51)
[2023-06-13] MEDS: D5W AND 1/2NSS + 20MEQ KCL 20 MEQ/1,000 ML BAG IV SCH ×2 (14:44→21:09)
--- NOTE | 2023-06-13 15:48 | Hospitalist Progress Note ---
Date of Service June 13, 2023 Assessment & Plan (1) Diverticulitis of large intestine with complication: Plan: Acute diverticulitis Suspected microperforation of sigmoid colon --CT ABD:Scattered diverticuli with wall thickening of the sigmoid colon and moderate adjacent mesenteric edema, characteristic of acute diverticulitis. Tiny foci of air near the sigmoid colon, best seen on series 6, image 242 may represent a small microperforation. No abscess. 2 splenic artery aneurysms noted, measuring 11.1 and 10.[address] mm[address] Recommend annual abdominal CT or MR follow-up. -- Continue ciprofloxacin, Flagyl, IV fluids, bowel rest Pain meds as needed Appreciate surgery input Splenic artery aneurysm Incidental finding on CT as above Needs annual abdominal CT for surveillance Follow-up as outpatient Migraine --CT Head:No acute intracranial hemorrhage, midline shift, or mass effect. Analgesics as needed Monitor Hypertensive urgency Atypical chest pain likely secondary to above Blood pressure elevation likely situational secondary to pain Troponin negative Normal TSH --ECHO: No regional wall motion abnormality Adjust antihypertensives as needed Monitor BP closely LISA Continue CPAP at bedtime H/O fibromyalgia Mood disorder Continue home medications Hyperglycemia Check HbA1c DVT Px: SCDs for now Code Status Full code Admission and Anticipated Discharge Date Admission Date: June 13, 2023 Subjective Patient is seen and examined at bedside Nausea, headache, abdominal pain better today No significant chest pain today Denies nausea, vomiting, dizziness Reports dry mouth No other complaints Review of Systems Review of Systems: All systems reviewed & are unremarkable except as noted in Subjective Physical Exam Physical Exam: Physical Exam: Vitals signs as noted above General Appearance:Obese, no apparent distress Head: normocephalic, Atraumatic Eyes: normal inspection, EOMI Neck: supple, Trachea midline Respiratory/Chest: Normal breath sounds, CTA, No accessory muscle use Cardiovascular: S1, S2, No murmur Abdomen/GI:Soft, generalized tender, Bowel sounds present, no guarding or rigidity Extremities/Musculoskeletal:normal inspection, no edema Neurologic/Psych:AAOX3, grossly no focal neurological deficits Skin: normal color, warm Results & Data Results & Data Vital Signs (Past 12 Hours) Vital Signs Temp Pulse Pulse Resp BP Pulse Ox Pulse Ox 06/13/23 13:44 36.8 C 75 18 107/67 99 06/13/23 10:05 36.8 C 88 16 95/64 L 99 06/13/23 07:30 98 06/13/23 06:57 66 O2 Del Method O2 Del Method 06/13/23 13:44 Room Air 06/13/23 10:05 Room Air 06/13/23 07:30 Room Air 06/13/23 06:57 Laboratory Results Short CBC 06/12/23 06/13/23 Range/Units 20:00 03:45 WBC 14.60 H 10.83 H (4.8-10.8) K/ul Hgb 14.2 12.1 (12.0-16.0) g/dl Hct 42.6 37.4 (37.0-47.0) % Plt Count 259 230 (130-400) K/uL BMP 06/12/23 06/13/23 20:00 03:45 Sodium 140 140 Potassium 3.6 3.7 Chloride 105 107 Carbon Dioxide 25 26 BUN 9 9 Creatinine 0.93 0.88 Glucose 116 H 92 Calcium 9.7 8.6 Liver Function 06/12/23 Range/Units 20:00 Total Bilirubin 1.0 (0.2-1.0) mg/dl AST 13 (13-39) U/L ALT 10 (7-52) U/L Alkaline Phosphatase 75 (34-104) U/L Albumin 4.3 (3.4-5.0) gm/dl Urine 06/12/23 Range/Units 20:00 Urine Color Dark Yellow Urine Appearance Clear (Clear) Urine pH 5.5 (4.5-7.5) Ur Specific [place] 1.030 (1.000-1.030) Urine Protein 1+ H (Negative) Urine Glucose (UA) Negative (Negative)
[2023-06-13] MEDS: PREGABALIN 75 MG CAP PO SCH (21:23)
[2023-06-13] MEDS ORDERED: ANUSOL SUPP 1 EA PR STA (22:37)
[2023-06-13] MEDS: PROMETHAZINE HCL 12.5 MG in SODIUM CHLORIDE 0.9% 50 ML IV PRN (23:06)
[2023-06-14] MEDS: metroNIDAZOLE 500 MG/100 ML BAG IV SCH ×3 (01:06→17:36)
--- NOTE | 2023-06-14 06:13 | Electrocardiogram Report ---
Test Reason : Blood Pressure : / mmHG Vent. Rate : 086 BPM Atrial Rate : 086 BPM P-R Int : 150 ms QRS Dur : 078 ms QT Int : 364 ms P-R-T Axes : 047 006 021 degrees QTc Int : 435 ms Normal sinus rhythm Normal ECG When compared with ECG of 05-DEC-2022 01:22, No significant change was found Confirmed by Brice Winn ([id number]) on 06/14/2023 6:12:42 AM Referred By: REFERRED SELF Confirmed By:Brice Winn
[2023-06-14 06:33] LABS: Hematocrit (blood only) 35.3 % (37.0-47.0); Mean Corpuscular Hemoglobin 30.5 pg (25.0-34.0); Mean Corpuscular Volume 89.8 fL (80.0-100.0); Mean Platelet Volume 11.4 fL (9.4-12.4); Platelet Count 227 K/uL (130-400); RDW Coefficient of Variation 12.7 % (11.5-14.5); RDW Standard Deviation 42.1 fL (36.4-46.3); Red Blood Count 3.93 M/uL (4.20-5.40); White Blood Count 6.71 K/ul (4.8-10.8)
[2023-06-14 07:12] LABS: Calcium 8.4 mg/dl (8.6-10.3); Creatinine Clr Calc Pharmacy 65.4 ml/min; Est GFR (Non-African American) 63.8 ml/min; Magnesium 1.9 mg/dl (1.7-2.4); Potassium 3.8 mmol/L (3.5-5.1)
[2023-06-14 07:16] LABS: Estimated Average Glucose 105 mg/dl; Hemoglobin A1C 5.3 % (4.5-5.6)
--- NOTE | 2023-06-14 08:01 | Surgery Progress Note ---
Date of Service June 14, 2023 Assessment & Plan (1) Diverticulitis: Plan: The patient and symptoms are improving. She has been afebrile overnight with stable vital signs and leukocytosis has resolved as of this morning's labs. Would continue 1 more day of n.p.o. If symptoms continue to be resolving by tomorrow morning then she may start a clear liquid diet at that time tomorrow Continue with IV fluids and IV antibiotics Ambulate Admission and Anticipated Discharge Date Admission Date: June 13, 2023 Subjective Patient seen and examined this a.m. She was resting comfortably in bed. She admits that her abdominal pain is improved with only occasional episodes of discomfort Physical Exam Gastrointestinal (Abdomen): Abdomen is soft with minimal tenderness to palpation of the left lower quadrant. Results & Data Vital Signs (Past 12 Hours) Vital Signs Temp Pulse Pulse Pulse Resp BP Pulse Ox 06/14/23 07:57 36.9 C 69 16 107/67 96 06/14/23 07:38 92 H 06/14/23 04:05 36.6 C 65 20 108/71 95 06/14/23 00:50 36.7 C 63 20 109/74 95 06/13/23 21:57 75 06/13/23 20:00 36.8 C 70 20 123/80 96 O2 Del Method 06/14/23 07:57 Room Air 06/14/23 07:38 06/14/23 04:05 Room Air 06/14/23 00:50 Room Air 06/13/23 21:57 06/13/23 20:00 Room Air PG Care Time/CCT Total # of Minutes Spent Total Time Spent with Patient: Total time spent is greater than 50% in coordination of care (as documented) at patient's floor/unit and/or counseling patient: C[place] [address] SUB INP/OBS CARE 25MIN Patient Type Established History Problem Focused Exam Problem Focused Medical Decision Making Low Complexity Diagnoses Diverticulitis K57.92
[2023-06-14] MEDS: FLUTICASONE/VILANTEROL 100/25MCG 14 PUFFS/INHALER INH SCH (09:41)
[2023-06-14] MEDS: PROPRANOLOL HCL 10 MG TAB PO SCH ×3 (09:42→20:16)
[2023-06-14] MEDS: FLUTICASONE PROPIONATE NA SPR 16 GM BTL SCH ×2 (09:42→20:16)
[2023-06-14] MEDS: FAMOTIDINE 20MG IV PUSH 20 MG/5 ML SYR IV SCH ×2 (09:42→20:19)
[2023-06-14] MEDS: ROSUVASTATIN CALCIUM 10 MG TAB PO SCH (09:42)
[2023-06-14] MEDS: CIPROFLOXACIN / D5W 400 MG/200 ML BAG IV SCH ×2 (09:43→22:36)
[2023-06-14] MEDS: D5W AND 1/2NSS + 20MEQ KCL 20 MEQ/1,000 ML BAG IV SCH ×3 (11:20→22:36)
[2023-06-14] MEDS ORDERED: ANUSOL SUPP 1 EA PR SCH (12:15)
--- NOTE | 2023-06-14 16:32 | Hospitalist Progress Note ---
Date of Service June 14, 2023 Assessment & Plan (1) Diverticulitis of large intestine with complication: Plan: Acute diverticulitis Suspected microperforation of sigmoid colon --CT ABD:Scattered diverticuli with wall thickening of the sigmoid colon and moderate adjacent mesenteric edema, characteristic of acute diverticulitis. Tiny foci of air near the sigmoid colon, best seen on series 6, image 242 may represent a small microperforation. No abscess. 2 splenic artery aneurysms noted, measuring 11.1 and 10.[address] mm[address] Recommend annual abdominal CT or MR follow-up. -- Continue ciprofloxacin, Flagyl, IV fluids, bowel rest Pain meds as needed Appreciate surgery input Clinically improving May start clear liquid diet tomorrow if continues to improve Splenic artery aneurysm Incidental finding on CT as above Needs annual abdominal CT for surveillance Follow-up as outpatient Migraine --CT Head:No acute intracranial hemorrhage, midline shift, or mass effect. Analgesics as needed Monitor Hypertensive urgency Atypical chest pain likely secondary to above Blood pressure elevation likely situational secondary to pain Troponin negative Normal TSH --ECHO: No regional wall motion abnormality Adjust antihypertensives as needed Monitor BP closely LISA Continue CPAP at bedtime H/O fibromyalgia Mood disorder Continue home medications Hyperglycemia HbA1c 5.3 DVT Px: SCDs for now Code Status Full code Admission and Anticipated Discharge Date Admission Date: June 13, 2023 Subjective Patient is seen and examined at bedside Nausea, headache, abdominal pain much improved States having hemorrhoidal pain No other complaints Review of Systems Review of Systems: All systems reviewed & are unremarkable except as noted in Subjective Physical Exam Physical Exam: Physical Exam: Vitals signs as noted above General Appearance:Obese, no apparent distress Head: normocephalic, Atraumatic Eyes: normal inspection, EOMI Neck: supple, Trachea midline Respiratory/Chest: Normal breath sounds, CTA, No accessory muscle use Cardiovascular: S1, S2, No murmur Abdomen/GI:Soft, mild tender, Bowel sounds present, no guarding or rigidity Extremities/Musculoskeletal:normal inspection, no edema Neurologic/Psych:AAOX3, grossly no focal neurological deficits Skin: normal color, warm Results & Data Results & Data Vital Signs (Past 12 Hours) Vital Signs Temp Pulse Pulse Resp BP Pulse Ox O2 Del Method 06/14/23 15:31 36.4 C L 61 16 117/81 98 Room Air 06/14/23 12:01 36.3 C L 72 16 123/85 96 Room Air 06/14/23 07:57 36.9 C 69 16 107/67 96 Room Air 06/14/23 07:38 92 H Laboratory Results Short CBC 06/14/23 Range/Units 05:50 WBC 6.71 (4.8-10.8) K/ul Hgb 12.0 (12.0-16.0) g/dl Hct 35.3 L (37.0-47.0) % Plt Count 227 (130-400) K/uL BMP 06/14/23 05:50 Sodium 139 Potassium 3.8 Chloride 107 Carbon Dioxide 27 BUN 9 Creatinine 1.00 Glucose 95 Calcium 8.4 L
[2023-06-14] MEDS: PROMETHAZINE HCL 12.5 MG in SODIUM CHLORIDE 0.9% 50 ML IV PRN (18:08)
[2023-06-14] MEDS: oxyCODONE HCL IR 5 MG TAB (IMMEDIATE RELEASE) PO PRN (18:08)
[2023-06-14] MEDS: PREGABALIN 75 MG CAP PO SCH (20:19)
[2023-06-14] MEDS: ZOLPIDEM TARTRATE 10 MG TAB PO PRN (22:36)
[2023-06-15] MEDS: metroNIDAZOLE 500 MG/100 ML BAG IV SCH ×3 (00:42→16:29)
[2023-06-15 06:54] LABS: Hemoglobin 11.6 g/dl (12.0-16.0); Mean Corpuscular Hemoglobin 30.5 pg (25.0-34.0); Mean Corpuscular Hgb Conc 34.1 g/dL (32.0-36.0); Mean Corpuscular Volume 89.5 fL (80.0-100.0); Mean Platelet Volume 11.1 fL (9.4-12.4); Platelet Count 267 K/uL (130-400); RDW Coefficient of Variation 12.6 % (11.5-14.5); RDW Standard Deviation 41.6 fL (36.4-46.3); White Blood Count 7.24 K/ul (4.8-10.8)
[2023-06-15 07:31] LABS: BUN Creatinine Ratio 7.1 (10-20); Calcium 8.3 mg/dl (8.6-10.3); Creatinine Clr Calc Pharmacy 65.5 ml/min; Est GFR (African American) 74.9 ml/min; Est GFR (Non-African American) 64.6 ml/min; Potassium 3.7 mmol/L (3.5-5.1)
--- NOTE | 2023-06-15 08:33 | Surgery Progress Note ---
Date of Service June 15, 2023 Assessment & Plan (1) Diverticulitis: Plan: Continues to be HD stable, afebrile and has had resolution of leukocytosis for two days. Unfortunately I think she has some other GI issues that are compounding her diverticulitis symptoms. 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 In addition, she is on suppositories. Discontinue suppository. The patient's entire left colon and rectum are completely flat/decompressed on her admission CT. There is only a small amount of stool near the area of inflammation and at the cecum. She does not have any evidence of constipation on her imaging and this may be exacerbating cramping. Would keep her NPO today. Continue IVF, IV antibiotics Continue to ambulate. May have chemical DVT ppx if no other contraindication. F/u am labs (2) Thrush, oral: Plan: Recommend Nystatin swish and spit until she is advanced to clears Admission and Anticipated Discharge Date Admission Date: June 13, 2023 Mary Art was seen and examined this am. Says she still feels quite tender to touch and has occasional significant pains across her lower abdomen. Explains that she has a longstanding history of some form of either inflammatory or autoimmune disorder but has not been able to be identified to yet. She states she has been hospitalized several times with GI issues requiring extended courses of antibiotics. She has had multiple endoscopies and has never been diagnosed with Crohn's or ulcerative colitis although states that swelling within her GI tract has been noted on prior occasion. She is tolerating ice chips, No N/V. C/o thrush which she says she tends to get with antibiotic treatments. Physical Exam Constitutional: healthy appearing; not ill appearing, not in distress and not diaphoretic afebrile Respiratory: normal respiratory effort; no respiratory distress, no labored breathing and does not use accessory muscles Gastrointestinal (Abdomen): Abdomen is soft, non-distended TTP left lower quadrant, suprapubic and right upper quadrant, without rebound Psychiatric: Normal affect, AAOx3 Results & Data Vital Signs (Past 12 Hours) Vital Signs Temp Pulse Pulse Resp BP Pulse Ox O2 Del Method 06/15/23 07:48 36.9 C 71 16 111/79 96 Room Air 06/15/23 07:15 79 06/15/23 03:15 36.6 C 77 18 108/73 97 Room Air 06/14/23 23:30 36.8 C 63 16 119/81 98 Room Air 06/14/23 22:23 71 PG Care Time/CCT Total # of Minutes Spent Total Time Spent with Patient: Total time spent is greater than 50% in coordination of care (as documented) at patient's floor/unit and/or counseling patient: Coding Level of Care Code 91925 SUB INP/OBS CARE 07/21MIN Diagnoses Diverticulitis K57.92 Thrush, oral B37.0
[2023-06-15] MEDS: FLUTICASONE/VILANTEROL 100/25MCG 14 PUFFS/INHALER INH SCH (08:39)
[2023-06-15] MEDS: FLUTICASONE PROPIONATE NA SPR 16 GM BTL SCH ×2 (08:39→20:05)
[2023-06-15] MEDS: PROPRANOLOL HCL 10 MG TAB PO SCH ×3 (08:39→20:05)
[2023-06-15] MEDS: ROSUVASTATIN CALCIUM 10 MG TAB PO SCH (08:40)
[2023-06-15] MEDS: CIPROFLOXACIN / D5W 400 MG/200 ML BAG IV SCH ×2 (09:49→22:05)
[2023-06-15] MEDS: FAMOTIDINE 20MG IV PUSH 20 MG/5 ML SYR IV SCH ×2 (09:49→20:10)
[2023-06-15] MEDS: D5W AND 1/2NSS + 20MEQ KCL 20 MEQ/1,000 ML BAG IV SCH ×2 (09:49→22:05)
[2023-06-15] MEDS: ENOXAPARIN INJ 40 MG/0.4 ML SYR SQ SCH (11:08)
[2023-06-15] MEDS: PROMETHAZINE HCL 12.5 MG in SODIUM CHLORIDE 0.9% 50 ML IV PRN (13:25)
[2023-06-15] MEDS: NYSTATIN SUSP 500,000 U/5 ML UDC PO SCH ×3 (13:50→20:04)
--- NOTE | 2023-06-15 17:28 | Hospitalist Progress Note ---
Date of Service June 15, 2023 Assessment & Plan (1) Diverticulitis of large intestine with complication: Plan: Acute diverticulitis Suspected microperforation of sigmoid colon --CT ABD:Scattered diverticuli with wall thickening of the sigmoid colon and moderate adjacent mesenteric edema, characteristic of acute diverticulitis. Tiny foci of air near the sigmoid colon, best seen on series 6, image 242 may represent a small microperforation. No abscess. 2 splenic artery aneurysms noted, measuring 11.1 and 10.5 mm. Recommend annual abdominal CT or MR follow-up. -- Continue ciprofloxacin, Flagyl, IV fluids, bowel rest Pain meds as needed Appreciate surgery input Continue bowel rest today Encouraged to ambulate Splenic artery aneurysm Incidental finding on CT as above Needs annual abdominal CT for surveillance Follow-up as outpatient Oral thrush Started on nystatin Migraine --CT Head:No acute intracranial hemorrhage, midline shift, or mass effect. Analgesics as needed Monitor Hypertensive urgency Atypical chest pain likely secondary to above Blood pressure elevation likely situational secondary to pain Troponin negative Normal TSH --ECHO: No regional wall motion abnormality Adjust antihypertensives as needed Monitor BP closely LISA Continue CPAP at bedtime H/O fibromyalgia Mood disorder Continue home medications Hyperglycemia HbA1c 5.3 DVT Px: Heparin SQ Code Status Full code Admission and Anticipated Discharge Date Admission Date: June 13, 2023 Subjective Patient is seen and examined at bedside Still has persistent lower abdominal pain Also reports oral thrush Denies any nausea, vomiting, chest pain, dyspnea No other complaints Review of Systems Review of Systems: All systems reviewed & are unremarkable except as noted in Subjective Physical Exam Physical Exam: Physical Exam: Vitals signs as noted above General Appearance:Obese, no apparent distress Head: normocephalic, Atraumatic Eyes: normal inspection, EOMI Neck: supple, Trachea midline Respiratory/Chest: Normal breath sounds, CTA, No accessory muscle use Cardiovascular: S1, S2, No murmur Abdomen/GI:Soft, mild tender, Bowel sounds present, no guarding or rigidity Extremities/Musculoskeletal:normal inspection, no edema Neurologic/Psych:AAOX3, grossly no focal neurological deficits Skin: normal color, warm Results & Data Results & Data Vital Signs (Past 12 Hours) Vital Signs Temp Pulse Pulse Resp BP Pulse Ox O2 Del Method 06/15/23 15:43 36.2 C L 106 H 16 128/87 100 Room Air 06/15/23 13:48 66 119/78 06/15/23 11:40 36.6 C 65 16 119/82 97 Room Air 06/15/23 07:48 36.9 C 71 16 111/79 96 Room Air 06/15/23 07:15 79 Laboratory Results Short CBC 06/15/23 Range/Units 06:21 WBC 7.24 (4.8-10.8) K/ul Hgb 11.6 L (12.0-16.0) g/dl Hct 34.0 L (37.0-47.0) % Plt Count 267 (130-400) K/uL BMP 06/15/23 06:21 Sodium 141 Potassium 3.7 Chloride 109 H Carbon Dioxide 27 BUN 7 Creatinine 0.99 Glucose 103 H Calcium 8.3 L
[2023-06-15] MEDS: oxyCODONE HCL IR 5 MG TAB (IMMEDIATE RELEASE) PO PRN (17:47)
[2023-06-15] MEDS: PREGABALIN 75 MG CAP PO SCH (20:09)
[2023-06-15] MEDS: MoRPHine SULFATE 4 MG/ML 1 ML CARP\\VIAL IV PRN (20:10)
[2023-06-15] MEDS: ZOLPIDEM TARTRATE 10 MG TAB PO PRN (22:06)
[2023-06-16] MEDS: metroNIDAZOLE 500 MG/100 ML BAG IV SCH ×3 (00:10→18:24)
[2023-06-16 06:46] LABS: Hematocrit (blood only) 36.5 % (37.0-47.0); Hemoglobin 12.1 g/dl (12.0-16.0); Mean Corpuscular Hemoglobin 30.1 pg (25.0-34.0); Mean Corpuscular Hgb Conc 33.2 g/dL (32.0-36.0); Mean Corpuscular Volume 90.8 fL (80.0-100.0); Mean Platelet Volume 10.9 fL (9.4-12.4); Platelet Count 259 K/uL (130-400); RDW Coefficient of Variation 12.6 % (11.5-14.5); RDW Standard Deviation 41.9 fL (36.4-46.3); Red Blood Count 4.02 M/uL (4.20-5.40)
[2023-06-16 07:14] LABS: BUN Creatinine Ratio 6.1 (10-20); Calcium 8.3 mg/dl (8.6-10.3); Est GFR (African American) 75.8 ml/min; Est GFR (Non-African American) 65.4 ml/min; Potassium 3.8 mmol/L (3.5-5.1)
[2023-06-16] MEDS: PROPRANOLOL HCL 10 MG TAB PO SCH ×3 (08:43→20:30)
[2023-06-16] MEDS: ROSUVASTATIN CALCIUM 10 MG TAB PO SCH (08:44)
[2023-06-16] MEDS: NYSTATIN SUSP 500,000 U/5 ML UDC PO SCH ×4 (08:44→20:38)
[2023-06-16] MEDS: FLUTICASONE/VILANTEROL 100/25MCG 14 PUFFS/INHALER INH SCH (08:44)
[2023-06-16] MEDS: FLUTICASONE PROPIONATE NA SPR 16 GM BTL SCH ×2 (08:45→20:31)
[2023-06-16] MEDS: ENOXAPARIN INJ 40 MG/0.4 ML SYR SQ SCH (08:46)
[2023-06-16] MEDS: FAMOTIDINE 20MG IV PUSH 20 MG/5 ML SYR IV SCH ×2 (08:51→20:29)
--- NOTE | 2023-06-16 10:00 | Surgery Progress Note ---
Date of Service June 16, 2023 Assessment & Plan (1) Thrush, oral: (2) Diverticulitis of large intestine with complication: Plan Kaelyn remains afebrile and without leukocytosis for the 3 days. At this time I am not fully confident that her symptoms are secondary to diverticulitis. She has had a longstanding history of GI concerns and has undergone multiple upper and lower endoscopies in an effort to find the diagnosis. I am believe the GI consult may be able to provide some input although she will not be able to undergo any endoscopic evaluation at this time secondary to a con commitment diverticulitis flare but whether or not they may be able to offer a medication trial if some of the symptoms she describes seem to be indicative of a treatable GI disorder that is also safe to treat in the face of diverticulitis. Remain n.p.o. at this time. Consider a trial of sips of clears by dinnertime or after GI consultation. Will f/u in the am. Admission and Anticipated Discharge Date Admission Date: June 13, 2023 Subjective Patient seen and examined this a.m. this a.m. she states she had a "flare up" across her lower abdomen last night required morphine. The pain at the across the upper aspect of her abdomen has been present for several years she has had multiple endoscopies to evaluate and there are 2 red areas that are constantly noted on her endoscopies. She states these have been biopsied and they have been able to rule out Crohn's disease but yet they feel as though she has some sort of inflammatory issue. Kaelyn goes on to explain that she experiences burning from her tongue down through her esophagus and her upper abdomen when this is all flared up and swelled. She says when this happens she is unable to drink water because it is so painful and she has had several of these types of flare ups. She is denying nausea or vomiting and states that she had 3 episodes of "diarrhea" yesterday but nothing today so far and does not believe she has passed any further gas since then. She does admit that she currently feels less burning on her tongue with the use of the nystatin swish and spit that she has been started on. Physical Exam Gastrointestinal (Abdomen): Her abdomen continues to be soft without voluntary guarding nondistended. She says she is tipple tender along the lower abdomen occasionally tender at the right upper quadrant. Results & Data Vital Signs (Past 12 Hours) Vital Signs Temp Pulse Pulse Resp BP Pulse Ox O2 Del Method 06/16/23 07:53 36.6 C 71 16 110/73 71 L Room Air 06/16/23 07:31 66 06/16/23 04:05 36.5 C 73 16 92/58 L 97 Room Air 06/15/23 23:30 36.6 C 69 18 121/82 96 Room Air 06/15/23 22:12 79 PG Care Time/CCT Total # of Minutes Spent Total Time Spent with Patient: Total time spent is greater than 50% in coordination of care (as documented) at patient's floor/unit and/or counseling patient: Coding [place] [address] SUB INP/OBS CARE 125MIN Patient Type Established History Problem Focused Exam Problem Focused Medical Decision Making Moderate Complexity Diagnoses Thrush, oral B37.0 Diverticulitis of large intestine with complication K57.32
[2023-06-16] MEDS: D5W AND 1/2NSS + 20MEQ KCL 20 MEQ/1,000 ML BAG IV SCH (10:04)
[2023-06-16] MEDS: CIPROFLOXACIN / D5W 400 MG/200 ML BAG IV SCH ×2 (10:05→22:01)
--- NOTE | 2023-06-16 10:52 | Gastrointestinal Consultation ---
Date of Consultation June 16, 2023 Assessment & Plan (1) Diverticulitis of large intestine with complication: Plan Pt tells me that her surgeon said that she can't eat/drink, unless GI says its OK. There is no GI contraindication to starting clear liquids but would definitely defer to the surgery team and the primary hospitalist. Would await results of the most recent CT scan prior to deciding on a diet as well. When clear liquids are started, would also add dicyclomine 10mg achs. She has chronic abd pain and likely has some functional pain along w the diverticulitis. No indication for endoscopy. Doesn't need f/u colonoscopy because had a colonoscopy in February. Pt can f/u in GI clinic for ongoing abd pain after resolution of diverticulitis. Our office will reach out to her w scheduling options. Supervising Physician Co-Signing Physician Notes Patient was seen and examined on 06/16 with NERI Beal whose note reflects our findings and plan. History of Present Illness Reason for Consultation: Abd Pain Requesting Physician: Dr. Contreras Attending Physician: Vj Contreras MD History of Present Illness Ms. Kaelyn Gardiner is a 53 yr old female pt of Dr. Leonila Angel w a hx of LISA on CPAP, diverticulitis, migraines, fibromyalgia and anxiety. She presented to the ED on 06/13 for abd pain and CT was suggestive of acute diverticulitis w possible microperforation. It was repeated today but results from repeat scan are not yet available. GI is consulted for abdominal pain. The pt is known to myself as she was seen in the GI office in February w chronic abd pain. EGD at that time was normal. Colonoscopy w sigmoid diverticulosis, no other abnormalities. This episode of pain began soon after Thanksgiving, improved briefly then returned, severe about 5 days ago. She is being tx for diverticulitis, followed by surgery, but continues w pain. On my entry into the room, she was standing near the bed. She is able to move around well. She appears generally well. Allergies Allergy/AdvReac Type Severity Reaction Status Date / Time Penicillins Allergy Unknown Verified 06/12/23 23:26 Sulfa (Sulfonamide Allergy Unknown Verified 06/12/23 23:26 Antibiotics) acesulfame AdvReac Unknown Verified 06/16/23 19:42 aspartame AdvReac Unknown Verified 06/16/23 19:42 garlic AdvReac Unknown Verified 06/12/23 23:26 lactose AdvReac Unknown Verified 06/13/23 03:03 lettuce AdvReac Unknown Verified 06/12/23 23:26 peach AdvReac Unknown Verified 06/12/23 23:26 peanut AdvReac Unknown Verified 06/12/23 23:26 pepper (genus Capsicum) AdvReac Unknown Verified 06/12/23 23:26 saccharin AdvReac Unknown Verified 06/16/23 19:42 shellfish derived AdvReac Unknown Verified 06/12/23 23:26 soy AdvReac Unknown Verified 06/12/23 23:26 sucralose AdvReac Unknown Verified 06/16/23 19:42 wheat AdvReac Unknown Verified 06/12/23 23:26 Home Medications Medication Instructions Recorded Confirmed Type D-Ribose Tabs 1 tab PO DAILY 06/12/23 06/13/23 History albuterol sulfate 90 mcg/actuation 2 puff inhalation Q4 PRN Shortness 06/12/23 06/12/23 History aerosol inhaler (Ventolin HFA) Of Breath Or Wheezing clindamycin phosphate 1 % topical 1 applic topical DIRECTED 06/12/23 06/12/23 History gel clonazepam 1 mg tablet 0.5 mg PO BID PRN Anxiety 06/12/23 06/12/23 History cyclobenzaprine 10 mg tablet 10 mg PO TID PRN Muscle Spasm 06/12/23 06/12/23 History fluticasone furoate 100 1 ea inhalation DAILY 06/12/23 06/13/23 History mcg-vilanterol 25 mcg/dose inhalation powder (Breo Ellipta) fluticasone propionate 50 2 spray intranasal AMHS 06/12/23 06/13/23 History mcg/actuation nasal spray,suspension melatonin 5 mg tablet 0 mg PO HS 06/12/23 06/13/23 History naratriptan 2.5 mg tablet 2.5 mg PO DIRECTED PRN Migraine 06/12/23 06/13/23 History Headache ondansetron HCl 4 mg tablet 4 mg PO Q8 PRN Nausea 06/12/23 06/12/23 History pregabalin 75 mg capsule 75 mg PO HS 06/12/23 06/12/23 History propranolol 10 mg tablet 10 mg PO TID 06/12/23 06/12/23 History rosuvastatin 10 mg tablet 10 mg PO QAM 06/12/23 06/12/23 History zolpidem 12.5 mg tablet,extended 12.5 mg PO HS 06/12/23 06/12/23 History release,multiphase erenumab-aooe 140 mg/mL 140 mg subcut .MONTH 06/13/23 06/13/23 History subcutaneous auto-injector (Aimovig Autoinjector) Patient History Medical History Peripheral neuropathy Environmental and seasonal allergies Fibromyalgia Asthma Dyslipidemia Insomnia PTSD (post-traumatic stress disorder) Depression Anxiety Surgical History History of tonsillectomy History of cholecystectomy History of colonoscopy Social History Smoking Status: Never smoker Hx Alcohol Use: Yes Hx Substance Use: No Preferred Language: Malay Communication Ability: Effective [employer]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 Required: No Beliefs That Will Affect Care: None Current Living Situation: Spouse and Family Current Living Situation Comment: Live with daughter and Feels Safe at Home: No Is there a partner from a previous relationship who is making you feel unsafe now?: No Assistive Devices: CPAP Review of Systems Review of Systems: ROS: GI: + As per HPI, otherwise (-) A total of 12 systems were reviewed, all others (-) Physical Exam Constitutional: WD/WN, vitals as above Eyes: PERRL, conjunctivae normal, anicteric sclerae ENMT: external ear and nose normal, oropharynx normal Neck: trachea midline, no thyromegaly Respiratory: normal respiratory effort, lungs clear to auscultation Cardiovascular: RRR, no murmur, no edema Gastrointestinal (Abdomen): BS presents, normoactive, abd is soft, non distended, moderate bilat lower abd tenderness L>R Musculoskeletal: no cyanosis or clubbing, extremities motor strength 5/5 Skin: no rashes, warm and dry Neurologic: PERRL, EOMI, accommodation nl, no face palsy, no dysarthria Psychiatric: Orientation: alert and oriented x 3 Apperance: appropriately dressed and appropriately groomed Eye Contact: good eye contact Lymphatic: no cervical or axillary lymphadenopathy Results & Data Vital Signs (Past 12 Hours) Vital Signs Temp Pulse Pulse Resp BP Pulse Ox O2 Del Method 06/16/23 10:11 Room Air 06/16/23 07:53 36.6 C 71 16 110/73 71 L Room Air 06/16/23 07:31 66 06/16/23 04:05 36.5 C 73 16 92/58 L 97 Room Air 06/15/23 23:30 36.6 C 69 18 121/82 96 Room Air Laboratory Results WBC 6.3, Hb 12.1, Hct 36.5, Plts 259, Na 141, K 3.8, Cl 110, CO2 26, BUN 6, Cr 0.9, glucose 106. Diagnostic Findings CTAP w IV on 06/12/23: 1. Scattered diverticuli with wall thickening of the sigmoid colon and moderate adjacent mesenteric edema, characteristic of acute diverticulitis. Tiny foci of air near the sigmoid colon, best seen on series 6, image 242 may represent a small microperforation. No abscess. 2. 2 splenic artery aneurysms noted, measuring 11.1 and 10.[address] mm. Recommend annual abdominal CT or MR follow-up.
[2023-06-16] MEDS: ACETAMINOPHEN 325 MG TAB PO PRN ×2 (12:20→19:32)
--- NOTE | 2023-06-16 12:31 | CT Scan Report ---
CT abd pelvis wo con CLINICAL HISTORY: Diverticulitis TECHNIQUE: Helical axial images of the abdomen and pelvis were obtained. Automated dose lowering tech niques and/or adjustment according to patient size were utilized for this exam. This exam was perfor med without intravenous contrast. CT DOSE: 1345.03 mGy.cm COMPARISON: Comparison is made to CT abdomen pelvis 06/12/2023 FINDINGS: Lower chest: There is a 5 mm nodule in the right lower lobe (series 3 image 18). Liver: Unremarkable. No focal lesions are seen. Gallbladder and biliary tree: Patient is status post cholecystectomy. No intra- or extrahepatic bilia ry ductal dilation. Pancreas: Unremarkable, no focal lesions. Spleen: Unremarkable. Adrenals: Unremarkable. Kidneys and ureters: Unremarkable. Bladder: Limited evaluation due to underdistention. Reproductive organs: Unremarkable. Bowel: Numerous diverticula are seen and there is surrounding fat stranding in the sigmoid colon, salvador ewhat decreased in extent from prior exam. The appendix is normal. Lymph nodes Retroperitoneal: Unremarkable. Pelvic: Unremarkable. Mesenteric: Unremarkable. Peritoneum: Fat stranding is seen about the sigmoid colon. No drainable fluid collection. There is a punctate focus of gas adjacent to the bowel (image 2-30) unchanged from prior exam. Vessels: Unremarkable. Incidental note is made of splenic artery aneurysms, unchanged from prior exam . Abdominal wall: Injection granuloma in the left lower quadrant. Bones: Degenerative changes in the visualized spine. IMPRESSION: Mild diverticulitis without evidence of abscess. Stable likely microperforation without new acute fin dings or dayanara pneumoperitoneum. Findings have mildly improved from the prior exam. ACT 112: Negative or not required by law. Electronically signed by: Justin May M.D. 06/16/2023 12:29 PM
--- NOTE | 2023-06-16 14:37 | Hospitalist Progress Note ---
Date of Service June 16, 2023 Assessment & Plan (1) Diverticulitis of large intestine with complication: Plan: Acute diverticulitis Suspected microperforation of sigmoid colon --CT ABD:Scattered diverticuli with wall thickening of the sigmoid colon and moderate adjacent mesenteric edema, characteristic of acute diverticulitis. Tiny foci of air near the sigmoid colon, best seen on series 6, image 242 may represent a small microperforation. No abscess. 2 splenic artery aneurysms noted, measuring 11.1 and 10.[address] mm[address] Recommend annual abdominal CT or MR follow-up. -- Continue ciprofloxacin, Flagyl, IV fluids Pain meds as needed Appreciate surgery input Repeat CT abdomen showed no acute findings, mildly improved from prior CT Trial of clear liquid diets Added Bentyl for pain control as per GI Appreciate GI input Oral thrush Continue Nystatin Migraine --CT Head:No acute intracranial hemorrhage, midline shift, or mass effect. Analgesics as needed Monitor Hypertensive urgency Atypical chest pain likely secondary to above Blood pressure elevation likely situational secondary to pain Troponin negative Normal TSH --ECHO: No regional wall motion abnormality Adjust antihypertensives as needed Monitor BP LISA Continue CPAP at bedtime H/O fibromyalgia Mood disorder Continue home medications Hyperglycemia HbA1c 5.3 DVT Px: Heparin SQ Code Status Full code Admission and Anticipated Discharge Date Admission Date: June 13, 2023 Subjective Patient is seen and examined at bedside Reports nausea and persistent abdominal pain Also reports loose BMs today Denies any vomiting, chest pain, dyspnea Repeat CT abdomen today showed no acute findings Review of Systems Review of Systems: All systems reviewed & are unremarkable except as noted in Subjective Physical Exam Physical Exam: Physical Exam: Vitals signs as noted above General Appearance:Obese, no apparent distress Head: normocephalic, Atraumatic Eyes: normal inspection, EOMI Neck: supple, Trachea midline Respiratory/Chest: Normal breath sounds, CTA, No accessory muscle use Cardiovascular: S1, S2, No murmur Abdomen/GI:Soft, mild tender, Bowel sounds present, no guarding or rigidity Extremities/Musculoskeletal:normal inspection, no edema Neurologic/Psych:AAOX3, grossly no focal neurological deficits Skin: normal color, warm Results & Data Results & Data Vital Signs (Past 12 Hours) Vital Signs Temp Pulse Pulse Resp BP Pulse Ox O2 Del Method 06/16/23 12:05 36.9 C 80 16 132/91 93 Room Air 06/16/23 10:11 Room Air 06/16/23 07:53 36.6 C 71 16 110/73 71 L Room Air 06/16/23 07:31 66 06/16/23 04:05 36.5 C 73 16 92/58 L 97 Room Air Laboratory Results Short CBC 06/16/23 Range/Units 06:07 WBC 6.30 (4.8-10.8) K/ul Hgb 12.1 (12.0-16.0) g/dl Hct 36.5 L (37.0-47.0) % Plt Count 259 (130-400) K/uL BMP 06/16/23 06:07 Sodium 141 Potassium 3.8 Chloride 110 H Carbon Dioxide 26 BUN 6 Creatinine 0.98 Glucose 106 H Calcium 8.3 L
[2023-06-16] MEDS: ADVANCED PROBIOTIC 1250 MG CAPSULE PO SCH (16:06)
[2023-06-16] MEDS: DICYCLOMINE HCL 10 MG CAP PO SCH ×2 (16:07→20:29)
[2023-06-16] MEDS: PREGABALIN 75 MG CAP PO SCH (20:30)
[2023-06-16] MEDS: ZOLPIDEM TARTRATE 10 MG TAB PO PRN (22:01)
[2023-06-16] MEDS ORDERED: LOPERAMIDE HCL 2 MG CAP PO STA (22:10)
[2023-06-17] MEDS: D5W AND 1/2NSS + 20MEQ KCL 20 MEQ/1,000 ML BAG IV SCH ×2 (00:03→09:48)
[2023-06-17] MEDS: metroNIDAZOLE 500 MG/100 ML BAG IV SCH ×3 (00:34→17:44)
[2023-06-17] MEDS: FAMOTIDINE 20MG IV PUSH 20 MG/5 ML SYR IV SCH ×2 (08:21→21:04)
[2023-06-17] MEDS: DICYCLOMINE HCL 10 MG CAP PO SCH ×4 (08:22→20:58)
[2023-06-17] MEDS: ROSUVASTATIN CALCIUM 10 MG TAB PO SCH (08:22)
[2023-06-17] MEDS: PROPRANOLOL HCL 10 MG TAB PO SCH ×3 (08:22→20:58)
[2023-06-17] MEDS: ENOXAPARIN INJ 40 MG/0.4 ML SYR SQ SCH (08:23)
[2023-06-17] MEDS: NYSTATIN SUSP 500,000 U/5 ML UDC PO SCH ×4 (08:23→20:58)
[2023-06-17] MEDS: ADVANCED PROBIOTIC 1250 MG CAPSULE PO SCH (08:23)
[2023-06-17] MEDS: FLUTICASONE PROPIONATE NA SPR 16 GM BTL SCH ×2 (08:23→20:58)
[2023-06-17] MEDS: FLUTICASONE/VILANTEROL 100/25MCG 14 PUFFS/INHALER INH SCH (08:23)
[2023-06-17 09:02] LABS: Hematocrit (blood only) 38.3 % (37.0-47.0); Hemoglobin 13.2 g/dl (12.0-16.0); Mean Corpuscular Hemoglobin 30.3 pg (25.0-34.0); Mean Corpuscular Hgb Conc 34.5 g/dL (32.0-36.0); Mean Corpuscular Volume 87.8 fL (80.0-100.0); Mean Platelet Volume 11.2 fL (9.4-12.4); Platelet Count 304 K/uL (130-400); RDW Coefficient of Variation 12.7 % (11.5-14.5); RDW Standard Deviation 40.7 fL (36.4-46.3); Red Blood Count 4.36 M/uL (4.20-5.40); White Blood Count 7.09 K/ul (4.8-10.8)
[2023-06-17 09:03] LABS: Creatinine Clr Calc Pharmacy 65.5 ml/min; Est GFR (Non-African American) 63.8 ml/min; Potassium 3.8 mmol/L (3.5-5.1)
[2023-06-17] MEDS: CIPROFLOXACIN / D5W 400 MG/200 ML BAG IV SCH ×2 (09:48→21:04)
[2023-06-17] MEDS: ACETAMINOPHEN 325 MG TAB PO PRN ×2 (10:56→17:45)
--- NOTE | 2023-06-17 12:59 | Hospitalist Progress Note ---
Date of Service June 17, 2023 Assessment & Plan (1) Diverticulitis of large intestine with complication: Plan: Acute diverticulitis Suspected microperforation of sigmoid colon --CT ABD:Scattered diverticuli with wall thickening of the sigmoid colon and moderate adjacent mesenteric edema, characteristic of acute diverticulitis. Tiny foci of air near the sigmoid colon, best seen on series 6, image 242 may represent a small microperforation. No abscess. 2 splenic artery aneurysms noted, measuring 11.1 and 10.5 mm. Recommend annual abdominal CT or MR follow-up. -- Continue ciprofloxacin, Flagyl, IV fluids Pain meds as needed Appreciate surgery input Repeat CT abdomen showed no acute findings, mildly improved from prior CT Trial of clear liquid diets- continue per surgery for 1 more day Added Bentyl for pain control as per GI Appreciate GI input Oral thrush Continue Nystatin Migraine --CT Head:No acute intracranial hemorrhage, midline shift, or mass effect. Analgesics as needed Monitor Hypertensive urgency Atypical chest pain likely secondary to above Blood pressure elevation likely situational secondary to pain Troponin negative Normal TSH --ECHO: No regional wall motion abnormality Adjust antihypertensives as needed Monitor BP LISA Continue CPAP at bedtime H/O fibromyalgia Mood disorder Continue home medications Hyperglycemia HbA1c 5.3 DVT Px:Heparin SQ Code Status:Full code Admission and Anticipated Discharge Date Admission Date: June 13, 2023 Subjective Pt seen in the AM. Was playing cards with her daughter. Noted that she tried iced tea and that did not go well but otherwise tolerating clears. States her abdominal pain has improved. Review of Systems Review of Systems: All systems reviewed & are unremarkable except as noted in Subjective Physical Exam Physical Exam: General: Alert, oriented. No acute distress Skin: No noted rashes or bruises Psych: Appropriate mood and affect Neuro: No gross deficits HEENT: NC/AT Chest: Nontender to palpation. CV: RRR Resp: Breath sounds clear bilaterally, no increased effort of breathing. Abdomen: Soft, slightly tender, nondistended. Extremities: trace edema in lower extremities bilaterally. Results & Data Results & Data Vital Signs (Past 12 Hours) Vital Signs Temp Pulse Pulse Resp BP Pulse Ox O2 Del Method 06/17/23 10:57 36.6 C 70 16 126/88 96 Room Air 06/17/23 09:00 66 06/17/23 07:23 37.0 C 81 14 111/76 98 Room Air 06/17/23 04:40 36.7 C 73 18 105/71 97 Room Air
--- NOTE | 2023-06-17 13:41 | Surgery Progress Note ---
Date of Service June 17, 2023 Assessment & Plan (1) Diverticulitis: Plan: A CT A/P was performed yesterday that shows decreasing inflammation at the sigmoid colon. The patient's exam also shows improvement and she has now been able to tolerate clear liquids. I would move slowly with her and let her have clear liquids for one more day. If she is continuing to note this consistent slow and steady improvement, she may be advanced to full liquids tomorrow. Of note, the patient has a number of food specificities that she has realized she is sensitive to over time and cause her generalized GI flare ups. I have spoken to the patient regarding indications for operative intervention in the acute period and on an elective basis. She would like help to establish her patient portal so that she may begin to keep record of episodes of true diverticulitis and location as she has diverticular pockets throughout her colon. As of now, there is no acute surgical intervention indicated. 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 (2) Thrush, oral: Plan: Improving. May convert to swish and swallow if still needed at that time once she is tolerating a full liquid diet. Admission and Anticipated Discharge Date Admission Date: June 13, 2023 Subjective Patient seen and examined this am. When asked if she feels improvement, she states she has some burning up in her chest area, pain in her back and an ear ache that had started for some reason. When asked specifically about her lower abdominal pain, she states it is improved but she is nervous. She has been tolerating clear liquids. Physical Exam Constitutional: not ill appearing, + not healthy appearing, not in distress and not diaphoretic Respiratory: normal respiratory effort; no respiratory distress, no labored breathing and does not use accessory muscles Cardiovascular: Rate/Rhythm: regular rate; not tachycardic Gastrointestinal (Abdomen): Abdomen is soft and without distention. She is less tender today as well and she admits she notices this as well. Results & Data Vital Signs (Past 12 Hours) Vital Signs Temp Pulse Pulse Resp BP Pulse Ox O2 Del Method 06/17/23 10:57 36.6 C 70 16 126/88 96 Room Air 06/17/23 09:00 66 06/17/23 07:23 37.0 C 81 14 111/76 98 Room Air 06/17/23 04:40 36.7 C 73 18 105/71 97 Room Air PG Care Time/CCT Total # of Minutes Spent Total Time Spent with Patient: Total time spent is greater than 50% in coordination of care (as documented) at patient's floor/unit and/or counseling patient: Coding [place] [address] SUB INP/OBS CARE 2/35MIN Patient Type Established History Expanded Problem Focused Exam Expanded Problem Focused Medical Decision Making Moderate Complexity Diagnoses Diverticulitis K57.92 Thrush, oral B37.0
[2023-06-17] MEDS: PROMETHAZINE HCL 12.5 MG in SODIUM CHLORIDE 0.9% 50 ML IV PRN (19:27)
[2023-06-17] MEDS: MoRPHine SULFATE 4 MG/ML 1 ML CARP\\VIAL IV PRN (19:32)
[2023-06-17] MEDS: PREGABALIN 75 MG CAP PO SCH (20:58)
[2023-06-17] MEDS: ZOLPIDEM TARTRATE 10 MG TAB PO PRN (22:21)
[2023-06-18] MEDS: metroNIDAZOLE 500 MG/100 ML BAG IV SCH ×3 (00:53→18:00)
[2023-06-18] MEDS: D5W AND 1/2NSS + 20MEQ KCL 20 MEQ/1,000 ML BAG IV SCH ×3 (01:55→19:17)
[2023-06-18 07:14] LABS: Basophils # (auto) 0.04 K/uL (0.00-0.20); Basophils % (auto) 0.6 %; Eosinophils # (auto) 0.36 K/uL (0.00-0.50); Eosinophils % (auto) 5.2 %; Immature Granulocytes # (auto) 0.02 K/uL (0.01-0.20); Immature Granulocytes % (auto) 0.3 %; Lymphocytes # (auto) 1.81 K/uL (1.20-3.40); Lymphocytes % (auto) 26.2 %; Mean Corpuscular Hemoglobin 29.9 pg (25.0-34.0); Mean Corpuscular Hgb Conc 34.3 g/dL (32.0-36.0); Mean Corpuscular Volume 87.3 fL (80.0-100.0); Monocytes # (auto) 0.56 K/uL (0.11-0.59); Monocytes % (auto) 8.1 %; Neutrophils # (auto) 4.12 K/uL (1.40-6.50); Neutrophils % (auto) 59.6 %; Platelet Count 270 K/uL (130-400); RDW Coefficient of Variation 12.7 % (11.5-14.5); RDW Standard Deviation 40.2 fL (36.4-46.3); Red Blood Count 4.01 M/uL (4.20-5.40); White Blood Count 6.91 K/ul (4.8-10.8)
[2023-06-18 07:36] LABS: Albumin Globulin Ratio 1.5 (0.9-2); Albumin Level 3.5 gm/dl (3.4-5.0); BUN Creatinine Ratio 3.2 (10-20); Bilirubin,Total 0.5 mg/dl (0.2-1.0); Calcium 8.6 mg/dl (8.6-10.3); Creatinine Clr Calc Pharmacy 69.6 ml/min; Est GFR (African American) 79.7 ml/min; Est GFR (Non-African American) 68.8 ml/min; Globulin 2.3 gm/dl (2.5-4.0); Magnesium 1.7 mg/dl (1.7-2.4); Phosphorus 3.6 mg/dl (2.5-4.9); Potassium 3.6 mmol/L (3.5-5.1); Total Protein 5.8 gm/dl (6.0-8.3)
--- NOTE | 2023-06-18 11:24 | Hospitalist Progress Note ---
Date of Service June 18, 2023 Assessment & Plan (1) Diverticulitis of large intestine with complication: Plan: Acute diverticulitis Suspected microperforation of sigmoid colon --CT ABD:Scattered diverticuli with wall thickening of the sigmoid colon and moderate adjacent mesenteric edema, characteristic of acute diverticulitis. Tiny foci of air near the sigmoid colon, best seen on series 6, image 242 may represent a small microperforation. No abscess. 2 splenic artery aneurysms noted, measuring 11.1 and 10.5 mm. Recommend annual abdominal CT or MR follow-up. Continue ciprofloxacin, Flagyl IV site appear to have infiltrated. USS IV ordered per hygiene teacher request Continue IVF Pain meds as needed Surgery recs noted Repeat CT abdomen from 06/16/23 showed no acute findings, noted stable likely microperforations, findings may have improved Tolerating clears well Surgery recommends slow advancement Started full liquid diet today Patient has multiple things listed on allergy list. Patient reported some of them are just food sensitivities and not allergies. I went over the list with her. I removed all the ones she stated she is not allergic/sensitive to. Hopefully kitchen will have more options for food for her with this Continue bentyl per GI recs Patient will follow up with GI outpatient Oral thrush Continue Nystatin Migraine --CT Head:No acute intracranial hemorrhage, midline shift, or mass effect. Analgesics as needed Monitor Hypertensive urgency Atypical chest pain likely secondary to above Blood pressure elevation likely situational secondary to pain Troponin negative Normal TSH --ECHO: No regional wall motion abnormality Adjust antihypertensives as needed Monitor BP LISA Continue CPAP at bedtime H/O fibromyalgia Mood disorder Continue home medications Hyperglycemia HbA1c 5.3 DVT Px:Heparin SQ Code Status:Full code I spent a total of 55 minutes coordinating, documenting and providing care for this patient excluding time spent in performance of separately billed services Admission and Anticipated Discharge Date Admission Date: June 13, 2023 Subjective Patient seen and examined She reports concerns regarding her diet. Stated the kitchen does not have much options for her. Tolerating clears, will like more solid foods She also reports pain at IV site Reports low abd pain is improved today compared to yesterday Denied any nausea, vomiting. No BM yet today Denied melena, hematochezia Denied chest pain, cough, shortness of breath Physical Exam Constitutional: + well hydrated; no acute distress Eyes: PERRL, conjunctivae normal, anicteric sclerae Respiratory: normal respiratory effort, lungs clear to auscultation Cardiovascular: Rate/Rhythm: regular rate and regular rhythm S1 S2 Gastrointestinal (Abdomen): Soft, non distended, normal bowel sounds, mild LLQ tenderness, no rebound or guarding Musculoskeletal: no cyanosis or clubbing, extremities motor strength 5/5 Neurologic: PERRL, EOMI, accommodation nl, no face palsy, no dysarthria Psychiatric: A+Ox3, euthymic affect Results & Data Results & Data Vital Signs (Past 12 Hours) Vital Signs Temp Pulse Pulse Resp BP Pulse Ox O2 Del Method 06/18/23 09:00 81 06/18/23 07:50 36.9 C 85 18 112/75 97 Room Air 06/18/23 04:43 36.4 C L 84 20 96/67 L 98 Room Air 06/17/23 23:59 61 Laboratory Results Abnormal lab results 06/18/23 Range/Units 06:30 RBC 4.01 L (4.20-5.40) M/uL Hct 35.0 L (37.0-47.0) % Chloride 111 H (98-107) mmol/L BUN 3 L (6-23) mg/dl BUN/Creatinine Ratio 3.2 L (10-20) Glucose 101 H (70-99(Fasting)) mg/dl Total Protein 5.8 L (6.0-8.3) gm/dl Globulin 2.3 L (2.5-4.0) gm/dl
[2023-06-18] MEDS: FLUTICASONE PROPIONATE NA SPR 16 GM BTL SCH ×2 (12:07→20:11)
[2023-06-18] MEDS: DICYCLOMINE HCL 10 MG CAP PO SCH ×4 (12:08→20:11)
[2023-06-18] MEDS: PROPRANOLOL HCL 10 MG TAB PO SCH ×3 (12:08→20:12)
[2023-06-18] MEDS: ADVANCED PROBIOTIC 1250 MG CAPSULE PO SCH (12:09)
[2023-06-18] MEDS: NYSTATIN SUSP 500,000 U/5 ML UDC PO SCH ×4 (12:09→20:11)
[2023-06-18] MEDS: ENOXAPARIN INJ 40 MG/0.4 ML SYR SQ SCH (12:09)
[2023-06-18] MEDS: FLUTICASONE/VILANTEROL 100/25MCG 14 PUFFS/INHALER INH SCH (12:09)
[2023-06-18] MEDS: ROSUVASTATIN CALCIUM 10 MG TAB PO SCH (12:09)
[2023-06-18] MEDS: FAMOTIDINE 20MG IV PUSH 20 MG/5 ML SYR IV SCH ×2 (14:02→20:11)
[2023-06-18] MEDS: CIPROFLOXACIN / D5W 400 MG/200 ML BAG IV SCH ×2 (14:02→22:25)
[2023-06-18] MEDS: ACETAMINOPHEN 325 MG TAB PO PRN (15:33)
--- NOTE | 2023-06-18 16:21 | Surgery Progress Note ---
Date of Service June 18, 2023 Assessment & Plan (1) Diverticulitis of large intestine with complication: Plan: Assessment: Follow-up diverticulitis. Patient feels better, no fevers, CT scan yesterday showed improvement. WBC normal. plan : continue iv antibiotic, may try full liquid diet today, possible switch to po antibiotic tomorrow. will F/U Admission and Anticipated Discharge Date Admission Date: June 13, 2023 Subjective Follow-up with diverticulitis, patient doing better, less abdominal pain, passing gas and stool. No nausea, no vomiting, no fever, tolerated clear liquid diet. Physical Exam Constitutional: WD/WN, vitals as above Eyes: PERRL, conjunctivae normal, anicteric sclerae Neck: trachea midline, no thyromegaly Respiratory: normal respiratory effort, lungs clear to auscultation Cardiovascular: RRR, no murmur, no edema Gastrointestinal (Abdomen): soft, mild tenderness at low abdomen, no rebound pain, no distend, BS +. Neurologic: patellar DTR's 2+ bilat, sensation intact Psychiatric: A+Ox3, euthymic affect Results & Data Vital Signs (Past 12 Hours) Vital Signs Temp Pulse Pulse Resp BP Pulse Ox O2 Del Method 06/18/23 09:00 81 06/18/23 07:50 36.9 C 85 18 112/75 97 Room Air 06/18/23 04:43 36.4 C L 84 20 96/67 L 98 Room Air Diagnostic Findings CT abd pelvis wo con CLINICAL HISTORY: Diverticulitis TECHNIQUE: Helical axial images of the abdomen and pelvis were obtained. Automated dose lowering techniques and/or adjustment according to patient size were utilized for this exam. This exam was performed without intravenous contrast. CT DOSE: 1345.03 mGy.cm COMPARISON: Comparison is made to CT abdomen pelvis 06/12/2023 FINDINGS: Lower chest: There is a 5 mm nodule in the right lower lobe (series 3 image 18). Liver: Unremarkable. No focal lesions are seen. Gallbladder and biliary tree: Patient is status post cholecystectomy. No intra- or extrahepatic biliary ductal dilation. Pancreas: Unremarkable, no focal lesions. Spleen: Unremarkable. Adrenals: Unremarkable. Kidneys and ureters: Unremarkable. Bladder: Limited evaluation due to underdistention. Reproductive organs: Unremarkable. Bowel: Numerous diverticula are seen and there is surrounding fat stranding in the sigmoid colon, somewhat decreased in extent from prior exam. The appendix is normal. Lymph nodes Retroperitoneal: Unremarkable. Pelvic: Unremarkable. Mesenteric: Unremarkable. Peritoneum: Fat stranding is seen about the sigmoid colon. No drainable fluid collection. There is a punctate focus of gas adjacent to the bowel (image 2-30) unchanged from prior exam. Vessels: Unremarkable. Incidental note is made of splenic artery aneurysms, unchanged from prior exam. Abdominal wall: Injection granuloma in the left lower quadrant. Bones: Degenerative changes in the visualized spine. IMPRESSION: Mild diverticulitis without evidence of abscess. Stable likely microperforation without new acute findings or dayanara pneumoperitoneum. Findings have mildly improved from the prior exam. ACT 112: Negative or not required by law.
[2023-06-18] MEDS: PREGABALIN 75 MG CAP PO SCH (20:12)
[2023-06-18] MEDS: PROMETHAZINE HCL 12.5 MG in SODIUM CHLORIDE 0.9% 50 ML IV PRN (20:12)
[2023-06-18] MEDS: ZOLPIDEM TARTRATE 10 MG TAB PO PRN (22:17)
[2023-06-19] MEDS: metroNIDAZOLE 500 MG/100 ML BAG IV SCH ×2 (00:20→08:12)
[2023-06-19 06:42] LABS: Hemoglobin 12.6 g/dl (12.0-16.0); Mean Corpuscular Hemoglobin 30.6 pg (25.0-34.0); Mean Corpuscular Volume 87.4 fL (80.0-100.0); Mean Platelet Volume 10.9 fL (9.4-12.4); Platelet Count 282 K/uL (130-400); RDW Coefficient of Variation 12.8 % (11.5-14.5); RDW Standard Deviation 40.5 fL (36.4-46.3); Red Blood Count 4.12 M/uL (4.20-5.40); White Blood Count 8.02 K/ul (4.8-10.8)
[2023-06-19 06:47] LABS: BUN Creatinine Ratio 3.1 (10-20); Calcium 8.7 mg/dl (8.6-10.3); Creatinine Clr Calc Pharmacy 68.3 ml/min; Est GFR (African American) 77.7 ml/min; Magnesium 1.7 mg/dl (1.7-2.4); Phosphorus 3.6 mg/dl (2.5-4.9); Potassium 3.4 mmol/L (3.5-5.1)
[2023-06-19] MEDS: DICYCLOMINE HCL 10 MG CAP PO SCH ×2 (08:01→10:57)
[2023-06-19] MEDS: PROPRANOLOL HCL 10 MG TAB PO SCH ×2 (08:04→13:56)
[2023-06-19] MEDS: ENOXAPARIN INJ 40 MG/0.4 ML SYR SQ SCH (08:04)
[2023-06-19] MEDS: ADVANCED PROBIOTIC 1250 MG CAPSULE PO SCH (08:04)
[2023-06-19] MEDS: ROSUVASTATIN CALCIUM 10 MG TAB PO SCH (08:05)
[2023-06-19] MEDS: FLUTICASONE/VILANTEROL 100/25MCG 14 PUFFS/INHALER INH SCH (08:05)
[2023-06-19] MEDS: FLUTICASONE PROPIONATE NA SPR 16 GM BTL SCH (08:05)
[2023-06-19] MEDS: NYSTATIN SUSP 500,000 U/5 ML UDC PO SCH ×2 (08:05→12:37)
[2023-06-19] MEDS: ACETAMINOPHEN 325 MG TAB PO PRN (08:12)
[2023-06-19] MEDS: FAMOTIDINE 20MG IV PUSH 20 MG/5 ML SYR IV SCH (09:18)
--- NOTE | 2023-06-19 09:26 | Hospitalist Progress Note ---
Date of Service June 19, 2023 Assessment & Plan (1) Diverticulitis of large intestine with complication: Plan: Acute diverticulitis Suspected microperforation of sigmoid colon --CT ABD:Scattered diverticuli with wall thickening of the sigmoid colon and moderate adjacent mesenteric edema, characteristic of acute diverticulitis. Tiny foci of air near the sigmoid colon, best seen on series 6, image 242 may represent a small microperforation. No abscess. 2 splenic artery aneurysms noted, measuring 11.1 and 10.5 mm. Recommend annual abdominal CT or MR follow-up. Changed ciprofloxacin, Flagyl to po IV site appear to have infiltrated. USS IV ordered per bone grinder request Continue IVF Pain meds as needed Surgery recs noted Repeat CT abdomen from 06/16/23 showed no acute findings, noted stable likely m icroperforations, findings may have improved Tolerating clears well Surgery recommends slow advancement Tolerating full liquids Patient is ok with advancing diet today Low fiber diet ordered Continue bentyl per GI recs Patient will follow up with GI outpatient Replete hypokalemia Oral thrush Continue Nystatin Migraine --CT Head:No acute intracranial hemorrhage, midline shift, or mass effect. Analgesics as needed Monitor Hypertensive urgency Atypical chest pain likely secondary to above Blood pressure elevation likely situational secondary to pain Troponin negative Normal TSH --ECHO: No regional wall motion abnormality BP stable Continue home propranolol LISA Continue CPAP at bedtime H/O fibromyalgia Mood disorder Continue home medications Hyperglycemia HbA1c 5.3 DVT Px:Heparin SQ Code Status:Full code If patient tolerates diet well, consider dc home in 24h I spent a total of 45 minutes coordinating, documenting and providing care for this patient excluding time spent in performance of separately billed services Admission and Anticipated Discharge Date Admission Date: June 13, 2023 Subjective Patient seen and examined Reports feeling better Tolerating full liquids well Reports low abd pain is much improved today Denied nausea, vomiting. Reports some loose stools yesterday Denied any other complaints Physical Exam Constitutional: + well hydrated; no acute distress Eyes: PERRL, conjunctivae normal, anicteric sclerae ENMT: external ear and nose normal, oropharynx normal Respiratory: normal respiratory effort, lungs clear to auscultation Cardiovascular: Rate/Rhythm: regular rate and regular rhythm S1 S2 Gastrointestinal (Abdomen): normal bowel sounds, soft, nontender, no hepatosplenomegaly Musculoskeletal: no cyanosis or clubbing, extremities motor strength 5/5 Neurologic: PERRL, EOMI, accommodation nl, no face palsy, no dysarthria Psychiatric: A+Ox3, euthymic affect Results & Data Results & Data Vital Signs (Past 12 Hours) Vital Signs Temp Pulse Pulse Resp BP BP Pulse Ox 06/19/23 07:49 36.8 C 82 16 139/87 96 06/19/23 03:42 36.5 C 72 18 133/84 97 06/19/23 00:54 68 06/18/23 23:02 36.6 C 75 18 140/88 98 O2 Del Method 06/19/23 07:49 Room Air 06/19/23 03:42 Room Air 06/19/23 00:54 06/18/23 23:02 Room Air Laboratory Results Abnormal lab results 06/19/23 Range/Units 06:03 RBC 4.12 L (4.20-5.40) M/uL Hct 36.0 L (37.0-47.0) % Potassium 3.4 L (3.5-5.1) mmol/L Chloride 110 H (98-107) mmol/L BUN 3 L (6-23) mg/dl BUN/Creatinine Ratio 3.1 L (10-20) Glucose 104 H (70-99(Fasting)) mg/dl
[2023-06-19] MEDS ORDERED: CIPROFLOXACIN 500 MG TAB PO SCH (10:00)
--- NOTE | 2023-06-19 12:27 | Surgery Progress Note ---
Date of Service June 19, 2023 Assessment & Plan (1) Diverticulitis of large intestine with complication: Plan: Assessment: Follow-up diverticulitis. Patient feels better, no fevers, CT scan yesterday showed improvement. WBC normal. plan : continue iv antibiotic, may try full liquid diet today, possible switch to po antibiotic tomorrow. will F/U 06/19/2023 12:25 PM doing better, no abdominal pain, pt can be discharged home from surgery point. pt will F/U GI. sign off today, please call with questions or concerns. Thanks. Admission and Anticipated Discharge Date Admission Date: June 13, 2023 Subjective Follow-up with diverticulitis, patient doing better, no abdominal pain, passing gas and stool. No nausea, no vomiting, no fever, tolerated diet. Physical Exam Constitutional: WD/WN, vitals as above Eyes: PERRL, conjunctivae normal, anicteric sclerae Neck: trachea midline, no thyromegaly Respiratory: normal respiratory effort, lungs clear to auscultation Cardiovascular: RRR, no murmur, no edema Gastrointestinal (Abdomen): soft, NT, Nd, BS +. Neurologic: patellar DTR's 2+ bilat, sensation intact Psychiatric: A+Ox3, euthymic affect Results & Data Vital Signs (Past 12 Hours) Vital Signs Temp Pulse Pulse Resp BP BP Pulse Ox 06/19/23 11:33 36.6 C 74 16 139/89 97 06/19/23 08:00 75 06/19/23 08:00 06/19/23 07:49 36.8 C 82 16 139/87 96 06/19/23 03:42 36.5 C 72 18 133/84 97 06/19/23 00:54 68 O2 Del Method 06/19/23 11:33 Room Air 06/19/23 08:00 06/19/23 08:00 Room Air 06/19/23 07:49 Room Air 06/19/23 03:42 Room Air 06/19/23 00:54 Laboratory Results Lab Results 06/12/23 06/13/23 06/14/23 Range/Units 20:00 03:45 05:50 WBC 14.60 H 10.83 H 6.71 (4.8-10.8) K/ul RBC 4.73 4.08 L 3.93 L (4.20-5.40) M/uL Hgb 14.2 12.1 12.0 (12.0-16.0) g/dl Hct 42.6 37.4 35.3 L (37.0-47.0) % MCV 90.1 91.7 89.8 (80.0-100.0) fL MCH 30.0 29.7 30.5 (25.0-34.0) pg MCHC 33.3 32.4 34.0 (32.0-36.0) g/dL RDW Std Deviation 42.4 43.6 42.1 (36.4-46.3) fL RDW Coeff of [place] 12.8 13.0 12.7 (11.5-14.5) % Plt Count 259 230 227 (130-400) K/uL MPV 11.3 11.6 11.4 (9.4-12.4) fL Immature Gran % (Auto) 0.5 0.5 % Neut % (Auto) 80.0 67.4 % Lymph % (Auto) 11.6 21.4 % [place] % (Auto) 6.1 7.0 % Eos % (Auto) 1.4 3.2 % Baso % (Auto) 0.4 0.5 % Neut # (Auto) 11.68 H 7.30 H (1.40-6.50) K/uL Lymph # (Auto) 1.69 2.32 (1.20-3.40) K/uL [place] # (Auto) 0.89 H 0.76 H (0.11-0.59) K/uL Eos # (Auto) 0.20 0.35 (0.00-0.50) K/uL Baso # (Auto) 0.06 0.05 (0.00-0.20) K/uL Immature Gran # (Auto) 0.08 0.05 (0.01-0.20) K/uL PT 12.1 H (9.0-12.0) Seconds INR 1.1 (0.9-1.1) APTT 30 (21-31) Seconds PTT Ratio 1.1 Sodium 140 140 139 (136-145) mmol/L Potassium 3.6 3.7 3.8 (3.5-5.1) mmol/L Chloride 105 107 107 (98-107) mmol/L Carbon Dioxide 25 26 27 (21-32) mmol/L Anion Gap 10 7 5 (3-11) BUN 9 9 9 (6-23) mg/dl Creatinine 0.93 0.88 1.00 (0.6-1.2) mg/dl Est Cr Clr Drug Dosing 69.3 73.2 65.4 ml/min Est GFR ( Amer) 80.8 86.3 74.0 ml/min Est GFR (Non-Af Amer) 69.7 74.5 63.8 ml/min BUN/Creatinine Ratio 9.7 L 10.2 9.0 L (10-20) Glucose 116 H 92 95 (70-99(Fasting)) mg/dl Estimat Average Glucose 105 mg/dl Hemoglobin A1c 5.3 (4.5-5.6) % Lactate 1.0 (0.4-2.0) mmol/L Calcium 9.7 8.6 8.4 L (8.6-10.3) mg/dl Ionized Calcium (1.12-1.32) mmol/L Phosphorus (2.5-4.9) mg/dl Magnesium 2.0 1.9 (1.7-2.4) mg/dl Total Bilirubin 1.0 (0.2-1.0) mg/dl AST 13 (13-39) U/L ALT 10 (7-52) U/L Alkaline Phosphatase 75 (34-104) U/L Troponin I High Sens 3.9 (0-14) pg/ml Total Protein 7.3 (6.0-8.3) gm/dl Albumin 4.3 (3.4-5.0) gm/dl Globulin 3.0 (2.5-4.0) gm/dl Albumin/Globulin Ratio 1.4 (0.9-2) Lipase 11 (11-82) U/L TSH 1.179 (0.300-4.500) uIu/ml HCG, Qual Negative (Negative) Urine Color Dark Yellow Urine Appearance Clear (Clear) Urine pH 5.5 (4.5-7.5) Ur Specific [employer] 1.030 (1.000-1.030) Urine Protein 1+ H (Negative) Urine Glucose (UA) Negative (Negative) Urine Ketones 1+ H (Negative) Urine Blood 2+ H (Negative) Urine Nitrite Negative (Negative) Urine Bilirubin 1+ H (Negative) Urine Urobilinogen Negative (Negative) Ur Leukocyte Esterase Negative (Negative) Urine WBC (Auto) 1-5 (0-5) /hpf Urine RBC (Auto) 10-30 H (0-4) /hpf U Hyaline Cast (Auto) 0 (0-5) /lpf U Epithel Cells (Auto) 5-10 H (0-5) /lpf Urine Bacteria (Auto) Negative (Negative) Stl C. diff Tox B Gene (Neg) Adenovirus (PCR) Not Detected (NotDetected) B. pertussis DNA (PCR) Not Detected (NotDetected) B.parapertussis DNA PCR Not Detected (NotDetected) C. pneumoniae DNA (PCR) Not Detected (NotDetected) Coronavirus OC43 (PCR) Not Detected (NotDetected) Coronavirus HKU1 (PCR) Not Detected (NotDetected) Coronavirus 229E (PCR) Not Detected (NotDetected) SARS-CoV-2 (PCR) Not Detected (NotDetected) Coronavirus NL63 (PCR) Not Detected (NotDetected) Human Metapneumovir PCR Not Detected (NotDetected) Influenza Type A (PCR) Not Detected (NotDetected) Influenza Type B (PCR) Not Detected (NotDetected) M. pneumoniae (PCR) Not Detected (NotDetected) Parainfluenza 1 (PCR) Not Detected (NotDetected) Parainfluenza 2 (PCR) Not Detected (NotDetected) Parainfluenza 3 (PCR) Not Detected (NotDetected) Parainfluenza 4 (PCR) Not Detected (NotDetected) RSV (PCR) Not Detected (NotDetected) Entero/Rhino (PCR) Not Detected (NotDetected) 06/15/23 06/16/23 06/16/23 Range/Units 06:21 06:07 Unknown WBC 7.24 6.30 (4.8-10.8) K/ul RBC 3.80 L 4.02 L (4.20-5.40) M/uL Hgb 11.6 L 12.1 (12.0-16.0) g/dl Hct 34.0 L 36.5 L (37.0-47.0) % MCV 89.5 90.8 (80.0-100.0) fL MCH 30.5 30.1 (25.0-34.0) pg MCHC 34.1 33.2 (32.0-36.0) g/dL RDW Std Deviation 41.6 41.9 (36.4-46.3) fL RDW Coeff of [place] 12.6 12.6 (11.5-14.5) % Plt Count 267 259 (130-400) K/uL MPV 11.1 10.9 (9.4-12.4) fL Immature Gran % (Auto) % Neut % (Auto) % Lymph % (Auto) % [place] % (Auto) % Eos % (Auto) % Baso % (Auto) % Neut # (Auto) (1.40-6.50) K/uL Lymph # (Auto) (1.20-3.40) K/uL [place] # (Auto) (0.11-0.59) K/uL Eos # (Auto) (0.00-0.50) K/uL Baso # (Auto) (0.00-0.20) K/uL Immature Gran # (Auto) (0.01-0.20) K/uL PT (9.0-12.0) Seconds INR (0.9-1.1) APTT (21-31) Seconds PTT Ratio Sodium 141 141 (136-145) mmol/L Potassium 3.7 3.8 (3.5-5.1) mmol/L Chloride 109 H 110 H (98-107) mmol/L Carbon Dioxide 27 26 (21-32) mmol/L Anion Gap 5 5 (3-11) BUN 7 6 (6-23) mg/dl Creatinine 0.99 0.98 (0.6-1.2) mg/dl Est Cr Clr Drug Dosing 65.5 67.0 ml/min Est GFR ( Amer) 74.9 75.8 ml/min Est GFR (Non-Af Amer) 64.6 65.4 ml/min BUN/Creatinine Ratio 7.1 L 6.1 L (10-20) Glucose 103 H 106 H (70-99(Fasting)) mg/dl Estimat Average Glucose mg/dl Hemoglobin A1c (4.5-5.6) % Lactate (0.4-2.0) mmol/L Calcium 8.3 L 8.3 L (8.6-10.3) mg/dl Ionized Calcium (1.12-1.32) mmol/L Phosphorus (2.5-4.9) mg/dl Magnesium (1.7-2.4) mg/dl Total Bilirubin (0.2-1.0) mg/dl AST (13-39) U/L ALT (7-52) U/L Alkaline Phosphatase (34-104) U/L Troponin I High Sens (0-14) pg/ml Total Protein (6.0-8.3) gm/dl Albumin (3.4-5.0) gm/dl Globulin (2.5-4.0) gm/dl Albumin/Globulin Ratio (0.9-2) Lipase (11-82) U/L TSH (0.300-4.500) uIu/ml HCG, Qual (Negative) Urine Color Urine Appearance (Clear) Urine pH (4.5-7.5) Ur Specific [employer] [place] (1.000-1.030) Urine Protein (Negative) Urine Glucose (UA) (Negative) Urine Ketones (Negative) Urine Blood (Negative) Urine Nitrite (Negative) Urine Bilirubin (Negative) Urine Urobilinogen (Negative) Ur Leukocyte Esterase (Negative) Urine WBC (Auto) (0-5) /hpf Urine RBC (Auto) (0-4) /hpf U Hyaline Cast (Auto) (0-5) /lpf U Epithel Cells (Auto) (0-5) /lpf Urine Bacteria (Auto) (Negative) Stl C. diff Tox B Gene Negative Cdiff Gene (Neg) Adenovirus (PCR) (NotDetected) B. pertussis DNA (PCR) (NotDetected) B.parapertussis DNA PCR (NotDetected) C. pneumoniae DNA (PCR) (NotDetected) Coronavirus OC43 (PCR) (NotDetected) Coronavirus HKU1 (PCR) (NotDetected) Coronavirus 229E (PCR) (NotDetected) SARS-CoV-2 (PCR) (NotDetected) Coronavirus NL63 (PCR) (NotDetected) Human Metapneumovir PCR (NotDetected) Influenza Type A (PCR) (NotDetected) Influenza Type B (PCR) (NotDetected) M. pneumoniae (PCR) (NotDetected) Parainfluenza 1 (PCR) (NotDetected) Parainfluenza 2 (PCR) (NotDetected) Parainfluenza 3 (PCR) (NotDetected) Parainfluenza 4 (PCR) (NotDetected) RSV (PCR) (NotDetected) Entero/Rhino (PCR) (NotDetected) 06/17/23 06/18/23 06/19/23 Range/Units 08:14 06:30 06:03 WBC 7.09 6.91 8.02 (4.8-10.8) K/ul RBC 4.36 4.01 L 4.12 L (4.20-5.40) M/uL Hgb 13.2 12.0 12.6 (12.0-16.0) g/dl Hct 38.3 35.0 L 36.0 L (37.0-47.0) % MCV 87.8 87.3 87.4 (80.0-100.0) fL MCH 30.3 29.9 30.6 (25.0-34.0) pg MCHC 34.5 34.3 35.0 (32.0-36.0) g/dL RDW Std Deviation 40.7 40.2 40.5 (36.4-46.3) fL RDW Coeff of [place] 12.7 12.7 12.8 (11.5-14.5) % Plt Count 304 270 282 (130-400) K/uL MPV 11.2 11.0 10.9 (9.4-12.4) fL Immature Gran % (Auto) 0.3 % Neut % (Auto) 59.6 % Lymph % (Auto) 26.2 % [place] % (Auto) 8.1 % Eos % (Auto) 5.2 % Baso % (Auto) 0.6 % Neut # (Auto) 4.12 (1.40-6.50) K/uL Lymph # (Auto) 1.81 (1.20-3.40) K/uL [place] # (Auto) 0.56 (0.11-0.59) K/uL Eos # (Auto) 0.36 (0.00-0.50) K/uL Baso # (Auto) 0.04 (0.00-0.20) K/uL Immature Gran # (Auto) 0.02 (0.01-0.20) K/uL PT (9.0-12.0) Seconds INR (0.9-1.1) APTT (21-31) Seconds PTT Ratio Sodium 141 142 140 (136-145) mmol/L Potassium 3.8 3.6 3.4 L (3.5-5.1) mmol/L Chloride 110 H 111 H 110 H (98-107) mmol/L Carbon Dioxide 25 25 25 (21-32) mmol/L Anion Gap 6 6 5 (3-11) BUN 4 L 3 L 3 L (6-23) mg/dl Creatinine 1.00 0.94 0.96 (0.6-1.2) mg/dl Est Cr Clr Drug Dosing 65.5 69.6 68.3 ml/min Est GFR ( Amer) 74.0 79.7 77.7 ml/min Est GFR (Non-Af Amer) 63.8 68.8 67.0 ml/min BUN/Creatinine Ratio 4.0 L 3.2 L 3.1 L (10-20) Glucose 102 H 101 H 104 H (70-99(Fasting)) mg/dl Estimat Average Glucose mg/dl Hemoglobin A1c (4.5-5.6) % Lactate (0.4-2.0) mmol/L Calcium 9.0 8.6 8.7 (8.6-10.3) mg/dl Ionized Calcium 1.18 (1.12-1.32) mmol/L Phosphorus 3.6 3.6 (2.5-4.9) mg/dl Magnesium 1.7 1.7 (1.7-2.4) mg/dl Total Bilirubin 0.5 (0.2-1.0) mg/dl AST 32 (13-39) U/L ALT 13 (7-52) U/L Alkaline Phosphatase 50 (34-104) U/L Troponin I High Sens (0-14) pg/ml Total Protein 5.8 L (6.0-8.3) gm/dl Albumin 3.5 (3.4-5.0) gm/dl Globulin 2.3 L (2.5-4.0) gm/dl Albumin/Globulin Ratio 1.5 (0.9-2) Lipase (11-82) U/L TSH (0.300-4.500) uIu/ml HCG, Qual (Negative) Urine Color Urine Appearance (Clear) Urine pH (4.5-7.5) Ur Specific [place] (1.000-1.030) Urine Protein (Negative) Urine Glucose (UA) (Negative) Urine Ketones (Negative) Urine Blood (Negative) Urine Nitrite (Negative) Urine Bilirubin (Negative) Urine Urobilinogen (Negative) Ur Leukocyte Esterase (Negative) Urine WBC (Auto) (0-5) /hpf Urine RBC (Auto) (0-4) /hpf U Hyaline Cast (Auto) (0-5) /lpf U Epithel Cells (Auto) (0-5) /lpf Urine Bacteria (Auto) (Negative) Stl C. diff Tox B Gene (Neg) Adenovirus (PCR) (NotDetected) B. pertussis DNA (PCR) (NotDetected) B.parapertussis DNA PCR (NotDetected) C. pneumoniae DNA (PCR) (NotDetected) Coronavirus OC43 (PCR) (NotDetected) Coronavirus HKU1 (PCR) (NotDetected) Coronavirus 229E (PCR) (NotDetected) SARS-CoV-2 (PCR) (NotDetected) Coronavirus NL63 (PCR) (NotDetected) Human Metapneumovir PCR (NotDetected) Influenza Type A (PCR) (NotDetected) Influenza Type B (PCR) (NotDetected) M. pneumoniae (PCR) (NotDetected) Parainfluenza 1 (PCR) (NotDetected) Parainfluenza 2 (PCR) (NotDetected) Parainfluenza 3 (PCR) (NotDetected) Parainfluenza 4 (PCR) (NotDetected) RSV (PCR) (NotDetected) Entero/Rhino (PCR) (NotDetected)
[2023-06-19] MEDS: oxyCODONE HCL IR 5 MG TAB (IMMEDIATE RELEASE) PO PRN (12:35)
--- NOTE | 2023-06-19 13:25 | Discharge Summary ---
Date of Service June 19, 2023 Admission HPI Per Admitting Provider History obtained from patient and records. Medical history significant for LISA on CPAP, past history diverticulitis, migraine, fibromyalgia, anxiety/mood disorder. Last confinement November 2022 for left knee pain secondary to fall Patient noted worsening of achy chronic generalized abdominal pain in the last week. Alternating constipation/diarrhea. Hematochezia from straining. Some chills. Substernal chest pain different from abdominal pain. Achy headache symptoms different from migraine with neck pain. Highest SBP of 180s documented at the ER. IV Cipro and Flagyl administered for diverticulitis. Medical History as above 2022 colonoscopy showed diverticulosis Surgical History : Hysteroscopy with biopsy, cholecystectomy, adenoidectomy Family History : Breast cancer, colon polyps, migraine Personal/Social history : Non-smoker, occasional EtOH intake, disabled Admission Exam Per Admitting Provider GENERAL: Comfortable, slightly anxious, obese, no respiratory distress SKIN: Normal color, warm HEENT: Bespectacled, [place] palpebral conjunctivae, no ptosis, dry buccal mucosa NECK : Supple, short neck, no tenderness CHEST : CTA, no tenderness HEART : RRR, no obvious murmurs ABDOMEN: Some distention, left-sided abdominal tenderness EXTREMITIES : Minimal LE swelling, no LE tenderness, no other conspicuous deformities noted NEUROLOGIC : Coherent, no facial asymmetry, no other gross focality Principal Diagnosis Diverticulitis of large intestine with complication Discharge Exam Constitutional + well hydrated; no acute distress Eyes PERRL, conjunctivae normal, anicteric sclerae ENMT external ear and nose normal, oropharynx normal Respiratory normal respiratory effort, lungs clear to auscultation Cardiovascular Rate/Rhythm: regular rate and regular rhythm S1 S2 Gastrointestinal (Abdomen) normal bowel sounds, soft, nontender, no hepatosplenomegaly Musculoskeletal no cyanosis or clubbing, extremities motor strength 5/5 Neurologic PERRL, EOMI, accommodation nl, no face palsy, no dysarthria Psychiatric A+Ox3, euthymic affect Discharge Data Allergies Allergy/AdvReac Type Severity Reaction Status Date / Time Penicillins Allergy Unknown Verified 06/12/23 23:26 Sulfa (Sulfonamide Allergy Unknown Verified 06/12/23 23:26 Antibiotics) acesulfame AdvReac Unknown Verified 06/16/23 19:42 aspartame AdvReac Unknown Verified 06/16/23 19:42 peanut AdvReac Unknown Verified 06/12/23 23:26 pepper (genus Capsicum) AdvReac Unknown Verified 06/12/23 23:26 saccharin AdvReac Unknown Verified 06/16/23 19:42 shellfish derived AdvReac Unknown Verified 06/12/23 23:26 soy AdvReac Unknown Verified 06/12/23 23:26 sucralose AdvReac Unknown Verified 06/16/23 19:42 Consultations 06/12/23 22:40 ED Decision to Admit Stat 06/13/23 01:22 Consult General Surgery Routine 06/16/23 10:36 Consult Gastroenterology Routine Ordered Studies 06/12/23 19:47 CT angio chest PE protocol Stat 06/12/23 19:48 CT abd pelvis IV con only Stat 06/12/23 22:56 CT head/brain wo con Stat 06/16/23 10:36 CT Abd and Pelvis [CT abd pelvis wo con] Urgent Hospital Course (1) Diverticulitis of large intestine with complication: Acute diverticulitis Suspected microperforation of sigmoid colon --CT ABD on admission:Scattered diverticuli with wall thickening of the sigmoid colon and moderate adjacent mesenteric edema, characteristic of acute diverticulitis. Tiny foci of air near the sigmoid colon, best seen on series 6, image 242 may represent a small microperforation. No abscess. 2 splenic artery aneurysms noted, measuring 11.1 and 10.[address] Recommend annual abdominal CT or MR follow-up. Repeat CT abdomen from 06/16/23 showed no acute findings, noted stable likely microperforations, findings may have improved Patient was started on IV ciprofloxacin and flagyl Initially, had bowel rest and then diet slowly started Diet advanced to low fiber diet today Patient tolerated this well today with no complaints Patient was comanaged with Gastroenterology and General surgery. She did not require any procedure Patient's antibiotics changed to po ciproflaxcin and flagyl to complete 2 weeks of treatment Was also started on bentyl AC HS per GI Patient needs to follow up with GI outpatient Oral thrush Continue Nystatin Migraine --CT Head:No acute intracranial hemorrhage, midline shift, or mass effect. Analgesics as needed Monitor Hypertensive urgency Atypical chest pain likely secondary to above Blood pressure elevation likely situational secondary to pain Troponin negative Normal TSH --ECHO: No regional wall motion abnormality BP has been stable on home propranolol Continue home propranolol LISA Continue CPAP at bedtime H/O fibromyalgia Mood disorder Continue home medications Hyperglycemia HbA1c 5.3 Total Time Total Time Spent Total Time Spent (In Minutes): 35 Total Time Includes: Examination of the Patient, Discharge Planning and Medication Reconciliation Discharge Plan Discharge Items Patient Disposition: Home - Self-Care Reason For Visit: Worsening abdominal pain Discharge Diagnosis: Diverticulitis of large intestine with complication Condition on Discharge: Good Activity: Resume your previous activity Non-emergency contact: Primary Care Provider Call non-emergency contact if: you have any medication questions Follow-up/Referrals: Vaughn Powell CRNP [Nurse Practitioner] - (The GI office will contact you for a follow up appointment.) Leonila Angel DO [Primary Care Provider] - (Date & Time 06/23/2023 8:00 AM Provider Leonila Angel DO Department [facility] ) Diet: Heart Healthy and Low Fiber Addtl Attending Provider Instructions: Mrs Zuleyka Garcia came to the hospital with worsening abdominal pain and chest pain. You were evaluated and managed for complicated diverticulitis. You were comanaged with the Patch Washer and General surgeon. However, you did not require any surgical procedure. You are being discharged on oral antibiotics to complete treatment. Please take the Probiotics while on antibiotics You were started on bentyl Please ensure follow up with your Primary Doctor and the Patch Washer. It was a pleasure taking care of you. Pending Studies at Discharge: No Stand-Alone Forms: My [facility] [place], Smoking Cessation Medications and DC Order Prescriptions: New ciprofloxacin HCl 500 mg Tablet 500 mg PO BID Qty: 15 0RF metronidazole 500 mg Tablet 500 mg PO TID Qty: 22 0RF nystatin 100,000 unit/mL Suspension 5 ml PO QID Qty: 100 0RF dicyclomine 10 mg Capsule 10 mg PO ACHS Qty: 90 0RF Advanced Probiotic 625 mg (10 billion cell) Capsule 2 cap PO DAILY Qty: 14 0RF Continued cyclobenzaprine 10 mg tablet 10 mg PO TID PRN (Reason: Muscle Spasm) ondansetron HCl 4 mg tablet 4 mg PO Q8 PRN (Reason: Nausea) propranolol 10 mg tablet 10 mg PO TID clindamycin phosphate 1 % gel 1 applic TOPICAL DIRECTED Rx Instructions: PRN Bid to new or resolving spots on face, chin, body naratriptan 2.5 mg tablet 2.5 mg PO DIRECTED PRN (Reason: Migraine Headache) Rx Instructions: May repeat once @ 2 hours, Take up to 2 days a week. rosuvastatin 10 mg tablet 10 mg PO QAM Rx Instructions: has not been taking pregabalin 75 mg capsule 75 mg PO HS zolpidem 12.5 mg tablet,ext release multiphase 12.5 mg PO HS clonazepam 1 mg Tablet 0.5 mg PO BID PRN (Reason: Anxiety) albuterol sulfate [Ventolin HFA] 90 mcg/actuation Hfa Aerosol Inhaler 2 puff INHALATION Q4 PRN (Reason: Shortness Of Breath Or Wheezing) fluticasone propionate 50 mcg/actuation [place],Suspension 2 spray INTRANASAL [facility] Rx Instructions: administer into each nostril melatonin 5 mg Tablet 0 mg PO HS fluticasone furoate-vilanterol [Breo Ellipta] 100-25 mcg/dose blister with device 1 ea INHALATION DAILY D-Ribose Tabs 1 tab PO DAILY Rx Instructions: will start powder when tabs are done. Aimovig Autoinjector 140 mg/mL auto-injector 140 mg SUBCUT .MONTH Discharge Orders: Discharge Order (Routine); Ordered 06/19/23 Ordered By: Sharyn Ren Admission Data Admit Date/Time: 06/13/23 00:56 Attending Provider: Sharyn Ren I. Admit Provider: Stanislaw Alvarado Primary Care Provider: Leonila Angel Other Providers: Heri Arellano; Alexis Neal; Ben Cortes; Vimal Funk; Danie Phelps; Selma Cooper; Kavon Edwards; Carlo Campa; Emeterio Han; Feliciano Hook; Satnislaw Alvarado; Vaughn Powell; Jameson Rios; Tatiana Santos; Dee Cowan; Melisa Blakely; Manuel Irwin; Catalino Carbone; Severino Watkins; Ladi Irene; Gamal Ruiz; Juma Garcia; Sushma Awad; Dionna Oseguera; Tegan Singletary; Jannie Morales; Moiz Gerard; Jimmy Loomis; Axel Walden; Adore Ann; Bucky Santos Jr; Vj Contreras Other Interventions: Discharge Summary Assessment (RN) Last Done: 06/19/23 13:43
[2023-06-19] MEDS ORDERED: metroNIDAZOLE 500 MG TAB PO SCH (14:00)
== END 2023-06-19 14:25 | disposition home or self-care (01) | DRG 392 ==
LOC: ED 19:19 → SUATTDRO 06-13 00:56 → EDINP 06-13 00:56 → 2N 06-13 17:57